=== PATIENT | female | born 1980 | race Hispanic/Latino ===

== ENCOUNTER 2018-01-25 14:33 | Emergency (ER) | payer BC ==
--- NOTE | 2018-01-25 16:26 | RAD REPORT ---
EXAM DESCRIPTION: CT - Head Brain Wo Cont - 01/25/2018 4:14 pm CLINICAL HISTORY: Headache, nausea, vomiting COMPARISON: None. TECHNIQUE: Axial 5 mm thick images of the head were obtained without IV contrast. All CT scans are performed using dose optimization technique as appropriate and may include automated exposure control or mA/KV adjustment according to patient size. FINDINGS: No intracranial hemorrhage, mass, edema or shift of mid-line structures. No acute infarcti on changes seen. No abnormal extra-axial fluid collections. Ventricles are normal. Mastoid air cells and visualized portions of the paranasal sinuses are clear. No acute bony findings. IMPRESSION: Negative non-contrast CT head examination.
[2018-01-25] MEDS ORDERED: MORPHINE 4 MG/ML SYR ONE (16:52)
[2018-01-25] MEDS ORDERED: METOCLOPRAMIDE 10 MG/2mL INJ ONE (16:52)
[2018-01-25] MEDS ORDERED: NA CHLORIDE 0.9% 1,000 ML ONE (16:52)
[2018-01-25 17:41] LABS: Urine Blood 2+ (NEG); Urine Glucose NEGATIVE (NEG); Urine Protein NEGATIVE (NEG); Urine Specific Gravity >1.030 (1.005-1.030); Urine pH 5.5 (5.0-7.0)
--- NOTE | 2018-01-25 18:02 | EDPHYS ---
Physician Documentation [facility] Name: Shirley Leija Age: 37 yrs Sex: Female : 1980 Arrival Date: 01/25/2018 Time: 14:36 Bed 14 Private MD: Akhil Noble H ED Physician Armani Mon HPI: 01/25 16:28 This 37 yrs old Female presents to ER via Ambulatory with complaints of rn Headache, Dizziness, Vomiting. 16:28 The patient complains of pain to the forehead. The patient describes the headache as rn aching. 16:29 Onset: The symptoms/episode began/occurred yesterday. Associated signs and symptoms: rn Pertinent positives: nausea, Photophobia vomiting, Pertinent negatives: fever, neck stiffness. Severity of symptoms: At its worst the pain was moderate, in the emergency department the pain is unchanged. Headache History: The patient has had previous headaches and this one is similar to previous episodes. The patient has experienced similar episodes in the past. The patient has not recently seen a physician. 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 - Social history:: Smoking status: Patient/guardian denies using tobacco. - Ebola Screening: : No symptoms or risks identified at this time. - Family history:: not pertinent. - Hospitalizations: : No recent hospitalization is reported. ROS: 16:29 Constitutional: Negative for fever, chills, and weight loss, Eyes: Negative for injury, rn pain, redness, and discharge, Neck: Negative for injury, pain, and swelling, Cardiovascular: Negative for chest pain, palpitations, and edema, Respiratory: Negative for shortness of breath, cough, wheezing, and pleuritic chest pain, Abdomen/GI: Negative for abdominal pain, diarrhea, and constipation, MS/Extremity: Negative for injury and deformity, Skin: Negative for injury, rash, and discoloration, Neuro: Negative for weakness, numbness, tingling, and seizure. Exam: 16:29 Constitutional: This is a well developed, well nourished patient who is awake, alert, rn and in no acute distress. Head/Face: Normocephalic, atraumatic. Eyes: Pupils equal round and reactive to light, extra-ocular motions intact. Lids and lashes normal. Conjunctiva and sclera are non-icteric and not injected. Cornea within normal limits. Periorbital areas with no swelling, redness, or edema. Neck: Trachea midline, no thyromegaly or masses palpated, and no cervical lymphadenopathy. Supple, full range of motion without nuchal rigidity, or vertebral point tenderness. No Meningismus. Cardiovascular: Regular rate and rhythm with a normal S1 and S2. No gallops, murmurs, or rubs. Normal PMI, no JVD. No pulse deficits. Respiratory: Lungs have equal breath sounds bilaterally, clear to auscultation and percussion. No rales, rhonchi or wheezes noted. No increased work of breathing, no retractions or nasal flaring. Abdomen/GI: Soft, non-tender, with normal bowel sounds. No distension or tympany. No guarding or rebound. No evidence of tenderness throughout. Skin: Warm, dry with normal turgor. Normal color with no rashes, no lesions, and no evidence of cellulitis. MS/ Extremity: Pulses equal, no cyanosis. Neurovascular intact. Full, normal range of motion. Equal circumference. Neuro: Awake and alert, GCS 15, oriented to person, place, time, and situation. Cranial nerves II-XII grossly intact. Motor strength 5/5 in all extremities. Sensory grossly intact. Cerebellar exam normal. Vital Signs: 14:40 BP 121 / 62 RA Sitting (auto/lg); Pulse 56; Resp 18; Temp 98.8(TE); Pulse Ox 99% ; sv Weight 72.57 kg; Height 5 ft. 0 in. (152.40 cm); Pain 10/10; 17:04 BP 112 / 66; Pulse 63; Resp 16; Pulse Ox 100% on R/A; aj1 18:11 BP 124 / 73; Pulse 53; Resp 18; Pulse Ox 100% on R/A; aj1 14:40 Body Mass Index 31.25 (72.57 kg, 152.40 cm) sv [place] Coma Score: 18:01 Eye Response: spontaneous(4). Verbal Response: oriented(5). Motor Response: obeys rn commands(6). Total: 15. MDM: 15:57 Patient medically screened. rn 18:01 Differential diagnosis: migraine, tension headache, vasomotor headache. Data reviewed: rn vital signs, nurses notes, lab test result(s), radiologic studies, CT scan, and as a result, I will discharge patient. Counseling: I had a detailed discussion with the patient and/or guardian regarding: the historical points, exam findings, and any diagnostic results supporting the discharge/admit diagnosis, radiology results, the need for further work-up and treatment in the hospital, to return to the emergency department if symptoms worsen or persist or if there are any questions or concerns that arise at home. Response to treatment: the patient's symptoms have markedly improved after treatment, and as a result, I will discharge patient. Special discussion: I discussed with the patient/guardian in detail that at this point there is no indication for admission to the hospital. It is understood, however, that if the symptoms persist or worsen the patient needs to return immediately for re-evaluation. 01/25 16:44 Order name: Urine Dipstick--Ancillary (enter results); Complete Time: 17:58 01/25 16:44 Order name: Urine --Ancillary (enter results); Complete Time: 17:58 01/25 16:02 Order name: CT Head Brain wo Cont; Complete Time: 16:28 rn 01/25 16:02 Order name: Urine Dipstick-Ancillary (obtain specimen); Complete Time: 16:44 rn 01/25 16:02 Order name: Urine Test (obtain specimen); Complete Time: 16:44 rn 01/25 16:02 Order name: IV Start; Complete Time: 16:45 rn Administered Medications: 16:55 Drug: NS 0.9% 1000 ml Route: IV; Rate: 1000 ml; Site: right antecubital; aj1 18:22 Follow up: IV Status: Completed infusion; IV Intake: 1000ml aj1 16:55 Drug: Reglan 10 mg Route: IVP; Site: right antecubital; aj1 18:22 Follow up: Response: No adverse reaction aj1 16:55 Drug: morphine 4 mg Route: IVP; Site: right antecubital; aj1 18:22 Follow up: Response: No adverse reaction aj1 Disposition: 01/25/18 18:01 Discharged to Home. Impression: Headache. - Condition is Stable. - Discharge Instructions: Migraine Headache. - Medication Reconciliation Form, Thank You Letter, Antibiotic Education, Prescription Opioid Use form. - Follow up: Private Physician; When: As needed; Reason: Recheck today's complaints, Re-evaluation by your physician. - Problem is new. - Symptoms have improved. Signatures: Dispatcher [employer] EDMirta Friedman RN RN aj1 Tori Waters RN RN sv Nieto, Roman, MD MD rn case manager hospice: (The following items were deleted from the chart) 18:23 18:01 01/25/2018 18:01 Discharged to Home. Impression: Headache. Condition is Stable. aj1 Forms are Medication Reconciliation Form, Thank You Letter, Antibiotic Education, Prescription Opioid Use. Follow up: Private Physician; When: As needed; Reason: Recheck today's complaints, Re-evaluation by your physician. Problem is new. Symptoms have improved. rn
--- NOTE | 2018-01-25 18:02 | ER ---
Nurse's Notes [facility] Name: Shirley Leija Age: 37 yrs Sex: Female : 1980 Arrival Date: 01/25/2018 Time: 14:36 Bed 14 Private MD: Akhil Noble H Diagnosis: Headache Presentation: 01/25 14:39 Presenting complaint: Patient states: headache x 1 day. c/o nausea, vomiting, sv dizziness. Transition of care: patient was not received from another setting of care. Onset of symptoms was January 24, 2017. Care prior to arrival: None. 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 - Social history:: Smoking status: Patient/guardian denies using tobacco. - Ebola Screening: : No symptoms or risks identified at this time. - Family history:: not pertinent. - Hospitalizations: : No recent hospitalization is reported. Screenin:23 Abuse screen: Denies threats or abuse. Denies injuries from another. Nutritional aj1 screening: No deficits noted. Tuberculosis screening: No symptoms or risk factors identified. Assessment: 16:23 General: Appears in no apparent distress. uncomfortable, Behavior is calm, cooperative, aj1 appropriate for age. Pain: Complains of pain in right temporal area and right occipital area Pain does not radiate. Pain currently is 10 out of 10 on a pain scale. Quality of pain is described as throbbing, Pain began 1 day ago. Alleviated by nothing. Aggravated by loud noises. Neuro: Level of Consciousness is awake, alert, obeys commands, Oriented to person, place, time, situation, Speech is normal, Facial symmetry appears normal, Reports dizziness, headache Denies weakness blurred vision photophobia. Cardiovascular: Patient's skin is warm and dry. Respiratory: Airway is patent Respiratory effort is even, unlabored, Respiratory pattern is regular, symmetrical. GI: No signs and/or symptoms were reported involving the gastrointestinal system. : No signs and/or symptoms were reported regarding the genitourinary system. EENT: No signs and/or symptoms were reported regarding the EENT system. Derm: No signs and/or symptoms reported regarding the dermatologic system. Skin is pink, warm \T\ dry. normal. Musculoskeletal: No signs and/or symptoms reported regarding the musculoskeletal system. Capillary refill. 17:01 Reassessment: Patient appears in no apparent distress at this time. No changes from aj1 previously documented assessment. Patient and/or family updated on plan of care and expected duration. Pain level reassessed. Patient is alert, oriented x 3, equal unlabored respirations, skin warm/dry/pink. 18:10 Reassessment: Patient appears in no apparent distress at this time. No changes from aj1 previously documented assessment. Patient and/or family updated on plan of care and expected duration. Pain level reassessed. Patient is alert, oriented x 3, equal unlabored respirations, skin warm/dry/pink. Vital Signs: 14:40 BP 121 / 62 RA Sitting (auto/lg); Pulse 56; Resp 18; Temp 98.8(TE); Pulse Ox 99% ; sv Weight 72.57 kg; Height 5 ft. 0 in. (152.40 cm); Pain 10/10; 17:04 BP 112 / 66; Pulse 63; Resp 16; Pulse Ox 100% on R/A; aj1 18:11 BP 124 / 73; Pulse 53; Resp 18; Pulse Ox 100% on R/A; aj1 14:40 Body Mass Index 31.25 (72.57 kg, 152.40 cm) sv [place] Coma Score: 18:01 Eye Response: spontaneous(4). Verbal Response: oriented(5). Motor Response: obeys rn commands(6). Total: 15. ED Course: 14:36 Patient arrived in ED. mr 14:36 Akhil Noble DO is Private Physician. mr 14:39 Triage completed. sv 14:40 Arm band placed on left wrist. sv 14:41 Patient placed in waiting room, on a stretcher, Patient notified of wait time. sv 15:50 Mirta Robb RN is Primary Nurse. aj1 15:57 Armani Mon MD is Attending Physician. rn 16:[address] sj 16:[address] via wheelchair. 16:13 CT completed. Patient tolerated procedure well. Patient moved back from CT. sw 16:14 CT Head Brain wo Cont In Process Unspecified. EDMS 16:23 Patient has correct armband on for positive identification. Bed in low position. Call aj1 light in reach. Side rails up X 1. 16:23 No provider procedures requiring assistance completed. aj1 18:21 IV discontinued, intact, bleeding controlled, No redness/swelling at site. Pressure aj1 dressing applied. Administered Medications: 16:55 Drug: NS 0.9% 1000 ml Route: IV; Rate: 1000 ml; Site: right antecubital; aj1 18:22 Follow up: IV Status: Completed infusion; IV Intake: 1000ml aj1 16:55 Drug: Reglan 10 mg Route: IVP; Site: right antecubital; aj1 18:22 Follow up: Response: No adverse reaction aj1 16:55 Drug: morphine 4 mg Route: IVP; Site: right antecubital; aj1 18:22 Follow up: Response: No adverse reaction aj Intake: 18:22 IV: 1000ml; Total: 1000ml. aj1 Outcome: 18:01 Discharge ordered by . rn 18:21 Discharged to home ambulatory. aj1 18:21 Condition: good 18:21 Discharge instructions given to patient, Instructed on discharge instructions, follow up and referral plans. Demonstrated understanding of instructions, follow-up care. 18:23 Patient left the ED. aj1 Signatures: Dispatcher [employer] EDMirta Friedman RN RN aj1 Verde, Stephanie, RN RN sv Rivera, Maria mr Jones, Armani Redman MD MD rn Warren, Shannon sw
[2018-01-25 18:32] VITALS: TEMP 98.8
[2018-01-25 18:35] VITALS: O2SAT 100
[2018-01-25 18:36] VITALS: BP 124/73
== END 2018-01-25 18:23 | disposition home or self-care (01) ==
LOC: ER 14:33
DX: R51 Headache (principal); R42 Dizziness and giddiness; R11.10 Vomiting, unspecified
CPT/HCPCS: 70450; 81003; 81025; 96361; 96374; 96375; 99284; J2765; J7030

== ENCOUNTER 2018-06-15 14:38 | Emergency (ER) | payer BC, SELFPAY ==
[2018-06-15] MEDS ORDERED: ONDANSETRON 4 MG/2 ML VIAL ONE (16:44)
[2018-06-15] MEDS ORDERED: KETOROLAC 30 MG/ML INJ ONE (16:44)
[2018-06-15] MEDS ORDERED: NA CHLORIDE 0.9% 1,000 ML ONE (16:44)
[2018-06-15 16:57] LABS: Absolute Lymphocytes (CBC) 2.4 K/uL (0.7-4.9); Absolute Monocytes 0.6 K/uL (0.1-1.3); Absolute Neutrophil 5.4 K/uL (1.8-8.0); Basophils % 0.6 % (0-1.3); Eosinophils % 2.2 % (0-4.4); Hematocrit 35.5 % (36.0-45.0); Lymphocytes % 27.4 % (15.3-44.8); MCH 30.3 pg (27.0-35.0); MCV 89.2 fL (80-100); MPV 8.9 fL (7.6-11.3); Monocytes % 7.1 % (3.3-12.3); RBC Red Blood Cell Count 3.99 M/uL (3.86-4.86)
[2018-06-15 17:19] LABS: ALT/SGPT 43 U/L (12-78); AST/SGOT 18 U/L (15-37); Albumin 3.6 g/dL (3.4-5.0); Alkaline Phosphatase 80 U/L (45-117); BUN Blood Urea Nitrogen 11 mg/dL (7-18); Bicarbonate 25 mmol/L (21-32); Bilirubin Direct < 0.1 mg/dL (0-0.2); Bilirubin Total 0.2 mg/dL (0.2-1.0); Glucose Level 103 mg/dL (74-106); Lipase 113 U/L (73-393); Potassium 3.9 mmol/L (3.5-5.1); Sodium Level 139 mmol/L (136-145)
--- NOTE | 2018-06-15 18:52 | RAD REPORT ---
EXAM DESCRIPTION: CT - Abdomen Pelvis W Contrast - 06/15/2018 6:36 pm CLINICAL HISTORY: Abdominal pain, left lower quadrant pain COMPARISON: CT study January 2014 TECHNIQUE: Biphasic, helical CT imaging of the abdomen and pelvis was performed following 100 ml non -ionic IV contrast. Oral contrast was given. All CT scans are performed using dose optimization technique as appropriate and may include automated exposure control or mA/KV adjustment according to patient size. FINDINGS: No suspicious findings in the lung bases. Liver shows a prominent fatty infiltration pattern with no focal liver lesions. Spleen and pancreas s how no suspicious findings. Cholecystectomy clips are present with no biliary tree dilatation. Symmetric renal function is seen with no hydronephrosis or suspicious renal mass. No pyelonephritis o r acute renal parenchymal process. No urinary bladder abnormality. Uterus and ovaries are within norm al limits. Small normal for age ovarian cysts are present. No cyst rupture or hemorrhage suspected. No dilated bowel loops or bowel wall thickening. Appendix is normal. No free air, free fluid or infla mmatory stranding. No mass or bulky lymphadenopathy. Patient has a 2.8 centimeter fat filled umbilic al hernia. No congestion or edema. The hernia has enlarged since 2013. No adrenal abnormality. No suspicious bony findings. IMPRESSION: No bowel obstruction, free air or other surgically emergent finding. Diffuse fatty infiltration of the liver. Gallbladder is absent. No acute , GI or FIELD EXAMINER process identifiable. A 2.8 centimeter fat filled umbilical hernia is present without acute component. This has enlarged si nce 2014.
[2018-06-15 19:03] LABS: Urine Blood TRACE (NEG); Urine Glucose NEGATIVE (NEG); Urine Protein NEGATIVE (NEG); Urine Specific Gravity 1.025 (1.005-1.030); Urine pH 6.5 (5.0-7.0)
--- NOTE | 2018-06-15 19:03 | EDPHYS ---
Physician Documentation [facility] Name: Shirley Leija Age: 37 yrs Sex: Female : 1980 Arrival Date: 06/15/2018 Time: 14:42 Bed 28 Private MD: Akhil Noble H ED Physician Iban La HPI: 06/15 15:15 This 37 yrs old Female presents to ER via Ambulatory with complaints of Flank cp Pain. 15:15 The patient complains of pain in the left lower abdomen. cp 15:15 The pain radiates to the left low back. Onset: The symptoms/episode began/occurred last cp night. Associated signs and symptoms: Pertinent negatives: diarrhea, dysuria, fever, hematuria, pain radiating to the lower extremities, vomiting. Severity of pain: in the emergency department the pain is unchanged despite home interventions. 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 - Social history:: Smoking status: Patient/guardian denies using tobacco, Patient/guardian denies using alcohol. - Ebola Screening: : Patient negative for fever greater than or equal to 101.5 degrees Fahrenheit, and additional compatible Ebola Virus Disease symptoms Patient denies exposure to infectious person Patient denies travel to an Ebola-affected area in the 21 days before illness onset. ROS: 15:20 Constitutional: Negative for body aches, chills, fever, poor PO intake. cp 15:20 Eyes: Negative for injury, pain, redness, and discharge. cp 15:20 Cardiovascular: Negative for chest pain, edema, palpitations. 15:20 Respiratory: Negative for cough, shortness of breath, wheezing. 15:20 Abdomen/GI: Positive for abdominal pain, Negative for vomiting, diarrhea, constipation, black/tarry stool, rectal bleeding. 15:20 Back: Positive for radiated pain, of the left low back. 15:20 : Negative for urinary symptoms, vaginal bleeding, vaginal discharge. 15:20 Skin: Negative for cellulitis, rash. 15:20 Neuro: Negative for altered mental status, headache, weakness. 15:20 All other systems are negative. Exam: 15:25 Constitutional: The patient appears in no acute distress, alert, awake, non-toxic, well cp developed, well nourished. 15:25 Head/Face: Normocephalic, atraumatic. cp 15:25 Eyes: Periorbital structures: appear normal, Conjunctiva: normal, no exudate, no injection, Sclera: no appreciated abnormality, Lids and lashes: appear normal, bilaterally. 15:25 ENT: External ear(s): are unremarkable, Nose: is normal, Mouth: Lips: moist, Oral mucosa: moist, Posterior pharynx: is normal, airway is patent, no erythema, no exudate. 15:25 Chest/axilla: Inspection: normal, Palpation: is normal, no crepitus, no tenderness. 15:25 Cardiovascular: Rate: normal, Rhythm: regular. 15:25 Respiratory: the patient does not display signs of respiratory distress, Respirations: normal, no use of accessory muscles, no retractions, no splinting, no tachypnea, Breath sounds: are clear throughout, no decreased breath sounds, no stridor, no wheezing. 15:25 Abdomen/GI: Inspection: abdomen appears normal, Bowel sounds: active, all quadrants, Palpation: soft, in all quadrants, moderate abdominal tenderness, in the posterior aspect of left lateral abdomen, anterior aspect of left lateral abdomen and left lower quadrant, rebound tenderness, is not appreciated, involuntary guarding, is not appreciated. 15:25 Back: pain, that is mild, of the left low back, ROM is normal, CVA tenderness, is absent. 15:25 Skin: cellulitis, is not appreciated, no rash present. Vital Signs: 14:59 BP 108 / 67; Pulse 78; Resp 18; Temp 98.3(O); Pulse Ox 99% on R/A; Weight 74.84 kg; hj Height 5 ft. 0 in. (152.40 cm); Pain 10/10; 16:47 BP 118 / 63; Pulse 60; Resp 18; Pulse Ox 100% on R/A; Pain 10/10; mg2 17:52 BP 110 / 75; Pulse 63; Resp 18; Pulse Ox 100% on R/A; mg2 18:54 BP 116 / 68; Pulse 76; Resp 18; Pulse Ox 100% ; Pain 0/10; mg2 14:59 Body Mass Index 32.22 (74.84 kg, 152.40 cm) MDM: 15:42 Patient medically screened. cp 16:00 Differential diagnosis: nephrolithiasis, pyelonephritis, diverticulitis, ovarian cyst, cp ovarian torsion. 19:00 Data reviewed: vital signs, nurses notes, lab test result(s), radiologic studies, CT cp scan. 19:00 Counseling: I had a detailed discussion with the patient and/or guardian regarding: the cp historical points, exam findings, and any diagnostic results supporting the discharge/admit diagnosis, lab results, radiology results, to return to the emergency department if symptoms worsen or persist or if there are any questions or concerns that arise at home. Response to treatment: the patient's symptoms have markedly improved after treatment, and as a result, I will discharge patient. Special discussion: Based on the patient's Hx, exam, and Dx evaluation, there is no indication for emergent surgery or inpatient Tx. It is understood by the patient/guardian that if the Sx's persist or worsen they need to return immediately for re-evaluation. 06/15 16:19 Order name: Urine Dipstick--Ancillary (enter results); Complete Time: 19:05 06/15 19:05 Interpretation: Normal except: UBLD TRACE. 06/15 16:19 Order name: Urine --Ancillary (enter results); Complete Time: 19:05 06/15 19:05 Interpretation: Reviewed. 06/15 16:23 Order name: Basic Metabolic Panel; Complete Time: 17:55 06/15 18:58 Interpretation: Normal except: GFR 81; CA 8.4. 06/15 16:23 Order name: CBC with Diff; Complete Time: 17:12 13 17:13 Interpretation: Normal except: HCT 35.5. 06/15 16:23 Order name: Creatinine for Radiology; Complete Time: 17:55 06/15 16:23 Order name: Hepatic Function; Complete Time: 17:55 06/15 17:56 Interpretation: Normal except: GLOB 4.4; A/G 0.8. 06/15 15:01 Order name: Urine Dipstick-Ancillary (obtain specimen); Complete Time: 15:52 06/15 15:02 Order name: Urine Test (obtain specimen); Complete Time: 15:52 06/15 16:23 Order name: Lipase; Complete Time: 17:55 06/15 16:23 Order name: IV Saline Lock; Complete Time: 16:47 06/15 16:23 Order name: CT Abd/Pelvis - W/Contrast; Complete Time: 18:57 06/15 16:23 Order name: Labs collected and sent; Complete Time: 16:47 cp Administered Medications: 16:46 Drug: NS 0.9% 1000 ml Route: IV; Rate: 1 bolus; Site: right antecubital; mg2 19:16 Follow up: Response: No adverse reaction; IV Status: Completed infusion mg2 16:46 Drug: TORadol 30 mg Route: IVP; Site: right antecubital; mg2 19:16 Follow up: Response: No adverse reaction; Marked relief of symptoms mg2 16:46 Drug: Zofran 4 mg Route: IVP; Site: right antecubital; mg2 19:15 Follow up: Response: No adverse reaction; Marked relief of symptoms mg2 Disposition: 06/15/18 19:02 Discharged to Home. Impression: Umbilical hernia without obstruction or gangrene, Lower abdominal pain, unspecified - Left. - Condition is Stable. - Discharge Instructions: Abdominal Pain, Adult, Hernia, Adult. - Prescriptions for Naprosyn 500 mg Oral Tablet - take 1 tablet by ORAL route 2 times per day take with food; 20 tablet. - Medication Reconciliation Form, Thank You Letter, Antibiotic Education, Prescription Opioid Use form. - Follow up: Néstor Belcher MD; When: 2 - 3 days; Reason: umbilical hernia. - Problem is new. - Symptoms have improved. - Notes: No heavy lifting or excessive bending/stooping until follow-up by surgeon Signatures: Dispatcher [employer] Néstor Dorantes RN RN hj Page, Corey, PA PA cp Gardose, Michele, RN RN mg2 Corrections: (The following items were deleted from the chart) 18:58 17:56 Normal except: GFR 81. cp cp 19:16 19:02 06/15/2018 19:02 Discharged to Home. Impression: Umbilical hernia without mg2 obstruction or gangrene; Lower abdominal pain, unspecified - Left. Condition is Stable. Forms are Medication Reconciliation Form, Thank You Letter, Antibiotic Education, Prescription Opioid Use. Follow up: Néstor Belcher; When: 2 - 3 days; Reason: umbilical hernia. Problem is new. Symptoms have improved. cp
--- NOTE | 2018-06-15 19:03 | ER ---
Nurse's Notes [facility] Name: Shirley Leija Age: 37 yrs Sex: Female : 1980 Arrival Date: 06/15/2018 Time: 14:42 Bed 28 Private MD: Akhil Noble H Diagnosis: Umbilical hernia without obstruction or gangrene;Lower abdominal pain, unspecified-Left Presentation: 06/15 14:57 Presenting complaint: Patient states: i ve been having this pain on my L lower abd hj since last night; denies N/V; denies fever and chills; denies constipation/ diarrhea;. Transition of care: patient was not received from another setting of care. Onset of symptoms was June 15, 2018. Risk Assessment: Do you want to hurt yourself or someone else? Patient reports no desire to harm self or others. Initial Sepsis Screen: Does the patient meet any 2 criteria? No. Patient's initial sepsis screen is negative. Does the patient have a suspected source of infection? No. Patient's initial sepsis screen is negative. Care prior to arrival: None. 14:57 Method Of Arrival: Ambulatory 14:57 Acuity: ABBY 3 Triage Assessment: 14:59 General: Appears in no apparent distress. uncomfortable, Behavior is calm, cooperative, hj appropriate for age. Pain: Complains of pain in left lower quadrant. 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 - Social history:: Smoking status: Patient/guardian denies using tobacco, Patient/guardian denies using alcohol. - Ebola Screening: : Patient negative for fever greater than or equal to 101.5 degrees Fahrenheit, and additional compatible Ebola Virus Disease symptoms Patient denies exposure to infectious person Patient denies travel to an Ebola-affected area in the 21 days before illness onset. Screenin:59 Abuse screen: Denies threats or abuse. Denies injuries from another. Nutritional hj screening: No deficits noted. Tuberculosis screening: No symptoms or risk factors identified. Fall Risk None identified. Assessment: 16:12 General: Appears in no apparent distress. comfortable, Behavior is calm, cooperative. mg2 Pain: Complains of pain in left lower quadrant Pain does not radiate. Pain currently is 10 out of 10 on a pain scale. Quality of pain is described as aching, Pain began gradually, Is intermittent. Neuro: Level of Consciousness is awake, alert, obeys commands, Oriented to person, place, time, situation. Cardiovascular: Capillary refill < 3 seconds Patient's skin is warm and dry. Respiratory: Airway is patent Respiratory effort is even, unlabored, Respiratory pattern is regular, symmetrical. GI: No signs and/or symptoms were reported involving the gastrointestinal system. : Urine is clear, Reports pain in left in suprapubic area lower quadrant(s). EENT: No signs and/or symptoms were reported regarding the EENT system. Derm: Skin is intact, is healthy with good turgor, Skin is pink, warm \T\ dry. normal. Musculoskeletal: No signs and/or symptoms reported regarding the musculoskeletal system. 17:53 Reassessment: Patient appears in no apparent distress at this time. Patient and/or mg2 family updated on plan of care and expected duration. Pain level reassessed. Patient is alert, oriented x 3, equal unlabored respirations, skin warm/dry/pink. Vital Signs: 14:59 BP 108 / 67; Pulse 78; Resp 18; Temp 98.3(O); Pulse Ox 99% on R/A; Weight 74.84 kg; hj Height 5 ft. 0 in. (152.40 cm); Pain 10/10; 16:47 BP 118 / 63; Pulse 60; Resp 18; Pulse Ox 100% on R/A; Pain 10/10; mg2 17:52 BP 110 / 75; Pulse 63; Resp 18; Pulse Ox 100% on R/A; mg2 18:54 BP 116 / 68; Pulse 76; Resp 18; Pulse Ox 100% ; Pain 0/10; mg2 14:59 Body Mass Index 32.22 (74.84 kg, 152.40 cm) ED Course: 14:42 Patient arrived in ED. rg4 14:42 Akhil Noble DO is Private Physician. rg4 14:58 Triage completed. hj 14:59 Arm band placed on right wrist. hj 15:01 Patient has correct armband on for positive identification. Placed in gown. Bed in low hj position. Call light in reach. Side rails up X 1. 15:41 Malvin Arrieta, RN is Primary Nurse. mg2 15:41 John Hernández PA is PHCP. cp 15:42 Iban La MD is Attending Physician. cp 16:47 No provider procedures requiring assistance completed. Inserted saline lock: 20 gauge mg2 in right antecubital area, using aseptic technique. Blood collected. 18:[address] via wheelchair. nj 18:36 CT Abd/Pelvis - W/Contrast In Process Unspecified. EDMS 19:01 Néstor Belcher MD is Referral Physician. cp 19:16 IV discontinued, intact, bleeding controlled, No redness/swelling at site. Pressure mg2 dressing applied. Administered Medications: 16:46 Drug: NS 0.9% 1000 ml Route: IV; Rate: 1 bolus; Site: right antecubital; mg2 19:16 Follow up: Response: No adverse reaction; IV Status: Completed infusion mg2 16:46 Drug: TORadol 30 mg Route: IVP; Site: right antecubital; mg2 19:16 Follow up: Response: No adverse reaction; Marked relief of symptoms mg2 16:46 Drug: Zofran 4 mg Route: IVP; Site: right antecubital; mg2 19:15 Follow up: Response: No adverse reaction; Marked relief of symptoms mg2 Outcome: 19:02 Discharge ordered by MD. cp 19:16 Discharged to home ambulatory. mg2 19:16 Condition: good 19:16 Discharge instructions given to patient, Instructed on discharge instructions, follow up and referral plans. medication usage, Demonstrated understanding of instructions, follow-up care, medications, Prescriptions given X 1. 19:16 Patient left the ED. mg2 Signatures: Dispatcher [employer] EDMS Néstor Rosenthal RN RN hj John Hernández PA PA cp Garcia, Rubi rg4 Behzad Concepcion Michele, RN RN mg2 Corrections: (The following items were deleted from the chart) 15:02 14:59 Pulse 78bpm; Resp 18bpm; Pulse Ox 99% RA; Temp 98.3F Oral; 74.84 kg; Height 5 ft. hj 0 in.; BMI: 32.2; Pain 10/10; hj
[2018-06-15 19:32] VITALS: O2SAT 100
[2018-06-15 19:34] VITALS: TEMP 98.3
[2018-06-15 19:37] VITALS: BP 116/68
== END 2018-06-15 19:16 | disposition home or self-care (01) ==
LOC: ER 14:38
DX: K42.9 Umbilical hernia without obstruction or gangrene (principal)
CPT/HCPCS: 36415; 74177; 80048; 80076; 81003; 81025; 83690; 85025; 96361; 96374; 96375; 99284; J2405; J7030; Q9967

== ENCOUNTER 2018-07-17 07:14 | Emergency (ER) | payer OTHER, SELFPAY ==
[2018-07-17] MEDS ORDERED: KETOROLAC 30 MG/ML INJ ONE (08:04)
[2018-07-17] MEDS ORDERED: NA CHLORIDE 0.9% 1,000 ML ONE (08:04)
[2018-07-17] MEDS ORDERED: ONDANSETRON 4 MG/2 ML VIAL ONE (08:04)
[2018-07-17 08:11] LABS: Absolute Lymphocytes (CBC) 1.7 K/uL (0.7-4.9); Absolute Monocytes 0.4 K/uL (0.1-1.3); Absolute Neutrophil 4.2 K/uL (1.8-8.0); Basophils % 0.5 % (0-1.3); Eosinophils % 2.1 % (0-4.4); Hematocrit 36.3 % (36.0-45.0); Lymphocytes % 26.3 % (15.3-44.8); Monocytes % 5.6 % (3.3-12.3); RBC Red Blood Cell Count 4.08 M/uL (3.86-4.86)
[2018-07-17 08:19] LABS: Potassium 3.9 mmol/L (3.5-5.1)
--- NOTE | 2018-07-17 08:52 | RAD REPORT ---
EXAM DESCRIPTION: CT - Stone Protocol - 07/17/2018 8:38 am CLINICAL HISTORY: Flank pain. Abd pain;Flank pain COMPARISON: Abdomen Pelvis W Contrast dated 06/15/2018 TECHNIQUE: Axial images were obtained without oral or IV contrast. Lack of contrast limits solid org an and vascular assessment. The [id number] spans the entirety of the system partially obscuring uppermost abdomen and lung bases. Coronal reformatted images were obtained and reviewed. All CT scans are performed using dose optimization technique as appropriate and may include automated exposure control or mA/KV adjustment according to patient size. FINDINGS: The lower lung collado are clear. Cholecystectomy clips. Imaged portions of the liver and spleen show no suspicious findings on non-contrast imaging. The panc reas and adrenal glands are normal.Small fat containing umbilical hernia. No pathologic lymphadenopat hy in the abdomen or pelvis. No urinary tract stones or obstructive uropathy. No bowel obstruction, free air, free fluid or abscess. Normal appendix noted. Moderate degenerative change is present at L4-5 and L5-S1. IMPRESSION: No urinary tract stones or obstructive uropathy. Moderate fat containing umbilical hernia.
--- NOTE | 2018-07-17 08:57 | EDPHYS ---
Physician Documentation [facility] Name: Shirley Leija Age: 38 yrs Sex: Female : 1980 Arrival Date: 07/17/2018 Time: 07:19 Bed 16 Private MD: Akhil Noble H ED Physician Troy Elizalde HPI: 07/17 08:29 This 38 yrs old Female presents to ER via Ambulatory with complaints of kb Abdominal Pain, Vomiting. 08:29 The patient presents with abdominal pain in the left lower quadrant. Onset: The kb symptoms/episode began/occurred 3 day(s) ago. The symptoms radiate to the left flank. Associated signs and symptoms: Pertinent positives: nausea, vomiting, Pertinent negatives: anorexia, blood in stools, chest pain, constipation, diarrhea, dysuria, fever, headache, hematuria, palpitations, shortness of breath, vaginal discharge, vomiting blood. The symptoms are described as constant. Modifying factors: The symptoms are alleviated by nothing, the symptoms are aggravated by nothing. Severity of pain: At its worst the pain was moderate in the emergency department the pain is unchanged. The patient has not experienced similar symptoms in the past. The patient has not recently seen a physician. 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 - Social history:: Smoking status: Patient/guardian denies using tobacco, Patient/guardian denies using alcohol. - Ebola Screening: : Patient negative for fever greater than or equal to 101.5 degrees Fahrenheit, and additional compatible Ebola Virus Disease symptoms Patient denies exposure to infectious person Patient denies travel to an Ebola-affected area in the 21 days before illness onset. ROS: 08:29 Constitutional: Negative for fever, chills, and weight loss, ENT: Negative for injury, kb pain, and discharge, Neck: Negative for injury, pain, and swelling, Cardiovascular: Negative for chest pain, palpitations, and edema, Respiratory: Negative for shortness of breath, cough, wheezing, and pleuritic chest pain, Back: Negative for injury and pain, : Negative for injury, bleeding, discharge, and swelling, MS/Extremity: Negative for injury and deformity, Skin: Negative for injury, rash, and discoloration, Neuro: Negative for headache, weakness, numbness, tingling, and seizure. 08:29 Abdomen/GI: Positive for abdominal pain, nausea and vomiting. Exam: 08:31 Constitutional: This is a well developed, well nourished patient who is awake, alert, kb and in no acute distress. Head/Face: Normocephalic, atraumatic. ENT: Nares patent. No nasal discharge, no septal abnormalities noted. Tympanic membranes are normal and external auditory canals are clear. Oropharynx with no redness, swelling, or masses, exudates, or evidence of obstruction, uvula midline. Mucous membranes moist. Neck: Trachea midline, no thyromegaly or masses palpated, and no cervical lymphadenopathy. Supple, full range of motion without nuchal rigidity, or vertebral point tenderness. No Meningismus. Chest/axilla: Normal chest wall appearance and motion. Nontender with no deformity. No lesions are appreciated. Cardiovascular: Regular rate and rhythm with a normal S1 and S2. No gallops, murmurs, or rubs. Normal PMI, no JVD. No pulse deficits. Respiratory: Lungs have equal breath sounds bilaterally, clear to auscultation and percussion. No rales, rhonchi or wheezes noted. No increased work of breathing, no retractions or nasal flaring. Skin: Warm, dry with normal turgor. Normal color with no rashes, no lesions, and no evidence of cellulitis. MS/ Extremity: Pulses equal, no cyanosis. Neurovascular intact. Full, normal range of motion. Neuro: Awake and alert, GCS 15, oriented to person, place, time, and situation. Cranial nerves II-XII grossly intact. Motor strength 5/5 in all extremities. Sensory grossly intact. Cerebellar exam normal. Normal gait. 08:31 Abdomen/GI: Inspection: abdomen appears normal, Bowel sounds: normal, in all quadrants, Palpation: soft, in all quadrants, mild abdominal tenderness, in the left upper quadrant and left lower quadrant. Vital Signs: 07:23 BP 118 / 68; Pulse 66; Resp 18; Temp 98.2(TE); Pulse Ox 100% on R/A; Weight 72.57 kg; hj Height 5 ft. 0 in. (152.40 cm); Pain 10/10; 09:05 BP 103 / 65; Pulse 57; Resp 18; Pulse Ox 100% on R/A; Pain 7/10; tw2 09:52 BP 109 / 90; Pulse 69; Resp 17; Pulse Ox 100% on R/A; tw2 07:23 Body Mass Index 31.25 (72.57 kg, 152.40 cm) hj MDM: 07:27 Patient medically screened. kb 08:31 Data reviewed: vital signs, nurses notes. Data interpreted: Pulse oximetry: on room air kb is 100 %. Interpretation: normal. 08:55 Counseling: I had a detailed discussion with the patient and/or guardian regarding: the kb historical points, exam findings, and any diagnostic results supporting the discharge/admit diagnosis, lab results, radiology results, the need for outpatient follow up, a family practitioner, to return to the emergency department if symptoms worsen or persist or if there are any questions or concerns that arise at home. 07/17 07:41 Order name: Basic Metabolic Panel; Complete Time: 08:20 kb 07/17 07:41 Order name: CBC with Diff; Complete Time: 08:20 kb 07/17 07:42 Order name: Urine Dipstick--Ancillary (enter results); Complete Time: 09:55 bd 07/17 07:42 Order name: Urine --Ancillary (enter results); Complete Time: 09:55 bd 07/17 08:21 Order name: CT Stone Protocol; Complete Time: 08:54 kb 07/17 07:38 Order name: Urine Dipstick-Ancillary (obtain specimen); Complete Time: 07:38 tw2 07/17 07:38 Order name: Urine Test (obtain specimen); Complete Time: 07:38 tw2 07/17 07:41 Order name: IV Saline Lock; Complete Time: 07:52 kb 07/17 07:41 Order name: Labs collected and sent; Complete Time: 07:52 kb Administered Medications: 07:56 Drug: Zofran 4 mg Route: IVP; Site: left antecubital; tw2 09:06 Follow up: Response: No adverse reaction; Nausea is decreased tw2 07:59 Drug: NS 0.9% 1000 ml Route: IV; Rate: 1000 ml; Site: left antecubital; tw2 09:59 Follow up: Response: No adverse reaction; IV Status: Completed infusion; IV Intake: tw2 1000ml 07:59 Drug: TORadol 30 mg Route: IVP; Site: left antecubital; tw2 09:06 Follow up: Response: No adverse reaction; Pain is decreased tw2 Disposition: 17:54 Co-signature as Attending Physician, Tryo Elizalde MD Available for consultation at ps1 all times. . Disposition: 07/17/18 08:56 Discharged to Home. Impression: Umbilical hernia without obstruction or gangrene. - Condition is Stable. - Discharge Instructions: Hernia, Adult, [id number]. - Prescriptions for Bentyl 20 mg Oral Tablet - take 1 tablet by ORAL route every 6 hours As needed; 20 tablet. Zofran 4 mg Oral Tablet - take 1 tablet by ORAL route every 6 hours As needed; 20 tablet. - Medication Reconciliation Form, Thank You Letter, Antibiotic Education, Prescription Opioid Use, Work release form form. - Follow up: Emergency Department; When: As needed; Reason: Worsening of condition. Follow up: Private Physician; When: 2 - 3 days; Reason: Recheck today's complaints, Continuance of care, Re-evaluation by your physician. Signatures: Dispatcher [employer] EDCheri Pride, VALENTINO-C CNC MILL OPERATOR-Néstor Helms, RN RN Alexandra Meyers RN RN tw2 Troy Elizalde MD MD ps1 Corrections: (The following items were deleted from the chart) 10:00 08:56 07/17/2018 08:56 Discharged to Home. Impression: Umbilical hernia without tw2 obstruction or gangrene. Condition is Stable. Forms are Medication Reconciliation Form, Thank You Letter, Antibiotic Education, Prescription Opioid Use. Follow up: Emergency Department; When: As needed; Reason: Worsening of condition. Follow up: Private Physician; When: 2 - 3 days; Reason: Recheck today's complaints, Continuance of care, Re-evaluation by your physician. kb
--- NOTE | 2018-07-17 08:57 | ER ---
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 Transition of care: patient was not received from another setting of care. Onset of symptoms was July 17, 2018. Risk Assessment: Do you want to hurt yourself or someone else? Patient reports no desire to harm self or others. Initial Sepsis Screen: Does the patient meet any 2 criteria? No. Patient's initial sepsis screen is negative. Does the patient have a suspected source of infection? No. Patient's initial sepsis screen is negative. Care prior to arrival: None. 07:20 Method Of Arrival: Ambulatory 07:20 Acuity: ABBY 3 hj Triage Assessment: 07:23 General: Appears in no apparent distress. uncomfortable, Behavior is calm, cooperative, hj appropriate for age. Pain: Complains of pain in abdomen Pain radiates to back. GI: Reports lower abdominal pain, upper abdominal pain, nausea, vomiting. 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 - Social history:: Smoking status: Patient/guardian denies using tobacco, Patient/guardian denies using alcohol. - Ebola Screening: : Patient negative for fever greater than or equal to 101.5 degrees Fahrenheit, and additional compatible Ebola Virus Disease symptoms Patient denies exposure to infectious person Patient denies travel to an Ebola-affected area in the 21 days before illness onset. Screenin:24 Abuse screen: Denies threats or abuse. Denies injuries from another. Nutritional hj screening: No deficits noted. Tuberculosis screening: No symptoms or risk factors identified. Fall Risk None identified. Assessment: 07:25 GI: Bowel sounds hj 07:36 General: Appears in no apparent distress. Behavior is calm, cooperative, appropriate tw2 for age. Pain: Complains of pain in abdomen Pain radiates to back. Neuro: Level of Consciousness is awake, alert, obeys commands, Oriented to person, place, time, situation. Cardiovascular: Heart tones S1 S2 Patient's skin is warm and dry. Respiratory: Airway is patent Respiratory effort is even, unlabored, Respiratory pattern is regular, symmetrical, Breath sounds are clear bilaterally. GI: Abdomen is flat, Bowel sounds present X 4 quads. Abd is soft X 4 quads Reports nausea, vomiting, since last night x6 vomiting. : No signs and/or symptoms were reported regarding the genitourinary system. EENT: No signs and/or symptoms were reported regarding the EENT system. Derm: No signs and/or symptoms reported regarding the dermatologic system. Musculoskeletal: Range of motion: intact in all extremities. 09:06 Reassessment: Patient appears in no apparent distress at this time. Patient and/or tw2 family updated on plan of care and expected duration. Pain level reassessed. Patient is alert, oriented x 3, equal unlabored respirations, skin warm/dry/pink. Patient states feeling better. 09:52 Reassessment: Patient appears in no apparent distress at this time. Patient and/or tw2 family updated on plan of care and expected duration. Pain level reassessed. Patient is alert, oriented x 3, equal unlabored respirations, skin warm/dry/pink. Patient states feeling better. 09:59 Reassessment: Patient appears in no apparent distress at this time. Patient and/or tw2 family updated on plan of care and expected duration. Pain level reassessed. Patient is alert, oriented x 3, equal unlabored respirations, skin warm/dry/pink. Patient states feeling better. Vital Signs: 07:23 BP 118 / 68; Pulse 66; Resp 18; Temp 98.2(TE); Pulse Ox 100% on R/A; Weight 72.57 kg; hj Height 5 ft. 0 in. (152.40 cm); Pain 10/10; 09:05 BP 103 / 65; Pulse 57; Resp 18; Pulse Ox 100% on R/A; Pain 7/10; tw2 09:52 BP 109 / 90; Pulse 69; Resp 17; Pulse Ox 100% on R/A; tw2 07:23 Body Mass Index 31.25 (72.57 kg, 152.40 cm) hj ED Course: 07:19 Patient arrived in ED. mr 07:19 Akhil Noble DO is Private Physician. mr 07:20 Cheri Araya FNP-C [facility]. kb 07:20 Troy Elizalde MD is Attending Physician. kb 07:22 Triage completed. hj 07:25 Arm band placed on right wrist. hj 07:25 Patient has correct armband on for positive identification. Placed in gown. Bed in low hj position. Call light in reach. Side rails up X 1. 07:36 Alexandra Meyers, RN is Primary Nurse. tw2 07:47 Inserted saline lock: 22 gauge in left antecubital area, using aseptic technique. Blood tw2 collected. 08:37 CT completed. Patient tolerated procedure well. Patient moved to CT via wheelchair. Patient moved back from CT. 08:39 CT Stone Protocol In Process Unspecified. EDMS 09:05 Awaiting: completion of IV fluids PRIOR to discharge. tw2 09:53 No provider procedures requiring assistance completed. tw2 09:59 IV discontinued, intact, bleeding controlled, No redness/swelling at site. Pressure tw2 dressing applied. Administered Medications: 07:56 Drug: Zofran 4 mg Route: IVP; Site: left antecubital; tw2 09:06 Follow up: Response: No adverse reaction; Nausea is decreased tw2 07:59 Drug: NS 0.9% 1000 ml Route: IV; Rate: 1000 ml; Site: left antecubital; tw2 09:59 Follow up: Response: No adverse reaction; IV Status: Completed infusion; IV Intake: tw2 1000ml 07:59 Drug: TORadol 30 mg Route: IVP; Site: left antecubital; tw2 09:06 Follow up: Response: No adverse reaction; Pain is decreased tw2 Intake: 09:59 IV: 1000ml; Total: 1000ml. tw2 Outcome: 08:56 Discharge ordered by . kb 09:59 Discharged to home ambulatory. tw2 09:59 Condition: stable 09:59 Discharge instructions given to patient, Instructed on discharge instructions, follow up and referral plans. no drinking with medication, no driving heavy equipment, medication usage, Demonstrated understanding of instructions, follow-up care, medications, Prescriptions given X 2. 10:00 Patient left the ED. tw2 Signatures: Dispatcher [employer] EDMS Cheri Araya, ADVERTISING ACCOUNT EXECUTIVE-C ADVERTISING ACCOUNT EXECUTIVE-Edwige Ilana Cardenas Susan Néstor Lunsford RN RN hj Wise, Tara, RN RN tw2 Corrections: (The following items were deleted from the chart) 07:25 07:23 Pulse 66bpm; Resp 18bpm; Pulse Ox 100% RA; Temp 98.2F Temporal; 72.57 kg; Height hj 5 ft. 0 in.; BMI: 31.2; Pain 04/12; hj
[2018-07-17 09:53] LABS: Urine Blood TRACE (NEG); Urine Glucose NEGATIVE (NEG); Urine Protein NEGATIVE (NEG); Urine Specific Gravity 1.025 (1.005-1.030)
[2018-07-17 10:24] VITALS: TEMP 98.2; O2SAT 100
[2018-07-17 10:28] VITALS: BP 109/90
== END 2018-07-17 10:00 | disposition home or self-care (01) ==
LOC: ER 07:14
DX: K42.9 Umbilical hernia without obstruction or gangrene (principal)
CPT/HCPCS: 36415; 74176; 76377; 80048; 81003; 81025; 85025; 96361; 96374; 96375; 99284; J2405; J7030

== ENCOUNTER 2018-09-15 16:56 | Emergency (ER) | payer OTHER ==
[2018-09-15] MEDS ORDERED: ALBUTEROL 2.5 MG/3 ML NEB SOL ONE (18:26)
[2018-09-15] MEDS ORDERED: IPRATROPIUM BROM 0.5MG/2.5ML ONE (18:27)
--- NOTE | 2018-09-15 19:06 | RAD REPORT ---
EXAM DESCRIPTION: Steven Gordon (2 Views)09/15/2018 6:44 pm CLINICAL HISTORY: Cough COMPARISON: 2017 FINDINGS: The lungs appear clear of acute infiltrate. The heart is normal size IMPRESSION: No acute abnormalities displayed
--- NOTE | 2018-09-15 19:30 | EDPHYS ---
Physician Documentation [facility] Name: Shirley Leija Age: 38 yrs Sex: Female : 1980 Arrival Date: 09/15/2018 Time: 16:59 Bed 24 Private MD: Akhil Noble H ED Physician John Shaw HPI: 09/15 19:28 This 38 yrs old Female presents to ER via Ambulatory with complaints of Flu kb Symptoms. 19:28 The patient or guardian reports cough, that is intermittent, described as mild, with no kb sputum, flu symptoms, arthralgias, low-grade fever, myalgias. Onset: The symptoms/episode began/occurred 2 day(s) ago. Severity of symptoms: At their worst the symptoms were moderate, in the emergency department the symptoms are unchanged. Modifying factors: The symptoms are alleviated by nothing, the symptoms are aggravated by nothing. Associated signs and symptoms: Pertinent positives: fever, rhinorrhea, Pertinent negatives: chest pain, diarrhea, ear ache, nausea, sore throat, vomiting. The patient has not experienced similar symptoms in the past. The patient has not recently seen a physician. 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 - Social history:: Smoking status: Patient/guardian denies using tobacco. - Ebola Screening: : No symptoms or risks identified at this time. ROS: 19:28 Neck: Negative for injury, pain, and swelling, Cardiovascular: Negative for chest pain, kb palpitations, and edema, Abdomen/GI: Negative for abdominal pain, nausea, vomiting, diarrhea, and constipation, Back: Negative for injury and pain, MS/Extremity: Negative for injury and deformity, Skin: Negative for injury, rash, and discoloration, Neuro: Negative for headache, weakness, numbness, tingling, and seizure. 19:28 Constitutional: Positive for body aches, chills, fatigue, fever, malaise, Negative for poor PO intake, weight loss. 19:28 ENT: Positive for rhinorrhea. 19:28 Respiratory: Positive for cough, Negative for dyspnea on exertion, hemoptysis, orthopnea, pleurisy, shortness of breath, sputum production, wheezing. Exam: 19:28 Constitutional: This is a well developed, well nourished patient who is awake, alert, kb and in no acute distress. Head/Face: Normocephalic, atraumatic. ENT: Nares patent. No nasal discharge, no septal abnormalities noted. Tympanic membranes are normal and external auditory canals are clear. Oropharynx with no redness, swelling, or masses, exudates, or evidence of obstruction, uvula midline. Mucous membranes moist. Neck: Trachea midline, no thyromegaly or masses palpated, and no cervical lymphadenopathy. Supple, full range of motion without nuchal rigidity, or vertebral point tenderness. No Meningismus. Chest/axilla: Normal chest wall appearance and motion. Nontender with no deformity. No lesions are appreciated. Cardiovascular: Regular rate and rhythm with a normal S1 and S2. No gallops, murmurs, or rubs. Normal PMI, no JVD. No pulse deficits. Respiratory: Lungs have equal breath sounds bilaterally, clear to auscultation and percussion. No rales, rhonchi or wheezes noted. No increased work of breathing, no retractions or nasal flaring. Abdomen/GI: Soft, non-tender, with normal bowel sounds. No distension or tympany. No guarding or rebound. No evidence of tenderness throughout. Skin: Warm, dry with normal turgor. Normal color with no rashes, no lesions, and no evidence of cellulitis. MS/ Extremity: Pulses equal, no cyanosis. Neurovascular intact. Full, normal range of motion. Neuro: Awake and alert, GCS 15, oriented to person, place, time, and situation. Cranial nerves II-XII grossly intact. Motor strength 5/5 in all extremities. Sensory grossly intact. Cerebellar exam normal. Normal gait. Vital Signs: 17:03 BP 129 / 83; Pulse 76; Resp 20; Temp 99.7; Pulse Ox 99% ; Weight 72.57 kg; Height 5 ft. sv 6 in. (167.64 cm); 17:40 BP 112 / 71; Pulse 76; Resp 19; Pulse Ox 100% on R/A; ca1 18:30 BP 125 / 91; Pulse 96; Resp 19; Pulse Ox 100% on R/A; ca1 19:16 BP 120 / 80; Pulse 110; Resp 19; Pulse Ox 100% on R/A; ca1 17:03 Body Mass Index 25.82 (72.57 kg, 167.64 cm) sv MDM: 17:34 Patient medically screened. kb 19:27 Data reviewed: vital signs, nurses notes. Data interpreted: Pulse oximetry: on room air kb is 100 %. Interpretation: normal. Counseling: I had a detailed discussion with the patient and/or guardian regarding: the historical points, exam findings, and any diagnostic results supporting the discharge/admit diagnosis, lab results, radiology results, the need for outpatient follow up, a family practitioner, to return to the emergency department if symptoms worsen or persist or if there are any questions or concerns that arise at home. 09/15 17:03 Order name: Strep; Complete Time: 17:34 sv 09/15 17:03 Order name: Flu; Complete Time: 17:45 sv 09/15 17:36 Order name: Throat Culture EDNV 09/15 18:03 Order name: Chest Pa And Lat (2 Views) XRAY; Complete Time: 19:10 kb Administered Medications: 18:15 Drug: DuoNeb (3:1) (2.5 mg - 0.5 mg) 3 ml Route: Nebulizer; ca1 23:24 Follow up: Response: No adverse reaction; Marked relief of symptoms ca1 Disposition: 09/15/18 19:29 Discharged to Home. Impression: Acute upper respiratory infection, unspecified. - Condition is Stable. - Discharge Instructions: Upper Respiratory Infection, Adult, [id number], Viral Respiratory Infection, [id number]. - Medication Reconciliation Form, Thank You Letter, Antibiotic Education, Prescription Opioid Use form. - Follow up: Emergency Department; When: As needed; Reason: Worsening of condition. Follow up: Private Physician; When: 2 - 3 days; Reason: Recheck today's complaints, Continuance of care, Re-evaluation by your physician. Addendum: 09/18/2018 07:15 Co-signature as Attending Physician, John Shaw MD I agree with the assessment and c bennett plan of care. Signatures: Dispatcher [employer] EDNV Cheri Araya, DEE AVELAR-Tori Degroot RN RN Colin, John, MD MD anup Acob, Caty, RN RN ca1 Corrections: (The following items were deleted from the chart) 09/15 19:45 19:29 09/15/2018 19:29 Discharged to Home. Impression: Acute upper respiratory ca1 infection, unspecified. Condition is Stable. Forms are Medication Reconciliation Form, Thank You Letter, Antibiotic Education, Prescription Opioid Use. Follow up: Emergency Department; When: As needed; Reason: Worsening of condition. Follow up: Private Physician; When: 2 - 3 days; Reason: Recheck today's complaints, Continuance of care, Re-evaluation by your physician. kb
--- NOTE | 2018-09-15 19:30 | ER ---
Nurse's Notes [facility] Name: Shirley Leija Age: 38 yrs Sex: Female : 1980 Arrival Date: 09/15/2018 Time: 16:59 Bed 24 Private MD: Akhil Noble H Diagnosis: Acute upper respiratory infection, unspecified Presentation: 09/15 17:02 Presenting complaint: Patient states: cough, runny nose with green mucous, headache sv chest pain with coughing, body aches, fever Tmax 102.5 x 2 days. Transition of care: patient was not received from another setting of care. Onset of symptoms was September 13, 2018. Care prior to arrival: None. 17:02 Method Of Arrival: Ambulatory sv 17:02 Acuity: ABBY 4 sv 17:02 Acuity: ABBY 3 sv 17:40 Risk Assessment: Do you want to hurt yourself or someone else? Patient reports no ca1 desire to harm self or others. 17:40 Initial Sepsis Screen: Does the patient meet any 2 criteria? No. Patient's initial ca1 sepsis screen is negative. Does the patient have a suspected source of infection? Yes: Productive cough/pneumonia. Triage Assessment: 17:02 General: Appears in no apparent distress. uncomfortable, Behavior is calm, cooperative, sv appropriate for age. EENT: Reports nasal discharge that is green. Neuro: Level of Consciousness is awake, alert, obeys commands, Oriented to person, place, time, situation, Gait is steady. Respiratory: Respiratory effort is even, unlabored, Respiratory pattern is regular, symmetrical. 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 - Social history:: Smoking status: Patient/guardian denies using tobacco. - Ebola Screening: : No symptoms or risks identified at this time. Screenin:40 Abuse screen: Denies threats or abuse. Denies injuries from another. Has been ca1 threatened or abused. Nutritional screening: No deficits noted. Tuberculosis screening: No symptoms or risk factors identified. 17:40 Fall Risk None identified. ca1 Assessment: 17:40 General: Appears in no apparent distress. comfortable, Behavior is calm, cooperative, ca1 appropriate for age. General: Pt reports of fever and body aches since Tuesday. . Pain: Complains of pain in back, throat headaches related to congestion Pain currently is 5 out of 10 on a pain scale. 17:40 Neuro: Level of Consciousness is awake, alert, obeys commands, Oriented to person, ca1 place, time, situation. 17:40 Cardiovascular: Heart tones S1 S2 present Capillary refill < 3 seconds Patient's skin ca1 is warm and dry. Respiratory: Airway is patent Respiratory effort is even, unlabored, Respiratory pattern is regular, symmetrical, Breath sounds are clear bilaterally. Respiratory: Reports cough that is productive. GI: Abdomen is flat, non-distended, Bowel sounds present X 4 quads. Abd is soft and non tender X 4 quads. : No deficits noted. No signs and/or symptoms were reported regarding the genitourinary system. EENT: Reports nasal congestion since Tuesday nasal discharge that is watery. Derm: Skin is intact, is healthy with good turgor, Skin is pink, warm \T\ dry. Musculoskeletal: Circulation, motion, and sensation intact. Capillary refill < 3 seconds. 18:30 Reassessment: Patient appears in no apparent distress at this time. Patient and/or ca1 family updated on plan of care and expected duration. Pain level reassessed. Patient is alert, oriented x 3, equal unlabored respirations, skin warm/dry/pink. 19:21 Reassessment: Patient appears in no apparent distress at this time. Patient and/or ca1 family updated on plan of care and expected duration. Pain level reassessed. Patient is alert, oriented x 3, equal unlabored respirations, skin warm/dry/pink. Vital Signs: 17:03 BP 129 / 83; Pulse 76; Resp 20; Temp 99.7; Pulse Ox 99% ; Weight 72.57 kg; Height 5 ft. sv 6 in. (167.64 cm); 17:40 BP 112 / 71; Pulse 76; Resp 19; Pulse Ox 100% on R/A; ca1 18:30 BP 125 / 91; Pulse 96; Resp 19; Pulse Ox 100% on R/A; ca1 19:16 BP 120 / 80; Pulse 110; Resp 19; Pulse Ox 100% on R/A; ca1 17:03 Body Mass Index 25.82 (72.57 kg, 167.64 cm) sv ED Course: 16:59 Patient arrived in ED. mr 16:59 Akhil Noble DO is Private Physician. mr 17:01 Cheri Araya FNP-C is [facility]. kb 17:01 John Shaw MD is Attending Physician. kb 17:03 Triage completed. sv 17:03 Arm band placed on. sv 17:40 Patient has correct armband on for positive identification. Bed in low position. Call ca1 light in reach. Side rails up X 1. Pulse ox on. NIBP on. Warm blanket given. 18:13 Caty Bernstein, RN is Primary Nurse. ca1 18:40 X-ray completed. Patient tolerated procedure well. Patient moved back from radiology. 18:42 Chest Pa And Lat (2 Views) XRAY In Process Unspecified. EDMS 19:42 No provider procedures requiring assistance completed. Patient did not have IV access ca1 during this emergency room visit. Administered Medications: 18:15 Drug: DuoNeb (3:1) (2.5 mg - 0.5 mg) 3 ml Route: Nebulizer; ca1 23:24 Follow up: Response: No adverse reaction; Marked relief of symptoms ca1 Outcome: 19:29 Discharge ordered by MD. kb 19:42 Discharged to home ambulatory. ca1 19:42 Condition: stable 19:42 Discharge instructions given to patient, Instructed on discharge instructions, follow up and referral plans. Demonstrated understanding of instructions, follow-up care. 19:45 Patient left the ED. ca1 Signatures: Dispatcher [employer] EDMS Cheri Araya FNP-C FNP-Ckb Verde, Stephanie, RN RN Ilana Cardenas Nilda Hill Caty Bernstein, RN RN ca1 Corrections: (The following items were deleted from the chart) 17:05 17:03 72.57 kg; Height 5 ft. 6 in.; BMI: 25.8; sv sv 17:07 17:03 Pulse 76bpm; Resp 20bpm; Pulse Ox 99%; 72.57 kg; Height 5 ft. 6 in.; BMI: 25.8; svsv 19:14 17:40 Pain: Complains of pain in back, throat headaches related to congestion Pain ca1 currently is 5 out of 10 on a pain scale. ca1
[2018-09-15 20:05] VITALS: TEMP 99.7
[2018-09-15 20:06] VITALS: O2SAT 100
[2018-09-15 20:08] VITALS: BP 120/80
== END 2018-09-15 19:45 | disposition home or self-care (01) ==
LOC: ER 16:56
DX: J06.9 Acute upper respiratory infection, unspecified (principal)
CPT/HCPCS: 71046; 87070; 87081; 87804; 94640; 99284

== ENCOUNTER 2018-11-20 22:36 | Emergency (ER) | payer OTHER ==
[2018-11-21 01:08] LABS: Urine Blood 1+ (NEG); Urine Glucose NEGATIVE (NEG); Urine Protein TRACE (NEG); Urine Specific Gravity >1.030 (1.005-1.030); Urine pH 5.5 (5.0-7.0)
[2018-11-21 01:38] LABS: Absolute Lymphocytes (CBC) 2.7 K/uL (0.7-4.9); Absolute Monocytes 0.6 K/uL (0.1-1.3); Absolute Neutrophil 5.5 K/uL (1.8-8.0); Basophils % 0.6 % (0-1.3); Eosinophils % 2.1 % (0-4.4); Hematocrit 34.5 % (36.0-45.0); Lymphocytes % 30.1 % (15.3-44.8); MPV 9.2 fL (7.6-11.3); Monocytes % 6.7 % (3.3-12.3); RBC Red Blood Cell Count 3.88 M/uL (3.86-4.86)
[2018-11-21 01:49] LABS: ALT/SGPT 40 U/L (12-78); AST/SGOT 17 U/L (15-37); Albumin 3.5 g/dL (3.4-5.0); Alkaline Phosphatase 77 U/L (45-117); BUN Blood Urea Nitrogen 12 mg/dL (7-18); Bicarbonate 23 mmol/L (21-32); Bilirubin Direct < 0.1 mg/dL (0-0.2); Bilirubin Total 0.3 mg/dL (0.2-1.0); Glucose Level 101 mg/dL (74-106); Lipase 92 U/L (73-393); Potassium 3.7 mmol/L (3.5-5.1); Protein, Total 7.7 g/dL (6.4-8.2); Sodium Level 140 mmol/L (136-145)
[2018-11-21] MEDS ORDERED: NA CHLORIDE 0.9% 1,000 ML ONE (01:51)
[2018-11-21] MEDS ORDERED: MORPHINE 4 MG/ML SYR ONE (01:51)
[2018-11-21] MEDS ORDERED: ONDANSETRON 4 MG/2 ML VIAL ONE (01:51)
[2018-11-21 03:56] LABS: Urine Amorphous Sediment 4+ /HPF (NONE SEEN); Urine Bacteria 20-50 /HPF (<20); Urine Culture Reflex Order REFLEXED; Urine RBC NONE SEEN /HPF (NONE SEEN)
--- NOTE | 2018-11-21 04:44 | ER ---
Nurse's Notes [facility] Name: Shirley Leija Age: 38 yrs Sex: Female : 1980 Arrival Date: 11/20/2018 Time: 22:39 Bed 16 Private MD: Akhil Noble H Diagnosis: Umbilical hernia-reducable;Abdominal tenderness Presentation: 11/20 22:41 Presenting complaint: Patient states: I have a hernia and it is hurting. I haven't ed1 followed up on it at all. Transition of care: patient was not received from another setting of care. Onset of symptoms was November 20, 2018. Risk Assessment: Do you want to hurt yourself or someone else? Patient reports no desire to harm self or others. Initial Sepsis Screen: Does the patient meet any 2 criteria? No. Patient's initial sepsis screen is negative. Does the patient have a suspected source of infection? No. Patient's initial sepsis screen is negative. Care prior to arrival: None. 22:41 Method Of Arrival: Ambulatory ed1 22:41 Acuity: ABBY 3 ed1 Triage Assessment: 22:43 General: Appears in no apparent distress. Behavior is calm, cooperative. Pain: ed1 Complains of pain in umbilical area Pain currently is 10 out of 10 on a pain scale. 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 - Social history:: Smoking status: Patient/guardian denies using tobacco. - Ebola Screening: : Patient negative for fever greater than or equal to 101.5 degrees Fahrenheit, and additional compatible Ebola Virus Disease symptoms Patient denies exposure to infectious person Patient denies travel to an Ebola-affected area in the 21 days before illness onset No symptoms or risks identified at this time. Screenin/21 00:20 Abuse screen: Denies threats or abuse. Nutritional screening: No deficits noted. jb4 Tuberculosis screening: No symptoms or risk factors identified. Fall Risk IV access (20 points). Total Wallace Fall Scale indicates No Risk (0-24 pts). Assessment: 00:20 General: Appears in no apparent distress. uncomfortable, Behavior is calm, cooperative, jb4 appropriate for age. Pain: Complains of pain in umbilical area Pain does not radiate. Pain currently is 10 out of 10 on a pain scale. Quality of pain is described as stabbing. Neuro: Level of Consciousness is awake, alert, obeys commands, Oriented to person, place, time, situation. Cardiovascular: Patient's skin is warm and dry. Respiratory: Airway is patent Respiratory effort is even, unlabored, Respiratory pattern is regular, symmetrical. GI: Abdomen is round non-distended, Bowel sounds present X 4 quads. Abd is soft and non tender X 4 quads. Abdomen is tender to palpation in umbilical area. : No signs and/or symptoms were reported regarding the genitourinary system. EENT: No signs and/or symptoms were reported regarding the EENT system. Derm: Skin is intact, Skin is pink, warm \T\ dry. Musculoskeletal: Circulation, motion, and sensation intact. 01:20 Reassessment: Patient appears in no apparent distress at this time. Patient and/or jb4 family updated on plan of care and expected duration. Pain level reassessed. Patient is alert, oriented x 3, equal unlabored respirations, skin warm/dry/pink. 02:00 Reassessment: Patient appears in no apparent distress at this time. Patient and/or jb4 family updated on plan of care and expected duration. Pain level reassessed. Patient is alert, oriented x 3, equal unlabored respirations, skin warm/dry/pink. Pt finished oral contrast, ct notified. 03:00 Reassessment: Patient appears in no apparent distress at this time. Patient and/or jb4 family updated on plan of care and expected duration. Pain level reassessed. Patient is alert, oriented x 3, equal unlabored respirations, skin warm/dry/pink. Patient states feeling better. 04:31 Reassessment: Patient appears in no apparent distress at this time. Patient and/or jb4 family updated on plan of care and expected duration. Pain level reassessed. Patient is alert, oriented x 3, equal unlabored respirations, skin warm/dry/pink. Patient states feeling better. 04:55 Reassessment: Patient appears in no apparent distress at this time. Patient and/or jb4 family updated on plan of care and expected duration. Pain level reassessed. Patient is alert, oriented x 3, equal unlabored respirations, skin warm/dry/pink. PT discharged to [facility], [place], waiting for her ride. Vital Signs: 11/20 22:43 BP 126 / 67; Pulse 56; Resp 16; Temp 97.7(TE); Pulse Ox 99% on R/A; Weight 74.84 kg; ed1 Height 5 ft. 0 in. (152.40 cm); Pain 04/12; 11/21 00:30 BP 128 / 74; Pulse 60; Resp 16; Pulse Ox 98% on R/A; jb4 01:30 BP 122 / 61; Pulse 61; Resp 16; Pulse Ox 99% on R/A; jb4 02:45 BP 113 / 65; Pulse 53; Resp 16; Pulse Ox 100% on R/A; jb4 03:15 BP 119 / 76; Pulse 72; Resp 16; Pulse Ox 98% on R/A; jb4 04:30 BP 102 / 66; Pulse 68; Resp 16; Pulse Ox 98% on R/A; jb4 04:45 BP 108 / 71; Pulse 58; Resp 16; Temp 98.2(O); Pulse Ox 100% on R/A; jb4 11/20 22:43 Body Mass Index 32.22 (74.84 kg, 152.40 cm) ed1 ED Course: 11/20 22:39 Patient arrived in ED. am2 22:39 Akhil Noble DO is Private Physician. am2 22:42 Triage completed. ed1 22:43 Arm band placed on right wrist. ed1 23:53 Wojciech Solis, HARRISON is Primary Nurse. jb4 23:56 John Hernández PA is PHCP. cp 23:57 John Shaw MD is Attending Physician. cp 11/21 00:20 Patient has correct armband on for positive identification. Placed in gown. Bed in low jb4 position. Call light in reach. Side rails up X 1. Pulse ox on. NIBP on. 00:55 Initial lab(s) drawn, by ED staff, sent to lab. Inserted saline lock: 20 gauge in left jb4 antecubital area, using aseptic technique. Blood collected. 03:51 CT completed. Patient tolerated procedure well. Patient moved to CT via wheelchair. Patient moved back from CT. 04:23 CT Abd/Pelvis - W/Contrast: give oral contrast In Process Unspecified. EDMD 04:43 Akhil Noble DO is Referral Physician. [facility] 04:43 Osman Swartz MD is Referral Physician. [facility] 04:45 No provider procedures requiring assistance completed. IV discontinued, intact, jb4 bleeding controlled. Administered Medications: 01:45 Drug: Zofran 4 mg Route: IVP; Site: left antecubital; jb4 02:25 Follow up: Response: No adverse reaction; Nausea is decreased jb4 01:46 Drug: morphine 4 mg Route: IVP; Site: left antecubital; jb4 02:45 Follow up: Response: No adverse reaction; Pain is decreased jb4 01:47 Drug: NS 0.9% 1000 ml Route: IV; Rate: 1 bolus; Site: left antecubital; jb4 02:40 Follow up: Response: No adverse reaction; IV Status: Completed infusion; IV Intake: jb4 1000ml Intake: 02:40 IV: 1000ml; Total: 1000ml. jb4 Outcome: 04:43 Discharge ordered by . [facility] 04:59 Discharged to home ambulatory. jb4 04:59 Condition: stable 04:59 Discharge instructions given to patient, Instructed on discharge instructions, follow up and referral plans. medication usage, Demonstrated understanding of instructions, follow-up care, medications, Prescriptions given X 2. 04:59 Patient left the ED. jb4 Signatures: Dispatcher [employer] EDMD John Shaw MD MD cha Hagler, Ervin Jaye Ospina, RN RN ed1 John Hernández PA PA cp Bryson, James, RN RN jb4 Dacia Geller
--- NOTE | 2018-11-21 04:44 | EDPHYS ---
Physician Documentation [facility] Name: Shirley Leija Age: 38 yrs Sex: Female : 1980 Arrival Date: 11/20/2018 Time: 22:39 Bed 16 Private MD: Akhil Noble H ED Physician John Shaw HPI: 11/21 00:45 This 38 yrs old Female presents to ER via Ambulatory with complaints of cp umbilical pain. 00:45 The patient presents with abdominal pain in the periumbilical area. Onset: The cp symptoms/episode began/occurred gradually, and became worse today. The symptoms do not radiate. Associated signs and symptoms: Pertinent negatives: blood in stools, constipation, diarrhea, dysuria, fever, vomiting. Severity of pain: in the emergency department the pain is a 10 / 10. Patient reports history of umbilical hernia but has not followed up with surgery. 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 - Social history:: Smoking status: Patient/guardian denies using tobacco. - Ebola Screening: : Patient negative for fever greater than or equal to 101.5 degrees Fahrenheit, and additional compatible Ebola Virus Disease symptoms Patient denies exposure to infectious person Patient denies travel to an Ebola-affected area in the 21 days before illness onset No symptoms or risks identified at this time. ROS: 11/21 00:50 Eyes: Negative for injury, pain, redness, and discharge. cp Constitutional: Negative for body aches, chills, fever, poor PO intake. ENT: Negative for sore throat, difficulty swallowing, difficulty handling secretions. Cardiovascular: Negative for chest pain. Respiratory: Negative for cough, shortness of breath, wheezing. Abdomen/GI: Positive for abdominal pain, Negative for vomiting, diarrhea, constipation, anorexia, black/tarry stool, rectal bleeding. Back: Negative for pain at rest, pain with movement. Skin: Negative for rash. Neuro: Negative for altered mental status, headache, weakness. 00:50 All other systems are negative. cp Exam: 01:00 Head/Face: Normocephalic, atraumatic. cp 01:00 Constitutional: The patient appears in no acute distress, alert, awake, non-diaphoretic, non-toxic, well developed, well nourished, uncomfortable. 01:00 Eyes: Periorbital structures: appear normal, Conjunctiva: normal, no exudate, no cp injection, Sclera: no appreciated abnormality, Lids and lashes: appear normal, bilaterally. 01:00 ENT: External ear(s): are unremarkable, Nose: is normal, Mouth: Lips: moist, Oral mucosa: pink and intact, moist, Posterior pharynx: is normal, airway is patent, no erythema, no exudate. 01:00 Chest/axilla: Inspection: normal, Palpation: is normal, no crepitus, no tenderness. 01:00 Cardiovascular: Rate: normal, Rhythm: regular. 01:00 Respiratory: the patient does not display signs of respiratory distress, Respirations: normal, no use of accessory muscles, no retractions, no splinting, no tachypnea, labored breathing, is not present, Breath sounds: are clear throughout, no decreased breath sounds, no stridor, no wheezing. 01:00 Abdomen/GI: Inspection: abdomen appears normal, Bowel sounds: active, all quadrants, Palpation: soft, in all quadrants, moderate abdominal tenderness, in the umbilical area, rebound tenderness, is not appreciated, involuntary guarding, is not appreciated, Hernia: noted in the umbilical area, tenderness, that is moderate. 01:00 Back: pain, is absent, ROM is normal. 01:00 Skin: no rash present. Vital Signs: 11/20 22:43 BP 126 / 67; Pulse 56; Resp 16; Temp 97.7(TE); Pulse Ox 99% on R/A; Weight 74.84 kg; ed1 Height 5 ft. 0 in. (152.40 cm); Pain 1010; 11/21 00:30 BP 128 / 74; Pulse 60; Resp 16; Pulse Ox 98% on R/A; jb4 01:30 BP 122 / 61; Pulse 61; Resp 16; Pulse Ox 99% on R/A; jb4 02:45 BP 113 / 65; Pulse 53; Resp 16; Pulse Ox 100% on R/A; jb4 03:15 BP 119 / 76; Pulse 72; Resp 16; Pulse Ox 98% on R/A; jb4 04:30 BP 102 / 66; Pulse 68; Resp 16; Pulse Ox 98% on R/A; jb4 04:45 BP 108 / 71; Pulse 58; Resp 16; Temp 98.2(O); Pulse Ox 100% on R/A; jb4 11/20 22:43 Body Mass Index 32.22 (74.84 kg, 152.40 cm) ed1 MDM: 11/20 23:57 Patient medically screened. cp 11/21 01:00 Differential diagnosis: appendicitis, bowel obstruction, pancreatitis, cp Ureterolithiasis, urinary tract infection, incarcerated hernia. 11/21 00:47 Order name: Basic Metabolic Panel; Complete Time: 02:46 cp 11/21 02:46 Interpretation: Normal except: CL 109. cp 11/21 00:47 Order name: CBC with Diff; Complete Time: 02:46 cp 11/21 02:46 Interpretation: Normal except: HGB 11.6; HCT 34.5. cp 11/21 00:47 Order name: Creatinine for Radiology; Complete Time: 02:46 cp 11/21 00:47 Order name: Hepatic Function; Complete Time: 02:46 cp 11/21 00:47 Order name: Lipase; Complete Time: 02:46 cp 11/21 00:50 Order name: Urine Dipstick--Ancillary (enter results); Complete Time: 02:46 mw2 11/20 23:57 Order name: Urine Dipstick-Ancillary (obtain specimen); Complete Time: 00:41 cp 11/21 00:47 Order name: CT Abd/Pelvis - W/Contrast: give oral contrast cp 11/21 00:50 Order name: Urine --Ancillary (enter results); Complete Time: 02:46 mw2 11/21 03:04 Order name: Urine Microscopic Only; Complete Time: 04:30 jb4 11/21 03:58 Order name: Urine Culture [facility] 11/20 23:57 Order name: Urine Test (obtain specimen); Complete Time: 00:41 cp 11/21 00:47 Order name: IV Saline Lock; Complete Time: 01:30 cp 11/21 00:47 Order name: Labs collected and sent; Complete Time: 01:30 cp Administered Medications: 01:45 Drug: Zofran 4 mg Route: IVP; Site: left antecubital; jb4 02:25 Follow up: Response: No adverse reaction; Nausea is decreased jb4 01:46 Drug: morphine 4 mg Route: IVP; Site: left antecubital; jb4 02:45 Follow up: Response: No adverse reaction; Pain is decreased jb4 01:47 Drug: NS 0.9% 1000 ml Route: IV; Rate: 1 bolus; Site: left antecubital; jb4 02:40 Follow up: Response: No adverse reaction; IV Status: Completed infusion; IV Intake: jb4 1000ml Disposition: 06:31 Co-signature as Attending Physician, John Shaw MD I agree with the assessment and anup plan of care. Disposition: 11/21/18 04:43 Discharged to Home. Impression: Umbilical hernia - reducable, Abdominal tenderness. - Condition is Stable. - Discharge Instructions: Abdominal Pain, Adult, Abdominal Pain, Adult, [id number], Ventral Hernia. - Prescriptions for Bentyl 20 mg Oral Tablet - take 1 tablet by ORAL route every 6 hours As needed; 20 tablet. Colace 100 mg Oral Tablet - take 1 tablet by ORAL route every 12 hours; 14 tablet. - Medication Reconciliation Form, Thank You Letter, Antibiotic Education, Prescription Opioid Use form. - Follow up: Akhil Noble; When: 2 - 3 days; Reason: Recheck today's complaints, Continuance of care, Re-evaluation by your physician. Follow up: Osman Swartz; When: 2 - 3 days; Reason: Recheck today's complaints, Re-evaluation by your physician. - Problem is new. - Symptoms have improved. Signatures: Dispatcher [employer] EDID John Shaw MD MD cha Riggs, Erika RN RN ed1 John Hernández PA PA cp Bryson, James, RN RN jb4 Corrections: (The following items were deleted from the chart) 04:59 04:43 11/21/2018 04:43 Discharged to Home. Impression: Umbilical hernia - reducable; jb4 Abdominal tenderness. Condition is Stable. Discharge Instructions: Abdominal Pain, Adult, Abdominal Pain, Adult, [id number], Ventral Hernia. Prescriptions for Bentyl 20 mg Oral Tablet - take 1 tablet by ORAL route every 6 hours As needed; 20 tablet, Colace 100 mg Oral Tablet - take 1 tablet by ORAL route every 12 hours; 14 tablet. and Forms are Medication Reconciliation Form, Thank You Letter, Antibiotic Education, Prescription Opioid Use. Follow up: Akhil Noble; When: 2 - 3 days; Reason: Recheck today's complaints, Continuance of care, Re-evaluation by your physician. Follow up: Osman Swartz; When: 2 - 3 days; Reason: Recheck today's complaints, Re-evaluation by your physician. Problem is new. Symptoms have improved. anup
[2018-11-21 05:35] VITALS: BP 108/71; TEMP 98.2; O2SAT 100
--- NOTE | 2018-11-21 10:36 | RAD REPORT ---
EXAM DESCRIPTION: Abdomen Pelvis W Contrast CLINICAL HISTORY: Umbilical pain COMPARISON: None. TECHNIQUE: CT ABDOMEN PELVIS WITH IV CONTRAST on 11/21/2018 12:47 AM CDT This exam was performed according to our departmental dose-optimization program, which includes autom ated exposure control, adjustment of the mA and/or kV according to patient size and/or use of iterati ve reconstruction technique. FINDINGS: Lower lungs are clear. Abdomen: Liver is fatty in attenuation. There is no biliary dilatation. Cholecystectomy was performed . The pancreas and spleen are normal in appearance. The adrenal glands and kidneys are unremarkable. Abdominal aorta is normal in course and caliber without aneurysm. There is no free air. There is no r etroperitoneal adenopathy.There is a small fat-containing umbilical hernia. Pelvis: There is no bowel obstruction. Urinary bladder is unremarkable. There is no free fluid. Appen jerod is normal. Uterus is normal in size. Skeleton: There are no acute osseous findings. No suspicious bony lesions. IMPRESSION: No acute inflammatory process. No renal or ureteral calculi. Electronically signed by: Gino Cooper MD 11/21/2018 4:28 AM CDT Due to temporary technical issues with the PACS/Fluency reporting system, reports are being signed by the in house radiologist as a courtesy to ensure prompt reporting. The interpreting radiologist is f ully responsible for the content of the report.
== END 2018-11-21 04:59 | disposition home or self-care (01) ==
LOC: ER 22:36
DX: K42.9 Umbilical hernia without obstruction or gangrene (principal)
CPT/HCPCS: 36415; 74177; 80048; 80076; 81003; 81015; 81025; 83690; 85025; 87086; 87088; 96361; 96374; 96375; 99284; J2405; J7030; Q9967

== ENCOUNTER 2020-12-30 07:07 | Emergency (ER) | payer OTHER ==
--- OUTSIDE RECORDS SUMMARY | 2020-12-30 07:09 | XMS REPORT | Continuity of Care Document ---
:1980 Author Organization [facility] t Address [address] [place] [address] Care Team Providers Name Role Phone Jaxon Alvarez MD Attending Clinician Problems This patient has no known problems. Allergies, Adverse Reactions, Alerts This patient has no known allergies or adverse reactions. Medications This patient has no known medications. Procedures This patient has no known procedures. Encounters Start End Encounter Admission Attending Care Care Encounter Source Date/Time Date/Time Type Type Clinicians Facility Department ID 2019-10-17 2019-10-17 Emergency SCOTT Alvarez [id number] 18:07:03 21:31:00 [place] [place] [id number] [place] [id number] [place] [id number] Results This patient has no known results.
--- NOTE | 2020-12-30 09:27 | RAD REPORT ---
EXAM DESCRIPTION: CT - Head Brain Wo Cont - 12/30/2020 9:11 am CLINICAL HISTORY: DIZZINESS, headache COMPARISON: Head Brain Wo Cont dated 01/25/2018 TECHNIQUE: Axial 5 mm thick images of the head were obtained without IV contrast. All CT scans are performed using dose optimization technique as appropriate and may include automated exposure control or mA/KV adjustment according to patient size. FINDINGS: No intracranial hemorrhage, mass, edema or shift of mid-line structures. No acute infarcti on changes seen. No abnormal extra-axial fluid collections. Ventricles are normal. Mastoid air cells and visualized portions of the paranasal sinuses are clear. No acute bony findings. IMPRESSION: Negative non-contrast CT head examination.
[2020-12-30 09:38] LABS: Urine Blood Negative (Negative); Urine Glucose 2+ (Negative); Urine Protein Negative (Negative); Urine Specific Gravity >=1.030 (1.005-1.030); Urine pH 5.5 (5.0-7.0)
[2020-12-30] MEDS ORDERED: MECLIZINE HCL 12.5 MG TAB ONE (09:42)
[2020-12-30] MEDS ORDERED: ONDANSETRON 4 MG/2 ML VIAL ONE (09:42)
[2020-12-30] MEDS ORDERED: NA CHLORIDE 0.9% 1,000 ML ONE (09:42)
[2020-12-30 09:46] LABS: Absolute Lymphocytes (CBC) 2.5 K/uL (0.7-4.9); Basophils % 0.9 % (0-1.3); Hematocrit 39.2 % (36.0-45.0); Lymphocytes % 32.3 % (15.3-44.8); MPV 8.9 fL (7.6-11.3); RBC Red Blood Cell Count 4.39 M/uL (3.86-4.86)
[2020-12-30 10:10] LABS: Potassium 3.9 mmol/L (3.5-5.1)
[2020-12-30] MEDS ORDERED: DIAZEPAM 2 MG TABLET ONE (11:05)
[2020-12-30 11:49] LABS: Urine RBC <5 /HPF (NONE SEEN)
[2020-12-30 11:50] LABS: Urine Bacteria <20 /HPF (<20)
--- NOTE | 2020-12-30 13:09 | ER ---
Nurse's Notes [facility] Name: Shirley Leija Age: 40 yrs Sex: Female : 1980 Arrival Date: 12/30/2020 Time: 07:11 Bed 14 Private MD: Diagnosis: Other peripheral vertigo;Hyperglycemia, unspecified Presentation: 12/30 07:29 Chief complaint: Patient states: Episodes of dizziness that causes nausea when turning ss head side to side. Began 2 days ago. Coronavirus screen: Client denies travel out of the [place] in the last 14 days. Ebola Screen: Patient denies exposure to infectious person. Patient denies travel to an Ebola-affected area in the 21 days before illness onset. Initial Sepsis Screen: Does the patient meet any 2 criteria? No. Patient's initial sepsis screen is negative. Does the patient have a suspected source of infection? No. Patient's initial sepsis screen is negative. Risk Assessment: Do you want to hurt yourself or someone else? Patient reports no desire to harm self or others. Onset of symptoms was December 28, 2020. 07:29 Method Of Arrival: Ambulatory ss 07:29 Acuity: ABBY 3 ss Triage Assessment: 07:30 General: Appears distressed, uncomfortable, Behavior is cooperative, appropriate for bp age, anxious. 07:30 Pain: Denies pain. EENT: No deficits noted. Neuro: Reports dizziness. Cardiovascular: bp No deficits noted. Respiratory: No deficits noted. GI: No signs and/or symptoms were reported involving the gastrointestinal system. : No signs and/or symptoms were reported regarding the genitourinary system. Derm: No deficits noted. Musculoskeletal: No deficits noted. Historical: - Allergies: 07:30 No Known Allergies; ss - Home Meds: 07:30 None [Active]; ss - PMHx: 07:30 None; ss - PSHx: 07:30 section; Cholecystectomy; ss - Immunization history:: Client reports having NOT received the Covid vaccine. - Social history:: Smoking status: Patient denies any tobacco usage or history of. - Family history:: not pertinent. - Hospitalizations: : No recent hospitalization is reported. Screenin:30 Abuse screen: Denies threats or abuse. Denies injuries from another. Nutritional bp screening: No deficits noted. Tuberculosis screening: No symptoms or risk factors identified. Fall Risk None identified. Assessment: 07:30 General: SEE TRIAGE NOTE. bp 09:00 Reassessment: No changes from previously documented assessment. Patient and/or family bp updated on plan of care and expected duration. Pain level reassessed. Patient is alert, oriented x 3, equal unlabored respirations, skin warm/dry/pink. 10:00 Reassessment: No changes from previously documented assessment. Patient and/or family bp updated on plan of care and expected duration. Pain level reassessed. Patient is alert, oriented x 3, equal unlabored respirations, skin warm/dry/pink. ALL CURRENT ORDERS COMPLETED. 12:00 Reassessment: Patient appears in no apparent distress at this time. No changes from bp previously documented assessment. Patient and/or family updated on plan of care and expected duration. Pain level reassessed. 13:00 Reassessment: MD AT B/S FOR DISPO. bp 13:31 Reassessment: PT D/C HOME VIA W/C WITH FAMILY, DX WITH BPH AND VERTIGO. bp Vital Signs: 07:29 BP 117 / 77; Pulse 64; Resp 14; Temp 97.4(TE); Pulse Ox 99% on R/A; Weight 76.2 kg; ss Height 5 ft. 0 in. (152.40 cm); Pain 0/10; 09:00 BP 112 / 76; Pulse 64; Resp 17; Pulse Ox 99% ; bp 10:00 BP 121 / 73; Pulse 51; Resp 17; Pulse Ox 100% ; bp 11:00 BP 134 / 87; Pulse 53; Resp 20; Pulse Ox 100% ; bp 12:00 BP 107 / 67; Pulse 57; Resp 14; Pulse Ox 100% ; bp 13:00 BP 130 / 84; Pulse 61; Resp 21; Pulse Ox 100% ; bp 07:29 Body Mass Index 32.81 (76.20 kg, 152.40 cm) ED Course: 07:11 Patient arrived in ED. mr 07:30 Triage completed. ss 07:30 Arm band placed on right wrist. ss 07:30 Patient has correct armband on for positive identification. Bed in low position. Call bp light in reach. Side rails up X2. 08:41 Armani Mon MD is Attending Physician. rn 08:51 Grary Ken RN is Primary Nurse. bp 09:11 CT Head Brain wo Cont In Process Unspecified. EDMS 09:30 Inserted saline lock: 20 gauge in right forearm, using aseptic technique. Blood bp collected. 10:44 EKG done, by ED staff, reviewed by Armani Mon MD. [facility] 13:08 Myles Case MD is Referral Physician. rn 13:31 No provider procedures requiring assistance completed. IV discontinued, intact, bp bleeding controlled, No redness/swelling at site. Pressure dressing applied. Administered Medications: 09:30 Drug: NS 0.9% 1000 ml Route: IV; Rate: 1000 ml; Site: right forearm; bp 13:33 Follow up: IV Status: Completed infusion; IV Intake: 1000ml bp 09:30 Drug: Meclizine 50 mg Route: PO; bp 10:37 Follow up: Response: No adverse reaction bp 09:30 Drug: Zofran (Ondansetron) 4 mg Route: IVP; Site: right forearm; bp 10:37 Follow up: Response: No adverse reaction bp 10:45 Drug: Valium (diazepam) 2 mg Route: PO; bp 13:33 Follow up: Response: Marked relief of symptoms bp Intake: 13:33 IV: 1000ml; Total: 1000ml. bp Outcome: 13:08 Discharge ordered by MD. rn 13:31 Discharged to home via wheelchair, with family. bp 13:31 Condition: stable 13:31 Discharge instructions given to patient, Instructed on discharge instructions, follow up and referral plans. medication usage, Demonstrated understanding of instructions, follow-up care, medications, Prescriptions given X 2. 13:33 Patient left the ED. bp Signatures: Dispatcher [employer] [facility] Ilana Cardenas Armani Cochran MD MD rn Smirch, Shelby, RN RN ss Herrera, Deanna [facility] Garry Ken, RN RN bp
--- NOTE | 2020-12-30 13:09 | EDPHYS ---
Physician Documentation [facility] Name: Shirley Leija Age: 40 yrs Sex: Female : 1980 Arrival Date: 12/30/2020 Time: 07:11 Bed 14 Private MD: ED Physician Armani Mon HPI: 12/30 09:04 This 40 yrs old Female presents to ER via Ambulatory with complaints of rn Dizziness. 09:04 The patient presents with dizziness, sense of spinning. Onset: The symptoms/episode rn began/occurred 2 day(s) ago. Context: occurred at home, occurred while the patient was at rest. Modifying factors: The symptoms are alleviated by nothing, the symptoms are aggravated by movement of head, changing position. Associated signs and symptoms: Pertinent negatives: abdominal pain, agitation, chest pain, confusion, diaphoresis, head injury, headache, seizure, shortness of breath, syncope. Severity of symptoms: At their worst the symptoms were moderate in the emergency department the symptoms have improved. 09:49 The patient has not experienced similar symptoms in the past. The patient has not rn recently seen a physician. No focal neuro complaints, + dizziness with movement of head and eyes, + nausea. No head injury or trauma. No known medical problems. Has not felt sick recently. . Historical: - Allergies: 07:30 No Known Allergies; ss - Home Meds: 07:30 None [Active]; ss - PMHx: 07:30 None; ss - PSHx: 07:30 section; Cholecystectomy; ss - Immunization history:: Client reports having NOT received the Covid vaccine. - Social history:: Smoking status: Patient denies any tobacco usage or history of. - Family history:: not pertinent. - Hospitalizations: : No recent hospitalization is reported. ROS: 09:49 Constitutional: Negative for fever, chills, and weight loss, Eyes: Negative for injury, rn pain, redness, and discharge, ENT: Negative for injury, pain, and discharge, Neck: Negative for injury, pain, and swelling, Cardiovascular: Negative for chest pain, palpitations, and edema, Respiratory: Negative for shortness of breath, cough, wheezing, and pleuritic chest pain, Abdomen/GI: Negative for abdominal pain, diarrhea, and constipation, Back: Negative for injury and pain, : Negative for injury, bleeding, discharge, and swelling, MS/Extremity: Negative for injury and deformity, Skin: Negative for injury, rash, and discoloration, Neuro: + dizziness, neg for headache or focal neurological complaint Exam: 09:49 Constitutional: This is a well developed, well nourished patient who is awake, alert, rn and in no acute distress. Head/Face: Normocephalic, atraumatic. Eyes: Pupils equal round and reactive to light, extra-ocular motions intact. Periorbital areas with no swelling, redness, or edema. ENT: dry MM Neck: Trachea midline, no masses palpated, and no cervical lymphadenopathy. Supple, full range of motion without nuchal rigidity, or vertebral point tenderness. No Meningismus. Cardiovascular: Regular rate and rhythm. No pulse deficits. Respiratory: No increased work of breathing, no retractions or nasal flaring. Abdomen/GI: soft, non-tender Skin: Warm, dry MS/ Extremity: Pulses equal, no cyanosis. Neuro: Awake and alert, GCS 15, oriented to person, place, time, and situation. Cranial nerves II-XII grossly intact. Motor strength 5/5 in all extremities. Sensory grossly intact. Vital Signs: 07:29 BP 117 / 77; Pulse 64; Resp 14; Temp 97.4(TE); Pulse Ox 99% on R/A; Weight 76.2 kg; ss Height 5 ft. 0 in. (152.40 cm); Pain 0/10; 09:00 BP 112 / 76; Pulse 64; Resp 17; Pulse Ox 99% ; bp 10:00 BP 121 / 73; Pulse 51; Resp 17; Pulse Ox 100% ; bp 11:00 BP 134 / 87; Pulse 53; Resp 20; Pulse Ox 100% ; bp 12:00 BP 107 / 67; Pulse 57; Resp 14; Pulse Ox 100% ; bp 13:00 BP 130 / 84; Pulse 61; Resp 21; Pulse Ox 100% ; bp 07:29 Body Mass Index 32.81 (76.20 kg, 152.40 cm) ss MDM: 08:41 Patient medically screened. rn 10:42 ED course: Glucose 235, patient not fasting, unclear if possible diabetes or not, will rn have to f/u with pcp for fasting levels and further testing, feeling better in terms of dizziness. . 11:24 ED course: HR briefly in high 40s, ECG obtained, was sinus bradycardia, now back to rn 50s-60s. . 13:06 Differential diagnosis: cardiac arrhythmia, generalized weakness, hyperventilation, rn hypovolemia, idiopathic dizziness, vertigo. Data reviewed: vital signs, nurses notes, lab test result(s), EKG, radiologic studies, CT scan, and as a result, I will discharge patient. Counseling: I had a detailed discussion with the patient and/or guardian regarding: the historical points, exam findings, and any diagnostic results supporting the discharge/admit diagnosis, lab results, radiology results, the need for outpatient follow up, to return to the emergency department if symptoms worsen or persist or if there are any questions or concerns that arise at home. Response to treatment: the patient's symptoms have markedly improved after treatment, and as a result, I will discharge patient. Special discussion: I discussed with the patient/guardian in detail that at this point there is no indication for admission to the hospital. It is understood, however, that if the symptoms persist or worsen the patient needs to return immediately for re-evaluation. Based on the history and exam findings, there is no indication for further emergent testing or inpatient evaluation. I discussed with the patient/guardian the need to see the neurologist for further evaluation of the symptoms. I discussed with the patient/guardian the need to see the primary care provider for further evaluation of the symptoms. ED course: Pt improved, w/u grossly neg, trop neg, brief sinus buddy but now resolved, + possible early or borderline diabetes, recommend pcp f/u for further eval and management, for now diet and exercise with weight loss. Return precautions given and understood. Told no driving or working until improves. . 12/30 08:54 Order name: CBC with Diff; Complete Time: 10:33 rn 12/30 08:54 Order name: Basic Metabolic Panel; Complete Time: 10:33 rn 12/30 08:54 Order name: Urine Microscopic Only; Complete Time: 12:57 rn 12/30 09:38 Order name: Urine Dipstick-Ancillary; Complete Time: 09:48 EDMS 12/30 10:11 Order name: Urine --Ancillary (enter results) bd 12/30 10:47 Order name: Troponin I; Complete Time: 12:57 bd 12/30 08:54 Order name: IV Start; Complete Time: 09:39 rn 12/30 08:54 Order name: CT Head Brain wo Cont; Complete Time: 09:35 rn 12/30 08:54 Order name: Urine Dipstick-Ancillary (obtain specimen); Complete Time: 09:39 rn 12/30 10:33 Order name: EKG; Complete Time: 10:34 rn 12/30 08:54 Order name: Urine Test (obtain specimen); Complete Time: 09:39 rn 12/30 10:33 Order name: EKG - Nurse/Tech; Complete Time: 10:44 rn Administered Medications: 09:30 Drug: NS 0.9% 1000 ml Route: IV; Rate: 1000 ml; Site: right forearm; bp 13:33 Follow up: IV Status: Completed infusion; IV Intake: 1000ml bp 09:30 Drug: Meclizine 50 mg Route: PO; bp 10:37 Follow up: Response: No adverse reaction bp 09:30 Drug: Zofran (Ondansetron) 4 mg Route: IVP; Site: right forearm; bp 10:37 Follow up: Response: No adverse reaction bp 10:45 Drug: Valium (diazepam) 2 mg Route: PO; bp 13:33 Follow up: Response: Marked relief of symptoms bp Disposition Summary: 12/30/20 13:08 Discharge Ordered Location: Home rn Problem: new rn Symptoms: have improved rn Condition: Stable rn Diagnosis - Other peripheral vertigo rn - Hyperglycemia, unspecified rn Followup: rn - With: Myles Case MD - When: As needed - Reason: Recheck today's complaints, Re-evaluation by your physician Discharge Instructions: - Discharge Summary Sheet rn - Benign Positional Vertigo rn - Hyperglycemia rn - Vertigo rn Forms: - Medication Reconciliation Form rn - Thank You Letter rn - Antibiotic video editing intern - Prescription Opioid Use rn - Work release form bp Prescriptions: - ondansetron 4 mg Oral tablet,disintegrating - take 1 tablet by ORAL route every 8 hours As needed; 20 tablet; Refills: 0, rn Product Selection Permitted - Meclizine 25 mg Oral Tablet - take 1 tablet by ORAL route every 8 hours As needed; 30 tablet; Refills: 0, rn Product Selection Permitted Signatures: Dispatcher [employer] Armani Earl MD MD rn Smirch, Shelby, RN RN Garry Velasco RN RN bp
[2020-12-30 13:41] VITALS: TEMP 97.4
[2020-12-30 13:44] VITALS: O2SAT 100
[2020-12-30 13:48] VITALS: BP 130/84
[2020-12-30 14:52] LABS: Urine Specific Gravity/Preg >1.030 (1.005-1.030)
--- NOTE | 2020-12-31 16:37 | EKG ---
Test Date: 2020-12-30 Test Time: 10:42:22 Intelligence Analyst: STARLA MEASUREMENT RESULTS: Intervals: Rate: 48 NC: 166 QRSD: 92 QT: 440 QTc: 393 [place]: P: 34 NC: 166 QRS: 51 T: 50 INTERPRETIVE STATEMENTS: Marked sinus bradycardia Early repolarization Abnormal ECG Compared to ECG 01/05/2012 23:10:58 Early repolarization now present Sinus rhythm no longer present Electronically Signed On 12-31-20 16:33:17 CDT by Neville Coreas
== END 2020-12-30 13:33 | disposition home or self-care (01) ==
LOC: ER 07:07
DX: H81.399 Other peripheral vertigo, unspecified ear (principal); E16.2 Hypoglycemia, unspecified
CPT/HCPCS: 93005; 85025; 80048; 36415; 81025; 84484; 70450; J7030; J2405; 81003; 81015; 96361; 96374; 99284

== ENCOUNTER 2021-02-19 10:06 | Emergency (ER) | payer OTHER ==
--- OUTSIDE RECORDS SUMMARY | 2021-02-19 10:09 | XMS REPORT | Continuity of Care Document ---
:1980 Author Organization [facility] t Address [address] [place] [address] Care Team Providers Name Role Phone Jaxon [...] Department ID 2019-10-17 2019-10-17 Emergency SCOTT Alvarez [id number] 18:07:03 21:31:00 Panfilo Dominguez [id number] [place] [id number] [place] [phone] [id number] Results This patient has no known results.
--- NOTE | 2021-02-19 13:58 | ER ---
Nurse's Notes [facility] Name: Shirley Leija Age: 40 yrs Sex: Female : 1980 Arrival Date: 02/19/2021 Time: 10:10 Bed DIS8 Private MD: Akhil Noble H Diagnosis: Coronavirus infection, unspecified Presentation: 02/19 10:59 Chief complaint: Patient states: fever, OSPINA runny nose x 2 days. Coronavirus screen: da3 Client denies travel out of the [place] in the last 14 days. Ebola Screen: No symptoms or risks identified at this time. Risk Assessment: Do you want to hurt yourself or someone else? Patient reports no desire to harm self or others. 10:59 Method Of Arrival: Ambulatory da3 10:59 Acuity: ABBY 4 da3 11:00 Chief complaint: Patient states: Fever. da3 Triage Assessment: 11:01 General: Appears in no apparent distress. comfortable. da3 Historical: - Allergies: 11:00 No Known Allergies; da3 - Immunization history:: Client reports having NOT received the Covid vaccine. Vital Signs: 11:01 BP 129 / 78; Pulse 80; Resp 20; Temp 99.4(O); Pulse Ox 98% on R/A; da3 ED Course: 10:10 Patient arrived in ED. mr 10:10 Akhil Noble DO is Private Physician. mr 11:00 Triage completed. da3 13:38 [facility] 13:38 Armani Mon MD is Attending Physician. [facility] 13:57 Akhil Noble DO is Referral Physician. [facility] 14:01 Patient did not have IV access during this emergency room visit. ld1 Administered Medications: No medications were administered Outcome: 13:57 Discharge ordered by . [facility] 14:01 Discharged to home ambulatory. ld1 14:01 Condition: stable 14:01 Discharge instructions given to patient, Instructed on discharge instructions, follow up and referral plans. Demonstrated understanding of instructions, follow-up care. 14:01 Patient left the ED. ld1 Signatures: Junior Harvey PA PA jmm Rivera, Mary mr Fatou Walls RN RN ld1 Roly Fernandes, RN RN da3
--- NOTE | 2021-02-19 13:58 | EDPHYS ---
Physician Documentation [facility] Name: Shirley Leija Age: 40 yrs Sex: Female : 1980 Arrival Date: 02/19/2021 Time: 10:10 Bed DIS8 Private MD: Akhil Noble H ED Physician Armani Mon HPI: 02/19 13:54 This 40 yrs old Female presents to ER via Ambulatory with complaints of Fever. jmm 13:54 Onset: The symptoms/episode began/occurred gradually, 3 day(s) ago. Modifying factors:. jmm Associated signs and symptoms: Pertinent positives: cough. The patient has not experienced similar symptoms in the past. Is a 40-year-old female that presents emerged part with complaints of cough, congestion, chest congestion, shortness of breath, fever beginning approximately 3 days ago. Patient denies vomiting or diarrhea.. Historical: - Allergies: 11:00 No Known Allergies; da3 - Immunization history:: Client reports having NOT received the Covid vaccine. ROS: 13:54 Constitutional: Positive for body aches, chills, fatigue, fever. jmm 13:54 Respiratory: Positive for cough, shortness of breath. 13:54 Respiratory: Negative for 13:54 Abdomen/GI: Negative for abdominal pain, nausea and vomiting, diarrhea. 13:54 All other systems are negative. Exam: 13:54 Constitutional: This is a well developed, well nourished patient who is awake, alert, jmm and in no acute distress. Head/Face: atraumatic. Eyes: EOMI, no conjunctival erythema appreciated ENT: Moist Mucus Membranes Neck: Trachea midline, Supple Chest/axilla: Normal chest wall appearance and motion. Cardiovascular: Regular rate and rhythm. No edema appreciated Respiratory: Normal respirations, no respiratory distress appreciated Abdomen/GI: Non distended, soft Back: Normal ROM Skin: General appearance color normal MS/ Extremity: Moves all extremities, no obvious deformities appreciated, no edema noted to the lower extremities Neuro: Awake and alert, normal gait Psych: Behavior is normal, Mood is normal, Patient is cooperative and pleasant Vital Signs: 11:01 BP 129 / 78; Pulse 80; Resp 20; Temp 99.4(O); Pulse Ox 98% on R/A; da3 MDM: 13:48 Patient medically screened. jmm 13:56 Data reviewed: vital signs, nurses notes. Counseling: I had a detailed discussion with [facility] the patient and/or guardian regarding: the historical points, exam findings, and any diagnostic results supporting the discharge/admit diagnosis, the need for outpatient follow up, to return to the emergency department if symptoms worsen or persist or if there are any questions or concerns that arise at home. ED course: Patient is alert nontoxic in appearance in the ED. No signs of respiratory distress. Patient advised to follow-up with PCP and otherwise given strict return precautions, patient understood and agrees to plan of care.. 02/19 12:24 Order name: SARS-COV-2 RT PCR; Complete Time: 13:38 EDMS Administered Medications: No medications were administered Disposition: 14:38 Co-signature as Attending Physician, Armani Mon MD I agree with the assessment and rn plan of care. Attestation: The patient's history, exam findings, diagnostics, and a summary of any interventions or procedures was reviewed in detail with Jnuior JOHNS. Disposition Summary: 02/19/21 13:57 Discharge Ordered Location: Home [facility] Condition: Stable [facility] Diagnosis - Coronavirus infection, unspecified [facility] Followup: [facility] - With: Akhil Noble DO - When: 2 - 3 days - Reason: Recheck today's complaints, Continuance of care, Re-evaluation by your physician Discharge Instructions: - Discharge Summary Sheet [facility] - COVID-19 [facility] Forms: - Medication Reconciliation Form [facility] - Thank You Letter [facility] - Antibiotic Education [facility] - Prescription Opioid Use [facility] Prescriptions: - ivermectin 3 mg Oral tablet - take 6 tablet by ORAL route as directed Please take 6 tablets now and another 6 jmm tablets on day 3; 12 tablet; Refills: 0, Product Selection Permitted - albuterol sulfate 90 mcg/actuation Inhalation HFA aerosol inhaler - inhale 2 puff by INHALATION route every 4-6 hours; 1 Pump; Refills: 0, Product jmm Selection Permitted Signatures: Dispatcher [employer] Junior Mason PA PA jmm Nieto, Roman, MD MD rn Allan, David, RN RN da3 Corrections: (The following items were deleted from the chart) 11:34 11:06 CORONAVIRUS+MR.LAB.BRZ ordered. EDMS EDMS
[2021-02-19 14:05] VITALS: BP 129/78; TEMP 99.4; O2SAT 98
== END 2021-02-19 14:01 | disposition home or self-care (01) ==
LOC: ER 10:06
DX: U07.1 COVID-19 (principal)
CPT/HCPCS: 99281; U0003

== ENCOUNTER 2022-07-15 18:12 | Emergency (ER) | payer OTHER ==
--- OUTSIDE RECORDS SUMMARY | 2022-07-15 18:18 | XMS REPORT | Continuity of Care Document ---
:1980 Author Organization [facility] t Address [address] [place] [address] Care Team Providers Name Role Phone Akhil Noble Primary Care Physician Doctor Unassigned, [place] Attending Clinician Unavailable Panfilo Alvarez MD Attending Clinician PANFILO ALVAREZ Attending Clinician Unavailable PANFILO ALVAREZ Admitting Clinician Unavailable Payers Payer Name Policy Type Policy Number Effective Date Expiration Date S ource Problems This patient has no known problems. Allergies, Adverse Reactions, Alerts Allergy Allergy Status Severity Reaction(s) Onset Inactive Treating Comm ents Source Name Type Date Date Clinician NO KNOWN Drug Active Univers ALLERGIE Class ity of [facility] [place] [facility] [place] Social History Social Habit Start Date Stop Date Quantity Comments Source Sex Assigned At [birth year] [facility] 00:00:00 00:00:00 Medical Branch Smoking Status Start Date Stop Date Source Tobacco smoking consumption General acute hospital Branch Medications Ordered Filled Start Stop Current Ordering Indication Dosage Frequency Signature Comments Components Source Medication Medication Date Date Medication? Clinician (SIG) Name Name ROSUVASTATI 2021-0 No 5 N CALCIUM 5 8-18 MG TABS 00:00: 00 metronidazo 2021-0 No 1mg le 500 mg 3-28 tablet 00:00: 00 rosuvastati 2021-0 No 1mg n 5 mg 3-22 tablet 00:00: 00 metformin 2021-0 No 1mg 1,000 mg 3-22 tablet 00:00: 00 metformin 2022-0 No 1mg 1,000 mg 3-22 tablet 00:00: 00 Dose 2022-0 No Unknown 3-22 00:00: 00 Dose 2022-0 No Unknown 3-22 00:00: 00 Dose 2022-0 No Unknown 3-22 00:00: 00 Dose 2022-0 No Unknown 3-22 00:00: 00 Dose 2022-0 No Unknown 3-22 00:00: 00 Dose 2022-0 No Unknown 3-22 00:00: 00 Dose 2-0 No Unknown 3-22 00:00: 00 Dose 2-0 No Unknown 3-22 00:00: 00 Dose 2-0 No Unknown 3-22 00:00: 00 Dose 2-0 No Unknown 3-22 00:00: 00 Dose 2-0 No Unknown 3-22 00:00: 00 Dose 2-0 No Unknown 3-22 00:00: 00 Dose 2022-0 No Unknown 3-22 00:00: 00 Dose 2-0 No Unknown 3-22 00:00: 00 Dose 2-0 No Unknown 3-22 00:00: 00 Dose 2-0 No Unknown 3-22 00:00: 00 Dose 2-0 No Unknown 3-22 00:00: 00 Dose 2-0 No Unknown 3-22 00:00: 00 Dose 2-0 No Unknown 3-22 00:00: 00 Dose 2-0 No Unknown 3-22 00:00: 00 Dose 2022-0 No Unknown 3-22 00:00: 00 Dose 2-0 No Unknown 3-22 00:00: 00 Dose 2-0 No Unknown 3-22 00:00: 00 Dose 2-0 No Unknown 3-22 00:00: 00 Dose 2-0 No Unknown 3-22 00:00: 00 Dose 2022-0 No Unknown 3-22 00:00: 00 Dose 2022-0 No Unknown 3-22 00:00: 00 rosuvastati 2-0 No 1mg n 5 mg 2-23 tablet 00:00: 00 metformin 2-0 No 1mg 1,000 mg 2-23 tablet 00:00: 00 Dose 2-0 No Unknown 2-21 00:00: 00 metformin 2-0 No 1mg 1,000 mg 2-21 tablet 00:00: 00 metformin 2020-1 No 1mg 500 mg 0-31 tablet 00:00: 00 metformin 2020-1 No 1mg 500 mg 0-27 tablet 00:00: 00 metformin 2020-0 No 1mg 500 mg 7-14 tablet 00:00: 00 ondansetron 2020-0 No 1mg HCl 4 mg 7-05 tablet 00:00: 00 meclizine 2020-0 No 1mg 25 mg 7-05 tablet 00:00: 00 cyclobenzap 2019-0 No 1mg rine 5 mg 4-30 tablet 00:00: 00 ibuprofen 2019-0 No 1mg 800 mg 4-30 tablet 00:00: 00 FENTanyl PF 2019-0 2020- No 50ug 50 mcg, Un [place]leym[place] (SUBLIMAZE 16 -16 Slow IV ity o f (PF)) 03:15: 02:24 Push, [place] injection 00 :00 ONCE, 1 Medical 50 mcg dose, Wed Branch 10/17/19 at 2215, Routine ondansetron 2019- No 4mg 4 mg, Slow Univers (ZOFRAN 4-16 04-15 IV Push, ity of (PF)) 00:45: 23:53 ONCE, 1 [place] injection 4 00 :00 dose, Wed Med ical mg 10/17/19 at [place] 194, GEOVANNI morpHINE 0 2020- No 4mg 4 mg, Slow Un souleymane injection 4 4-16 04-15 IV Push, ity of mg 00:45: 23:53 ONCE, 1 [place] 00 :00 dose, Wed Medical 10/17/19 at [place] 194, STAT acetaminoph 2020-0 Yes [id number] 1{tbl} Take 1 Univers en-codeine 4-15 tablet by ity of (TYLENOL-CO 00:00: mouth [place] DEINE #3) 00 every 4 Medical 300-30 mg (four) Branch tablet hours as needed for Pain (scale 1-3). acetaminoph 2020-0 Yes [id number] 1{tbl} Take 1 Univers en-codeine 4-15 tablet by ity of (TYLENOL-CO 00:00: mouth [place] DEINE #3) 00 every 4 Medical 300-30 mg (four) Branch tablet hours as needed for Pain (scale 1-3). acetaminoph 2020-0 Yes [id number] 1{tbl} Take 1 Univers en-codeine 4-15 tablet by ity of (TYLENOL-CO 00:00: mouth [place] DEINE #3) 00 every 4 Medical 300-30 mg (four) Branch tablet hours as needed for Pain (scale 1-3). Vital Signs Vital Name Observation Time Observation Value Comments Source Systolic blood 2019-10-18 02:00:00 134 mm[Hg] Univer sity of pressure [facility] Branch Diastolic blood 2019-10-18 02:00:00 68 mm[Hg] Unive rsity of pressure [facility] Branch Heart rate 2019-10-18 02:00:00 89 /min Universi ty of [facility] Branch Oxygen saturation in 2019-10-18 02:00:00 98 /min University of Arterial blood by [facility] Pulse oximetry Branch Body temperature 2019-10-17 23:08:00 37.72 Liseth Univ ersity of [facility] Branch Respiratory rate 2019-10-17 23:08:00 16 /min Univ ersity of [facility] Branch Body height 2019-10-17 23:08:00 152.4 cm [facility]i ty [facility] [place] [facility] Body weight 2019-10-17 23:08:00 72.576 kg [facility] [place] [facility] BMI 2019-10-17 23:08:00 31.25 kg/m2 Universi ty of [facility] Branch Systolic blood 2019-10-18 02:00:00 134 mm[Hg] Univer sity of [facility] Branch Diastolic blood 2019-10-18 02:00:00 68 mm[Hg] Unive rsity of [facility] Branch Heart rate 2019-10-18 02:00:00 89 /min Universi ty [facility] [place] [facility] Oxygen saturation in 2019-10-18 02:00:00 98 /min University of Arterial blood by [facility] Pulse oximetry Branch Body temperature 2019-10-17 23:08:00 37.72 Liseth Univ ersity of [facility] Branch Respiratory rate 2019-10-17 23:08:00 16 /min Univ ersity of [facility] Branch Body height 2019-10-17 23:08:00 152.4 cm Universi ty of [facility] Branch Body weight 2019-10-17 23:08:00 72.576 kg Universi ty of [facility] Branch BMI 2019-10-17 23:08:00 31.25 kg/m2 [facility] BP Systolic 2022-02-18 09:29:00 131 mm[Hg] BP Diastolic 2022-02-18 09:29:00 86 mm[Hg] Weight Measured 2022-02-18 09:29:00 173.80 pounds Height Measured 2022-02-18 09:29:00 60.00 inches Body Temperature 2022-02-18 09:29:00 98.20 degrees Heart Rate 2022-02-18 09:29:00 61.00 /min Respiratory Rate 2022-02-18 09:29:00 18.00 /min BP Diastolic 2021-09-22 15:35:00 78 mm[Hg] Weight Measured 2021-09-22 15:35:00 177.20 pounds Height Measured 2021-09-22 15:35:00 60.00 inches Body Temperature 2021-09-22 15:35:00 98.20 degrees Heart Rate 2021-09-22 15:35:00 76.00 /min Respiratory Rate 2021-09-22 15:35:00 16.00 /min BP Systolic 2021-09-22 15:35:00 119 mm[Hg] BP Systolic 2021-08-24 09:36:00 125 mm[Hg] BP Diastolic 2021-08-24 09:36:00 79 mm[Hg] Weight Measured 2021-08-24 09:36:00 177.00 pounds Height Measured 2021-08-24 09:36:00 60.00 inches Body Temperature 2021-08-24 09:36:00 99.00 degrees Heart Rate 2021-08-24 09:36:00 65.00 /min Respiratory Rate 2021-08-24 09:36:00 BP Systolic 2021-04-29 16:58:00 125 mm[Hg] BP Diastolic 2021-04-29 16:58:00 83 mm[Hg] Weight Measured 2021-04-29 16:58:00 176.60 pounds Height Measured 2021-04-29 16:58:00 60.00 inches Body Temperature 2021-04-29 16:58:00 98.00 degrees Heart Rate 2021-04-29 16:58:00 76.00 /min Respiratory Rate 2021-04-29 16:58:00 BP Systolic 2021-01-14 12:46:00 117 mm[Hg] BP Diastolic 2021-01-14 12:46:00 80 mm[Hg] Weight Measured 2021-01-14 12:46:00 177.80 pounds Height Measured 2021-01-14 12:46:00 60.00 inches Body Temperature 2021-01-14 12:46:00 99.10 degrees Heart Rate 2021-01-14 12:46:00 71.00 /min Respiratory Rate 2021-01-14 12:46:00 16.00 /min BP Systolic 2021-01-14 10:54:00 117 mm[Hg] BP Diastolic 2021-01-14 10:54:00 80 mm[Hg] Weight Measured 2021-01-14 10:54:00 Height Measured 2021-01-14 10:54:00 60.00 inches Body Temperature 2021-01-14 10:54:00 99.10 degrees Heart Rate 2021-01-14 10:54:00 71.00 /min Respiratory Rate 2021-01-14 10:54:00 16.00 /min BP Systolic 2021-01-05 09:05:00 134 mm[Hg] BP Diastolic 2021-01-05 09:05:00 79 mm[Hg] Weight Measured 2021-01-05 09:05:00 177.80 pounds Height Measured 2021-01-05 09:05:00 60.00 inches Body Temperature 2021-01-05 09:05:00 98.70 degrees Heart Rate 2021-01-05 09:05:00 84.00 /min Respiratory Rate 2021-01-05 09:05:00 BP Systolic 2019-11-01 14:25:00 131 mm[Hg] BP Diastolic 2019-11-01 14:25:00 74 mm[Hg] Weight Measured 2019-11-01 14:25:00 174.40 pounds Height Measured 2019-11-01 14:25:00 60.00 inches Body Temperature 2019-11-01 14:25:00 99.00 degrees Heart Rate 2019-11-01 14:25:00 71.00 /min Respiratory Rate 2019-11-01 14:25:00 16.00 /min Procedures Procedure Date / Time Performing Clinician Source Performed AUTHORIZATION FOR 2022-06-29 06:01:00 [facility]igned[facility] Branch AUTHORIZATION FOR 2021-09-21 05:01:00 Doctor Unassigned, No Univ [facility] RELEASE OF [facility] Name Medical Branch XR CERVICAL SPINE 3 VW 2019-10-18 00:46:19 [facility] LEFT 2019-10-18 00:28:52 Panfilo Alvarez [facility] XR PELVIS <3 VW 2019-10-18 00:28:52 Panfilo Alvarez [facility] XR SHOULDER <2 VW LEFT 2019-10-18 00:28:24 [facility] XR CHEST 1 VW 2019-10-18 00:28:02 Panfilo Alvarez [facility] TEST, SERUM 2019-10-17 23:47:[address] [facility] BASIC METABOLIC PANEL 2019-10-17 23:47:00 Panfilo Alvarez [facility] (NA, K, CL, CO2, Medical Branch GLUCOSE, BUN, CREATININE, CA) CBC WITH DIFFERENTIAL 2019-10-17 23:47:[address] [facility] Plan of Care Planned Activity Planned Date Details Comments Source Goal Plan of Care Note [code = 45232-0] Goal Plan of Care Note [code = 61427-5] Goal Plan of Care Note [code = 53161-2] Goal Plan of Care Note [code = 31384-2] Goal Plan of Care Note [code = 35284-7] Goal Plan of Care Note [code = 66107-2] Goal Plan of Care Note [code = 34659-2] Goal Plan of Care Note [code = 59263-1] Goal Plan of Care Note [code = 09439-5] Goal Plan of Care Note [code = 34992-2] Goal Plan of Care Note [code = 92918-0] Goal Plan of Care Note [code = 18970-6] Goal Plan of Care Note [code = 81902-3] Goal Plan of Care Note [code = 89789-2] Goal Plan of Care Note [code = 44524-6] Goal Plan of Care Note [code = 96085-3] Goal Plan of Care Note [code = 53353-4] Goal Plan of Care Note [code = 53493-8] Goal Plan of Care Note [code = 89786-1] Encounters Start End Encounter Admission Attending Care Care Encounter Source Date/Time Date/Time Type Type Clinicians Facility Department ID 2022-06-29 2022-06-29 Orders Doctor BREANA [id number] Univers 00:00:00 00:00:00 Only Unassigned, LIZA [id number] [facility]y of [place] [facility] 4.2.7.2.686 [place] [id number] [address] 2022-02-18 2022-02-18 Outpatient [id number] 00:00:00 00:00:00 Visit [id number] 2021-09-21 2021-09-21 Orders Doctor TOUSSAINT [id number] Univers 00:00:00 00:00:00 Only Unassigned, LIZA [id number] [facility] [place] [facility] 4.2.7.2.686 [place] [id number] [address] 2019-10-17 2019-10-[address] [facility] [id number] 18:07:03 21:31:00 Panfilo Dominguez [id number] [place] 4.2.7.2.686 [place] [id number] [employer] 2019-10-17 2019-10-17 [facility] [id number] Univers 18:07:03 21:31:00 Panfilo Dominguez 350.1.13.10 i ty of [place] [id number] [address] 2019-10-17 2019-10-17 Emergency [facility] [id number] Univers 18:07:03 21:31:00 PANFILO mendoza [facility] Results Test Description Test Time Test Comments Results Result Comments Source PAP TEST, THINPREP, IMAGED 2021-09-25 11:11:40 Test Item Value Reference Range Interpretation Comme nts SOURCE: (test code = Cervical/Endocervical 8001) SLIDES: (test code = 1 8011) LMP: (test code = 08/24/2021 8021) SPECIMEN ADEQUACY: (NOTE) Nigel rothman for (test code = 45541) evaluati on. Endocervical cells/transform ation zone component prese nt. INTERPRETATION: NILM/NO EPITH. ABNORMALITY;SEE (test code = 64694) BELOW -------- NEGATIVE FOR INTRAEPITHE LIAL LESION OR MALIGNANCY ( NILM) -- OTHER COMMENTS: (NOTE) Shift in jeri ra suggestive of (test code = 8081) bacterial vaginosis. STAFF DEVELOPMENT EDUCATOR: DANIAL Lewis(ASCP)IAC (test code = 8101) QC TECHNOLOGIST: DANIAL Bo(ASCP)IAC (test code = 8111) LOCATION: (test code (NOTE) Specime ns processed and = 42255) interpreted at [facility], [address] [place] [address], Phone: ( [phone], CLIA: [id number] CPT: (test code = (NOTE) 70093 UNLE SS OTHERWISE 8140) INDICATED, COMP UTER AIDED AND CYTOTECHNOL OGIST SCREENING PERFO RMED. The Pap test is a scree tonia test with an inheren t, but low probability of error. Your patient should be reminded to consult you immediately if she experien obed any suspicious sign s or symptoms, regar dless of her Pap test result . An alternate repor t format containing imag es or consolidated pr ior Pap history is carol brady as applicable. PAP TEST, THINPREP, [id number] 00:00:00 Test Item Value Reference Range Interpretation Comments SOURCE: (test code = Cervical/Endocervical 8001) SLIDES: (test code = 1 8011) LMP: (test code = 8021) 08/24/2021 SPECIMEN ADEQUACY: (NOTE) (test code = 80950) INTERPRETATION: (test NILM/NO EPITH. code = 07884) ABNORMALITY;SEE BELOW OTHER COMMENTS: (test (NOTE) code = 8081) STAFF DEVELOPMENT EDUCATOR: (test Majo code = 8101) DANIAL Maddox(ASCP)IAC QC TECHNOLOGIST: (test Miguel Toure, code = 8111) DANIAL(ASCP)IAC LOCATION: (test code = (NOTE) 74492) CPT: (test code = 8140) (NOTE) PAP TEST, THINPREP, [id number] 00:00:00 Test Item Value Reference Range Interpretation Comments SOURCE: (test code = Cervical/Endocervical 8001) SLIDES: (test code = 1 8011) LMP: (test code = 8021) 08/24/2021 SPECIMEN ADEQUACY: (NOTE) (test code = 53556) INTERPRETATION: (test NILM/NO EPITH. code = 63331) ABNORMALITY;SEE BELOW OTHER COMMENTS: (test (NOTE) code = 8081) STAFF DEVELOPMENT EDUCATOR: (test Majo code = 8101) DANIAL Maddox(ASCP)IAC QC TECHNOLOGIST: (test Miguel Toure, code = 8111) CT(ASCP)IAC LOCATION: (test code = (NOTE) 26901) CPT: (test code = 8140) (NOTE) CT/NG, NAAT, [id number] 18:28:09 Test Item Value Reference Range Interpretation Comments GONORRHEA, NAAT NEGATIVE NEGATIVE IMPORTA NT NOTICE: SEE (test code = [place] [address]) [email or web address] Note: Assay methodology is nucleic acid amplification b y railway traction line worker m ediated amplification ( TMA) utilizing the A ptima Combo 2 Assay. CHLAMYDIA, NAAT NEGATIVE NEGATIVE IMPORTA NT NOTICE: SEE (test code = [place] [address]) [email or web address] Note: Assay methodology is nucleic acid amplification b y railway traction line worker m ediated amplification ( TMA) utilizing the A ptima Combo 2 Assay. HPV HIGH RISK WITH GENOTYPE, [id number] 15:44:51 Test Item Value Reference Range Interpretation Comments HPV HIGH RISK INTERP POSITIVE NEGATIVE A (test code = 44065) HPV 16 (test code = NEGATIVE 46927) HPV 18 (test code = NEGATIVE 32660) HPV, HR, OTHER POSITIVE A Testing met hodology is GENOTYPES (test code real-ti me PCR utilizing = 30224) hydrolysis prob es with the [employer] Roma 4800 system. The cora t individually de tects genotypes 16 an d 18, as well as the oth er 12 high risk types (31,33,35,39,45 ,51,52,56 ,58,59,66,68). The expected result is negative. A neg ative result does not rule out the presence of HPV not included in the genotype set, a low leve l of infection or sp ecimen sampling error. UNLESS OTHERWISE INDIC ATED, ALL TESTING PERFORM ED ATCLINICAL PATH [facility], [place] [address] LABORATORY DIRE CTOR: TYRONE RAMSAY M.D. CLIA NUMBER [id number] [facility] [id number] VAGINAL PATHOGENS DNA [id number] 14:08:27 Test Item Value Reference Range Interpretation Comments PATRICIA SPECIES (test code = 79411) NEGATIVE NEGATIVE G. VAGINALIS (test code = 00904) POSITIVE NEGATIVE A T. VAGINALIS (test code = 63824) NEGATIVE NEGATIVE HIV 1/2 4TH GEN, RFLX [id number] 03:52:59 Test Item Value Reference Range Interpretation Comments HIV 1/2 4TH GEN, RFLX CONF (test NON-REACTIVE NON-REACTIVE code = 3514) HEPATITIS PANEL, [id number] 03:52:59 Test Item Value Reference Range Interpretation Comments HEPATITIS A IgM (test NON-REACTIVE NON-REACTIVE code = 82443) HEPATITIS B CORE IgM NON-REACTIVE NON-REACTIVE (test code = 4644) HEPATITIS B SURF AG NON-REACTIVE NON-REACTIVE (test code = 2739) HEPATITIS C ANTIBODY NON-REACTIVE NON-REACTIVE (test code = 4675) INTERPRETATION (NOTE) Hepatitis A HEPATITIS A: (test code sero logy shows no = 2552) evidence of acu te hepatitis A. INTERPRETATION (NOTE) Hepatitis B HEPATITIS B: (test code sero logy shows no = 80605) evidence of acu te hepatitis B and no indication of exposure to hepatitis B vir us in the previous maddy eight months. INTERPRETATION (NOTE) Hepatitis C HEPATITIS C: (test code sero logy shows no = 65061) evidence of exposure to hepatitisC viru s at this time. I t can take up to 12 months after exposure tothe hepatitis C vir us for antibodies to become detectab le in the blood in certain patient s. [id number] 03:17:46 Test Item Value Reference Range Interpretation Comments RPR RESULT (test NON-REACTIVE NON-REACTIVE code = 3501) RPR TITER (test NOT INDIC. NOT INDIC. UNLESS OTHE RWISE code = 3500) TITER INDICATED, ALL TESTING PERFORMED [facility] PATH[facility]Y [facility] [address] [place] [address] 4 LABORATORY DIRE CTOR: TYRONE RAMSAY M.D. CLIA NUMBER [id number] [place] [id number] VAGINAL PATHOGENS DNA [id number] 00:00:00 Test Item Value Reference Range Interpretation Comments PATRICIA SPECIES (test code = ) NEGATIVE G. VAGINALIS (test code = ) POSITIVE T. VAGINALIS (test code = ) NEGATIVE HPV HIGH RISK WITH GENOTYPE, [id number] 00:00:00 Test Item Value Reference Range Interpretation Comments HPV HIGH RISK INTERP (test code = POSITIVE 42588) HPV 16 (test code = 80917) NEGATIVE HPV 18 (test code = 36572) NEGATIVE HPV, HR, OTHER GENOTYPES (test code POSITIVE = 19633) HPV HIGH RISK WITH GENOTYPE, [id number] 00:00:00 Test Item Value Reference Range Interpretation Comments HPV HIGH RISK INTERP (test code = POSITIVE 30694) HPV 16 (test code = 83461) NEGATIVE HPV 18 (test code = 62827) NEGATIVE HPV, HR, OTHER GENOTYPES (test code POSITIVE = 69028) HIV AB/AG COMBO RFLX [id number] 00:00:00 Test Item Value Reference Range Interpretation Comments HIV 1/2 4TH GEN, RFLX CONF (test NON-REACTIVE code = 3514) HIV AB/AG COMBO RFLX [id number] 00:00:00 Test Item Value Reference Range Interpretation Comments HIV 1/2 4TH GEN, RFLX CONF (test NON-REACTIVE code = 3514) ACUTE HEPATITIS [id number] 00:00:00 Test Item Value Reference Range Interpretation Comments HEPATITIS A IgM (test code = NON-REACTIVE 84401) HEPATITIS B CORE IgM (test code NON-REACTIVE = 4644) HEPATITIS B SURF AG (test code = NON-REACTIVE 2739) HEPATITIS C ANTIBODY (test code NON-REACTIVE = 4675) INTERPRETATION HEPATITIS A: (NOTE) (test code = 2552) INTERPRETATION HEPATITIS B: (NOTE) (test code = 92703) INTERPRETATION HEPATITIS C: (NOTE) (test code = 10371) ACUTE HEPATITIS [id number] 00:00:00 Test Item Value Reference Range Interpretation Comments HEPATITIS A IgM (test code = NON-REACTIVE 93183) HEPATITIS B CORE IgM (test code NON-REACTIVE = 4644) HEPATITIS B SURF AG (test code = NON-REACTIVE 2739) HEPATITIS C ANTIBODY (test code NON-REACTIVE = 4675) INTERPRETATION HEPATITIS A: (NOTE) (test code = 2552) INTERPRETATION HEPATITIS B: (NOTE) (test code = 49135) INTERPRETATION HEPATITIS C: (NOTE) (test code = 13435) GC AND CHLAMYDIA, AMPLIFIED, [id number] 00:00:00 Test Item Value Reference Range Interpretation Comments GONORRHEA, NAAT (test code = 67407) NEGATIVE CHLAMYDIA, NAAT (test code = 48786) NEGATIVE GC AND CHLAMYDIA, AMPLIFIED, [id number] 00:00:00 Test Item Value Reference Range Interpretation Comments GONORRHEA, NAAT (test code = 10561) NEGATIVE CHLAMYDIA, NAAT (test code = 83731) NEGATIVE [id number] 00:00:00 Test Item Value Reference Range Interpretation Comments RPR RESULT (test code = NON-REACTIVE 3501) RPR TITER (test code = 3500) NOT INDIC. TITER [id number] 00:00:00 Test Item Value Reference Range Interpretation Comments RPR RESULT (test code = NON-REACTIVE 3501) RPR TITER (test code = 3500) NOT INDIC. TITER [id number] 00:00:00 Test Item Value Reference Range Interpretation Comments RPR RESULT (test code = NON-REACTIVE 3501) RPR TITER (test code = 3500) NOT INDIC. TITER VAGINAL PATHOGENS DNA [id number] 00:00:00 Test Item Value Reference Range Interpretation Comments PATRICIA SPECIES (test code = ) NEGATIVE G. VAGINALIS (test code = ) POSITIVE T. VAGINALIS (test code = ) NEGATIVE ALBUMIN/CREATININE RATIO, URINE, [id number] 06:32:12 Test Item Value Reference Range Interpretation Comments CREATININE, URINE, 160.8 MG/DL NOT ESTAB RANDOM (test code = 2072) ALBUMIN, URINE, 0.6 MG/DL NOT ESTAB RANDOM (test code = 05593) CALC 4 MG/G <30 Note: ALBUMIN/CREAT, RND Albumin/C reatinine ratio (test code = reference inter yoni 15301) reflects ADA a nd NKF guidelines. UNL ESS OTHERWISE INDIC ATED, ALL TESTING PERFORM ED ATCLINICAL PATH [facility] [place] [address] LABORATORY DIRE CTOR: TYRONE RAMSAY M.D. CLIA NUMBER [id number] [place] [id number] HEMOGLOBIN [id number] 05:07:14 Test Item Value Reference Range Interpretation Comments HEMOGLOBIN A1c (test 8.4 % 4.2-5.6 H AMERIC AN DIABETES code = 13817) ASSOCIATION [employer] FOR HGB A1C: PREDIABETES/INC REASED RISK . . . . . . . 5.7 -6.4% DIAGNOSIS OF DI ABETES . . . . . . . . . >=6 .5% WITH CONFIRMATION OR APPROPRIATE SYMPTOMS NOTE: ASSAY MAY BE AFFECTED BY HEMOGLOBINOPATH IES (SICKLE CELL ANEMIA, S- C DISEASE, OTHERS) OR LORENZO FICIALLY LOWERED BY DECR EASED RED CELL SURVIVAL ( HEMOLYTIC ANEMIAS, BLOOD LOSS, ETC.). CONSIDER ALTERN ATE TESTING OR LABORATORY C ONSULTATION. LIPID [id number] 04:20:14 Test Item Value Reference Range Interpretation Comments CHOLESTEROL (test 192 MG/DL <200 code = 2210) TRIGLYCERIDES (test 105 MG/DL <150 code = 2232) HDL CHOLESTEROL (test 47 MG/DL >39 code = 2220) CALC LDL CHOL (test 124 MG/DL <100 H NOTE: C ALCULATED LDL code = 2237) IS BASED ON CONSTANCE-CID METHOD WHICHINCLUDES ADJUSTABLE TRIGLYCERIDE:VL DL CHOLESTEROL RAT IO.THIS FACTOR VARIES B Y MEASURED TRIGLY CERIDE AND NON-HDLCHOL ESTEROL CONCENTRATIONS WITH INCREASED CALCU LATED LDL SEENIN HIGH ER TRIGLYCERIDE OR LOWER NON-HDL SPECIME NS. FOR MOREINFORMATION , SEE CLIENT ANNOUNCE MENT AT [email or web address] RISK RATIO LDL/HDL 2.64 RATIO <3.22 (test code = 2238) COMPREHENSIVE METABOLIC [id number] 04:20:14 Test Item Value Reference Range Interpretation Comments GLUCOSE (test code = 138 MG/DL 70-99 H 2216) BUN (test code = 8 MG/DL -20 2207) CREATININE (test 0.69 MG/DL 0.60-1.30 code = 2214) eGFR (2020 CKD-EPI) 112 >60 (test code = 46908) ML/MIN/1.73 CALC BUN/CREAT (test 12 RATIO 6-28 code = 2235) SODIUM (test code = 140 MEQ/L 210-609 5110) POTASSIUM (test code 4.4 MEQ/L 3.5-5.4 = 222) CHLORIDE (test code 105 MEQ/L 95-107 = 2215) CARBON DIOXIDE (test 20 MEQ/L 19-31 code = 2206) CALCIUM (test code = 8.6 MG/DL 8.5-10.5 2208) PROTEIN, TOTAL (test 7.9 G/DL 6.1-8.3 code = 2229) ALBUMIN (test code = 4.6 G/DL 3.5-5.2 2200) CALC GLOBULIN (test 3.3 G/DL 1.9-3.7 code = 2240) CALC A/G RATIO (test 1.4 RATIO 1.0-2.6 code = 2234) BILIRUBIN, TOTAL 0.3 MG/DL See_Comment [Automated message] (test code = 2207) The syste m which generated this result transmit dalila reference range : <=1.2. The refe rence range was not u sed to interpret th is result as normal/abnormal . ALKALINE PHOSPHATASE 115 U/L 40-113 H (test code = 4) AST (test code = 43 U/L 9-40 H 2217) ALT (test code = 80 U/L 5-40 H 2218) HEMOGLOBIN [id number] 00:00:00 Test Item Value Reference Range Interpretation Comments HEMOGLOBIN A1c (test code = 99688) 8.4 % HEMOGLOBIN [id number] 00:00:00 Test Item Value Reference Range Interpretation Comments HEMOGLOBIN A1c (test code = 66752) 8.4 % LIPID [id number] 00:00:00 Test Item Value Reference Range Interpretation Comments CHOLESTEROL (test code = 2210) 192 MG/DL TRIGLYCERIDES (test code = 2232) 105 MG/DL HDL CHOLESTEROL (test code = 2220) 47 MG/DL CALC LDL CHOL (test code = 2237) 124 MG/DL RISK RATIO LDL/HDL (test code = 2.64 RATIO 2238) LIPID [id number] 00:00:00 Test Item Value Reference Range Interpretation Comments CHOLESTEROL (test code = 2210) 192 MG/DL TRIGLYCERIDES (test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
--- NOTE | 2022-07-15 18:30 | ER ---
Nurse's Notes [facility] Name: Shirley Leija Age: 42 yrs Sex: Female : 1980 Arrival Date: 07/15/2022 Time: 18:15 Bed IW1 Private MD: Diagnosis: Acute suppurative otitis media Presentation: 07/15 18:28 Chief complaint: Patient states: Left ear pain, denies cough/congestion. Coronavirus aa5 screen: At this time, the client does not indicate any symptoms associated with coronavirus-19. Ebola Screen: Patient denies travel to an Ebola-affected area in the 21 days before illness onset. Initial Sepsis Screen: Does the patient meet any 2 criteria? No. Patient's initial sepsis screen is negative. Does the patient have a suspected source of infection? No. Patient's initial sepsis screen is negative. Risk Assessment: Do you want to hurt yourself or someone else? Patient reports no desire to harm self or others. Onset of symptoms was July 2022. 18:28 Method Of Arrival: Ambulatory [facility] 18:28 Acuity: ABBY 5 aa5 Historical: - Allergies: 18:30 No Known Allergies; aa5 - PMHx: 18:30 Diabetes mellitus; aa5 - PSHx: 18:29 section; Cholecystectomy; aa5 - Immunization history:: Adult Immunizations unknown. - Social history:: Smoking status: Patient denies any tobacco usage or history of. Assessment: 18:41 Reassessment: Patient is alert, oriented x 3, equal unlabored respirations, skin aa5 warm/dry/pink. Vital Signs: 18:28 BP 150 / 84; Pulse 69; Resp 16 S; Temp 98.2(TE); Pulse Ox 99% on R/A; Weight 78.47 kg aa5 (R); Height 5 ft. 0 in. (152.40 cm) (R); 18:28 Body Mass Index 33.79 (78.47 kg, 152.40 cm) aa5 ED Course: 18:15 Patient arrived in ED. as 18:16 [facility] Vel[facility] 18:16 John Shaw MD is Attending Physician. [facility] 18:28 Arm band placed on. aa5 18:29 Triage completed. aa5 18:41 No provider procedures requiring assistance completed. Patient did not have IV access aaSierra during this emergency room visit. Administered Medications: No medications were administered Outcome: 18:30 Discharge ordered by . pattie 18:40 Discharged to home ambulatory. aa5 18:40 Condition: stable aa5 18:40 Discharge instructions given to patient, Instructed on discharge instructions, follow up and referral plans. medication usage, Demonstrated understanding of instructions, follow-up care, medications, Prescriptions given X 1. 18:41 Patient left the ED. aa5 Signatures: Vidya Belcher Audri, RN RN aa5 Oliva Velasquez, INSPECTOR SUBASSEMBLIES INSPECTOR SUBASSEMBLIES 7
--- NOTE | 2022-07-15 18:30 | EDPHYS ---
Physician Documentation [facility] Name: Shirley Leija Age: 42 yrs Sex: Female : 1980 Arrival Date: 07/15/2022 Time: 18:15 Bed IW1 Private MD: ED Physician John Shaw HPI: 07/15 18:30 This 42 yrs old Female presents to ER via Ambulatory with complaints of Ear jh7 Pain. 18:30 The patient presents with pain, moderate. The complaints affect the left ear. Onset: jh7 The symptoms/episode began/occurred acutely, 1 day(s) ago. Associated signs and symptoms: Pertinent negatives: cough, fever, sinus trouble, shortness of breath, sore throat. Historical: - Allergies: 18:30 No Known Allergies; aa5 - PMHx: 18:30 Diabetes mellitus; aa5 - PSHx: 18:29 section; Cholecystectomy; aa5 - Immunization history:: Adult Immunizations unknown. - Social history:: Smoking status: Patient denies any tobacco usage or history of. ROS: 18:30 Constitutional: Negative for fever, chills, and weight loss, Eyes: Negative for injury, jh7 pain, redness, and discharge, Neck: Negative for injury, pain, and swelling, Cardiovascular: Negative for chest pain, palpitations, and edema, Respiratory: Negative for shortness of breath, cough, wheezing, and pleuritic chest pain, Abdomen/GI: Negative for abdominal pain, nausea, vomiting, diarrhea, and constipation, Back: Negative for injury and pain, Skin: Negative for injury, rash, and discoloration, Neuro: Negative for headache, weakness, numbness, tingling, and seizure. 18:30 ENT: Positive for ear pain, Negative for nasal discharge, rhinorrhea, sinus pain, sore throat. 18:30 All other systems are negative. Exam: 18:30 Constitutional: This is a well developed, well nourished patient who is awake, alert, jh7 and in no acute distress. Head/Face: Normocephalic, atraumatic. Neck: Trachea midline, no thyromegaly or masses palpated, and no cervical lymphadenopathy. Supple, full range of motion without nuchal rigidity, or vertebral point tenderness. No Meningismus. Cardiovascular: Regular rate and rhythm with a normal S1 and S2. No gallops, murmurs, or rubs. Normal PMI, no JVD. No pulse deficits. Respiratory: Lungs have equal breath sounds bilaterally, clear to auscultation and percussion. No rales, rhonchi or wheezes noted. No increased work of breathing, no retractions or nasal flaring. Skin: Warm, dry with normal turgor. Normal color with no rashes, no lesions, and no evidence of cellulitis. Neuro: Awake and alert, GCS 15, oriented to person, place, time, and situation. Motor strength 5/5 in all extremities. Sensory grossly intact. Normal gait. 18:30 ENT: External ear(s): are unremarkable, Ear canal(s): are normal, TM's: erythema, that is moderate, on the left. Vital Signs: 18:28 BP 150 / 84; Pulse 69; Resp 16 S; Temp 98.2(TE); Pulse Ox 99% on R/A; Weight 78.47 kg aa5 (R); Height 5 ft. 0 in. (152.40 cm) (R); 18:28 Body Mass Index 33.79 (78.47 kg, 152.40 cm) aa5 MDM: 18:16 Patient medically screened. [facility] 18:30 Differential diagnosis: otitis media, otitis externa, ruptured TM, acute otalgia, jh7 cerumen impaction. Data reviewed: vital signs, nurses notes. I considered the following discharge prescriptions or medication management in the emergency department I discussed and recommended Over The Counter medications, ABX prescribed. Counseling: I had a detailed discussion with the patient and/or guardian regarding: the historical points, exam findings, and any diagnostic results supporting the discharge/admit diagnosis, to return to the emergency department if symptoms worsen or persist or if there are any questions or concerns that arise at home. Administered Medications: No medications were administered Disposition Summary: 07/15/22 18:30 Discharge Ordered Location: Home [facility] Problem: new [facility] Symptoms: are unchanged [facility] Condition: Stable [facility] Diagnosis - Acute suppurative otitis media [facility] Followup: [facility] - With: Private Physician - When: 2 - 3 days - Reason: Recheck today's complaints Discharge Instructions: - Discharge Summary Sheet [facility] - Otitis Media, Adult [facility] Forms: - Medication Reconciliation Form [facility] - Thank You Letter jh7 - Antibiotic Education [facility] Prescriptions: - Amoxicillin 875 mg Oral Tablet - take 1 tablet by ORAL route every 12 hours for 10 days; 20 tablet; Refills: 0, jh7 Product Selection Permitted Signatures: Keshia Barton, RN RN aa5 Oliva Velasquez, ACCOUNTS COLLECTOR ACCOUNTS COLLECTOR [facility]
[2022-07-15 19:17] VITALS: BP 150/84; TEMP 98.2; O2SAT 99
== END 2022-07-15 18:41 | disposition home or self-care (01) ==
LOC: ER 18:12
DX: H66.002 Acute suppurative otitis media without spontaneous rupture of ear drum, left ear (principal); E11.9 Type 2 diabetes mellitus without complications
CPT/HCPCS: 99282

== ENCOUNTER 2022-07-16 00:59 | Emergency (ER) | payer OTHER ==
--- OUTSIDE RECORDS SUMMARY | 2022-07-16 01:04 | XMS REPORT | Continuity of Care Document ---
:[address] [facility] t Address [address] [place] [address] Care Team Providers Name Role Phone Cb Rojas Primary Care Physician [phone] Doctor Unassigned, [place] Attending Clinician Unavailable Panfilo Alvarez MD Attending [...] KNOWN Drug Active Univers ALLERGIE Class ity [facility] [place] [facility] Social History Social Habit Start Date Stop Date Quantity Comments Source Sex Assigned At 1980 1980 [facility] 00:00:00 00:00:00 Medical Branch Smoking Status Start Date Stop Date Source Tobacco smoking consumption [facility] Branch Medications Ordered Filled Start Stop Current Ordering Indication Dosage Frequency Signature Comments Components Source Medication Medication Date Date Medication? Clinician (SIG) Name Name ROSUVASTATI No 5 N CALCIUM 5 8-18 MG TABS 00:00: 00 metronidazo No 1mg le 500 mg 3-28 tablet 00:00: 00 Dose 2021-0 No Unknown 3- 00:00: 00 Dose 2021-0 No Unknown 3-22 00:00: 00 Dose 0 No Unknown 3- 00:00: 00 Dose 2022-0 No Unknown 3-22 [...] 2022-0 No Unknown 3-22 00:00: 00 rosuvastati 2022-0 No 1mg n 5 mg 3-22 tablet 00:00: 00 metformin 2-0 No 1mg 1,000 mg 3-22 tablet 00:00: [...] 2022-0 No Unknown 3-22 00:00: 00 rosuvastati 2022-0 No 1mg n 5 mg 2-23 tablet 00:00: 00 metformin 2022-0 No 1mg 1,000 mg 2-23 tablet 00:00: 00 Dose 2022-0 No Unknown 2-21 00:00: 00 metformin 2022-0 No 1mg 1,000 mg 2-21 tablet 00:00: 00 metformin 2021-1 No 1mg 500 mg 0-31 tablet 00:00: [...] ity o f (PF)) 03:15: 02:24 Push, [place] injection 00 :00 ONCE, 1 Medical 50 mcg dose, Wed Branch 10/17/19 at 2215, Routine ondansetron 2019- No 4mg 4 mg, Slow Univers (ZOFRAN 16 -15 IV Push, ity of (PF)) 00:45: 23:53 ONCE, 1 [place] injection 4 00 :00 dose, Wed Med ical mg 10/17/19 at Branch 194, GEOVANNI morpHINE 2019-0 2020- No 4mg 4 mg, Slow Un souleymane injection 4 -16 -15 IV Push, ity of mg 00:45: 23:53 ONCE, 1 [place] 00 :00 dose, Wed Medical 10/17/19 at Branch 194, STAT acetaminoph 2019-0 Yes [id number] 1{tbl} Take 1 Univers en-codeine 4-15 tablet by ity of (TYLENOL-CO 00:00: mouth [place] DEINE #3) 00 every 4 Medical 300-30 mg (four) Branch tablet hours as needed for Pain (scale 1-3). acetaminoph 2020-0 Yes [id number] 1{tbl} Take 1 Univers en-codeine 4-15 tablet by ity of (TYLENOL-CO 00:00: mouth [place] DEINE #3) 00 every 4 Medical 300-30 mg (four) Branch tablet hours as needed for Pain (scale 1-3). acetaminoph 2019-0 Yes [id number] 1{tbl} Take 1 Univers en-codeine 4-15 tablet by ity of (TYLENOL-CO 00:00: mouth [place] DEINE #3) 00 every 4 Medical 300-30 mg (four) Branch tablet hours as needed for Pain (scale 1-3). Vital Signs Vital Name Observation Time Observation Value Comments Source Systolic blood 2019-10-18 02:00:00 134 mm[Hg] Univer sity of pressure [facility] Branch Diastolic blood 2019-10-18 02:00:00 68 mm[Hg] Unive rsity of pressure [facility] Branch Heart rate 2019-10-18 02:00:00 89 /min Universi ty of [facility] Branch Oxygen saturation in 2019-10-18 02:00:00 98 /min University of Arterial blood by [facility] Pulse oximetry Branch Body temperature 2019-10-17 23:08:00 37.72 Liseth Univ ersity of [facility] Branch Respiratory rate 2019-10-17 23:08:00 16 /min Univ ersity of [facility] Branch Body height 2019-10-17 23:08:00 152.4 cm [facility]i ty [facility] [place] [facility] Body weight 2019-10-17 23:08:00 72.576 kg [facility] [place] [facility] BMI 2019-10-17 23:08:00 31.25 kg/m2 Universi ty of [facility] Branch Systolic blood 2019-10-18 02:00:00 134 mm[Hg] Univer sity of pressure [facility] Branch Diastolic blood 2019-10-18 02:00:00 68 mm[Hg] Unive rsity of pressure [facility] Branch Heart rate 2019-10-18 02:00:00 89 /min [facility] ty [facility] [place] [facility] Oxygen saturation in 2019-10-18 02:00:00 98 /min University of Arterial blood by [facility] Pulse oximetry Branch Body temperature 2019-10-17 23:08:00 37.72 Liseth Univ ersity of [facility] Branch Respiratory rate 2019-10-17 23:08:00 16 /min Univ ersity of [facility] Branch Body height 2019-10-17 23:08:00 152.4 cm [facility] [place] [facility] Body weight 2019-10-17 23:08:00 72.576 kg [facility] [place] [facility] BMI 2019-10-17 23:08:00 31.25 kg/m2 [facility] ty [facility] [place] [facility] BP Systolic 2022-02-18 09:29:00 131 mm[Hg] BP [...] FOR 2022-06-29 06:01:00 Doctor Unassigned, No [facility] Name Medical Branch AUTHORIZATION FOR 2021-09-21 05:01:00 Doctor Unassigned, No Univ [facility] RELEASE OF [facility] Name Medical Branch XR CERVICAL SPINE 3 VW 2019-10-18 00:46:19 [facility] HIPS 2 VW LEFT 2019-10-18 00:28:52 Panfilo Alvarez [facility] XR PELVIS <3 VW 2019-10-18 00:28:52 Panfilo Alvarez [facility] XR SHOULDER <2 VW LEFT 2019-10-18 00:28:24 [facility] XR CHEST 1 VW 2019-10-18 00:28:02 Panfilo Alvarez [facility] TEST, SERUM 2019-10-17 23:47:00 Panfilo Alvarez [facility] BASIC METABOLIC PANEL 2019-10-17 23:47:00 Panfilo lAvarez [facility] (NA, K, CL, CO2, Medical Branch GLUCOSE, BUN, CREATININE, CA) CBC WITH DIFFERENTIAL 2019-10-17 23:47:00 Panfilo Alvarez [facility] Plan of Care Planned Activity Planned Date Details Comments Source Goal Plan of Care Note [code = 16017-7] Goal Plan of Care Note [code = 29644-8] Goal Plan of Care Note [code = 28615-4] Goal Plan of Care Note [code = 77428-5] Goal Plan of Care Note [code = 46427-0] Goal Plan of Care Note [code = 38140-5] Goal Plan of Care Note [code = 71698-4] Goal Plan of Care Note [code = 61872-3] Goal Plan of Care Note [code = 19084-4] Goal Plan of Care Note [code = 99551-3] Goal Plan of Care Note [code = 62295-6] Goal Plan of Care Note [code = 66577-1] Goal Plan of Care Note [code = 71875-8] Goal Plan of Care Note [code = 51605-2] Goal Plan of Care Note [code = 94361-4] Goal Plan of Care Note [code = 38051-2] Goal Plan of Care Note [code = 01872-3] Goal Plan of Care Note [code = 82879-2] Goal Plan of Care Note [code = 46678-3] Encounters Start End Encounter Admission Attending Care Care Encounter Source Date/Time Date/Time Type Type Clinicians Facility Department ID 2022-06-29 2022-06-29 Orders Doctor BREANA [id number] Univers 00:00:00 00:00:00 Only Unassigned, LIZA [id number] ity of [facility] [id number] Dax as [phone] [address] 2022-02-18 2022-02-18 Outpatient [id number] 00:00:00 00:00:00 Visit [id number] 2021-09-21 2021-09-21 Orders Doctor BREANA [id number] Univers 00:00:00 00:00:00 Only Unassigned, LIZA [id number] ity of [place] [facility] 4.2.7.2.686 Dax as [id number] [address] 2019-10-17 2019-10-[address] [facility] [id number] Univers 18:07:03 21:31:00 Panfilo Dominguez [id number] i ty of [place] 4.2.7.2.686 [facility] [phone] [place] [address] Branch 2019-10-17 2019-10-17 Emergency X [facility] ERT [id number] Univers 18:07:03 21:31:00 PANFILO mendoza [facility] 2019-10-17 2019-10-17 [facility] [id number] 18:07:03 21:31:00 Panfilo Dominguez [id number] [place] 4.2.7.2.686 [place] [id number] 084 Results Test Description Test Time Test Comments Results Result Comments Source PAP TEST, THINPREP, IMAGED 2021-09-25 11:11:40 Test Item Value Reference Range Interpretation Comme nts SOURCE: (test code = Cervical/Endocervical 8001) SLIDES: (test code = 1 8011) LMP: (test code = 08/24/2021 8021) SPECIMEN ADEQUACY: (NOTE) Nigel rothman for (test code = 47836) evaluati on. Endocervical cells/transform ation zone component prese nt. INTERPRETATION: NILM/NO EPITH. ABNORMALITY;SEE (test code = 37209) BELOW -------- NEGATIVE FOR INTRAEPITHE LIAL LESION OR MALIGNANCY ( NILM) -- OTHER COMMENTS: (NOTE) Shift in jeri ra suggestive of (test code = 8081) bacterial vaginosis. SWAGE TENDER: DANIAL Lewis(ASCP)IAC (test code = 8101) QC TECHNOLOGIST: DANIAL Bo(ASCP)IAC (test code = 8111) LOCATION: (test code (NOTE) Specime ns processed and = 53542) [facility] [address] [place] [address], Phone: , CLIA: [id number] CPT: (test code = (NOTE) 72618 UNLE SS OTHERWISE 8140) INDICATED, COMP UTER [...] carol brady as applicable. PAP TEST, THINPREP, [id number] 00:00:00 Test Item Value Reference Range Interpretation Comments SOURCE: (test code = Cervical/Endocervical 8001) SLIDES: (test code = 1 8011) LMP: (test code = 8021) 08/24/2021 SPECIMEN ADEQUACY: (NOTE) (test code = 55317) INTERPRETATION: (test NILM/NO EPITH. code = 79769) ABNORMALITY;SEE BELOW OTHER COMMENTS: (test (NOTE) code = 8081) SWAGE TENDER: (test Majo code = 8101) DANIAL Maddox(ASCP)IAC QC TECHNOLOGIST: (test Miguel Toure, code = 8111) CT(ASCP)IAC LOCATION: (test code = (NOTE) 71134) CPT: (test code = 8140) (NOTE) PAP TEST, THINPREP, [id number] 00:00:00 Test Item Value Reference Range Interpretation Comments SOURCE: (test code = Cervical/Endocervical 8001) SLIDES: (test code = 1 8011) LMP: (test code = 8021) 08/24/2021 SPECIMEN ADEQUACY: (NOTE) (test code = 64793) INTERPRETATION: (test NILM/NO EPITH. code = 28812) ABNORMALITY;SEE BELOW OTHER COMMENTS: (test (NOTE) code = 8081) SWAGE TENDER: (test Majo code = 8101) DANIAL Maddox(ASCP)IAC QC TECHNOLOGIST: (test Miguel Toure, code = 8111) CT(ASCP)IAC LOCATION: (test code = (NOTE) 00619) CPT: (test code = 8140) (NOTE) CT/NG, NAAT, [id number] 18:28:09 Test Item Value Reference Range Interpretation Comments GONORRHEA, NAAT NEGATIVE NEGATIVE IMPORTA NT NOTICE: SEE (test code = [place] [address]) [email or web address] Note: Assay methodology is nucleic acid amplification b y mold bunch trimmer m ediated amplification ( TMA) utilizing the A ptima Combo 2 Assay. CHLAMYDIA, NAAT NEGATIVE NEGATIVE IMPORTA NT NOTICE: SEE (test code = [place] [address]) [email or web address] Note: Assay methodology is nucleic acid amplification b y mold bunch trimmer m ediated amplification ( TMA) utilizing the A ptima Combo 2 Assay. HPV HIGH RISK WITH GENOTYPE, [id number] 15:44:51 Test Item Value Reference Range Interpretation Comments HPV HIGH RISK INTERP POSITIVE NEGATIVE A (test code = 48912) HPV 16 (test code = NEGATIVE 53774) HPV 18 (test code = NEGATIVE 08993) HPV, HR, OTHER POSITIVE A Testing meth odology is GENOTYPES (test code real-ti me PCR utilizing = 98117) hydrolysis prob es with the [employer] 4800 system. The cora t individually de [...] ALL TESTING PERFORM ED ATCLINICAL PATH OLOGY [facility], [place] [address] LABORATORY DIRE CTOR: TYRONE RAMSAY M.D. CLIA NUMBER [id number] [facility] [id number] VAGINAL PATHOGENS DNA [id number] 14:08:27 Test Item Value Reference Range Interpretation Comments PATRICIA SPECIES (test code = 83373) NEGATIVE NEGATIVE G. VAGINALIS (test code = 94027) POSITIVE NEGATIVE A T. VAGINALIS (test code = 22460) NEGATIVE NEGATIVE HIV 1/2 4TH GEN, RFLX [id number] 03:52:59 Test Item Value Reference Range Interpretation Comments HIV 1/2 4TH GEN, RFLX CONF (test NON-REACTIVE NON-REACTIVE code = 3514) HEPATITIS PANEL, [id number] 03:52:59 Test Item Value Reference Range Interpretation Comments HEPATITIS A IgM (test NON-REACTIVE NON-REACTIVE code = 90191) HEPATITIS B CORE IgM NON-REACTIVE NON-REACTIVE (test code = 4644) HEPATITIS B SURF AG NON-REACTIVE NON-REACTIVE (test code = 2739) HEPATITIS C ANTIBODY NON-REACTIVE NON-REACTIVE (test code = 4675) INTERPRETATION (NOTE) Hepatitis A HEPATITIS A: (test code sero logy shows no = 2552) evidence of acu te hepatitis A. INTERPRETATION (NOTE) Hepatitis B HEPATITIS B: (test code sero logy shows no = 30263) evidence of acu te hepatitis B and no indication of exposure to hepatitis B vir us in the previous maddy eight months. INTERPRETATION (NOTE) Hepatitis C HEPATITIS C: (test code sero logy shows no = 35954) evidence of exposure to hepatitisC viru s at this time. I t can take up to 12 months after exposure tothe hepatitis C vir us for antibodies to become detectab le in the blood in certain patient s. [id number] 03:17:46 Test Item Value Reference Range Interpretation Comments RPR RESULT (test NON-REACTIVE NON-REACTIVE code = 3501) RPR TITER (test NOT INDIC. NOT INDIC. UNLESS OTHE RWISE code = 3500) TITER INDICATED, ALL TESTING PERFORMED [facility] PATHOLOGY LABOR [facility] [address] [place] [address] 4 LABORATORY DIRE CTOR: TYRONE RAMSAY M.D. CLIA NUMBER [id number] [facility] [place]. [id number] VAGINAL PATHOGENS DNA [id number] 00:00:00 Test Item Value Reference Range Interpretation Comments PATRICIA SPECIES (test code = ) NEGATIVE G. VAGINALIS (test code = ) POSITIVE T. VAGINALIS (test code = ) NEGATIVE VAGINAL PATHOGENS DNA [id number] 00:00:00 Test Item Value Reference Range Interpretation Comments PATRICIA SPECIES (test code = ) NEGATIVE G. VAGINALIS (test code = 38412) POSITIVE T. VAGINALIS (test code = ) NEGATIVE HPV HIGH RISK WITH GENOTYPE, [id number] 00:00:00 Test Item Value Reference Range Interpretation Comments HPV HIGH RISK INTERP (test code = POSITIVE 15725) HPV 16 (test code = 17008) NEGATIVE HPV 18 (test code = 83967) NEGATIVE HPV, HR, OTHER GENOTYPES (test code POSITIVE = 20537) HPV HIGH RISK WITH GENOTYPE, [id number] 00:00:00 Test Item Value Reference Range Interpretation Comments HPV HIGH RISK INTERP (test code = POSITIVE 64073) HPV 16 (test code = 61883) NEGATIVE HPV 18 (test code = 53175) NEGATIVE HPV, HR, OTHER GENOTYPES (test code POSITIVE = 78673) HIV AB/AG COMBO RFLX [id number] 00:00:00 Test Item Value Reference Range Interpretation Comments HIV 1/2 4TH GEN, RFLX CONF (test NON-REACTIVE code = 3514) HIV AB/AG COMBO RFLX [id number] 00:00:00 Test Item Value Reference Range Interpretation Comments HIV 1/2 4TH GEN, RFLX CONF (test NON-REACTIVE code = 3514) ACUTE HEPATITIS [id number] 00:00:00 Test Item Value Reference Range Interpretation Comments HEPATITIS A IgM (test code = NON-REACTIVE 24719) HEPATITIS B CORE IgM (test code NON-REACTIVE = 4644) HEPATITIS B SURF AG (test code = NON-REACTIVE 2739) HEPATITIS C ANTIBODY (test code NON-REACTIVE = 4675) INTERPRETATION HEPATITIS A: (NOTE) (test code = 2552) INTERPRETATION HEPATITIS B: (NOTE) (test code = 05623) INTERPRETATION HEPATITIS C: (NOTE) (test code = 57025) ACUTE HEPATITIS [id number] 00:00:00 Test Item Value Reference Range Interpretation Comments HEPATITIS A IgM (test code = NON-REACTIVE 01983) HEPATITIS B CORE IgM (test code NON-REACTIVE = 4644) HEPATITIS B SURF AG (test code = NON-REACTIVE 2739) HEPATITIS C ANTIBODY (test code NON-REACTIVE = 4675) INTERPRETATION HEPATITIS A: (NOTE) (test code = 2552) INTERPRETATION HEPATITIS B: (NOTE) (test code = 53906) INTERPRETATION HEPATITIS C: (NOTE) (test code = 38424) GC AND CHLAMYDIA, AMPLIFIED, [id number] 00:00:00 Test Item Value Reference Range Interpretation Comments GONORRHEA, NAAT (test code = 93436) NEGATIVE CHLAMYDIA, NAAT (test code = 65123) NEGATIVE GC AND CHLAMYDIA, AMPLIFIED, [id number] 00:00:00 Test Item Value Reference Range Interpretation Comments GONORRHEA, NAAT (test code = 55355) NEGATIVE CHLAMYDIA, NAAT (test code = 85137) NEGATIVE [id number] 00:00:00 Test Item Value Reference Range Interpretation Comments RPR RESULT (test code = NON-REACTIVE 3501) RPR TITER (test code = 3500) NOT INDIC. TITER [id number] 00:00:00 Test Item Value Reference Range Interpretation Comments RPR RESULT (test code = NON-REACTIVE 3501) RPR TITER (test code = 3500) NOT INDIC. TITER [id number] 00:00:00 Test Item Value Reference Range Interpretation Comments RPR RESULT (test code = NON-REACTIVE 3501) RPR TITER (test code = 3500) NOT INDIC. TITER ALBUMIN/CREATININE RATIO, URINE, [id number] 06:32:12 Test Item Value Reference Range Interpretation Comments CREATININE, URINE, 160.8 MG/DL NOT ESTAB RANDOM (test code = 2072) ALBUMIN, URINE, 0.6 MG/DL NOT ESTAB RANDOM (test code = 80959) CALC 4 MG/G <30 Note: ALBUMIN/CREAT, RND Albumin/C reatinine ratio (test code = reference inter yoni 41768) reflects ADA an d NKF guidelines. UNL ESS OTHERWISE INDIC ATED, ALL TESTING PERFORM ED ATCLINICAL PATH [facility], [address] [address] LABORATORY DIRE CTOR: TYRONE RAMSAY M.D. CLIA NUMBER [id number] [place] [id number] HEMOGLOBIN [id number] 05:07:14 Test Item Value Reference Range Interpretation Comments HEMOGLOBIN A1c (test 8.4 % 4.2-5.6 H AMERIC AN DIABETES code = 88683) ASSOCIATION IDELINES FOR HGB A1C: PREDIABETES/INC REASED [...] ATE TESTING OR LABORATORY C ONSULTATION. LIPID [id number] 04:20:14 Test Item Value Reference Range Interpretation [...] MOREINFORMATION , SEE CLIENT ANNOUNCE MENT AT [email or web address] RISK RATIO LDL/HDL 2.64 RATIO <3.22 (test code = 2238) COMPREHENSIVE METABOLIC [id number] 04:20:14 Test Item Value Reference Range Interpretation Comments GLUCOSE (test code = 138 MG/DL 70-99 H 2216) BUN (test code = 8 MG/DL -20 2207) CREATININE (test 0.69 MG/DL 0.60-1.30 code = 2214) eGFR (2020 CKD-EPI) 112 >60 (test code = 16415) ML/MIN/1.73 CALC BUN/CREAT (test 12 RATIO 6-28 code = 2235) SODIUM (test code = 140 MEQ/L 286-987 9440) POTASSIUM (test code 4.4 MEQ/L 3.5-5.4 = 2227) CHLORIDE (test code 105 MEQ/L 95-107 = 2214) CARBON DIOXIDE (test 20 MEQ/L 19-31 code [...] [Automated message] (test code = 2207) The [employer] m which generated this result transmit dalila reference range : <=1.2. The refe rence range was not u sed to interpret th is result as normal/abnormal . ALKALINE PHOSPHATASE 115 U/L 40-113 H (test code = 2203) AST (test code = 43 U/L 9-40 H 2217) ALT (test code = 80 U/L 5-40 H 2218) HEMOGLOBIN [id number] 00:00:00 Test Item Value Reference Range Interpretation Comments HEMOGLOBIN A1c (test code = 21978) 8.4 % HEMOGLOBIN [id number] 00:00:00 Test Item Value Reference Range Interpretation Comments HEMOGLOBIN A1c (test code = 49183) 8.4 % HEMOGLOBIN [id number] 00:00:00 Test Item Value Reference Range Interpretation Comments HEMOGLOBIN A1c (test code = 70882) 8.4 % LIPID [id number] 00:00:00 Test Item Value Reference Range Interpretation Comments CHOLESTEROL (test code = 2210) 192 MG/DL TRIGLYCERIDES (test code = 2232) 105 MG/DL HDL CHOLESTEROL (test code = 2220) 47 MG/DL CALC LDL CHOL (test code = 2237) 124 MG/DL RISK RATIO LDL/HDL (test code = 2.64 RATIO 2238) LIPID [id number] 00:00:00 Test Item Value Reference Range Interpretation Comments CHOLESTEROL (test code = 2210) 192 MG/DL TRIGLYCERIDES (test code = 2232) 105 MG/DL HDL CHOLESTEROL (test code = 2220) 47 MG/DL CALC LDL CHOL (test code = 2237) 124 MG/DL RISK RATIO LDL/HDL (test code = 2.64 RATIO 2238) COMPREHENSIVE METABOLIC [id number] 00:00:00 Test Item Value Reference Range Interpretation Comments GLUCOSE (test code = 2217) 138 MG/DL BUN (test code = 2208) 8 MG/DL CREATININE (test code = 2214) 0.69 MG/DL eGFR (2020 CKD-EPI) (test 112 ML/MIN/1.73 code = 34925) CALC BUN/CREAT (test code = 12 RATIO 2235) SODIUM (test code = 2231) 140 MEQ/L POTASSIUM (test code = 2228) 4.4 MEQ/L CHLORIDE (test code = 2215) 105 MEQ/L CARBON DIOXIDE (test code = 20 MEQ/L 2205) CALCIUM (test code = 2209) 8.6 MG/DL PROTEIN, TOTAL (test code = 7.9 G/DL 222) ALBUMIN (test code = 2201) 4.6 G/DL CALC GLOBULIN (test code = 3.3 G/DL 2240) CALC A/G RATIO (test code = 1.4 RATIO 2234) BILIRUBIN, TOTAL (test code = 0.3 MG/DL 2206) ALKALINE PHOSPHATASE (test 115 U/L code = 2204) AST (test code = 2218) 43 U/L ALT (test code = 2219) 80 U/L COMPREHENSIVE METABOLIC [id number] 00:00:00 Test Item Value Reference Range Interpretation Comments GLUCOSE (test code = 2217) 138 MG/DL BUN (test code = 2208) 8 MG/DL CREATININE (test code = 2214) 0.69 MG/DL eGFR (2020 CKD-EPI) (test 112 ML/MIN/1.73 code = 25949) CALC BUN/CREAT (test code = 12 RATIO [...] = 2219) 80 U/L MICROALBUMIN/CREATININE, RANDOM AND [id number] 00:00:00 Test Item Value Reference Range Interpretation Comments CREATININE, URINE, RANDOM (test 160.8 MG/DL code = 2072) ALBUMIN, URINE, RANDOM (test code 0.6 MG/DL = 10326) CALC ALBUMIN/CREAT, RND (test 4 MG/G code = 82851) MICROALBUMIN/CREATININE, RANDOM AND [id number] 00:00:00 Test Item Value Reference Range Interpretation Comments CREATININE, URINE, RANDOM (test 160.8 MG/DL code = 2072) ALBUMIN, URINE, RANDOM (test code 0.6 MG/DL = 57684) CALC ALBUMIN/CREAT, RND (test 4 MG/G code = 86228) COMPREHENSIVE METABOLIC [id number] 00:00:00 Test Item Value Reference Range Interpretation Comments GLUCOSE (test code = 2217) 210 MG/DL BUN (test code = 2208) 9 MG/DL CREATININE (test code = 2214) 0.61 MG/DL eGFR AMER. (test code 131 ML/MIN/1.73 = 13602) eGFR NON- AMER. (test 113 ML/MIN/1.73 code = 59542) CALC BUN/CREAT (test code = 15 RATIO [...] CALC GLOBULIN (test code = 3.4 G/DL 2240) CALC A/G RATIO (test code = 1.2 RATIO 2234) BILIRUBIN, TOTAL (test code = <0.2 MG/DL 2206) ALKALINE PHOSPHATASE (test 111 U/L code = 2204) AST (test code = 2218) 35 U/L ALT (test code = 2219) 69 U/L COMPREHENSIVE METABOLIC [id number] 00:00:00 Test Item Value Reference Range Interpretation Comments GLUCOSE (test code = 2217) 210 MG/DL BUN (test code = 2208) 9 MG/DL CREATININE (test code = 2214) 0.61 MG/DL eGFR AMER. (test code 131 ML/MIN/1.73 = 02178) eGFR NON- AMER. (test 113 ML/MIN/1.73 code = 28702) CALC BUN/CREAT (test code = 15 RATIO [...] ALKALINE PHOSPHATASE (test 111 U/L code = 220) AST (test code = 2218) 35 U/L ALT (test code = 2219) 69 U/L HEMOGLOBIN [id number] 00:00:00 Test Item Value Reference Range Interpretation Comments HEMOGLOBIN A1c (test code = 75465) 7.6 % HEMOGLOBIN [id number] 00:00:00 Test Item Value Reference Range Interpretation Comments HEMOGLOBIN A1c (test code = 37662) 7.6 % HEMOGLOBIN [id number] 00:00:00 Test Item Value Reference Range Interpretation Comments HEMOGLOBIN A1c (test code = 60479) 7.6 % CBC W/AUTO [id number] 00:00:00 Test Item Value Reference Range Interpretation [...] NUCLEATED RBCS (test code = 0.00 K/UL 32612) CBC W/AUTO [id number] 00:00:00 Test Item Value Reference Range Interpretation [...] NUCLEATED RBCS (test code = 0.00 K/UL 77451) CBC W/AUTO [id number] 00:00:00 Test Item Value Reference Range Interpretation [...] NUCLEATED RBCS (test code = 0.00 K/UL 26683) HEMOGLOBIN [id number] 00:00:00 Test Item Value Reference Range Interpretation Comments HEMOGLOBIN A1c (test code = 10517) 8.3 % HEMOGLOBIN [id number] 00:00:00 Test Item Value Reference Range Interpretation Comments HEMOGLOBIN A1c (test code = 61347) 8.3 % HEMOGLOBIN [id number] 00:00:00 Test Item Value Reference Range Interpretation Comments HEMOGLOBIN A1c (test code = 94518) 8.3 % LIPID [id number] 00:00:00 Test Item Value Reference Range Interpretation Comments CHOLESTEROL (test code = 2210) 195 MG/DL TRIGLYCERIDES (test code = 2232) 109 MG/DL HDL CHOLESTEROL (test code = 2220) 46 MG/DL CALC LDL CHOL (test code = 2237) 127 MG/DL RISK RATIO LDL/HDL (test code = 2.76 RATIO 2238) LIPID [id number] 00:00:00 Test Item Value Reference Range Interpretation Comments CHOLESTEROL (test code = 2210) 195 MG/DL TRIGLYCERIDES (test code = 2232) 109 MG/DL HDL CHOLESTEROL (test code = 2220) 46 MG/DL CALC LDL CHOL (test code = 2237) 127 MG/DL RISK RATIO LDL/HDL (test code = 2.76 RATIO 2238) COMPREHENSIVE METABOLIC [id number] 00:00:00 Test Item Value Reference Range Interpretation Comments GLUCOSE (test code = 2217) 192 MG/DL BUN (test code = 2208) 10 MG/DL CREATININE (test code = 2214) 0.71 MG/DL eGFR AMER. (test code 123 ML/MIN/1.73 = 65176) eGFR NON- AMER. (test 107 ML/MIN/1.73 code = 36781) CALC BUN/CREAT (test code = 14 RATIO 2235) SODIUM (test code = 2231) 137 MEQ/L POTASSIUM (test code = 2228) 4.7 MEQ/L CHLORIDE (test code = 2215) 104 MEQ/L CARBON DIOXIDE (test code = 20 MEQ/L 220) CALCIUM (test code = 2209) 8.7 MG/DL PROTEIN, TOTAL (test code = 7.5 G/DL 2228) ALBUMIN (test code = 2201) 4.4 G/DL CALC GLOBULIN (test code = 3.1 G/DL 0) CALC A/G RATIO (test code = 1.4 RATIO 2233) BILIRUBIN, TOTAL (test code = 0.3 MG/DL 2206) ALKALINE PHOSPHATASE (test 103 U/L code = 2204) AST (test code = 2218) 43 U/L ALT (test code = 2219) 101 U/L COMPREHENSIVE METABOLIC [id number] 00:00:00 Test Item Value Reference Range Interpretation Comments GLUCOSE (test code = 2217) 192 MG/DL BUN (test code = 2208) 10 MG/DL CREATININE (test code = 2214) 0.71 MG/DL eGFR AMER. (test code 123 ML/MIN/1.73 = 14233) eGFR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
--- NOTE | 2022-07-16 01:22 | EDPHYS ---
Physician Documentation [facility] Name: Shirley Leija Age: 42 yrs Sex: Female : 1980 Arrival Date: 07/16/2022 Time: 01:06 Bed Waiting Private MD: Akhil Noble H ED Physician Tori James HPI: 07/16 01:14 This 42 yrs old Female presents to ER via Ambulatory with complaints of Ear cp Pain. 01:14 The patient presents with pain, that is acute. The complaints affect the left ear. cp Onset: The symptoms/episode began/occurred 2 day(s) ago. Associated signs and symptoms: The patient has no apparent associated signs or symptoms. Severity of symptoms: in the emergency department the symptoms are unchanged despite home interventions. 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 - Social history:: Smoking status: Patient denies any tobacco usage or history of. ROS: 01:16 Eyes: Negative for injury, pain, redness, and discharge. cp 01:16 Constitutional: Negative for body aches, chills, fever, poor PO intake. 01:16 ENT: Positive for ear pain, Negative for drainage from ear(s), sore throat, difficulty swallowing, difficulty handling secretions. 01:16 Respiratory: Negative for cough, shortness of breath, wheezing. 01:16 Abdomen/GI: Negative for abdominal pain, nausea, vomiting, and diarrhea. 01:16 Skin: Negative for rash. 01:16 Neuro: Negative for altered mental status, headache, weakness. 01:16 All other systems are negative. Exam: 01:17 Head/Face: Normocephalic, atraumatic. cp 01:17 Constitutional: The patient appears in no acute distress, alert, awake, non-toxic, well developed, well nourished, uncomfortable. 01:17 Eyes: Periorbital structures: appear normal, Conjunctiva: normal, no exudate, no injection, Sclera: no appreciated abnormality, Lids and lashes: appear normal, bilaterally. 01:17 ENT: External ear(s): pain with movement, that is moderate, of the left ear canal, Ear canal(s): swelling, that is moderate, of the left canal, TM's: erythema, that is mild, on the left, Examination of the other ear shows no obvious abnormality, Nose: is normal, Mouth: Lips: moist, Oral mucosa: moist, Posterior pharynx: Airway: no evidence of obstruction, patent. 01:17 Neck: ROM/movement: is normal, is supple, without pain, no range of motions limitations, no meningismus, Lymph nodes: no appreciated lymphadenopathy. 01:17 Chest/axilla: Inspection: normal. 01:17 Cardiovascular: Rate: bradycardic. 01:17 Respiratory: the patient does not display signs of respiratory distress, Respirations: normal. 01:17 Skin: no rash present. Vital Signs: 01:11 BP 149 / 76; Pulse 59; Resp 16 S; Temp 98(O); Pulse Ox 99% on R/A; Weight 78.47 kg (R); bb Height 5 ft. 0 in. (152.40 cm) (R); Pain 10/10; 01:11 Body Mass Index 33.79 (78.47 kg, 152.40 cm) bb MDM: 01:19 Differential diagnosis: otitis media, otitis externa, ruptured TM, acute otalgia, cp cerumen impaction, barotrauma . Data reviewed: vital signs, nurses notes, and as a result, I will discharge patient. I considered the following discharge prescriptions or medication management in the emergency department Medications were administered in the Emergency Department. See MAR. Test considered but Not performed: Other Details head CT. 01:21 Patient medically screened. cp Administered Medications: 01:26 CANCELLED (Physician Discretion): Tylenol-Codeine #3 (300 mg - 30 mg) 2 tabs PO once; bb RASS on ADMIN: Combtv4, Very Agttd3, Agttd2, Rstlss1, AlertClm0, Drwsy-1, Lt Sdtn-2, Mod Sdtn-3, Dp Sdtn-4, UnArsble-5 01:27 Drug: Augmentin (Amoxicillin-Clavulanate) 875 mg Route: PO; bb 01:27 Follow up: Response: Medication administered at discharge. maria c Disposition: 05:19 STAFF ATTESTATION STATEMENT: I was immediately available onsite in the emergency sd2 department for consultation in the care of this patient. I did not see or examine this patient. Tori James MD. Disposition Summary: 07/16/22 01:21 Discharge Ordered Location: Home cp Problem: new cp Symptoms: are unchanged cp Condition: Stable cp Diagnosis - Otitis media in diseases classified elsewhere, left ear cp - Otitis externa in other diseases classified elsewhere, left ear cp Followup: cp - With: Yesi Mario MD - When: 2 - 3 days - Reason: Worsening of condition Discharge Instructions: - Discharge Summary Sheet cp - Otitis Media, Adult cp - Otitis Externa cp Forms: - Medication Reconciliation Form cp - Thank You Letter cp - Antibiotic Education cp - Prescription Opioid Use cp - Work release form eb Prescriptions: - Augmentin 875-125 mg Oral Tablet - take 1 tablet by ORAL route every 12 hours for 10 days; 20 tablet; Refills: 0, cp Product Selection Permitted - Medrol (Hardy) 4 mg Oral Tablets, Dose Pack - take 1 tablet by ORAL route as directed - follow package instructions; 1 cp packet; Refills: 0, Product Selection Permitted - Ciprodex 0.3-0.1 % Otic Drops, Suspension - instill 4 drops by OTIC route every 12 hours for 7 days , for ears ONLY; 1 cp Container; Refills: 0, Product Selection Permitted Signatures: Racheal Ray RN RN bb John Hernández PA PA Tori Arshad MD MD sd2 Corrections: (The following items were deleted from the chart) 01:26 01:16 Tylenol-Codeine #3 (300 mg - 30 mg) 2 tabs PO once; RASS on ADMIN: Combtv4, Very bb Agttd3, Agttd2, Rstlss1, AlertClm0, Drwsy-1, Lt Sdtn-2, Mod Sdtn-3, Dp Sdtn-4, UnArsble-5 ordered. cp
--- NOTE | 2022-07-16 01:22 | ER ---
Nurse's Notes [facility] Name: Shirley Leija Age: 42 yrs Sex: Female : 1980 Arrival Date: 07/16/2022 Time: 01:06 Bed Waiting Private MD: Akhil Noble H Diagnosis: Otitis media in diseases classified elsewhere, left ear;Otitis externa in other diseases classified elsewhere, left ear Presentation: 07/16 01:11 Chief complaint: Patient states: she has been having left ear pain since Tuesday the bb pain is 10/10. Coronavirus screen: At this time, the client does not indicate any symptoms associated with coronavirus-19. Ebola Screen: No symptoms or risks identified at this time. Initial Sepsis Screen: Does the patient meet any 2 criteria? No. Patient's initial sepsis screen is negative. Does the patient have a suspected source of infection? No. Patient's initial sepsis screen is negative. Risk Assessment: Do you want to hurt yourself or someone else? Patient reports no desire to harm self or others. Onset of symptoms was July 14, 2022. 01:11 Method Of Arrival: Ambulatory bb 01:11 Acuity: ABBY 5 bb Triage Assessment: :13 General: Appears in no apparent distress. uncomfortable, Behavior is calm, cooperative. bb Pain: Complains of pain in left ear Pain currently is 10 out of 10 on a pain scale. EENT: Reports pain in left ear. Neuro: Level of Consciousness is awake, alert, obeys commands, Oriented to person, place, time, situation. Cardiovascular: No deficits noted. Respiratory: Respiratory effort is even, unlabored. GI: No signs and/or symptoms were reported involving the gastrointestinal system. Derm: Skin is pink, warm \T\ dry. Musculoskeletal: Circulation, motion, and sensation intact. 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 - Social history:: Smoking status: Patient denies any tobacco usage or history of. Screenin:15 [facility] ED Fall Risk Assessment (Adult) History of falling in the last 3 months, bb including since admission No falls in past 3 months (0 pts) Score/Fall Risk Level 0 - 2 = Low Risk Maintained a safe environment. Abuse screen: Denies threats or abuse. Nutritional screening: No deficits noted. Tuberculosis screening: No symptoms or risk factors identified. Assessment: 01:15 Reassessment: No changes from previously documented assessment. see triage assessment. bb Vital Signs: 01:11 BP 149 / 76; Pulse 59; Resp 16 S; Temp 98(O); Pulse Ox 99% on R/A; Weight 78.47 kg (R); bb Height 5 ft. 0 in. (152.40 cm) (R); Pain 10/10; 01:11 Body Mass Index 33.79 (78.47 kg, 152.40 cm) bb ED Course: 01:06 Patient arrived in ED. es 01:06 Akhil Noble DO is Private Physician. es 01:08 Jonh Hernández PA is PHCP. cp 01:08 Tori James MD is Attending Physician. cp 01:13 Triage completed. bb 01:13 Arm band placed on Patient pt seen by John JOHNS and discharged. bb 01:15 Patient has correct armband on for positive identification. bb 01:15 No provider procedures requiring assistance completed. Patient did not have IV access bb during this emergency room visit. 01:20 Yesi Mario MD is Referral Physician. cp Administered Medications: :26 CANCELLED (Physician Discretion): Tylenol-Codeine #3 (300 mg - 30 mg) 2 tabs PO once; bb RASS on ADMIN: Combtv4, Very Agttd3, Agttd2, Rstlss1, AlertClm0, Drwsy-1, Lt Sdtn-2, Mod Sdtn-3, Dp Sdtn-4, UnArsble-5 01:27 Drug: Augmentin (Amoxicillin-Clavulanate) 875 mg Route: PO; bb 01:27 Follow up: Response: Medication administered at discharge. bb Medication: 01:15 VIS not applicable for this client. bb Outcome: :21 Discharge ordered by . cp 01:27 Discharged to home ambulatory. bb : Condition: stable 01:27 Discharge instructions given to patient, Instructed on discharge instructions, follow up and referral plans. medication usage, Demonstrated understanding of instructions, follow-up care, medications, Prescriptions given X 3. 01:27 Patient left the ED. bb Signatures: Ramona Atwood Brenda, RN RN bb John Hernández PA PA cp
[2022-07-16] MEDS ORDERED: AMOX/K CLAV 875 MG TAB ONE (01:23)
[2022-07-16 01:44] VITALS: BP 149/76; TEMP 98; O2SAT 99
== END 2022-07-16 01:27 | disposition home or self-care (01) ==
LOC: ER 00:59
DX: H66.92 Otitis media, unspecified, left ear (principal); H60.92 Unspecified otitis externa, left ear; E11.9 Type 2 diabetes mellitus without complications
CPT/HCPCS: 99283

== ENCOUNTER 2022-09-09 15:24 | Emergency (ER) | payer OTHER ==
--- OUTSIDE RECORDS SUMMARY | 2022-09-09 15:28 | XMS REPORT | Continuity of Care Document ---
:1980 Author Organization [facility] t Address [address] [facility] [address] [place] [address] Care Team Providers Name Role Phone Cb Rojas Primary Care Physician [phone] Doctor Unassigned, [place] Attending Clinician Unavailable Panfilo Alvarez MD Attending [...] KNOWN Drug Active Univers ALLERGIE Class ity [facility] Social History Social Habit Start Date Stop Date Quantity Comments Source Sex Assigned At [birth year] [facility] 00:00:00 00:00:00 Medical Branch Smoking Status Start Date Stop Date Source Tobacco smoking consumption [facility] Branch Medications Ordered Filled Start Stop Current Ordering Indication Dosage Frequency Signature Comments Components Source Medication Medication Date Date Medication? Clinician (SIG) Name Name ROSUVASTATI 2021-0 No 5 N CALCIUM 5 8-18 MG TABS 00:00: 00 metronidazo 2-0 No 1mg le 500 mg 3-28 tablet [...] Dose 2-0 No Unknown 3-22 00:00: 00 rosuvastati 2-0 [...] Wed Branch 10/17/19 at 2215, Routine ondansetron 0 2020- No 4mg 4 mg, Slow Univers (ZOFRAN -16 -15 IV Push, ity of (PF)) 00:45: 23:53 ONCE, 1 [place] injection 4 00 :00 dose, Wed Med ical mg 10/17/19 at Branch 194, GEOVANNI morpHINE 2019-0 2020- No 4mg 4 mg, Slow Un souleymane injection 4 -16 04-15 IV Push, ity of mg 00:45: 23:53 ONCE, 1 [place] 00 :00 dose, Wed Medical 10/17/19 at Branch 194, STAT acetaminoph 2019-0 Yes [id number] 1{tbl} Take 1 Univers en-codeine 4-15 tablet by ity of (TYLENOL-CO 00:00: mouth [place] DEINE #3) 00 every 4 Medical 300-30 mg (four) Branch tablet hours as needed for Pain (scale 1-3). acetaminoph 2020-0 Yes [id number] 1{tbl} Take 1 Univers en-codeine 4-15 tablet by ity of (TYLENOL-CO 00:00: mouth [place] DEINE #3) 00 every 4 Medical 300-30 mg (four) Branch tablet hours as needed for Pain (scale 1-3). acetaminoph 2020-0 Yes [id number] 1{tbl} Take 1 Univers en-codeine 4-15 tablet by ity of (TYLENOL-CO 00:00: mouth [place] DEINE #3) 00 every 4 Medical 300-30 mg (four) Branch tablet hours as needed for Pain (scale 1-3). Vital Signs Vital Name Observation Time Observation Value Comments Source Heart rate 2019-10-18 02:00:00 89 /min Universi ty of [facility] Oxygen saturation in 2019-10-18 02:00:00 98 /min University of Arterial blood by [facility] Pulse oximetry Branch Systolic blood 2019-10-18 02:00:00 134 mm[Hg] Univer sity of pressure [facility] Diastolic blood 2019-10-18 02:00:00 68 mm[Hg] Unive rsity of [facility] Body temperature 2019-10-17 23:08:00 37.72 Liseth Univ ersity of [facility] Respiratory rate 2019-10-17 23:08:00 16 /min Univ ersity of [facility] Body height 2019-10-17 23:08:00 152.4 cm Universi ty of [facility] Body weight 2019-10-17 23:08:00 72.576 kg Universi ty of [facility] Branch BMI 2019-10-17 23:08:00 31.25 kg/m2 Universi ty of [facility] Heart rate 2019-10-18 02:00:00 89 /min Universi ty of [facility] Oxygen saturation in 2019-10-18 02:00:00 98 /min University of Arterial blood by [facility] Pulse oximetry Branch Systolic blood 2019-10-18 02:00:00 134 mm[Hg] Univer sity of [facility] Diastolic blood 2019-10-18 02:00:00 68 mm[Hg] Unive rsity of [facility] Body temperature 2019-10-17 23:08:00 37.72 Liseth Univ ersity of [facility] Respiratory rate 2019-10-17 23:08:00 16 /min Univ ersity of [facility] Body height 2019-10-17 23:08:00 152.4 cm Universi ty of [facility] Body weight 2019-10-17 23:08:00 72.576 kg Universi ty of [facility] Branch BMI 2019-10-17 23:08:00 31.25 kg/m2 [facility] BP Systolic 2022-02-18 09:29:00 131 mm[Hg] BP [...] FOR 2022-06-29 06:01:00 [facility], [facility] Name Medical Branch AUTHORIZATION FOR 2021-09-21 05:01:00 Doctor [facility]assigned, [facility] OF [facility] Name Medical Branch XR CERVICAL SPINE 3 VW 2019-10-18 00:46:19 [facility] H[facility] 2 VW LEFT 2019-10-18 00:28:52 Panfilo Alvarez [facility] XR PELVIS <3 VW 2019-10-18 00:28:52 Panfilo Alvarez [place] [facility] XR SHOULDER <2 VW LEFT 2019-10-18 00:28:24 Panfilo Alvarez [facility] XR CHEST 1 VW 2019-10-18 00:28:02 Panfilo Alvarez [place] [facility] TEST, SERUM 2019-10-17 23:47:00 Panfilo Alvarez [facility] BASIC METABOLIC PANEL 2019-10-17 23:47:00 Panfilo Alvarez [facility] (NA, K, CL, CO2, Medical Branch GLUCOSE, BUN, CREATININE, CA) CBC WITH DIFFERENTIAL 2019-10-17 23:47:00 Panfilo Alvarez [facility] Plan of Care Planned Activity Planned Date Details Comments Source Goal Plan of Care Note [code = 96122-9] Goal Plan of Care Note [code = 22046-8] Goal Plan of Care Note [code = 16997-0] Goal Plan of Care Note [code = 01659-4] Goal Plan of Care Note [code = 15029-1] Goal Plan of Care Note [code = 88159-7] Goal Plan of Care Note [code = 15688-0] Goal Plan of Care Note [code = 03500-6] Goal Plan of Care Note [code = 39864-5] Goal Plan of Care Note [code = 80688-2] Goal Plan of Care Note [code = 26624-7] Goal Plan of Care Note [code = 75918-1] Goal Plan of Care Note [code = 44144-2] Goal Plan of Care Note [code = 75898-7] Goal Plan of Care Note [code = 54349-8] Goal Plan of Care Note [code = 23841-0] Goal Plan of Care Note [code = 32750-9] Goal Plan of Care Note [code = 63526-2] Goal Plan of Care Note [code = 88003-9] Encounters Start End Encounter Admission Attending Care Care Encounter Source Date/Time Date/Time Type Type Clinicians Facility Department ID 2022-06-29 2022-06-29 Orders Doctor BREANA [id number] Univers 00:00:00 00:00:00 Only Unassigned, LIZA [id number] ity of [place] [facility] [id number] Dax as [phone] [address] 2022-02-18 2022-02-18 Outpatient [id number] 00:00:00 00:00:00 Visit [id number] 2021-09-21 2021-09-21 Orders Doctor BREANA [id number] Univers 00:00:00 00:00:00 Only Unassigned, LIZA [id number] ity of [place] [facility] 4.2.7.2.686 Dax as [phone] [address] 2019-10-17 2019-10-17 Emergency [facility] [id number] 18:07:03 21:31:00 Panfilo Dominguez [id number] [place] 4.2.7.2.686 [place] [id number] [facility] 2019-10-17 2019-10-17 [facility] [id number] Univers 18:07:03 21:31:00 Panfilo Dominguez 350.1.13.10 i ty of [place] 4.2.[address] [facility] [id number] [address] 2019-10-17 2019-10-17 Emergency [facility] [id number] Univers 18:07:03 21:31:00 PANFILO mendoza [facility] Results Test Description Test Time Test Comments Results Result Comments Source PAP TEST, THINPREP, IMAGED 2021-09-25 11:11:40 Test Item Value Reference Range Interpretation Comme nts SOURCE: (test code = Cervical/Endocervical 8001) SLIDES: (test code = 1 8011) LMP: (test code = 08/24/2021 8021) SPECIMEN ADEQUACY: (NOTE) Nigel rothman for (test code = 54245) evaluati on. Endocervical cells/transform ation zone component prese nt. INTERPRETATION: NILM/NO EPITH. ABNORMALITY;SEE (test code = 60804) BELOW -------- NEGATIVE FOR INTRAEPITHE LIAL LESION OR MALIGNANCY ( NILM) -- OTHER COMMENTS: (NOTE) Shift in jeri ra suggestive of (test code = 8081) bacterial vaginosis. AUTO BATTERY BUILDER: DANIAL Lewis(ASCP)IAC (test code = 8101) QC TECHNOLOGIST: DANIAL Bo(ASCP)IAC (test code = 8111) LOCATION: (test code (NOTE) Specime ns processed and = 57081) interpreted at [facility] [address] [facility], [place] [address], Phone: , CLIA: [id number] CPT: (test code = (NOTE) 39649 UNLE SS OTHERWISE 8140) INDICATED, COMP UTER [...] carol brady as applicable. PAP TEST, THINPREP, [id number] 00:00:00 Test Item Value Reference Range Interpretation Comments SOURCE: (test code = Cervical/Endocervical 8001) SLIDES: (test code = 1 8011) LMP: (test code = 8021) 08/24/2021 SPECIMEN ADEQUACY: (NOTE) (test code = 30637) INTERPRETATION: (test NILM/NO EPITH. code = 37655) ABNORMALITY;SEE BELOW OTHER COMMENTS: (test (NOTE) code = 8081) AUTO BATTERY BUILDER: (test Majo code = 8101) DANIAL Maddox(ASCP)IAC QC TECHNOLOGIST: (test Miguel Toure, code = 8111) CT(ASCP)IAC LOCATION: (test code = (NOTE) 53404) CPT: (test code = 8140) (NOTE) PAP TEST, THINPREP, [id number] 00:00:00 Test Item Value Reference Range Interpretation Comments SOURCE: (test code = Cervical/Endocervical 8001) SLIDES: (test code = 1 8011) LMP: (test code = 8021) 08/24/2021 SPECIMEN ADEQUACY: (NOTE) (test code = 11504) INTERPRETATION: (test NILM/NO EPITH. code = 16140) ABNORMALITY;SEE BELOW OTHER COMMENTS: (test (NOTE) code = 8081) AUTO BATTERY BUILDER: (test Majo code = 8101) DANIAL Maddox(ASCP)IAC QC TECHNOLOGIST: (test Miguel Toure, code = 8111) CT(ASCP)IAC LOCATION: (test code = (NOTE) 50479) CPT: (test code = 8140) (NOTE) CT/NG, NAAT, [id number] 18:28:09 Test Item Value Reference Range Interpretation Comments GONORRHEA, NAAT NEGATIVE NEGATIVE IMPORT ANT NOTICE: SEE (test code = [place] [address]) [email or web address] Note: Assay methodology is nucleic acid amplification b y unloading checker m ediated amplification ( TMA) utilizing the A ptima Combo 2 Assay. CHLAMYDIA, NAAT NEGATIVE NEGATIVE IMPORT ANT NOTICE: SEE (test code = [place] [address]) [email or web address] Note: Assay methodology is nucleic acid amplification b y unloading checker m ediated amplification ( TMA) utilizing the A ptima Combo 2 Assay. HPV HIGH RISK WITH GENOTYPE, [id number] 15:44:51 Test Item Value Reference Range Interpretation Comments HPV HIGH RISK INTERP POSITIVE NEGATIVE A (test code = 36328) HPV 16 (test code = NEGATIVE 64755) HPV 18 (test code = NEGATIVE 12545) HPV, HR, OTHER POSITIVE A Testing meth odology is GENOTYPES (test code real-ti me PCR utilizing = 62598) hydrolysis prob es with the Reactfulas 4800 system. The cora t individually de [...] TESTING PERFORM ED ATCLINICAL PATH OLOGY LABORATORIES, [address] [address] LABORATORY DIRE CTOR: TYRONE RAMSAY M.D. CLIA NUMBER [id number] [place] [id number] VAGINAL PATHOGENS DNA [id number] 14:08:27 Test Item Value Reference Range Interpretation Comments PATRICIA SPECIES (test code = 12744) NEGATIVE NEGATIVE G. VAGINALIS (test code = 69922) POSITIVE NEGATIVE A T. VAGINALIS (test code = 74072) NEGATIVE NEGATIVE HIV 1/2 4TH GEN, RFLX [id number] 03:52:59 Test Item Value Reference Range Interpretation Comments HIV 1/2 4TH GEN, RFLX CONF (test NON-REACTIVE NON-REACTIVE code = 3514) HEPATITIS PANEL, [id number] 03:52:59 Test Item Value Reference Range Interpretation Comments HEPATITIS A IgM (test NON-REACTIVE NON-REACTIVE code = 52928) HEPATITIS B CORE IgM NON-REACTIVE NON-REACTIVE (test code = 4644) HEPATITIS B SURF AG NON-REACTIVE NON-REACTIVE (test code = 2739) HEPATITIS C ANTIBODY NON-REACTIVE NON-REACTIVE (test code = 4675) INTERPRETATION (NOTE) Hepatitis A HEPATITIS A: (test code sero logy shows no = 2552) evidence of acu te hepatitis A. INTERPRETATION (NOTE) Hepatitis B HEPATITIS B: (test code sero logy shows no = 73698) evidence of acu te hepatitis B and no indication of exposure to hepatitis B vir us in the previous maddy eight months. INTERPRETATION (NOTE) Hepatitis C HEPATITIS C: (test code sero logy shows no = 61671) evidence of exposure to hepatitisC viru s at this time. I t can take up to 12 months after exposure tothe hepatitis C vir us for antibodies to become detectab le in the blood in certain patient s. [id number] 03:17:46 Test Item Value Reference Range Interpretation Comments RPR RESULT (test NON-REACTIVE NON-REACTIVE code = 3501) RPR TITER (test NOT INDIC. NOT INDIC. UNLESS OTHE RWISE code = 3500) TITER INDICATED, ALL TESTING PERFORMED [facility] PATH[facility] [address] [place] [address] 4 LABORATORY DIRE CTOR: TYRONE RAMSAY M.D. CLIA NUMBER [id number] [place] [id number] GC AND CHLAMYDIA, AMPLIFIED, [id number] 00:00:00 Test Item Value Reference Range Interpretation Comments GONORRHEA, NAAT (test code = 68573) NEGATIVE CHLAMYDIA, NAAT (test code = 98413) NEGATIVE GC AND CHLAMYDIA, AMPLIFIED, [id number] 00:00:00 Test Item Value Reference Range Interpretation Comments GONORRHEA, NAAT (test code = 01854) NEGATIVE CHLAMYDIA, NAAT (test code = 39551) NEGATIVE [id number] 00:00:00 Test Item Value Reference Range Interpretation Comments RPR RESULT (test code = NON-REACTIVE 3501) RPR TITER (test code = 3500) NOT INDIC. TITER [id number] 00:00:00 Test Item Value Reference Range Interpretation Comments RPR RESULT (test code = NON-REACTIVE 3501) RPR TITER (test code = 3500) NOT INDIC. TITER [id number] 00:00:00 Test Item Value Reference Range Interpretation Comments RPR RESULT (test code = NON-REACTIVE 3501) RPR TITER (test code = 3500) NOT INDIC. TITER VAGINAL PATHOGENS DNA [id number] 00:00:00 Test Item Value Reference Range Interpretation Comments PATRICIA SPECIES (test code = ) NEGATIVE G. VAGINALIS (test code = ) POSITIVE T. VAGINALIS (test code = ) NEGATIVE VAGINAL PATHOGENS DNA [id number] 00:00:00 Test Item Value Reference Range Interpretation Comments PATRICIA SPECIES (test code = ) NEGATIVE G. VAGINALIS (test code = ) POSITIVE T. VAGINALIS (test code = ) NEGATIVE HPV HIGH RISK WITH GENOTYPE, [id number] 00:00:00 Test Item Value Reference Range Interpretation Comments HPV HIGH RISK INTERP (test code = POSITIVE 42428) HPV 16 (test code = 12208) NEGATIVE HPV 18 (test code = 18965) NEGATIVE HPV, HR, OTHER GENOTYPES (test code POSITIVE = 74348) HPV HIGH RISK WITH GENOTYPE, [id number] 00:00:00 Test Item Value Reference Range Interpretation Comments HPV HIGH RISK INTERP (test code = POSITIVE 32669) HPV 16 (test code = 14549) NEGATIVE HPV 18 (test code = 68704) NEGATIVE HPV, HR, OTHER GENOTYPES (test code POSITIVE = 76023) HIV AB/AG COMBO RFLX [id number] 00:00:00 Test Item Value Reference Range Interpretation Comments HIV 1/2 4TH GEN, RFLX CONF (test NON-REACTIVE code = 3514) HIV AB/AG COMBO RFLX [id number] 00:00:00 Test Item Value Reference Range Interpretation Comments HIV 1/2 4TH GEN, RFLX CONF (test NON-REACTIVE code = 3514) ACUTE HEPATITIS [id number] 00:00:00 Test Item Value Reference Range Interpretation Comments HEPATITIS A IgM (test code = NON-REACTIVE 59936) HEPATITIS B CORE IgM (test code NON-REACTIVE = 8644) HEPATITIS B SURF AG (test code = NON-REACTIVE 6759) HEPATITIS C ANTIBODY (test code NON-REACTIVE = 4432) INTERPRETATION HEPATITIS A: (NOTE) (test code = 2552) INTERPRETATION HEPATITIS B: (NOTE) (test code = 98721) INTERPRETATION HEPATITIS C: (NOTE) (test code = 00080) ACUTE HEPATITIS [id number] 00:00:00 Test Item Value Reference Range Interpretation Comments HEPATITIS A IgM (test code = NON-REACTIVE 60431) HEPATITIS B CORE IgM (test code NON-REACTIVE = 4644) HEPATITIS B SURF AG (test code = NON-REACTIVE 9269) HEPATITIS C ANTIBODY (test code NON-REACTIVE = 4659) INTERPRETATION HEPATITIS A: (NOTE) (test code = 2552) INTERPRETATION HEPATITIS B: (NOTE) (test code = 51842) INTERPRETATION HEPATITIS C: (NOTE) (test code = 63488) ALBUMIN/CREATININE RATIO, URINE, [id number] 06:32:12 Test Item Value Reference Range Interpretation Comments CREATININE, URINE, 160.8 MG/DL NOT ESTAB RANDOM (test code = 2072) ALBUMIN, URINE, 0.6 MG/DL NOT ESTAB RANDOM (test code = 12056) CALC 4 MG/G <30 Note: ALBUMIN/CREAT, RND Albumin/C reatinine ratio (test code = reference inter yoni 20126) reflects ADA an d NKF guidelines. UNL ESS OTHERWISE INDIC ATED, ALL TESTING PERFORM ED ATCLINICAL PATH OLOGY LABORATORIES, [address] [address] LABORATORY DIRE CTOR: TYRONE RAMSAY M.D. CLIA NUMBER [id number] [place] [id number] HEMOGLOBIN [id number] 05:07:14 Test Item Value Reference Range Interpretation Comments HEMOGLOBIN A1c (test 8.4 % 4.2-5.6 H AMERI CAN DIABETES code = 45122) ASSOCIATION IDELINES FOR HGB A1C: PREDIABETES/INC REASED [...] ATE TESTING OR LABORATORY C ONSULTATION. LIPID [id number] 04:20:14 Test Item Value Reference Range Interpretation [...] MOREINFORMATION , SEE CLIENT ANNOUNCE MENT AT [email or web address] RISK RATIO LDL/HDL 2.64 RATIO <3.22 (test code = 2238) COMPREHENSIVE METABOLIC [id number] 04:20:14 Test Item Value Reference Range Interpretation Comments GLUCOSE (test code = 138 MG/DL 70-99 H 2216) BUN (test code = 8 MG/DL -20 2207) CREATININE (test 0.69 MG/DL 0.60-1.30 code = 2214) eGFR (2020 CKD-EPI) 112 >60 (test code = 70381) ML/MIN/1.73 CALC BUN/CREAT (test 12 RATIO 6-28 code = 2235) SODIUM (test code = 140 MEQ/L 394-931 9206) POTASSIUM (test code 4.4 MEQ/L 3.5-5.4 = [...] [Automated message] (test code = 2207) The [employer] m which generated this result transmit dalila reference range : <=1.2. The refe rence range was not u sed to interpret th is result as normal/abnormal . ALKALINE PHOSPHATASE 115 U/L 40-113 H (test code = 2204) AST (test code = 43 U/L 9-40 H 2217) ALT (test code = 80 U/L 5-40 H 2218) COMPREHENSIVE METABOLIC [id number] 00:00:00 Test Item Value Reference Range Interpretation Comments GLUCOSE (test code = 2217) 138 MG/DL BUN (test code = 2208) 8 MG/DL CREATININE (test code = 2214) 0.69 MG/DL eGFR (2020 CKD-EPI) (test 112 ML/MIN/1.73 code = 14097) CALC BUN/CREAT (test code = 12 RATIO 223) SODIUM (test code = 2231) 140 MEQ/L POTASSIUM (test code = 2228) 4.4 MEQ/L CHLORIDE (test code = 2215) 105 MEQ/L CARBON DIOXIDE (test code = 20 MEQ/L 2205) CALCIUM (test code = 2209) 8.6 MG/DL PROTEIN, TOTAL (test code = 7.9 G/DL 2228) ALBUMIN (test code = 2201) 4.6 G/DL CALC GLOBULIN (test code = 3.3 G/DL 2239) CALC A/G RATIO (test code = 1.4 RATIO 2233) BILIRUBIN, TOTAL (test code = 0.3 MG/DL 2206) ALKALINE PHOSPHATASE (test 115 U/L code = 2204) AST (test code = 2218) 43 U/L ALT (test code = 2219) 80 U/L COMPREHENSIVE METABOLIC [id number] 00:00:00 Test Item Value Reference Range Interpretation Comments GLUCOSE (test code = 2217) 138 MG/DL BUN (test code = 2208) 8 MG/DL CREATININE (test code = 2214) 0.69 MG/DL eGFR (2020 CKD-EPI) (test 112 ML/MIN/1.73 code = 06704) CALC BUN/CREAT (test code = 12 RATIO [...] CALC GLOBULIN (test code = 3.3 G/DL 2239) CALC A/G RATIO (test code = 1.4 RATIO 2234) BILIRUBIN, TOTAL (test code = 0.3 MG/DL 2206) ALKALINE PHOSPHATASE (test 115 U/L code = 2204) AST (test code = 2218) 43 U/L ALT (test code = 2219) 80 U/L MICROALBUMIN/CREATININE, RANDOM AND [id number] 00:00:00 Test Item Value Reference Range Interpretation Comments CREATININE, URINE, RANDOM (test 160.8 MG/DL code = 2072) ALBUMIN, URINE, RANDOM (test code 0.6 MG/DL = 36131) CALC ALBUMIN/CREAT, RND (test 4 MG/G code = 44600) MICROALBUMIN/CREATININE, RANDOM AND [id number] 00:00:00 Test Item Value Reference Range Interpretation Comments CREATININE, URINE, RANDOM (test 160.8 MG/DL code = 2072) ALBUMIN, URINE, RANDOM (test code 0.6 MG/DL = 68312) CALC ALBUMIN/CREAT, RND (test 4 MG/G code = 01539) HEMOGLOBIN [id number] 00:00:00 Test Item Value Reference Range Interpretation Comments HEMOGLOBIN A1c (test code = 08539) 8.4 % HEMOGLOBIN [id number] 00:00:00 Test Item Value Reference Range Interpretation Comments HEMOGLOBIN A1c (test code = 31471) 8.4 % HEMOGLOBIN [id number] 00:00:00 Test Item Value Reference Range Interpretation Comments HEMOGLOBIN A1c (test code = 43761) 8.4 % LIPID [id number] 00:00:00 Test Item Value Reference Range Interpretation Comments CHOLESTEROL (test code = 2210) 192 MG/DL TRIGLYCERIDES (test code = 2232) 105 MG/DL HDL CHOLESTEROL (test code = 2220) 47 MG/DL CALC LDL CHOL (test code = 2237) 124 MG/DL RISK RATIO LDL/HDL (test code = 2.64 RATIO 2238) LIPID [id number] 00:00:00 Test Item Value Reference Range Interpretation Comments CHOLESTEROL (test code = 2210) 192 MG/DL TRIGLYCERIDES (test code = 2232) 105 MG/DL HDL CHOLESTEROL (test code = 2220) 47 MG/DL CALC LDL CHOL (test code = 2237) 124 MG/DL RISK RATIO LDL/HDL (test code = 2.64 RATIO 2238) COMPREHENSIVE METABOLIC [id number] 00:00:00 Test Item Value Reference Range Interpretation Comments GLUCOSE (test code = 2217) 210 MG/DL BUN (test code = 2208) 9 MG/DL CREATININE (test code = 2214) 0.61 MG/DL eGFR AMER. (test code 131 ML/MIN/1.73 = 03060) eGFR NON- AMER. (test 113 ML/MIN/1.73 code = 88469) CALC BUN/CREAT (test code = 15 RATIO [...] code = 2219) 69 U/L COMPREHENSIVE METABOLIC [id number] 00:00:00 Test Item Value Reference Range Interpretation Comments GLUCOSE (test code = 2217) 210 MG/DL BUN (test code = 2208) 9 MG/DL CREATININE (test code = 2214) 0.61 MG/DL eGFR AMER. (test code 131 ML/MIN/1.73 = 31630) eGFR NON- AMER. (test 113 ML/MIN/1.73 code = 65476) CALC BUN/CREAT (test code = 15 RATIO [...] (test code = 2219) 69 U/L HEMOGLOBIN [id number] 00:00:00 Test Item Value Reference Range Interpretation Comments HEMOGLOBIN A1c (test code = 37790) 7.6 % HEMOGLOBIN [id number] 00:00:00 Test Item Value Reference Range Interpretation Comments HEMOGLOBIN A1c (test code = 17803) 7.6 % HEMOGLOBIN [id number] 00:00:00 Test Item Value Reference Range Interpretation Comments HEMOGLOBIN A1c (test code = 20312) 7.6 % COMPREHENSIVE METABOLIC [id number] 00:00:00 Test Item Value Reference Range Interpretation Comments GLUCOSE (test code = 7) 192 MG/DL BUN (test code = 8) 10 MG/DL CREATININE (test code = 2214) 0.71 MG/DL eGFR AMER. (test code 123 ML/MIN/1.73 = 07886) eGFR NON- AMER. (test 107 ML/MIN/1.73 code = 54702) CALC BUN/CREAT (test code = 14 RATIO 2234) SODIUM (test code = 2231) 137 MEQ/L [...] code = 2219) 101 U/L COMPREHENSIVE METABOLIC [id number] 00:00:00 Test Item Value Reference Range Interpretation Comments GLUCOSE (test code = 2217) 192 MG/DL BUN (test code = 2208) 10 MG/DL CREATININE (test code = 2214) 0.71 MG/DL eGFR AMER. (test code 123 ML/MIN/1.73 = 68847) eGFR NON- AMER. (test 107 ML/MIN/1.73 code = 31772) CALC BUN/CREAT (test code = 14 RATIO [...] ALT (test code = 2219) 101 U/L [id number] 00:00:00 Test Item Value Reference Range Interpretation Comments TSH, THIRD GENERATION (test code 1.650 UIU/ML = 2821) [id number] 00:00:00 Test Item Value Reference Range Interpretation Comments TSH, THIRD GENERATION (test code 1.650 UIU/ML = 2821) [id number] 00:00:00 Test Item Value Reference Range Interpretation Comments TSH, THIRD GENERATION (test code 1.650 UIU/ML = 2821) CBC W/AUTO [id number] 00:00:00 Test Item Value Reference Range Interpretation [...] NUCLEATED RBCS (test code = 0.00 K/UL 29229) CBC W/AUTO [id number] 00:00:00 Test Item Value Reference Range Interpretation [...] NUCLEATED RBCS (test code = 0.00 K/UL 90081) CBC W/AUTO [id number] 00:00:00 Test Item Value Reference Range Interpretation [...] NUCLEATED RBCS (test code = 0.00 K/UL 43951) HEMOGLOBIN [id number] 00:00:00 Test Item Value Reference Range Interpretation Comments HEMOGLOBIN A1c (test code = 73848) 8.3 % HEMOGLOBIN [id number] 00:00:00 Test Item Value Reference Range Interpretation Comments HEMOGLOBIN A1c (test code = 29310) 8.3 % HEMOGLOBIN [id number] 00:00:00 Test Item Value Reference Range Interpretation Comments HEMOGLOBIN A1c (test code = 00922) 8.3 % LIPID [id number] 00:00:00 Test Item Value Reference Range Interpretation Comments CHOLESTEROL (test code = 2210) 195 MG/DL TRIGLYCERIDES (test code = 2232) 109 MG/DL HDL CHOLESTEROL (test code = 2220) 46 MG/DL CALC LDL CHOL (test code = 2237) 127 MG/DL RISK RATIO LDL/HDL (test code = 2.76 RATIO 2238) LIPID [id number] 00:00:00 Test Item Value Reference Range Interpretation Comments CHOLESTEROL (test code = 2210) 195 MG/DL TRIGLYCERIDES (test code = 2232) 109 MG/DL HDL CHOLESTEROL (test code = 2220) 46 MG/DL CALC LDL CHOL (test code = 2237) 127 MG/DL RISK RATIO LDL/HDL (test code = 2.76 RATIO 2238) SARS-CoV-2 (COVID-19) by RT-PCR (HIGH RISK)2020-08-06 00:00:00 Test Item Value Reference Range Interpretation Comments SARS-CoV-2 INTERPRETATION NEGATIVE (test code = 49871) SOURCE (test code = 04569) NASOPHARYNGEAL SARS-CoV-2 (COVID-19) by RT-PCR (HIGH RISK)2020-08-06 00:00:00 Test Item Value Reference Range Interpretation Comments SARS-CoV-2 INTERPRETATION NEGATIVE (test code = 22375) SOURCE (test code = 90997) NASOPHARYNGEAL SARS-CoV-2 (COVID-19) by RT-PCR (HIGH RISK)2020-07-31 00:00:00 Test Item Value Reference Range Interpretation Comments SARS-CoV-2 INTERPRETATION (test NEGATIVE code = 47424) SOURCE (test code = 15312) NOT SPECIFIED SARS-CoV-2 (COVID-19) by RT-PCR (HIGH RISK)2020-07-31 00:00:00 Test Item Value Reference Range Interpretation Comments SARS-CoV-2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
[2022-09-09 16:28] LABS: SARS-COV-2 RT PCR POSITIVE (NEGATIVE)
[2022-09-09 17:07] VITALS: O2SAT 100
[2022-09-09 17:09] VITALS: BP 111/72; TEMP 98.8
--- NOTE | 2022-09-24 15:09 | EDPHYS ---
Physician Documentation [facility] Name: Shirley Leija Age: 42 yrs Sex: Female : 1980 Arrival Date: 09/09/2022 Time: 15:26 Bed 9 Private MD: Akhil Noble H ED Physician Armani Mon HPI: 09/09 15:30 This 42 yrs old Female presents to ER via Ambulatory with complaints of Flu jh7 Symptoms. 15:30 Onset: The symptoms/episode began/occurred 6 day(s) ago. Associated signs and symptoms: jh7 Pertinent positives: congestion, cough, nasal discharge, shortness of breath, sore throat, Pertinent negatives: fever. Historical: - Allergies: 15:30 No Known Allergies; hb - Home Meds: 15:30 Metformin Oral [Active]; hb - PMHx: 15:30 diabetes mellitus; hb - PSHx: 15:30 section; Cholecystectomy; hb - Immunization history:: Adult Immunizations up to date. - Social history:: Smoking status: Patient denies any tobacco usage or history of. ROS: 15:30 Constitutional: Negative for fever, chills, and weight loss, Eyes: Negative for injury, jh7 pain, redness, and discharge, Neck: Negative for injury, pain, and swelling, Cardiovascular: Negative for chest pain, palpitations, and edema, Abdomen/GI: Negative for abdominal pain, nausea, vomiting, diarrhea, and constipation, Back: Negative for injury and pain, MS/Extremity: Negative for injury and deformity, Skin: Negative for injury, rash, and discoloration, Neuro: Negative for headache, weakness, numbness, tingling, and seizure. 15:30 ENT: Positive for nasal discharge, sinus congestion, sinus pain, sore throat. 15:30 Respiratory: Positive for cough, Negative for wheezing. 15:30 All other systems are negative. Exam: 15:30 Constitutional: This is a well developed, well nourished patient who is awake, alert, jh7 and in no acute distress. Head/Face: Normocephalic, atraumatic. Eyes: Pupils equal round and reactive to light, extra-ocular motions intact. Lids and lashes normal. Conjunctiva and sclera are non-icteric and not injected. Cornea within normal limits. Periorbital areas with no swelling, redness, or edema. Cardiovascular: Regular rate and rhythm with a normal S1 and S2. No gallops, murmurs, or rubs. Normal PMI, no JVD. No pulse deficits. Respiratory: Lungs have equal breath sounds bilaterally, clear to auscultation and percussion. No rales, rhonchi or wheezes noted. No increased work of breathing, no retractions or nasal flaring. Abdomen/GI: Soft, non-tender, with normal bowel sounds. No distension or tympany. No guarding or rebound. No evidence of tenderness throughout. Skin: Warm, dry with normal turgor. Normal color with no rashes, no lesions, and no evidence of cellulitis. MS/ Extremity: Pulses equal, no cyanosis. Neurovascular intact. Full, normal range of motion. Neuro: Awake and alert, GCS 15, oriented to person, place, time, and situation. Motor strength 5/5 in all extremities. Sensory grossly intact. Normal gait. 15:30 ENT: Nose: nasal drainage, and is seen coming from both nares, that is clear, Posterior pharynx: post nasal drainage. Vital Signs: 15:29 BP 146 / 67; Pulse 89; Resp 20; Temp 98.4(O); Pulse Ox 100% on R/A; Weight 78.47 kg; hb Height 5 ft. 0 in. ; Pain 10/10; 16:16 BP 111 / 72; Pulse 86; Resp 16; Temp 98.8(O); Pulse Ox 100% ; eh3 15:29 Body Mass Index 33.79 (78.47 kg, 152.4 cm) hb 15:29 Pain Scale: Adult hb MDM: 15:27 Patient medically screened. [facility] 16:35 Differential diagnosis: viral Infection, URI, covid, flu. Data reviewed: vital signs, [facility] nurses notes. I considered the following discharge prescriptions or medication management in the emergency department Antibiotics: At this time antibiotics are not recommended. Care significantly affected by the following chronic conditions: Diabetes. Counseling: I had a detailed discussion with the patient and/or guardian regarding: the historical points, exam findings, and any diagnostic results supporting the discharge/admit diagnosis, to return to the emergency department if symptoms worsen or persist or if there are any questions or concerns that arise at home. 09/09 15:33 Order name: COVID-19/FLU A+B; Complete Time: 16:32 jh7 Administered Medications: No medications were administered Disposition: 19:01 Co-signature as Attending Physician, Armani Mon MD I reviewed the patient's care rn provided by the Advanced Practice Provider and agree with the diagnosis and treatment plan. Disposition Summary: 09/09/22 16:33 Discharge Ordered Location: Home [facility] Problem: new [facility] Symptoms: are unchanged [facility] Condition: Stable [facility] Diagnosis - Coronavirus infection, unspecified [facility] Followup: [facility] - With: Akhil Noble, DO - When: 2 - 3 days - Reason: Recheck today's complaints Discharge Instructions: - Discharge Summary Sheet [facility] - COVID-19 7 - 10 Things You Can Do to Manage Your COVID-19 Symptoms at Home - [facility] (01/16/2021) [facility] Forms: - Medication Reconciliation Form [facility] - Thank You Letter [facility] Prescriptions: - ProAir RespiClick 90 mcg/actuation Inhalation Aerosol Powder, Breath Activated - administer 1 inhalation by INHALATION route every 6 hours As needed as needed [facility] for shortness of breath or wheezing; 1 Each; Refills: 0, Product Selection Permitted - Tessalon Perles 100 mg Oral Capsule - take 1 capsule by ORAL route every 8 hours As needed; 15 capsule; Refills: 0, jh7 Product Selection Permitted Signatures: Dispatcher [employer] Armani Earl MD MD rn Baxter, Heather, RN RN hb Hadash, Jennifer, PROCEDURE ANALYST [place] [address]
--- NOTE | 2022-09-24 15:09 | ER ---
Nurse's Notes [facility] Name: Shirley Leija Age: 42 yrs Sex: Female : 1980 Arrival Date: 09/09/2022 Time: 15:26 Bed 9 Private MD: Akhil Noble H Diagnosis: Coronavirus infection, unspecified Presentation: 09/09 15:29 Chief complaint: Cough, congestion, sore throat, runny nose, body aches, chills, hb malaise, and headache x 6 days. Coronavirus screen: Client presents with at least one sign or symptom that may indicate coronavirus-19. Standard/surgical mask placed on the client. Provider contacted for isolation considerations. Ebola Screen: No symptoms or risks identified at this time. Initial Sepsis Screen: Does the patient meet any 2 criteria? No. Patient's initial sepsis screen is negative. Does the patient have a suspected source of infection? No. Patient's initial sepsis screen is negative. Risk Assessment: Do you want to hurt yourself or someone else? Patient reports no desire to harm self or others. Onset of symptoms was September 04, 2022. 15:29 Method Of Arrival: Ambulatory hb 15:29 Acuity: ABBY 4 hb Historical: - Allergies: 15:30 No Known Allergies; hb - Home Meds: 15:30 Metformin Oral [Active]; hb - PMHx: 15:30 diabetes mellitus; hb - PSHx: 15:30 section; Cholecystectomy; hb - Immunization history:: Adult Immunizations up to date. - Social history:: Smoking status: Patient denies any tobacco usage or history of. Screenin:32 [facility] ED Fall Risk Assessment (Adult) Score/Fall Risk Level 0 - 2 = Low Risk. Abuse eh3 screen: Denies threats or abuse. Denies injuries from another. Nutritional screening: No deficits noted. Tuberculosis screening: No symptoms or risk factors identified. Assessment: 15:32 General: Appears in no apparent distress. uncomfortable, Behavior is calm, cooperative, eh3 appropriate for age. Pain: Denies pain. Neuro: Level of Consciousness is awake, alert, obeys commands, Oriented to person, place, time, situation. Cardiovascular: Capillary refill < 3 seconds Patient's skin is warm and dry. Respiratory: Airway is patent Respiratory effort is even, unlabored, Respiratory pattern is regular, symmetrical. GI: No signs and/or symptoms were reported involving the gastrointestinal system. Abdomen is round non-distended. : No signs and/or symptoms were reported regarding the genitourinary system. EENT: No signs and/or symptoms were reported regarding the EENT system. Derm: No signs and/or symptoms reported regarding the dermatologic system. Skin is pink, warm \T\ dry. Musculoskeletal: No signs and/or symptoms reported regarding the musculoskeletal system. Circulation, motion, and sensation intact. Range of motion: intact in all extremities. Vital Signs: 15:29 BP 146 / 67; Pulse 89; Resp 20; Temp 98.4(O); Pulse Ox 100% on R/A; Weight 78.47 kg; hb Height 5 ft. 0 in. ; Pain 10/10; 16:16 BP 111 / 72; Pulse 86; Resp 16; Temp 98.8(O); Pulse Ox 100% ; eh3 15:29 Body Mass Index 33.79 (78.47 kg, 152.4 cm) hb 15:29 Pain Scale: Adult hb ED Course: 15:26 Patient arrived in ED. mr 15:26 Akhil Noble DO is Private Physician. mr 15:27 Oliva Velasquez FNP is [facility] 15:27 Armani Mon MD is Attending Physician. [facility] 15:30 Triage completed. hb 15:30 Arm band placed on. hb 15:32 Patient has correct armband on for positive identification. Bed in low position. Call eh3 light in reach. Side rails up X2. Pulse ox on. NIBP on. Door closed. Noise minimized. 16:05 Alyse Harden, HARRISON is Primary Nurse. eh3 16:32 Akhil Noble DO is Referral Physician. [facility] 16:42 No provider procedures requiring assistance completed. Patient did not have IV access ss during this emergency room visit. Administered Medications: No medications were administered Outcome: 16:33 Discharge ordered by . [facility] 16:42 Discharged to home ambulatory. ss 16:42 Condition: good 16:42 Discharge instructions given to patient, Instructed on discharge instructions, follow up and referral plans. medication usage, Demonstrated understanding of instructions, follow-up care, medications, Prescriptions given X 2. 16:42 Patient left the ED. ss Signatures: CardenasIlana mr Sue Kuhn, RN RN ss Anais Mcdowell, RN RN Alyse Flores RN RN 3 Oliva Velasquez, VALENTINO HASKINSP jh7
== END 2022-09-09 16:42 | disposition home or self-care (01) ==
LOC: ER 15:24
DX: U07.1 COVID-19 (principal)
CPT/HCPCS: 0240U; 99283

== ENCOUNTER 2024-08-27 13:59 | Emergency (ER) | payer OTHER ==
--- OUTSIDE RECORDS SUMMARY | 2024-08-27 14:09 | XMS REPORT | Continuity of Care Document ---
Author Name Unknown Address [address] [place] [address] [facility] thconnect Address [address] [facility] [address] [place] [address] Care Team Providers Care Coke Worker Name Role Phone Akhil Noble Primary Care Physician [phone] Doctor Unassigned, [place] Attending Clinician U Panfilo Gilbert MD Attending Clinician [phone] PANFILO ALVAREZ Attending Clinician Unavailable PANFILO ALVAREZ Admitting Clinician Unavailable Payers Payer Name Policy Type Policy Number Effective Date Expirati on Date Source Allergies, Adverse Reactions, Alerts Allergy Name Allergy Type Status Severity Reaction(s) Onset Date Inactive Date Treating Clinician Comments Source NO KNOWN ALLERGIE S Drug Class Active [facility] Social History Social Habit Start Date Stop Date Quantity Comments Source Sex Assigned At 1980 00:00:00 1980 00:00:00 [facility] Smoking Status Start Date Stop Date Source Tobacco smoking consumption unknown [facility] Medications Ordered Medication Name Filled Medication Name Start Date Stop Date Current Medication? Ordering Clinician Indication Dosage Frequency Signature (SIG) Comments Components Source lisinopril 5 mg tablet 2-06 00:00: 00 Yes 1mg Eusebio Juan metformin 1,000 mg tablet 1-07 00:00: 00 Yes 1mg Eusebio Janis Drake glimepiride 4 mg tablet 2023-07 1-11 00:00: 00 Yes 1mg Eusebioharrison Juan atorvastati n 20 mg tablet 2023-07- 00:00: 00 Yes 2mg Eusebio Juan metformin 1,000 mg tablet 2023-07- 00:00: 00 Yes 1mg Eusebio Juan meclizine 25 mg tablet 2023-07 00:00: 00 Yes 1mg Eusebio Juan ondansetron 4 mg disintegrat ing tablet 2023-07 00:00: 00 Yes 1mg Eusebio Juan glimepiride 4 mg tablet 02-08 00:00: 00 Yes 1mg Eusebio Juan atorvastati n 20 mg tablet 02-07 00:00: 00 Yes 1mg Eusebio Juan metronidazo le 500 mg tablet 12-28 00:00: 00 Yes 1mg Eusebio Juan glimepiride 2 mg tablet 12-26 00:00: 00 Yes 1mg Eusebio Juan metformin 1,000 mg tablet 12-26 00:00: 00 Yes 1mg Eusebio Juan fluconazole 150 mg tablet 12-26 00:00: 00 Yes mg Eusebio Juan albuterol sulfate HFA 90 mcg/actuati on aerosol inhaler 12-06 00:00: 00 Yes 1mcg/ac tuation Eusebio Juan Bromfed DM 2 mg-30 mg-10 mg/5 mL oral syrup 12-06 00:00: 00 Yes 5mg/5 mL Eusebio Juan TAKE 1 TABLET DAILY. - 00:00: 00 Yes 5 Eusebio Juan 1-2 SPRAYS EVERY 2 HOURS NEEDED FOR SORE THROAT -10 00:00: 00 Yes 1533 Eusebio Juan TAKE 1 TABLET BY MOUTH DAILY DIRECTED -12 00:00: 00 Yes 1000 Eusebio Juan TAKE 2 TABLETS ON DAY 1 THEN TAKE 1 TABLET A DAY FOR 4 DAYS. - 00:00: 00 08-24 00:00 :00 No 250 Eusebio Juan NITROFURANT OIN MONOHYDRATE /MACROCRY STALS 100 MG 2022-07- 00:00: 00 Yes Eusebio Juan TAKE 1 CAPSULE TWICE DAILY. 2022-07 2-06 00:00: 00 08-24 00:00 :00 No 100 Eusebioharrison Juan TAKE 1 TABLET TWICE DAILY. 2022-07 0-03 00:00: 00 08-24 00:00 :00 No 875 Eusebio Juan TAKE 1-2 TABS EVERY 8 HOURS NEEDED 2022-07 0-03 00:00: 00 08-24 00:00 :00 No 125 Eusebioharrison Juan TAKE 1 TABLET BY MOUTH EVERY DAY 2022-07 0-03 00:00: 00 08-24 00:00 :00 No 10 Eusebioharrison Juan USE 1 SPRAY IN EACH NOSTRIL TWICE DAILY. 2022-07 0-03 00:00: 00 08-24 00:00 :00 No 50 Eusebioharrison Juan TAKE 1 TABLET BY MOUTH DAILY DIRECTED 03-25 00:00: 00 08-24 00:00 :00 No 1000 Eusebio Juan TAKE 1 TABLET DAILY. 9- 00:00: 00 08-24 00:00 :00 No 5 Eusebioharrison Juan TAKE 1 TABLET BID NEEDED 8-30 00:00: 00 08-24 00:00 :00 No 600 Eusebioharrison Juan TAKE 1 TABLET TWICE A DAY NEEDED 8-30 00:00: 00 08-24 00:00 :00 No 500 Eusebioharrison Juan GLIMEPIRIDE 2 MG TABS 12-23 00:00: 00 Yes Eusebio Janis Juan TAKE 2 TABLETS ON DAY 1 THEN TAKE 1 TABLET A DAY FOR 4 DAYS. 6- 00:00: 00 08-24 00:00 :00 No 250 Eusebioharrison Juan TAKE 10 ML EVERY 6 TO 8 HOURS NEEDED FOR COUGH 6- 00:00: 00 08-24 00:00 :00 No [id number] Eusebio Juan TAKE ONE TABLET TWICE A DAY WITH FOOD - 00:00: 00 08-24 00:00 :00 No 2 Eusebioharrison Juan TAKE 1 TABLET BY MOUTH DAILY DIRECTED - 00:00: 08-24 00:00 :00 No 1000 Eusebio Juan TAKE 1 TABLET DAILY. 0 5-25 00:00: 00 08-24 00:00 :00 No 5 Eusebio Juan TAKE 1 CAPSULE BY MOUTH EVERY 8 HOURS NEEDED FOR COUGH 0 3-09 00:00: 00 Yes Eusebio Juan AMOXICILLIN /CLAVULANAT E POTASSIUM 875-125 MG TABS 0 -13 00:00: 00 Yes Eusebio Juan TAKE BY MOUTH DIRECTED ON INSIDE OF PACKAGE 0 07-16 00:00: 00 Yes Eusebio Juan INSTILL 4 DROPS INTO AFFECTED EARS EVERY 12 HOURS FOR 7 DAYS 0 - 00:00: 00 Yes Eusebio Juan Dose Unknown 1-05 00:00: 00 Yes Eusebio Juan Dose Unknown 1-05 00:00: 00 Yes Eusebio Juan ROSUVASTATI N CALCIUM 5 MG TABS 0 9-19 00:00: 00 Yes 5 Eusebio Juan ROSUVASTATI N CALCIUM 5 MG TABS 0 8-18 00:00: 00 No 5 ROSUVASTATI N CALCIUM 5 MG TABS 0 8-18 00:00: 00 Yes 5 Eusebio Juan METFORMIN HYDROCHLORI DE 1000 MG TABS 0 8-18 00:00: 00 Yes Eusebio Juan metronidazo le 500 mg tablet 0 3-28 00:00: 00 No 1mg metronidazo le 500 mg tablet 0 3-28 00:00: 00 Yes 1mg Eusebio Juan rosuvastati n 5 mg tablet 0 3-22 00:00: 00 No 1mg metformin 1,000 mg tablet 0 3-22 00:00: 00 No 1mg Dose Unknown 0 3-22 00:00: 00 No Dose Unknown 0 3-22 00:00: 00 No rosuvastati n 5 mg tablet 0 3-22 00:00: 00 Yes 1mg Eusebio Juan metformin 1,000 mg tablet 0 3-22 00:00: 00 Yes 1mg Eusebio Juan Dose Unknown 3-22 00:00: 00 Yes Eusebio Juan Dose Unknown 3- 00:00: 00 Yes Eusebio Juan Dose Unknown 3 00:00: 00 Yes 1000 Eusebio Juan rosuvastati n 5 mg tablet 2- 00:00: 00 No 1mg metformin 1,000 mg tablet 2 00:00: 00 No 1mg rosuvastati n 5 mg tablet 2 00:00: 00 Yes 1mg Eusebio Juan metformin 1,000 mg tablet 08-26 00:00: 00 Yes 1mg Eusebio Juan Dose Unknown 2 00:00: 00 Yes 1000 Eusebio Juan Dose Unknown 08-24 00:00: 00 No metformin 1,000 mg tablet 08-24 00:00: 00 No 1mg Dose Unknown 08-24 00:00: 00 Yes Eusebio Juan metformin 1,000 mg tablet 08-24 00:00: 00 Yes 1mg Eusebio Juan metformin 500 mg tablet 2020-07 0- 00:00: 00 No 1mg metformin 500 mg tablet 2020-07 0 00:00: 00 Yes 1mg Eusebio Juan metformin 500 mg tablet 2020-07 0- 00:00: 00 No 1mg metformin 500 mg tablet 2020-07 0 00:00: 00 Yes 1mg Eusebio Juan metformin 500 mg tablet 01-14 00:00: 00 No 1mg metformin 500 mg tablet 01-14 00:00: 00 Yes 1mg Eusebio Juan ondansetron HCl 4 mg tablet 7- 00:00: 00 No 1mg meclizine 25 mg tablet 01-05 00:00: 00 No 1mg ondansetron HCl 4 mg tablet 01-05 00:00: 00 Yes 1mg Eusebio Juan meclizine 25 mg tablet 01-05 00:00: 00 Yes 1mg Eusebio Juan cyclobenzap rine 5 mg tablet 4 00:00: 00 No 1mg ibuprofen 800 mg tablet 10-31 00:00: 00 No 1mg cyclobenzap rine 5 mg tablet 10-31 00:00: 00 Yes 1mg Eusebio Juan ibuprofen 800 mg tablet 10-31 00:00: 00 Yes 1mg Eusebio Juan FENTanyl PF (SUBLIMAZE (PF)) injection 50 mcg 10-17 03:15: 00 10-17 02:24 :00 No 50ug 50 mcg, Slow IV Push, ONCE, 1 dose, 10/17/19 at 2215, Routine [facility] ondansetron (ZOFRAN (PF)) injection 4 mg 10-17 00:45: 00 10-16 23:53 :00 No 4mg 4 mg, Slow IV Push, ONCE, 1 dose, Tue10/17/19 at 1945, GEOVANNI [facility] morpHINE injection 4 mg 10-17 00:45: 00 10-16 23:53 :00 No 4mg 4 mg, Slow IV Push, ONCE, 1 dose, Tue10/17/19 at 1945, STAT [facility] acetaminoph en-codeine (TYLENOL-CO DEINE #3) 300-30 mg tablet 10-16 00:00: 00 Yes [id number] 1{tbl} Take 1 tablet by mouth every 4 (four) hours as needed for Pain (scale 1-3). [facility] Vital Signs Vital Name Observation Time Observation Value Comments S ource Systolic blood pressure 2019-10-18 02:00:00 134 mm[Hg] [facility] Diastolic blood pressure 2019-10-18 02:00:00 68 mm[Hg] [facility] Heart rate 2019-10-18 02:00:00 89 /min [facility] Oxygen saturation in Arterial blood by Pulse oximetry 2019-10-18 02:00:00 98 /min [facility] Body temperature 2019-10-17 23:08:00 37.72 Liseth [facility] Respiratory rate 2019-10-17 23:08:00 16 /min [facility] Body height 2019-10-17 23:08:00 152.4 cm [facility] Body weight 2019-10-17 23:08:00 72.576 kg [facility] BMI 2019-10-17 23:08:00 31.25 kg/m2 [facility] Systolic blood pressure 2019-10-18 02:00:00 134 mm[Hg] [place] [facility] Diastolic blood pressure 2019-10-18 02:00:00 68 mm[Hg] [facility] Heart rate 2019-10-18 02:00:00 89 /min [facility] Oxygen saturation in Arterial blood by Pulse oximetry 2019-10-18 02:00:00 98 /min [facility] Body temperature 2019-10-17 23:08:00 37.72 Liseth [facility] Respiratory rate 2019-10-17 23:08:00 16 /min [facility] Body height 2019-10-17 23:08:00 152.4 cm [facility] Body weight 2019-10-17 23:08:00 72.576 kg [facility] BMI 2019-10-17 23:08:00 31.25 kg/m2 [facility] BP Systolic 2024-08-09 10:04:00 133 mm[Hg] Step hen F Drake BP Diastolic 2024-08-09 10:04:00 73 mm[Hg] Ramesh phen F Drake Weight Measured 2024-08-09 10:04:00 178.60 pounds Euseibo F Drake Height Measured 2024-08-09 10:04:00 60.00 inches Eusebio F Drake Body Temperature 2024-08-09 10:04:00 98.10 degrees Eusebio F Drake Heart Rate 2024-08-09 10:04:00 89.00 /min Shelby en F Drake Respiratory Rate 2024-08-09 10:04:00 17.00 /min Eusebio F Drake BP Systolic 2024-05-10 08:50:00 118 mm[Hg] Step hen F Drake BP Diastolic 2024-05-10 08:50:00 80 mm[Hg] Ramesh phen F Drake Weight Measured 2024-05-10 08:50:00 176.00 pounds Eusebio F Drake Height Measured 2024-05-10 08:50:00 60.00 inches Eusebio F Drake Body Temperature 2024-05-10 08:50:00 98.70 degrees Eusebio F Drake Heart Rate 2024-05-10 08:50:00 62.00 /min Shelby en F Drake Respiratory Rate 2024-05-10 08:50:00 19.00 /min Eusebio F Drake BP Systolic 2024-04-30 09:10:00 123 mm[Hg] Step hen F Drake BP Diastolic 2024-04-30 09:10:00 83 mm[Hg] Ramesh phen F Drake Weight Measured 2024-04-30 09:10:00 173.60 pounds Eusebio F Drake Height Measured 2024-04-30 09:10:00 60.00 inches Eusebio F Drake Body Temperature 2024-04-30 09:10:00 98.60 degrees Eusebio F Drake Heart Rate 2024-04-30 09:10:00 64.00 /min Shelby en F Drake Respiratory Rate 2024-04-30 09:10:00 18.00 /min Eusebio F Drake BP Systolic 2024-02-08 11:38:00 119 mm[Hg] Step hen F Drake BP Diastolic 2024-02-08 11:38:00 65 mm[Hg] Ramesh phen F Drake Weight Measured 2024-02-08 11:38:00 169.60 pounds Eusebio F Drake Height Measured 2024-02-08 11:38:00 60.00 inches Eusebio F Drake Body Temperature 2024-02-08 11:38:00 98.00 degrees Eusebio F Drake Heart Rate 2024-02-08 11:38:00 53.00 /min Shelby en F Drake Respiratory Rate 2024-02-08 11:38:00 18.00 /min Eusebio F Drake BP Systolic 2024-01-27 17:11:00 124 mm[Hg] Step hen F Drake BP Diastolic 2024-01-27 17:11:00 83 mm[Hg] Ramesh phen F Drake Weight Measured 2024-01-27 17:11:00 171.40 pounds Eusebio F Drake Height Measured 2024-01-27 17:11:00 60.00 inches Eusebio F Drake Body Temperature 2024-01-27 17:11:00 97.80 degrees Eusebio F Drake Heart Rate 2024-01-27 17:11:00 77.00 /min Shelby en F Drake Respiratory Rate 2024-01-27 17:11:00 17.00 /min Eusebio F Drake BP Systolic 2023-12-27 13:59:00 156 mm[Hg] Step hen F Drake BP Diastolic 2023-12-27 13:59:00 83 mm[Hg] Ramesh phen F Drake Weight Measured 2023-12-27 13:59:00 173.80 pounds Eusebio F Drake Height Measured 2023-12-27 13:59:00 60.00 inches Eusebio F Drake Body Temperature 2023-12-27 13:59:00 97.90 degrees Eusebio F Drake Heart Rate 2023-12-27 13:59:00 66.00 /min Shelby en F Drake Respiratory Rate 2023-12-27 13:59:00 Eusebio F Drake BP Systolic 2023-12-07 10:23:00 125 mm[Hg] Step hen F Drake BP Diastolic 2023-12-07 10:23:00 85 mm[Hg] Ramesh phen F Drake Weight Measured 2023-12-07 10:23:00 172.60 pounds Eusebio F Drake Height Measured 2023-12-07 10:23:00 60.00 inches Eusebio F Drake Body Temperature 2023-12-07 10:23:00 98.40 degrees Eusebio F Drake Heart Rate 2023-12-07 10:23:00 70.00 /min Shelby en F Drake Respiratory Rate 2023-12-07 10:23:00 17.00 /min Eusebio F Drake BP Systolic 2023-08-16 14:25:00 127 mm[Hg] Step hen F Drake BP Diastolic 2023-08-16 14:25:00 85 mm[Hg] Ramesh phen F Drake Weight Measured 2023-08-16 14:25:00 176.40 pounds Eusebio F Drake Height Measured 2023-08-16 14:25:00 60.00 inches Eusebio F Drake Body Temperature 2023-08-16 14:25:00 98.40 degrees Eusebio F Drake Heart Rate 2023-08-16 14:25:00 78.00 /min Shelby en F Drake Respiratory Rate 2023-08-16 14:25:00 17.00 /min Eusebio F Drake BP Systolic 2023-08-08 09:25:00 120 mm[Hg] Step hen F Drake BP Diastolic 2023-08-08 09:25:00 79 mm[Hg] Ramesh phen F Drake Weight Measured 2023-08-08 09:25:00 180.00 pounds Eusebio F Drake Height Measured 2023-08-08 09:25:00 60.00 inches Eusebio F Drake Body Temperature 2023-08-08 09:25:00 98.20 degrees Eusebio F Drake Heart Rate 2023-08-08 09:25:00 59.00 /min Shelby en F Drake Respiratory Rate 2023-08-08 09:25:00 19.00 /min Eusebio F Draek BP Systolic 2023 08:38:00 126 mm[Hg] Step hen F Drake BP Diastolic 2023 08:38:00 80 mm[Hg] Ramesh phen F Drake Weight Measured 2023 08:38:00 176.40 pounds Eusebio F Drake Height Measured 2023 08:38:00 60.00 inches Eusebio F Drake Body Temperature 2023 08:38:00 99.10 degrees Eusebio F Drake Heart Rate 2023 08:38:00 57.00 /min Shelby en F Drake Respiratory Rate 2023 08:38:00 18.00 /min Eusebio F Drake BP Systolic 2023-07-06 16:08:00 120 mm[Hg] Step hen F Drake BP Diastolic 2023-07-06 16:08:00 80 mm[Hg] Ramesh phen F Drake Weight Measured 2023-07-06 16:08:00 177.20 pounds Eusebio F Drake Height Measured 2023-07-06 16:08:00 60.00 inches Eusebio F Drake Body Temperature 2023-07-06 16:08:00 98.20 degrees Eusebio F Drake Heart Rate 2023-07-06 16:08:00 90.00 /min Shelby en F Drake Respiratory Rate 2023-07-06 16:08:00 19.00 /min Eusebio F Drake BP Systolic 2023-06-08 10:14:00 119 mm[Hg] Step hen F Drake BP Diastolic 2023-06-08 10:14:00 81 mm[Hg] Ramesh phen F Drake Weight Measured 2023-06-08 10:14:00 175.80 pounds Eusebio F Drake Height Measured 2023-06-08 10:14:00 60.00 inches Eusebio F Drake Body Temperature 2023-06-08 10:14:00 98.40 degrees Eusebio F Drake Heart Rate 2023-06-08 10:14:00 60.00 /min Shelby en F Drake Respiratory Rate 2023-06-08 10:14:00 16.00 /min Eusebio F Drake BP Systolic 2023-04-05 10:55:00 115 mm[Hg] Step hen F Drake BP Diastolic 2023-04-05 10:55:00 79 mm[Hg] Ramesh phen F Drake Weight Measured 2023-04-05 10:55:00 171.20 pounds Eusebio F Drake Height Measured 2023-04-05 10:55:00 60.00 inches Eusebio F Drake Body Temperature 2023-04-05 10:55:00 98.40 degrees Eusebio F Drake Heart Rate 2023-04-05 10:55:00 56.00 /min Shelby en F Drake Respiratory Rate 2023-04-05 10:55:00 18.00 /min Eusebio F Drake BP Systolic 2023-03-25 08:35:00 117 mm[Hg] Step hen F Drake BP Diastolic 2023-03-25 08:35:00 79 mm[Hg] Ramesh phen F Drake Weight Measured 2023-03-25 08:35:00 172.40 pounds Eusebio F Drake Height Measured 2023-03-25 08:35:00 60.00 inches Eusebio F Drake Body Temperature 2023-03-25 08:35:00 98.40 degrees Eusebio F Drake Heart Rate 2023-03-25 08:35:00 63.00 /min Shelby en F Drake Respiratory Rate 2023-03-25 08:35:00 Eusebio F Drake BP Systolic 2023-03-02 16:16:00 132 mm[Hg] Step hen F Drake BP Diastolic 2023-03-02 16:16:00 83 mm[Hg] Ramesh phen F Drake Weight Measured 2023-03-02 16:16:00 174.00 pounds Eusebio F Drake Height Measured 2023-03-02 16:16:00 60.00 inches Eusebio F Drake Body Temperature 2023-03-02 16:16:00 98.20 degrees Eusebio F Drake Heart Rate 2023-03-02 16:16:00 71.00 /min Shelby en F Drake Respiratory Rate 2023-03-02 16:16:00 19.00 /min Eusebio F Drake BP Systolic 2022-12-23 09:48:00 128 mm[Hg] Step hen F Drake BP Diastolic 2022-12-23 09:48:00 80 mm[Hg] Ramesh phen F Drake Weight Measured 2022-12-23 09:48:00 173.40 pounds Eusebio Juan Height Measured 2022-12-23 09:48:00 60.00 inches Eusebio Juan Body Temperature 2022-12-23 09:48:00 98.30 degrees Eusebio F Drake Heart Rate 2022-12-23 09:48:00 85.00 /min Shelby en F Drake Respiratory Rate 2022-12-23 09:48:00 18.00 /min Eusebio Juan BP Systolic 2022-02-18 09:29:00 131 mm[Hg] BP [...] 16.00 /min Procedures Procedure Date / Time Performed Performing Clinician Source AUTHORIZATION FOR RELEASE OF PHI 2022-06-29 06:01:00 Doctor Unassigned, [place] [facility] AUTHORIZATION FOR RELEASE OF PHI 2021-09-21 05:01:00 Doctor Unassigned, [place] [facility] XR CERVICAL SPINE 3 VW 2019-10-18 00:46:19 Angeles Alvarez [facility] XR HIPS 2 VW LEFT 2019-10-18 00:28:52 [facility] P[facility] <3 VW 2019-10-18 00:28:52 [facility] SH[facility] <2 VW LEFT 2019-10-18 00:28:24 Angeles Alvarez [facility] XR CHEST 1 VW 2019-10-18 00:28:02 Panfilo Alvarez [facility] TEST, SERUM 2019-10-17 23:47:00 Panfilo Alvarez [facility] BASIC METABOLIC PANEL (NA, K, CL, CO2, GLUCOSE, BUN, CREATININE, CA) 2019-10-17 23:47:00 Panfilo Alvarez [facility] CBC WITH DIFFERENTIAL 2019-10-17 23:47:00 Panfilo Alvarez [facility] Plan of Care Planned Activity Planned Date Details Comments Source Goal Plan of Care Note [code = 73264-3] Goal Plan of Care Note [code = 50328-6] Goal Plan of Care Note [code = 83385-3] Goal Plan of Care Note [code = 60272-1] Goal Plan of Care Note [code = 75972-8] Goal Plan of Care Note [code = 89692-3] Goal Plan of Care Note [code = 66181-2] Goal Plan of Care Note [code = 81967-3] Goal Plan of Care Note [code = 17589-9] Goal Plan of Care Note [code = 68709-7] Goal Plan of Care Note [code = 47388-8] Goal Plan of Care Note [code = 10912-8] Goal Plan of Care Note [code = 93217-8] Goal Plan of Care Note [code = 27179-4] Goal Plan of Care Note [code = 28446-4] Goal Plan of Care Note [code = 73746-2] Goal Plan of Care Note [code = 14027-0] Goal Plan of Care Note [code = 92306-3] Goal Plan of Care Note [code = 09114-7] Encounters Start Date/Time End Date/Time Encounter Type Admission Type Attending [facility] Facility Care Department Encounter ID Source 2024-08-09 10:04:05 2024-08-09 10:04:05 Outpatient [facility] [id number] Eusebio Juan 2024-08-09 00:00:00 2024-08-09 00:00:[address] [facility] [id number] Eusebio Juan 2024-05-10 08:45:39 2024-05-10 08:45:39 Outpatient [facility] [id number] Eusebio Juan 2024-05-10 00:00:00 2024-05-10 00:00:[address] [facility] [id number] Eusebio Juan 2024-04-30 09:14:53 2024-04-30 09:14:53 Outpatient [facility] [id number] Eusebio Juan 2024-04-30 00:00:00 2024-04-30 00:00:00 Outpatient Visit [facility] [id number] Eusebio Juan 2024-02-08 11:37:00 2024-02-08 11:37:00 Outpatient [facility] [id number] Eusebio Juan 2024-02-08 00:00:00 2024-02-08 00:00:00 Outpatient Visit [facility] [id number] Eusebio Juan 2024-01-27 17:18:53 2024-01-27 17:18:53 Outpatient [facility] [id number] Eusebio Juan 2024-01-27 00:00:00 2024-01-27 00:00:00 Outpatient Visit [facility] [id number] Eusebio Juan 2023-12-27 13:59:31 2023-12-27 13:59:31 Outpatient [facility] [id number] Eusebio Juan 2023-12-27 00:00:00 2023-12-27 00:00:00 Outpatient Visit [facility] [id number] Eusebio Juan 2023-12-08 11:11:34 2023-12-08 11:11:34 Outpatient [facility] [id number] Eusebio Juan 2023-12-07 10:01:55 2023-12-07 10:01:55 Outpatient [facility] [id number] Eusebio Juan 2023-12-07 00:00:00 2023-12-07 00:00:00 Outpatient Visit [facility] [id number] Eusebio Juan 2023-08-16 14:04:16 2023-08-16 14:04:16 Outpatient [facility] [id number] Eusebio Juan 2023-08-13 14:39:50 2023-08-13 14:39:50 Outpatient [facility] [id number] Eusebio Juan 2023-08-08 09:14:31 2023-08-08 09:14:31 Outpatient [facility] [id number] Eusebio Juan 2023 08:20:28 2023 08:20:28 Outpatient [facility] [id number] Eusebio Juan 2023-07-06 15:58:58 2023-07-06 15:58:58 Outpatient [facility] [id number] Eusebio Juan 2023-06-08 10:01:07 2023-06-08 10:01:07 Outpatient [facility] [id number] Eusebio Juan 2023-04-05 10:49:04 2023-04-05 10:49:04 Outpatient [facility] [id number] Eusebio Juan 2023-03-25 08:29:48 2023-03-25 08:29:48 Outpatient [facility] [id number] Eusebio Bruec Drake 2023-03-02 16:06:05 2023-03-02 16:06:05 Outpatient [facility] SFA [id number] Eusebio Juan 2022-12-23 10:13:20 2022-12-23 10:13:20 Outpatient [facility] [id number] Eusebio Bruce Drake 2022-12-14 14:50:42 2022-12-14 14:50:42 Outpatient [facility] [id number] Eusebio Bruce Drake 2022-11-25 08:43:49 2022-11-25 08:43:49 Outpatient [facility] [id number] Eusebio Juan 2022-06-29 00:00:00 2022-06-29 00:00:00 Orders Only Doctor Unassigned, [place] [facility] [id number] [facility] 2022-02-18 00:00:00 2022-02-18 00:00:00 Outpatient Visit [id number] 2021-09-21 00:00:00 2021-09-21 00:00:00 Orders Only Doctor Unassigned, [place] [facility] [id number] [facility] 2019-10-17 18:07:03 2019-10-17 21:31:00 Emergency Panfilo Alvarez [facility] [id number] [facility] 2019-10-17 18:07:03 2019-10-17 21:31:00 Emergency X PANFILO ALVAREZ [facility] [[email or web address] ERT [id number] [facility] 2019-10-17 18:07:03 2019-10-17 21:31:00 Emergency Panfilo Alvarez [facility] [id number] Results Test Description Test Time Test Comments Results Result Co mments Source COMPREHENSIVE METABOLIC [id number] 06:52:05* Test Item Value Reference Range Interpretation Comme nts GLUCOSE (test code = 2217) 163 MG/DL 70-99 H BUN (test code = 2208) 10 MG/DL 6-20 CREATININE (test code = 2214) 0.70 MG/DL 0.60-1.30 eGFR (2020 CKD-EPI) (test code = 07190) 110 ML/MIN/1.73 >60 CALC BUN/CREAT (test code = 2235) 14 RATIO 6-28 SODIUM (test code = 2231) 139 MEQ/L 133-146 POTASSIUM (test code = 2228) 4.4 MEQ/L 3.5-5.4 CHLORIDE (test code = 2215) 103 MEQ/L 95-107 CARBON DIOXIDE (test code = 2205) 20 MEQ/L 19-31 CALCIUM (test code = 2208) 8.7 MG/DL 8.5-10.5 PROTEIN, TOTAL (test code = 2228) 7.5 G/DL 6.1-8.3 ALBUMIN (test code = 2200) 4.3 G/DL 3.5-5.2 CALC GLOBULIN (test code = 2239) 3.2 G/DL 1.9-3.7 CALC A/G RATIO (test code = 223) 1.3 RATIO 1.0-2.6 BILIRUBIN, TOTAL (test code = 2206) 0.3 MG/DL <=1.2 ALKALINE PHOSPHATASE (test code = 2203) 111 U/L 40-113 AST (test code = 221) 47 U/L 9-40 H ALT (test code = 221) 72 U/L 5-40 H ALBUMIN/CREATININE RATIO, URINE, [id number] 06:12:44* Test Item Value Reference Range Interpretation Comme nts CREATININE, URINE, CONC. (test code = 2072) 156.7 MG/DL NOT ESTAB ALBUMIN, URINE, RANDOM (test code = 68786) 0.7 MG/DL NOT ESTAB CALC ALBUMIN/CREAT, RND (test code = 27660) 4 MG/G <30 Note: Albumin/Cr eatinine ratio reference interval reflects ADA and NKF guidelines. UNLESS OTHERWISE INDICATED, ALL TESTING PERFORMED AT [facility] [address] [place] [address] [employer] ATTENDANT: JOSE MESA M.D. CLIA NUMBER [id number] [facility] [place]. [id number] HEMOGLOBIN [id number] 04:36:04* Test Item Value Reference Range Interpretation Comme nts HEMOGLOBIN A1c (test code = 49770) 9.4 % 4.2-5.6 H [employer] GUIDELINES FOR HGB A1C: PREDIABETES/INCREASED RISK . . . . . . . 5.7-6.4% DIAGNOSIS OF DIABETES . . . . . . . . . >=6.5% WITH CONFIRMATION OR APPROPRIATE SYMPTOMS NOTE: ASSAY MAY BE AFFECTED BY HEMOGLOBINOPATHIES (SICKLE CELL ANEMIA, S-C DISEASE, OTHERS) OR ARTIFICIALLY LOWERED BY DECREASED RED CELL SURVIVAL (HEMOLYTIC ANEMIAS, BLOOD LOSS, ETC.). CONSIDER ALTERNATE TESTING OR LABORATORY CONSULTATION. HEMOGLOBIN [id number] 00:00:00* Test Item Value Reference Range Interpretation Comme [facility] HEMOGLOBIN A1c (test code = 72859) 9.4 % Eusebio JuanLIPID [id number] 00:00:00* Test Item Value Reference Range Interpretation Comme nts CHOLESTEROL (test code = 2210) 199 MG/DL TRIGLYCERIDES (test code = 2232) 119 MG/DL HDL CHOLESTEROL (test code = 2220) 49 MG/DL CALC LDL CHOL (test code = 2237) 127 MG/DL RISK RATIO LDL/HDL (test cod e = 2238) 2.59 RATIO Eusebio JuanCOMPREHENSIVE METABOLIC [id number] 00:00:00* Test Item Value Reference Range Interpretation Comme nts GLUCOSE (test code = 2217) 163 MG/DL BUN (test code = 2208) 10 MG/DL CREATININE (test code = 2214) 0.70 MG/DL eGFR (2020 CKD-EPI) (test code = 07718) 110 ML/MIN/1.73 CALC BUN/CREAT (test code = 2235) 14 RATIO SODIUM (test code = 2231) 139 MEQ/L POTASSIUM (test code = 2228) 4.4 MEQ/L CHLORIDE (test code = 2215) 103 MEQ/L CARBON DIOXIDE (test code = 2206) 20 MEQ/L CALCIUM (test code = 2209) 8.7 MG/DL PROTEIN, TOTAL (test code = 2229) 7.5 G/DL ALBUMIN (test code = 2201) 4.3 G/DL CALC GLOBULIN (test code = 2240) 3.2 G/DL CALC A/G RATIO (test code = 2234) 1.3 RATIO BILIRUBIN, TOTAL (test code = 2207) 0.3 MG/DL ALKALINE PHOSPHATASE (test code = 2204) 111 U/L AST (test code = 2218) 47 U/L ALT (test code = 2219) 72 U/L Eusebio Bruce AustinALBUMIN/CREATININE RATIO, RANDOM [id number] 00:00:00* Test Item Value Reference Range Interpretation Comme nts CREATININE, URINE, CONC. (te st code = 2071) 156.7 MG/DL ALBUMIN, URINE, RANDOM (test code = 55849) 0.7 MG/DL CALC ALBUMIN/CREAT, RND (cora t code = 15920) 4 MG/G Eusebio Bruce AustinHEMOGLOBIN [id number] 04:45:40* Test Item Value Reference Range Interpretation Comme nts HEMOGLOBIN A1c (test code = 52276) 9.1 % 4.2-5.6 H [employer] GUIDELINES FOR HGB A1C: PREDIABETES/INCREASED RISK . . . . . . . 5.7-6.4% DIAGNOSIS OF DIABETES . . . . . . . . . >=6.5% WITH CONFIRMATION OR APPROPRIATE SYMPTOMS NOTE: ASSAY MAY BE AFFECTED BY HEMOGLOBINOPATHIES (SICKLE CELL ANEMIA, S-C DISEASE, OTHERS) OR ARTIFICIALLY LOWERED BY DECREASED RED CELL SURVIVAL (HEMOLYTIC ANEMIAS, BLOOD LOSS, ETC.). CONSIDER ALTERNATE TESTING OR LABORATORY CONSULTATION. COMPREHENSIVE METABOLIC [id number] 04:26:06* Test Item Value Reference Range Interpretation Comme nts GLUCOSE (test code = 221) 143 MG/DL 70-99 H BUN (test code = 2207) 8 MG/DL 6-20 CREATININE (test code = 2214) 0.70 MG/DL 0.60-1.30 eGFR (2020 CKD-EPI) (test code = 68748) 110 ML/MIN/1.73 >60 CALC BUN/CREAT (test code = 223) 11 RATIO 6-28 SODIUM (test code = 223) 137 MEQ/L 133-146 POTASSIUM (test code = 2228) 4.0 MEQ/L 3.5-5.4 CHLORIDE (test code = 2215) 104 MEQ/L 95-107 CARBON DIOXIDE (test code = 2206) 23 MEQ/L 19-31 CALCIUM (test code = 2209) 9.1 MG/DL 8.5-10.5 PROTEIN, TOTAL (test code = 2228) 7.8 G/DL 6.1-8.3 ALBUMIN (test code = 2200) 4.4 G/DL 3.5-5.2 CALC GLOBULIN (test code = 2240) 3.4 G/DL 1.9-3.7 CALC A/G RATIO (test code = 2234) 1.3 RATIO 1.0-2.6 BILIRUBIN, TOTAL (test code = 2206) 0.4 MG/DL <=1.2 ALKALINE PHOSPHATASE (test code = 2204) 98 U/L 40-113 AST (test code = 8) 46 U/L 9-40 H ALT (test code = 9) 62 U/L 5-40 H LIPID [id number] 04:26:06* Test Item Value Reference Range Interpretation Comme nts CHOLESTEROL (test code = 2210) 211 MG/DL <200 H TRIGLYCERIDES (test code = 2232) 158 MG/DL <150 H HDL CHOLESTEROL (test code = 0) 47 MG/DL >39 CALC LDL CHOL (test code = 2237) 135 MG/DL <100 H NOTE: CALCULATED LDL IS BASED ON CONSTANCE-CID METHOD WHICHINCLUDES ADJUSTABLE TRIGLYCERIDE:VLDL CHOLESTEROL RATIO.THIS FACTOR VARIES BY MEASURED TRIGLYCERIDE AND NON-HDLCHOLESTEROL CONCENTRATIONS WITH INCREASED CALCULATED LDL SEENIN HIGHER TRIGLYCERIDE OR LOWER NON-HDL SPECIMENS. FOR MOREINFORMATION, SEE CLIENT ANNOUNCEMENT AT [email or web address] RISK RATIO LDL/HDL (test code = 2237) 2.87 RATIO <3.22 ALBUMIN/CREATININE RATIO, URINE, [id number] 03:45:27* Test Item Value Reference Range Interpretation Comme nts CREATININE, URINE, CONC. (test code = 207) 255.2 MG/DL NOT ESTAB ALBUMIN, URINE, RANDOM (test code = 81614) 1.2 MG/DL NOT ESTAB CALC ALBUMIN/CREAT, RND (test code = 13809) 5 MG/G <30 Note: Albumin/Cr eatinine ratio reference interval reflects ADA and NKF guidelines. UNLESS OTHERWISE INDICATED, ALL TESTING PERFORMED AT [facility] [address] [place] [address] [employer] ATTENDANT: JOSE MESA M.D. CLIA NUMBER [id number] [facility] [place]. [id number] COMPREHENSIVE METABOLIC [id number] 00:00:00* Test Item Value Reference Range Interpretation Comme nts GLUCOSE (test code = 7) 143 MG/DL BUN (test code = 2207) 8 MG/DL CREATININE (test code = 4) 0.70 MG/DL eGFR (2020 CKD-EPI) (test code = 58480) 110 ML/MIN/1.73 CALC BUN/CREAT (test code = 223) 11 RATIO SODIUM (test code = 223) 137 MEQ/L POTASSIUM (test code = 2228) 4.0 MEQ/L CHLORIDE (test code = 2215) 104 MEQ/L CARBON DIOXIDE (test code = 2206) 23 MEQ/L CALCIUM (test code = 2209) 9.1 MG/DL PROTEIN, TOTAL (test code = 2229) 7.8 G/DL ALBUMIN (test code = 220) 4.4 G/DL CALC GLOBULIN (test code = 2240) 3.4 G/DL CALC A/G RATIO (test code = 2234) 1.3 RATIO BILIRUBIN, TOTAL (test code = 2207) 0.4 MG/DL ALKALINE PHOSPHATASE (test code = 220) 98 U/L AST (test code = 221) 46 U/L ALT (test code = 221) 62 U/L Eusebio JuanHEMOGLOBIN [id number] 00:00:00* Test Item Value Reference Range Interpretation Comme nts HEMOGLOBIN A1c (test code = 47579) 9.1 % Eusebio JuanLIPID [id number] 00:00:00* Test Item Value Reference Range Interpretation Comme nts CHOLESTEROL (test code = 2210) 211 MG/DL TRIGLYCERIDES (test code = 2232) 158 MG/DL HDL CHOLESTEROL (test code = 2220) 47 MG/DL CALC LDL CHOL (test code = 2237) 135 MG/DL RISK RATIO LDL/HDL (test cod e = 2238) 2.87 RATIO Eusebio JuanALBUMIN/CREATININE RATIO, RANDOM [id number] 00:00:00* Test Item Value Reference Range Interpretation Comme nts CREATININE, URINE, CONC. (te st code = 207) 255.2 MG/DL ALBUMIN, URINE, RANDOM (test code = 02564) 1.2 MG/DL CALC ALBUMIN/CREAT, RND (cora t code = 95161) 5 MG/G Eusebio JuanCOMPREHENSIVE METABOLIC [id number] 00:00:00* Test Item Value Reference Range Interpretation Comme nts GLUCOSE (test code = 7) 143 MG/DL BUN (test code = 8) 8 MG/DL CREATININE (test code = 2214) 0.70 MG/DL eGFR (2020 CKD-EPI) (test code = 52333) 110 ML/MIN/1.73 CALC BUN/CREAT (test code = 2235) 11 RATIO SODIUM (test code = 2231) 137 MEQ/L POTASSIUM (test code = 2228) 4.0 MEQ/L CHLORIDE (test code = 2215) 104 MEQ/L CARBON DIOXIDE (test code = 2206) 23 MEQ/L CALCIUM (test code = 2209) 9.1 MG/DL PROTEIN, TOTAL (test code = 2229) 7.8 G/DL ALBUMIN (test code = 220) 4.4 G/DL CALC GLOBULIN (test code = 2240) 3.4 G/DL CALC A/G RATIO (test code = 2234) 1.3 RATIO BILIRUBIN, TOTAL (test code = 2207) 0.4 MG/DL ALKALINE PHOSPHATASE (test code = 220) 98 U/L AST (test code = 221) 46 U/L ALT (test code = 2219) 62 U/L Eusebio JuanHEMOGLOBIN [id number] 00:00:00* Test Item Value Reference Range Interpretation Comme nts HEMOGLOBIN A1c (test code = 68759) 9.1 % Eusebio JuanLIPID [id number] 00:00:00* Test Item Value Reference Range Interpretation Comme nts CHOLESTEROL (test code = 2210) 211 MG/DL TRIGLYCERIDES (test code = 2232) 158 MG/DL HDL CHOLESTEROL (test code = 2220) 47 MG/DL CALC LDL CHOL (test code = 2237) 135 MG/DL RISK RATIO LDL/HDL (test cod e = 2238) 2.87 RATIO Eusebio JuanALBUMIN/CREATININE RATIO, RANDOM [id number] 00:00:00* Test Item Value Reference Range Interpretation Comme nts CREATININE, URINE, CONC. (te st code = 207) 255.2 MG/DL ALBUMIN, URINE, RANDOM (test code = 84199) 1.2 MG/DL CALC ALBUMIN/CREAT, RND (cora t code = 60608) 5 MG/G Eusebio JuanCOMPREHENSIVE METABOLIC [id number] 00:00:00* Test Item Value Reference Range Interpretation Comme nts GLUCOSE (test code = 7) 143 MG/DL BUN (test code = 8) 8 MG/DL CREATININE (test code = 2214) 0.70 MG/DL eGFR (2020 CKD-EPI) (test code = 21288) 110 ML/MIN/1.73 CALC BUN/CREAT (test code = 2235) 11 RATIO SODIUM (test code = 2231) 137 MEQ/L POTASSIUM (test code = 2228) 4.0 MEQ/L CHLORIDE (test code = 2215) 104 MEQ/L CARBON DIOXIDE (test code = 2206) 23 MEQ/L CALCIUM (test code = 2209) 9.1 MG/DL PROTEIN, TOTAL (test code = 2229) 7.8 G/DL ALBUMIN (test code = 2201) 4.4 G/DL CALC GLOBULIN (test code = 2240) 3.4 G/DL CALC A/G RATIO (test code = 2234) 1.3 RATIO BILIRUBIN, TOTAL (test code = 2207) 0.4 MG/DL ALKALINE PHOSPHATASE (test code = 220) 98 U/L AST (test code = 2218) 46 U/L ALT (test code = 2219) 62 U/L Eusebio JuanHEMOGLOBIN [id number] 00:00:00* Test Item Value Reference Range Interpretation Comme nts HEMOGLOBIN A1c (test code = 12254) 9.1 % Eusebio JuanLIPID [id number] 00:00:00* Test Item Value Reference Range Interpretation Comme nts CHOLESTEROL (test code = 2210) 211 MG/DL TRIGLYCERIDES (test code = 2232) 158 MG/DL HDL CHOLESTEROL (test code = 2220) 47 MG/DL CALC LDL CHOL (test code = 2237) 135 MG/DL RISK RATIO LDL/HDL (test cod e = 2238) 2.87 RATIO Eusebio JuanALBUMIN/CREATININE RATIO, RANDOM [id number] 00:00:00* Test Item Value Reference Range Interpretation Comme nts CREATININE, URINE, CONC. (te st code = 2072) 255.2 MG/DL ALBUMIN, URINE, RANDOM (test code = 32000) 1.2 MG/DL CALC ALBUMIN/CREAT, RND (cora t code = 69057) 5 MG/G Eusebio JuanPAP TEST, THINPREP, [id number] 16:02:01* Test Item Value Reference Range Interpretation Comme nts SOURCE: (test code = 8001) Cervical/Endoce rvical SLIDES: (test code = 8011) 1 LMP: (test code = 8021) 12/19/2023 SPECIMEN ADEQUACY: (test code = 80952) (NOTE) Satisfactory for evaluation. Endocervical cells/transformation zone component not identified. INTERPRETATION: (test code = 09145) NILM/NO EPITH. ABNORMALITY;SEE BELOW --- - NEGATIVE FOR INTRAEPITHELIAL LESION OR MALIGNANCY (NILM) ---- OTHER COMMENTS: (test code = 8081) (NOTE) Due to technical or specimen issues, imaging could not beperformed. A medical assistant float has manually screened this slide. BIODIESEL ENGINEERING MANAGER : (test code = 8101) Tahmina Muse LOCATION: (test code = 17023) (NOTE) Specimens proces sed and interpreted at [facility], [address] [place] [address], , CLIA: [id number] CPT: (test code = 8140) (NOTE) [address]80[address] UNLESS OTH ERWISE INDICATED, COMPUTER AIDED AND BIODIESEL ENGINEERING MANAGER SCREENING PERFORMED. The Pap test is a screening test with an inherent, but low probability of error. Your patient should be reminded to consult you immediately if she experiences any suspicious signs or symptoms, regardless of her Pap test result. An alternate report format containing images or consolidated prior Pap history is available as applicable. HPV HIGH RISK WITH GENOTYPE, [id number] 14:46:12* Test Item Value Reference Range Interpretation Comme nts HPV HIGH RISK INTERP (test code = 85533) NEGATIVE NEGATIVE HPV 16 (test code = 44885) NEGATIVE HPV 18 (test code = 78290) NEGATIVE HPV, HR, OTHER GENOTYPES (test code = 15245) NEGATIVE Testing methodol ogy is real-time PCR utilizing hydrolysis probes with the [employer] system. The test individually detects genotypes 16 and 18, as well as the other 12 high risk types (31,33,35,39,45,51,52,56 ,58,59,66,68). The expected result is negative. A negative result does not rule out the presence of HPV not included in the genotype set, a low level of infection or specimen sampling error. UNLESS OTHERWISE INDICATED, ALL TESTING PERFORMED AT [facility] [address] [place] [address] [employer] WASH ATTENDANT: JOSE MESA M.D. CLIA NUMBER [id number] [facility] [place]. [id number] VAGINAL PATHOGENS DNA [id number] 13:37:56* Test Item Value Reference Range Interpretation Comme nts LEISA SPECIES (test code = 45266) NEGATIVE NEGATIVE G. VAGINALIS (test code = 32012) POSITIVE NEGATIVE A T. VAGINALIS (test code = 45549) NEGATIVE NEGATIVE Note: The [employer] [facility] VPIII Microbial Identification Testis a DNA probe test intended for use in the detectionand identification of Leisa species, Gardnerellavaginalis and Trichomonas vaginalis nucleic acid. CT/NG, NAAT, [id number] 13:01:31* Test Item Value Reference Range Interpretation Comme nts CHLAMYDIA, NAAT, THINPREP (test code = 44794) NEGATIVE NEGATIVE A negative resul t does not exclude low level infection, specimensampling error, or collection error. Testing is performed with the [employer] 6800/8800 systems usingreal-time Polymerase Chain Reaction (PCR) method. GONORRHEA, NAAT, THINPREP (test code = 82883) NEGATIVE NEGATIVE A negative resul t does not exclude low level infection, specimensampling error, or collection error. Testing is performed with the [employer] 6800/8800 systems usingreal-time Polymerase Chain Reaction (PCR) method. HIV 1/2 4TH GEN, RFLX [id number] 04:32:14* Test Item Value Reference Range Interpretation Comme nts HIV 1/2 4TH GEN, RFLX CONF ( test code = 3514) NON-REACTIVE NON-REACTIVE HEPATITIS PANEL, [id number] 04:32:14* Test Item Value Reference Range Interpretation Comments HEPATITIS A TOTAL AB (test code = 2725) REACTIVE NON-REACTIVE A HEPATITIS B SURF AG (test code = 2739) NON-REACTIVE NON-REACTIVE HEP B CORE TOTAL AB (test code = 2729) NON-REACTIVE NON-REACTIVE HEPATITIS B SURFACE AB (test code = 2737) NON-REACTIVE NON-REACTIVE HEPATITIS C ANTIBODY (test code = 4675) NON-REACTIVE NON-REACTIVE INTERPRETATION HEPATITIS A: (test code = 2552) (NOTE) Hepatitis A sero logy consistent with past exposure or previousvaccination to hepatitis A virus. No evidence of current acutehepatitis A infection. INTERPRETATION HEPATITIS B: (test code = 92625) (NOTE) Hepatitis B sero logy shows no evidence of past exposure to orcurrent infection with hepatitis B virus. No evidence of hepatitis Bimmunization is identified. INTERPRETATION HEPATITIS C: (test code = 82191) (NOTE) Hepatitis C sero logy shows no evidence of exposure to hepatitisC virus at this time. It can take up to 12 months after exposure tothe hepatitis C virus for antibodies to become detectable in the blood in certain patients. HEPATITIS A [id number] 04:32:14* Test Item Value Reference Range Interpretation Comme nts HEPATITIS A IgM (test code = 2728) NON-REACTIVE NON-REACTIVE UNLESS OTHERW ISE INDICATED, ALL TESTING PERFORMED AT [facility] [address] [place] [address] CAR WASH ATTENDANT: JOSE MESA M.D. IA NUMBER [id number] [facility] [place]. [id number] RPR REFLEX TO T. PALLIDUM - [id number] 03:13:59* Test Item Value Reference Range Interpretation Comme nts RPR (test code = 97895) NON-REACTIVE NON-REACTIVE RPR TITER (test code = 3500) NOT INDIC. TITER NOT INDIC. VAGINAL PATHOGENS DNA [id number] 00:00:00* Test Item Value Reference Range Interpretation Comme nts LEISA SPECIES (test code = 17144) NEGATIVE G. VAGINALIS (test code = ) POSITIVE T. VAGINALIS (test code = ) NEGATIVE Eusebio JuanGC AND CHLAMYDIA AMPLIFIED, [id number] 00:00:00* Test Item Value Reference Range Interpretation Comme nts CHLAMYDIA, NAAT, THINPREP (t est code = 99996) NEGATIVE GONORRHEA, NAAT, THINPREP (t est code = 38570) NEGATIVE Eusebio F AustinPAP TEST, THINPREP, [id number] 00:00:00* Test Item Value Reference Range Interpretation Comme nts SOURCE: (test code = 8001) Cervical/Endocervical SLIDES: (test code = 8011) 1 LMP: (test code = 8021) 12/19/2023 SPECIMEN ADEQUACY: (test code = 72370) (NOTE) INTERPRETATION: (test code = 04089) NILM/NO EPITH. ABNORMALITY;SEE BELOW OTHER COMMENTS: (test code = 8081) (NOTE) BIODIESEL ENGINEERING MANAGER: (test code = 8101) Tahmina Muse LOCATION: (test code = 27482) (NOTE) CPT: (test code = 8140) (NOTE) Eusebio JuanHIV 1/2 4TH GEN, RFLX [id number] 00:00:00* Test Item Value Reference Range Interpretation Comme nts HIV 1/2 4TH GEN, RFLX CONF ( test code = 3514) NON-REACTIVE Eusebio JuanHPV HIGH RISK WITH GENOTYPE, [id number] 00:00:00* Test Item Value Reference Range Interpretation Comme nts HPV HIGH RISK INTERP (test c ode = 72949) NEGATIVE HPV 16 (test code = 07465) NEGATIVE HPV 18 (test code = 20064) NEGATIVE HPV, HR, OTHER GENOTYPES (te st code = 34442) NEGATIVE Eusebio Bruce AustinRPR REFLEX TO T. PALLIDUM - [id number] 00:00:00* Test Item Value Reference Range Interpretation Comme nts RPR (test code = 19629) NON-REACTIVE RPR TITER (test code = 3500) NOT INDIC. TITER Eusebio Bruce AustinHEPATITIS PROFILE (A,B,C)2023-12-28 00:00:00* Test Item Value Reference Range Interpretation Comme nts HEPATITIS A TOTAL AB (test c ode = 2725) REACTIVE HEPATITIS B SURF AG (test co de = 2739) NON-REACTIVE HEP B CORE TOTAL AB (test co de = 2729) NON-REACTIVE HEPATITIS B SURFACE AB (test code = 2737) NON-REACTIVE HEPATITIS C ANTIBODY (test c ode = 6675) NON-REACTIVE INTERPRETATION HEPATITIS A: (test code = 2552) (NOTE) INTERPRETATION HEPATITIS B: (test code = 92016) (NOTE) INTERPRETATION HEPATITIS C: (test code = 13739) (NOTE) Eusebio JuanHEPATITIS A IgM [REFLEX]2023-12-28 00:00:00* Test Item Value Reference Range Interpretation Comme nts HEPATITIS A IgM (test code = 2728) NON-REACTIVE Eusebio JuanVAGINAL PATHOGENS DNA [id number] 00:00:00* Test Item Value Reference Range Interpretation Comme nts LEISA SPECIES (test code = 49786) NEGATIVE G. VAGINALIS (test code = 73281) POSITIVE T. VAGINALIS (test code = 13297) NEGATIVE Eusebio JuanGC AND CHLAMYDIA AMPLIFIED, [id number] 00:00:00* Test Item Value Reference Range Interpretation Comme nts CHLAMYDIA, NAAT, THINPREP (t est code = 37309) NEGATIVE GONORRHEA, NAAT, THINPREP (t est code = 10517) NEGATIVE Eusebio JuanHIV 1/2 4TH GEN, RFLX [id number] 00:00:00* Test Item Value Reference Range Interpretation Comme nts HIV 1/2 4TH GEN, RFLX CONF ( test code = 3514) NON-REACTIVE Eusebio JuanPAP TEST, THINPREP, [id number] 00:00:00* Test Item Value Reference Range Interpretation Comme nts SOURCE: (test code = 8001) Cervical/Endocervical SLIDES: (test code = 8011) 1 LMP: (test code = 8021) 12/19/2023 SPECIMEN ADEQUACY: (test code = 71558) (NOTE) INTERPRETATION: (test code = 83771) NILM/NO EPITH. ABNORMALITY;SEE BELOW OTHER COMMENTS: (test code = 8081) (NOTE) BIODIESEL ENGINEERING MANAGER: (test code = 8101) Tahmina Muse LOCATION: (test code = 99403) (NOTE) CPT: (test code = 8140) (NOTE) Eusebio JuanRPR REFLEX TO T. PALLIDUM - [id number] 00:00:00* Test Item Value Reference Range Interpretation Comme nts RPR (test code = 57900) NON-REACTIVE RPR TITER (test code = 3500) NOT INDIC. TITER Eusebio Bruce AustinHPV HIGH RISK WITH GENOTYPE, [id number] 00:00:00* Test Item Value Reference Range Interpretation Comme nts HPV HIGH RISK INTERP (test c ode = 34541) NEGATIVE HPV 16 (test code = 00792) NEGATIVE HPV 18 (test code = 44597) NEGATIVE HPV, HR, OTHER GENOTYPES (te st code = 09738) NEGATIVE Eusebio Bruce AustinHEPATITIS PROFILE (A,B,C)2023-12-28 00:00:00* Test Item Value Reference Range Interpretation Comme nts HEPATITIS A TOTAL AB (test c ode = 2725) REACTIVE HEPATITIS B SURF AG (test co de = 2739) NON-REACTIVE HEP B CORE TOTAL AB (test co de = 2729) NON-REACTIVE HEPATITIS B SURFACE AB (test code = 2737) NON-REACTIVE HEPATITIS C ANTIBODY (test c ode = 4632) NON-REACTIVE INTERPRETATION HEPATITIS A: (test code = 2552) (NOTE) INTERPRETATION HEPATITIS B: (test code = 38220) (NOTE) INTERPRETATION HEPATITIS C: (test code = 46927) (NOTE) Eusebio Bruce AustinHEPATITIS A IgM [REFLEX]2023-12-28 00:00:00* Test Item Value Reference Range Interpretation Comme [facility] HEPATITIS A IgM (test code = 2728) NON-REACTIVE Eusebio Bruce AustinVAGINAL PATHOGENS DNA [id number] 00:00:00* Test Item Value Reference Range Interpretation Comme [facility] LEISA SPECIES (test code = 62748) NEGATIVE G. VAGINALIS (test code = 58342) POSITIVE T. VAGINALIS (test code = 00670) NEGATIVE Eusebio Bruce AustinGC AND CHLAMYDIA AMPLIFIED, [id number] 00:00:00* Test Item Value Reference Range Interpretation Comme [facility] CHLAMYDIA, NAAT, THINPREP (t est code = 39492) NEGATIVE GONORRHEA, NAAT, THINPREP (t est code = 15435) NEGATIVE Eusebio Bruce AustinHIV 1/2 4TH GEN, RFLX [id number] 00:00:00* Test Item Value Reference Range Interpretation Comme nts HIV 1/2 4TH GEN, RFLX CONF ( test code = 3514) NON-REACTIVE Eusebio Bruce AustinPAP TEST, THINPREP, [id number] 00:00:00* Test Item Value Reference Range Interpretation Comme nts SOURCE: (test code = 8001) Cervical/Endocervical SLIDES: (test code = 8011) 1 LMP: (test code = 8021) 12/19/2023 SPECIMEN ADEQUACY: (test code = 88936) (NOTE) INTERPRETATION: (test code = 25669) NILM/NO EPITH. ABNORMALITY;SEE BELOW OTHER COMMENTS: (test code = 8081) (NOTE) BIODIESEL ENGINEERING MANAGER: (test code = 8101) Tahmina Muse LOCATION: (test code = 40878) (NOTE) CPT: (test code = 8140) (NOTE) Eusebio Bruce AustinRPR REFLEX TO T. PALLIDUM - [id number] 00:00:00* Test Item Value Reference Range Interpretation Comme nts RPR (test code = 04684) NON-REACTIVE RPR TITER (test code = 3500) NOT INDIC. TITER Eusebio Bruce AustinHPV HIGH RISK WITH GENOTYPE, [id number] 00:00:00* Test Item Value Reference Range Interpretation Comme nts HPV HIGH RISK INTERP (test c ode = 16930) NEGATIVE HPV 16 (test code = 25697) NEGATIVE HPV 18 (test code = 12999) NEGATIVE HPV, HR, OTHER GENOTYPES (te st code = 22438) NEGATIVE Eusebio Bruce AustinHEPATITIS PROFILE (A,B,C)2023-12-28 00:00:00* Test Item Value Reference Range Interpretation Comme nts HEPATITIS A TOTAL AB (test c ode = 2725) REACTIVE HEPATITIS B SURF AG (test co de = 2739) NON-REACTIVE HEP B CORE TOTAL AB (test co de = 2729) NON-REACTIVE HEPATITIS B SURFACE AB (test code = 2737) NON-REACTIVE HEPATITIS C ANTIBODY (test c ode = 4675) NON-REACTIVE INTERPRETATION HEPATITIS A: (test code = 2552) (NOTE) INTERPRETATION HEPATITIS B: (test code = 46400) (NOTE) INTERPRETATION HEPATITIS C: (test code = 67669) (NOTE) Eusebio Bruce DrakeHEPATITIS A IgM [REFLEX]2023-12-28 00:00:00* Test Item Value Reference Range Interpretation Comme nts HEPATITIS A IgM (test code = 2728) NON-REACTIVE Eusebio Bruce AustinVAGINAL PATHOGENS DNA [id number] 00:00:00* Test Item Value Reference Range Interpretation Comme nts LEISA SPECIES (test code = 82919) NEGATIVE G. VAGINALIS (test code = 63371) POSITIVE T. VAGINALIS (test code = 88400) NEGATIVE Eusebio JuanGC AND CHLAMYDIA AMPLIFIED, [id number] 00:00:00* Test Item Value Reference Range Interpretation Comme nts CHLAMYDIA, NAAT, THINPREP (t est code = 21293) NEGATIVE GONORRHEA, NAAT, THINPREP (t est code = 47542) NEGATIVE Eusebio JuanHIV 1/2 4TH GEN, RFLX [id number] 00:00:00* Test Item Value Reference Range Interpretation Comme nts HIV 1/2 4TH GEN, RFLX CONF ( test code = 3514) NON-REACTIVE Eusebio JuanPAP TEST, THINPREP, [id number] 00:00:00* Test Item Value Reference Range Interpretation Comme nts SOURCE: (test code = 8001) Cervical/Endocervical SLIDES: (test code = 8011) 1 LMP: (test code = 8021) 12/19/2023 SPECIMEN ADEQUACY: (test code = 19443) (NOTE) INTERPRETATION: (test code = 50593) NILM/NO EPITH. ABNORMALITY;SEE BELOW OTHER COMMENTS: (test code = 8081) (NOTE) BIODIESEL ENGINEERING MANAGER: (test code = 8101) Tahmina Muse LOCATION: (test code = 53778) (NOTE) CPT: (test code = 8140) (NOTE) Eusebio JuanRPR REFLEX TO T. PALLIDUM - [id number] 00:00:00* Test Item Value Reference Range Interpretation Comme nts RPR (test code = 83203) NON-REACTIVE RPR TITER (test code = 3500) NOT INDIC. TITER Eusebio Bruce AustinHPV HIGH RISK WITH GENOTYPE, [id number] 00:00:00* Test Item Value Reference Range Interpretation Comme nts HPV HIGH RISK INTERP (test c ode = 05990) NEGATIVE HPV 16 (test code = 09255) NEGATIVE HPV 18 (test code = 51782) NEGATIVE HPV, HR, OTHER GENOTYPES (te st code = 62870) NEGATIVE Eusebio Bruce AustinHEPATITIS PROFILE (A,B,C)2023-12-28 00:00:00* Test Item Value Reference Range Interpretation Comme nts HEPATITIS A TOTAL AB (test c ode = 2725) REACTIVE HEPATITIS B SURF AG (test co de = 2739) NON-REACTIVE HEP B CORE TOTAL AB (test co de = 2729) NON-REACTIVE HEPATITIS B SURFACE AB (test code = 2737) NON-REACTIVE HEPATITIS C ANTIBODY (test c ode = 4606) NON-REACTIVE INTERPRETATION HEPATITIS A: (test code = 2552) (NOTE) INTERPRETATION HEPATITIS B: (test code = 16203) (NOTE) INTERPRETATION HEPATITIS C: (test code = 76664) (NOTE) Eusebio JuanHEPATITIS A IgM [REFLEX]2023-12-28 00:00:00* Test Item Value Reference Range Interpretation Comme nts HEPATITIS A IgM (test code = 2728) NON-REACTIVE Eusebio Bruce AustinVAGINAL PATHOGENS DNA [id number] 00:00:00* Test Item Value Reference Range Interpretation Comme nts LEISA SPECIES (test code = 74752) NEGATIVE G. VAGINALIS (test code = 64205) POSITIVE T. VAGINALIS (test code = 13863) NEGATIVE Eusebio Bruce AustinGC AND CHLAMYDIA AMPLIFIED, [id number] 00:00:00* Test Item Value Reference Range Interpretation Comme nts CHLAMYDIA, NAAT, THINPREP (t est code = 76262) NEGATIVE GONORRHEA, NAAT, THINPREP (t est code = 46468) NEGATIVE Eusebio JuanPAP TEST, THINPREP, [id number] 00:00:00* Test Item Value Reference Range Interpretation Comme nts SOURCE: (test code = 8001) Cervical/Endocervical SLIDES: (test code = 8011) 1 LMP: (test code = 8021) 12/19/2023 SPECIMEN ADEQUACY: (test code = 87790) (NOTE) INTERPRETATION: (test code = 91224) NILM/NO EPITH. ABNORMALITY;SEE BELOW OTHER COMMENTS: (test code = 8081) (NOTE) BIODIESEL ENGINEERING MANAGER: (test code = 8101) Tahmina Muse LOCATION: (test code = 09969) (NOTE) CPT: (test code = 8140) (NOTE) Eusebio Bruce AustinHIV 1/2 4TH GEN, RFLX [id number] 00:00:00* Test Item Value Reference Range Interpretation Comme nts HIV 1/2 4TH GEN, RFLX CONF ( test code = 3514) NON-REACTIVE Eusebio Bruce AustinRPR REFLEX TO T. PALLIDUM - [id number] 00:00:00* Test Item Value Reference Range Interpretation Comme nts RPR (test code = 49591) NON-REACTIVE RPR TITER (test code = 3500) NOT INDIC. TITER Eusebio JuanHPV HIGH RISK WITH GENOTYPE, [id number] 00:00:00* Test Item Value Reference Range Interpretation Comme nts HPV HIGH RISK INTERP (test c ode = 93193) NEGATIVE HPV 16 (test code = 64943) NEGATIVE HPV 18 (test code = 68555) NEGATIVE HPV, HR, OTHER GENOTYPES (te st code = 88039) NEGATIVE Eusebio Bruce AustinHEPATITIS PROFILE (A,B,C)2023-12-28 00:00:00* Test Item Value Reference Range Interpretation Comme nts HEPATITIS A TOTAL AB (test c ode = 2725) REACTIVE HEPATITIS B SURF AG (test co de = 2739) NON-REACTIVE HEP B CORE TOTAL AB (test co de = 2729) NON-REACTIVE HEPATITIS B SURFACE AB (test code = 2737) NON-REACTIVE HEPATITIS C ANTIBODY (test c ode = 4675) NON-REACTIVE INTERPRETATION HEPATITIS A: (test code = 2552) (NOTE) INTERPRETATION HEPATITIS B: (test code = 21699) (NOTE) INTERPRETATION HEPATITIS C: (test code = 24377) (NOTE) Eusebio ReddyPATITIS A IgM [REFLEX]2023-12-28 00:00:00* Test Item Value Reference Range Interpretation Comme [facility] HEPATITIS A IgM (test code = 2728) NON-REACTIVE Eusebio JuanVITAMIN [id number] 04:33:32* Test Item Value Reference Range Interpretation Comme [facility] VITAMIN B-12 (test code = 2840) 521 PG/ML 200-950 VITAMIN D, 25 [id number] 04:33:24* Test Item Value Reference Range Interpretation Comme [facility] VITAMIN D, 25 OH (test code = 4958) 17 NG/ML SEE BELOW L EFFECTIVE 03/2023, PLEASE NOTE NEW METHODOLOGY IS ELECTROCHEMILUMINESCENCE BINDING ASSAY. NOTE: 25-HYDROXYVITAMIN D ASSAY INCLUDES 25-HYDROXYVITAMIN D2 AND D3. INTERPRETIVE RANGES PEDIATRIC (<17 YEARS) . . . . . . . . . . . NG/ML 20-100ADULT: INSUFFICIENT . . . . . . . . . . . . . . NG/ML <20 SUBOPTIMAL . . . . . . . . . . . . . . . NG/ML 20-29 OPTIMAL . . . . . . . . . . . . . . . . . NG/ML 30-100 UNLESS OTHERWISE INDICATED, ALL TESTING PERFORMED AT [facility] [address] [place] [id number] [employer] ATTENDANT: JOSE MESA M.D. CLIA NUMBER [id number] [facility] [place]. [id number] TSH, THIRD [id number] 04:32:58* Test Item Value Reference Range Interpretation Comme nts TSH, THIRD GENERATION (test code = 2821) 2.350 UIU/ML 0.400-4.100 COMPREHENSIVE METABOLIC [id number] 04:14:52* Test Item Value Reference Range Interpretation Comme nts GLUCOSE (test code = 2216) 103 MG/DL 70-99 H BUN (test code = 2207) 10 MG/DL 6-20 CREATININE (test code = 2214) 0.71 MG/DL 0.60-1.30 eGFR (2020 CKD-EPI) (test code = 62481) 109 ML/MIN/1.73 >60 CALC BUN/CREAT (test code = 2235) 14 RATIO 6-28 SODIUM (test code = 223) 138 MEQ/L 133-146 POTASSIUM (test code = 2228) 3.9 MEQ/L 3.5-5.4 CHLORIDE (test code = 2215) 104 MEQ/L 95-107 CARBON DIOXIDE (test code = 2206) 22 MEQ/L 19-31 CALCIUM (test code = 2209) 8.8 MG/DL 8.5-10.5 PROTEIN, TOTAL (test code = 2228) 7.8 G/DL 6.1-8.3 ALBUMIN (test code = 1) 4.3 G/DL 3.5-5.2 CALC GLOBULIN (test code = 2240) 3.5 G/DL 1.9-3.7 CALC A/G RATIO (test code = 2233) 1.2 RATIO 1.0-2.6 BILIRUBIN, TOTAL (test code = 2206) 0.3 MG/DL <=1.2 ALKALINE PHOSPHATASE (test code = 2204) 87 U/L 40-113 AST (test code = 2218) 24 U/L 9-40 ALT (test code = 2219) 38 U/L 5-40 CBC W/AUTO DIFF WITH [id number] 02:59:00* Test Item Value Reference Range Interpretation Comme nts WBC (test code = 1001) 8.4 K/UL 3.5-11.0 RBC (test code = 1002) 4.30 M/UL 3.80-5.40 HEMOGLOBIN (test code = 1003) 13.0 G/DL 11.5-15.5 HEMATOCRIT (test code = 1004) 38.7 % 34.0-45.0 MCV (test code = 1005) 90.0 fL 80.0-99.0 MCH (test code = 1006) 30.2 PG 25.0-33.0 MCHC (test code = 1007) 33.6 G/DL 31.0-36.0 RDW (test code = 1038) 12.7 % 11.5-15.0 NEUTROPHILS (test code = 1008) 59.7 % LYMPHOCYTES (test code = 1010) 30.1 % MONOCYTES (test code = 1011) 6.8 % EOSINOPHILS (test code = 1012) 2.5 % BASOPHILS (test code = 1013) 0.7 % IMMATURE GRANULOCYTES (test code = 1036) 0.2 % NUCLEATED RBCS (test code = 1065) 0.0 /100 WBC'S See_Comment [Automated messa ge] The system which generated this result transmitted reference range: 0.0. The reference range was not used to interpret this result as normal/abnormal. PLATELET COUNT (test code = 1015) 143 K/UL 130-400 ABSOLUTE NEUTROPHILS (test code = 1066) 5.02 K/UL 1.50-7.50 ABSOLUTE LYMPHOCYTES (test code = 1067) 2.53 K/UL 1.00-4.00 ABSOLUTE MONOCYTES (test code = 1068) 0.57 K/UL 0.20-1.00 ABSOLUTE EOSINOPHILS (test code = 1040) 0.21 K/UL 0.00-0.50 ABSOLUTE BASOPHILS (test code = 1069) 0.06 K/UL 0.00-0.20 ABS IMMATURE GRANULOCYTES (test code = 1020) 0.02 K/UL 0.00-0.10 ABS NUCLEATED RBCS (test code = 10777) 0.00 K/UL 0.00-0.11 COMPREHENSIVE METABOLIC [id number] 00:00:00* Test Item Value Reference Range Interpretation Comme nts GLUCOSE (test code = 2217) 103 MG/DL BUN (test code = 2208) 10 MG/DL CREATININE (test code = 2214) 0.71 MG/DL eGFR (2020 CKD-EPI) (test code = ) 109 ML/MIN/1.73 CALC BUN/CREAT (test code = 2235) 14 RATIO SODIUM (test code = 2231) 138 MEQ/L POTASSIUM (test code = 2228) 3.9 MEQ/L CHLORIDE (test code = 2215) 104 MEQ/L CARBON DIOXIDE (test code = 2206) 22 MEQ/L CALCIUM (test code = 2209) 8.8 MG/DL PROTEIN, TOTAL (test code = 2229) 7.8 G/DL ALBUMIN (test code = 2201) 4.3 G/DL CALC GLOBULIN (test code = 2240) 3.5 G/DL CALC A/G RATIO (test code = 2234) 1.2 RATIO BILIRUBIN, TOTAL (test code = 2207) 0.3 MG/DL ALKALINE PHOSPHATASE (test code = 2204) 87 U/L AST (test code = 2218) 24 U/L ALT (test code = 2219) 38 U/L Eusebio JuanH, THIRD [id number] 00:00:00* Test Item Value Reference Range Interpretation Comme [facility] TSH, THIRD GENERATION (test code = 2821) 2.350 UIU/ML Eusebio Bruce DrakeVITAMIN [id number] 00:00:00* Test Item Value Reference Range Interpretation Comme [facility] VITAMIN B-12 (test code = 2840) 521 PG/ML Eusebio JuanVITAMIN D, 25 [id number] 00:00:00* Test Item Value Reference Range Interpretation Comme [facility] VITAMIN D, 25 OH (test code = 4958) 17 NG/ML Eusebio Bruce DrakeCBC W/AUTO [id number] 00:00:00* Test Item Value Reference Range Interpretation Comme [facility] WBC (test code = 1001) 8.4 K/UL RBC (test code = 1002) 4.30 M/UL HEMOGLOBIN (test code = 1003) 13.0 G/DL HEMATOCRIT (test code = 1004) 38.7 % MCV (test code = 1005) 90.0 fL MCH (test code = 1006) 30.2 PG MCHC (test code = 1007) 33.6 G/DL RDW (test code = 1038) 12.7 % NEUTROPHILS (test code = 1008) 59.7 % LYMPHOCYTES (test code = 1010) 30.1 % MONOCYTES (test code = 1011) 6.8 % EOSINOPHILS (test code = 1012) 2.5 % BASOPHILS (test code = 1013) 0.7 % IMMATURE GRANULOCYTES (test code = 1036) 0.2 % NUCLEATED RBCS (test code = 1065) 0.0 /100WBC'S PLATELET COUNT (test code = 1015) 143 K/UL ABSOLUTE NEUTROPHILS (test c ode = 1066) 5.02 K/UL ABSOLUTE LYMPHOCYTES (test c ode = 1067) 2.53 K/UL ABSOLUTE MONOCYTES (test cod e = 1068) 0.57 K/UL ABSOLUTE EOSINOPHILS (test c ode = 1040) 0.21 K/UL ABSOLUTE BASOPHILS (test cod e = 1069) 0.06 K/UL ABS IMMATURE GRANULOCYTES (t est code = 1020) 0.02 K/UL ABS NUCLEATED RBCS (test cod e = 26120) 0.00 K/UL Eusebio JuanCOMPREHENSIVE METABOLIC [id number] 00:00:00* Test Item Value Reference Range Interpretation Comme nts GLUCOSE (test code = 2217) 103 MG/DL BUN (test code = 2208) 10 MG/DL CREATININE (test code = 2214) 0.71 MG/DL eGFR (2020 CKD-EPI) (test code = 04760) 109 ML/MIN/1.73 CALC BUN/CREAT (test code = 2235) 14 RATIO SODIUM (test code = 2231) 138 MEQ/L POTASSIUM (test code = 2228) 3.9 MEQ/L CHLORIDE (test code = 2215) 104 MEQ/L CARBON DIOXIDE (test code = 2206) 22 MEQ/L CALCIUM (test code = 2209) 8.8 MG/DL PROTEIN, TOTAL (test code = 2229) 7.8 G/DL ALBUMIN (test code = 2201) 4.3 G/DL CALC GLOBULIN (test code = 2240) 3.5 G/DL CALC A/G RATIO (test code = 2234) 1.2 RATIO BILIRUBIN, TOTAL (test code = 2207) 0.3 MG/DL ALKALINE PHOSPHATASE (test code = 2204) 87 U/L AST (test code = 2218) 24 U/L ALT (test code = 2219) 38 U/L Eusebio JuanTSH, THIRD [id number] 00:00:00* Test Item Value Reference Range Interpretation Comme [facility] TSH, THIRD GENERATION (test code = 2821) 2.350 UIU/ML Eusebio JuanVITAMIN [id number] 00:00:00* Test Item Value Reference Range Interpretation Comme [facility] VITAMIN B-12 (test code = 2840) 521 PG/ML Eusebio JuanVITAMIN D, 25 [id number] 00:00:00* Test Item Value Reference Range Interpretation Comme [facility] VITAMIN D, 25 OH (test code = 4958) 17 NG/ML Eusebio JuanCBC W/AUTO [id number] 00:00:00* Test Item Value Reference Range Interpretation Comme [facility] WBC (test code = 1001) 8.4 K/UL RBC (test code = 1002) 4.30 M/UL HEMOGLOBIN (test code = 1003) 13.0 G/DL HEMATOCRIT (test code = 1004) 38.7 % MCV (test code = 1005) 90.0 fL MCH (test code = 1006) 30.2 PG MCHC (test code = 1007) 33.6 G/DL RDW (test code = 1038) 12.7 % NEUTROPHILS (test code = 1008) 59.7 % LYMPHOCYTES (test code = 1010) 30.1 % MONOCYTES (test code = 1011) 6.8 % EOSINOPHILS (test code = 1012) 2.5 % BASOPHILS (test code = 1013) 0.7 % IMMATURE GRANULOCYTES (test code = 1036) 0.2 % NUCLEATED RBCS (test code = 1065) 0.0 /100WBC'S PLATELET COUNT (test code = 1015) 143 K/UL ABSOLUTE NEUTROPHILS (test c ode = 1066) 5.02 K/UL ABSOLUTE LYMPHOCYTES (test c ode = 1067) 2.53 K/UL ABSOLUTE MONOCYTES (test cod e = 1068) 0.57 K/UL ABSOLUTE EOSINOPHILS (test c ode = 1040) 0.21 K/UL ABSOLUTE BASOPHILS (test cod e = 1069) 0.06 K/UL ABS IMMATURE GRANULOCYTES (t est code = 1020) 0.02 K/UL ABS NUCLEATED RBCS (test cod e = 21251) 0.00 K/UL Eusebio JuanCOMPREHENSIVE METABOLIC [id number] 00:00:00* Test Item Value Reference Range Interpretation Comme nts GLUCOSE (test code = 2217) 103 MG/DL BUN (test code = 2208) 10 MG/DL CREATININE (test code = 2214) 0.71 MG/DL eGFR (2020 CKD-EPI) (test code = 45629) 109 ML/MIN/1.73 CALC BUN/CREAT (test code = 2235) 14 RATIO SODIUM (test code = 2231) 138 MEQ/L POTASSIUM (test code = 2228) 3.9 MEQ/L CHLORIDE (test code = 2215) 104 MEQ/L CARBON DIOXIDE (test code = 2206) 22 MEQ/L CALCIUM (test code = 2209) 8.8 MG/DL PROTEIN, TOTAL (test code = 2229) 7.8 G/DL ALBUMIN (test code = 2201) 4.3 G/DL CALC GLOBULIN (test code = 2240) 3.5 G/DL CALC A/G RATIO (test code = 2234) 1.2 RATIO BILIRUBIN, TOTAL (test code = 2207) 0.3 MG/DL ALKALINE PHOSPHATASE (test code = 2204) 87 U/L AST (test code = 2218) 24 U/L ALT (test code = 2219) 38 U/L Eusebio JuanTSH, THIRD [id number] 00:00:00* Test Item Value Reference Range Interpretation Comme [facility] TSH, THIRD GENERATION (test code = 2821) 2.350 UIU/ML Eusebio JuanVITAMIN [id number] 00:00:00* Test Item Value Reference Range Interpretation Comme [facility] VITAMIN B-12 (test code = 2840) 521 PG/ML Eusebio JuanVITAMIN D, 25 [id number] 00:00:00* Test Item Value Reference Range Interpretation Comme [facility] VITAMIN D, 25 OH (test code = 4958) 17 NG/ML Eusebio JuanCBC W/AUTO [id number] 00:00:00* Test Item Value Reference Range Interpretation Comme nts WBC (test code = 1001) 8.4 K/UL RBC (test code = 1002) 4.30 M/UL HEMOGLOBIN (test code = 1003) 13.0 G/DL HEMATOCRIT (test code = 1004) 38.7 % MCV (test code = 1005) 90.0 fL MCH (test code = 1006) 30.2 PG MCHC (test code = 1007) 33.6 G/DL RDW (test code = 1038) 12.7 % NEUTROPHILS (test code = 1008) 59.7 % LYMPHOCYTES (test code = 1010) 30.1 % MONOCYTES (test code = 1011) 6.8 % EOSINOPHILS (test code = 1012) 2.5 % BASOPHILS (test code = 1013) 0.7 % IMMATURE GRANULOCYTES (test code = 1036) 0.2 % NUCLEATED RBCS (test code = 1065) 0.0 /100WBC'S PLATELET COUNT (test code = 1015) 143 K/UL ABSOLUTE NEUTROPHILS (test c ode = 1066) 5.02 K/UL ABSOLUTE LYMPHOCYTES (test c ode = 1067) 2.53 K/UL ABSOLUTE MONOCYTES (test cod e = 1068) 0.57 K/UL ABSOLUTE EOSINOPHILS (test c ode = 1040) 0.21 K/UL ABSOLUTE BASOPHILS (test cod e = 1069) 0.06 K/UL ABS IMMATURE GRANULOCYTES (t est code = 1020) 0.02 K/UL ABS NUCLEATED RBCS (test cod e = 18205) 0.00 K/UL Eusebio JuanCOMPREHENSIVE METABOLIC [id number] 00:00:00* Test Item Value Reference Range Interpretation Comme nts GLUCOSE (test code = 2217) 103 MG/DL BUN (test code = 2208) 10 MG/DL CREATININE (test code = 2214) 0.71 MG/DL eGFR (2020 CKD-EPI) (test code = 21919) 109 ML/MIN/1.73 CALC BUN/CREAT (test code = 2235) 14 RATIO SODIUM (test code = 2231) 138 MEQ/L POTASSIUM (test code = 2228) 3.9 MEQ/L CHLORIDE (test code = 2215) 104 MEQ/L CARBON DIOXIDE (test code = 6) 22 MEQ/L CALCIUM (test code = 2209) 8.8 MG/DL PROTEIN, TOTAL (test code = 2229) 7.8 G/DL ALBUMIN (test code = 2201) 4.3 G/DL CALC GLOBULIN (test code = 2240) 3.5 G/DL CALC A/G RATIO (test code = 2234) 1.2 RATIO BILIRUBIN, TOTAL (test code = 7) 0.3 MG/DL ALKALINE PHOSPHATASE (test code = 2203) 87 U/L AST (test code = 8) 24 U/L ALT (test code = 2218) 38 U/L Eusebio JuanTSH, THIRD [id number] 00:00:00* Test Item Value Reference Range Interpretation Comme [facility] TSH, THIRD GENERATION (test code = 2821) 2.350 UIU/ML Eusebio JuanVITAMIN [id number] 00:00:00* Test Item Value Reference Range Interpretation Comme [facility] VITAMIN B-12 (test code = 2840) 521 PG/ML Eusebio JuanVITAMIN D, 25 [id number] 00:00:00* Test Item Value Reference Range Interpretation Comme [facility] VITAMIN D, 25 OH (test code = 4958) 17 NG/ML Eusebio JuanCBC W/AUTO [id number] 00:00:00* Test Item Value Reference Range Interpretation Comme [facility] WBC (test code = 1001) 8.4 K/UL RBC (test code = 1002) 4.30 M/UL HEMOGLOBIN (test code = 1003) 13.0 G/DL HEMATOCRIT (test code = 1004) 38.7 % MCV (test code = 1005) 90.0 fL MCH (test code = 1006) 30.2 PG MCHC (test code = 1007) 33.6 G/DL RDW (test code = 1038) 12.7 % NEUTROPHILS (test code = 1008) 59.7 % LYMPHOCYTES (test code = 1010) 30.1 % MONOCYTES (test code = 1011) 6.8 % EOSINOPHILS (test code = 1012) 2.5 % BASOPHILS (test code = 1013) 0.7 % IMMATURE GRANULOCYTES (test code = 1036) 0.2 % NUCLEATED RBCS (test code = 1065) 0.0 /100WBC'S PLATELET COUNT (test code = 1015) 143 K/UL ABSOLUTE NEUTROPHILS (test c ode = 1066) 5.02 K/UL ABSOLUTE LYMPHOCYTES (test c ode = 1067) 2.53 K/UL ABSOLUTE MONOCYTES (test cod e = 1068) 0.57 K/UL ABSOLUTE EOSINOPHILS (test c ode = 1040) 0.21 K/UL ABSOLUTE BASOPHILS (test cod e = 1069) 0.06 K/UL ABS IMMATURE GRANULOCYTES (t est code = 1020) 0.02 K/UL ABS NUCLEATED RBCS (test cod e = 13932) 0.00 K/UL Eusebio Bruce DrakeCOMPREHENSIVE METABOLIC [id number] 00:00:00* Test Item Value Reference Range Interpretation Comme nts GLUCOSE (test code = 2217) 103 MG/DL BUN (test code = 2208) 10 MG/DL CREATININE (test code = 2214) 0.71 MG/DL eGFR (2020 CKD-EPI) (test code = 36464) 109 ML/MIN/1.73 CALC BUN/CREAT (test code = 2235) 14 RATIO SODIUM (test code = 2231) 138 MEQ/L POTASSIUM (test code = 2228) 3.9 MEQ/L CHLORIDE (test code = 2215) 104 MEQ/L CARBON DIOXIDE (test code = 2206) 22 MEQ/L CALCIUM (test code = 2209) 8.8 MG/DL PROTEIN, TOTAL (test code = 2229) 7.8 G/DL ALBUMIN (test code = 2201) 4.3 G/DL CALC GLOBULIN (test code = 2240) 3.5 G/DL CALC A/G RATIO (test code = 2234) 1.2 RATIO BILIRUBIN, TOTAL (test code = 2207) 0.3 MG/DL ALKALINE PHOSPHATASE (test code = 2204) 87 U/L AST (test code = 2218) 24 U/L ALT (test code = 2219) 38 U/L Eusebio Janis DrakeTSH, THIRD [id number] 00:00:00* Test Item Value Reference Range Interpretation Comme nts TSH, THIRD GENERATION (test code = 2821) 2.350 UIU/ML Eusebio Janis DrakeVITAMIN [id number] 00:00:00* Test Item Value Reference Range Interpretation Comme nts VITAMIN B-12 (test code = 2840) 521 PG/ML Eusebio JuanVITAMIN D, 25 [id number] 00:00:00* Test Item Value Reference Range Interpretation Comme [facility] VITAMIN D, 25 OH (test code = 4958) 17 NG/ML Eusebio JuanCBC W/AUTO [id number] 00:00:00* Test Item Value Reference Range Interpretation Comme nts WBC (test code = 1001) 8.4 K/UL RBC (test code = 1002) 4.30 M/UL HEMOGLOBIN (test code = 1003) 13.0 G/DL HEMATOCRIT (test code = 1004) 38.7 % MCV (test code = 1005) 90.0 fL MCH (test code = 1006) 30.2 PG MCHC (test code = 1007) 33.6 G/DL RDW (test code = 1038) 12.7 % NEUTROPHILS (test code = 1008) 59.7 % LYMPHOCYTES (test code = 1010) 30.1 % MONOCYTES (test code = 1011) 6.8 % EOSINOPHILS (test code = 1012) 2.5 % BASOPHILS (test code = 1013) 0.7 % IMMATURE GRANULOCYTES (test code = 1036) 0.2 % NUCLEATED RBCS (test code = 1065) 0.0 /100WBC'S PLATELET COUNT (test code = 1015) 143 K/UL ABSOLUTE NEUTROPHILS (test c ode = 1066) 5.02 K/UL ABSOLUTE LYMPHOCYTES (test c ode = 1067) 2.53 K/UL ABSOLUTE MONOCYTES (test cod e = 1068) 0.57 K/UL ABSOLUTE EOSINOPHILS (test c ode = 1040) 0.21 K/UL ABSOLUTE BASOPHILS (test cod e = 1069) 0.06 K/UL ABS IMMATURE GRANULOCYTES (t est code = 1020) 0.02 K/UL ABS NUCLEATED RBCS (test cod e = 72633) 0.00 K/UL Eusebio JuanCOMPREHENSIVE METABOLIC [id number] 00:00:00* Test Item Value Reference Range Interpretation Comme nts GLUCOSE (test code = 2217) 103 MG/DL BUN (test code = 2208) 10 MG/DL CREATININE (test code = 2214) 0.71 MG/DL eGFR (2020 CKD-EPI) (test code = 63844) 109 ML/MIN/1.73 CALC BUN/CREAT (test code = 223) 14 RATIO SODIUM (test code = 223) 138 MEQ/L POTASSIUM (test code = 2228) 3.9 MEQ/L CHLORIDE (test code = 2215) 104 MEQ/L CARBON DIOXIDE (test code = 2206) 22 MEQ/L CALCIUM (test code = 2209) 8.8 MG/DL PROTEIN, TOTAL (test code = 222) 7.8 G/DL ALBUMIN (test code = 2201) 4.3 G/DL CALC GLOBULIN (test code = 2240) 3.5 G/DL CALC A/G RATIO (test code = 2234) 1.2 RATIO BILIRUBIN, TOTAL (test code = 2206) 0.3 MG/DL ALKALINE PHOSPHATASE (test code = 2203) 87 U/L AST (test code = 2217) 24 U/L ALT (test code = 2218) 38 U/L Eusebio JuanTSH, THIRD [id number] 00:00:00* Test Item Value Reference Range Interpretation Comme [facility] TSH, THIRD GENERATION (test code = 2821) 2.350 UIU/ML Eusebio JuanVITAMIN [id number] 00:00:00* Test Item Value Reference Range Interpretation Comme [facility] VITAMIN B-12 (test code = 2840) 521 PG/ML Eusebio JuanVITAMIN D, 25 [id number] 00:00:00* Test Item Value Reference Range Interpretation Comme [facility] VITAMIN D, 25 OH (test code = 4958) 17 NG/ML Eusebio JuanCBC W/AUTO [id number] 00:00:00* Test Item Value Reference Range Interpretation Comme [facility] WBC (test code = 1001) 8.4 K/UL RBC (test code = 1002) 4.30 M/UL HEMOGLOBIN (test code = 1003) 13.0 G/DL HEMATOCRIT (test code = 1004) 38.7 % MCV (test code = 1005) 90.0 fL MCH (test code = 1006) 30.2 PG MCHC (test code = 1007) 33.6 G/DL RDW (test code = 1038) 12.7 % NEUTROPHILS (test code = 1008) 59.7 % LYMPHOCYTES (test code = 1010) 30.1 % MONOCYTES (test code = 1011) 6.8 % EOSINOPHILS (test code = 1012) 2.5 % BASOPHILS (test code = 1013) 0.7 % IMMATURE GRANULOCYTES (test code = 1036) 0.2 % NUCLEATED RBCS (test code = 1065) 0.0 /100WBC'S PLATELET COUNT (test code = 1015) 143 K/UL ABSOLUTE NEUTROPHILS (test c ode = 1066) 5.02 K/UL ABSOLUTE LYMPHOCYTES (test c ode = 1067) 2.53 K/UL ABSOLUTE MONOCYTES (test cod e = 1068) 0.57 K/UL ABSOLUTE EOSINOPHILS (test c ode = 1040) 0.21 K/UL ABSOLUTE BASOPHILS (test cod e = 1069) 0.06 K/UL ABS IMMATURE GRANULOCYTES (t est code = 1020) 0.02 K/UL ABS NUCLEATED RBCS (test cod e = 65629) 0.00 K/UL Eusebio JuanCOMPREHENSIVE METABOLIC [id number] 00:00:00* Test Item Value Reference Range Interpretation Comme nts GLUCOSE (test code = 2217) 103 MG/DL BUN (test code = 2208) 10 MG/DL CREATININE (test code = 2214) 0.71 MG/DL eGFR (2020 CKD-EPI) (test code = 24936) 109 ML/MIN/1.73 CALC BUN/CREAT (test code = 2235) 14 RATIO SODIUM (test code = 2231) 138 MEQ/L POTASSIUM (test code = 2228) 3.9 MEQ/L CHLORIDE (test code = 2215) 104 MEQ/L CARBON DIOXIDE (test code = 2206) 22 MEQ/L CALCIUM (test code = 2209) 8.8 MG/DL PROTEIN, TOTAL (test code = 2229) 7.8 G/DL ALBUMIN (test code = 2201) 4.3 G/DL CALC GLOBULIN (test code = 2240) 3.5 G/DL CALC A/G RATIO (test code = 2234) 1.2 RATIO BILIRUBIN, TOTAL (test code = 2207) 0.3 MG/DL ALKALINE PHOSPHATASE (test code = 2204) 87 U/L AST (test code = 2218) 24 U/L ALT (test code = 2219) 38 U/L [facility]usebio Kim [id number] 00:00:00* Test Item Value Reference Range Interpretation Comme nts TSH, THIRD GENERATION (test code = 2821) 2.350 UIU/ML Eusebio JuanVITAMIN [id number] 00:00:00* Test Item Value Reference Range Interpretation Comme [facility] VITAMIN B-12 (test code = 2840) 521 PG/ML Eusebio JuanVITAMIN D, 25 [id number] 00:00:00* Test Item Value Reference Range Interpretation Comme [facility] VITAMIN D, 25 OH (test code = 4958) 17 NG/ML Eusebio JuanCBC W/AUTO [id number] 00:00:00* Test Item Value Reference Range Interpretation Comme nts WBC (test code = 1001) 8.4 K/UL RBC (test code = 1002) 4.30 M/UL HEMOGLOBIN (test code = 1003) 13.0 G/DL HEMATOCRIT (test code = 1004) 38.7 % MCV (test code = 1005) 90.0 fL MCH (test code = 1006) 30.2 PG MCHC (test code = 1007) 33.6 G/DL RDW (test code = 1038) 12.7 % NEUTROPHILS (test code = 1008) 59.7 % LYMPHOCYTES (test code = 1010) 30.1 % MONOCYTES (test code = 1011) 6.8 % EOSINOPHILS (test code = 1012) 2.5 % BASOPHILS (test code = 1013) 0.7 % IMMATURE GRANULOCYTES (test code = 1036) 0.2 % NUCLEATED RBCS (test code = 1065) 0.0 /100WBC'S PLATELET COUNT (test code = 1015) 143 K/UL ABSOLUTE NEUTROPHILS (test c ode = 1066) 5.02 K/UL ABSOLUTE LYMPHOCYTES (test c ode = 1067) 2.53 K/UL ABSOLUTE MONOCYTES (test cod e = 1068) 0.57 K/UL ABSOLUTE EOSINOPHILS (test c ode = 1040) 0.21 K/UL ABSOLUTE BASOPHILS (test cod e = 1069) 0.06 K/UL ABS IMMATURE GRANULOCYTES (t est code = 1020) 0.02 K/UL ABS NUCLEATED RBCS (test cod e = 17442) 0.00 K/UL Eusebio JuanHEMOGLOBIN [id number] 02:55:34* Test Item Value Reference Range Interpretation Comme [facility] HEMOGLOBIN A1c (test code = 28363) 6.7 % 4.2-5.6 H [employer] GUIDELINES FOR HGB A1C: PREDIABETES/INCREASED RISK . . . . . . . 5.7-6.4% DIAGNOSIS OF DIABETES . . . . . . . . . >=6.5% WITH CONFIRMATION OR APPROPRIATE SYMPTOMS NOTE: ASSAY MAY BE AFFECTED BY HEMOGLOBINOPATHIES (SICKLE CELL ANEMIA, S-C DISEASE, OTHERS) OR ARTIFICIALLY LOWERED BY DECREASED RED CELL SURVIVAL (HEMOLYTIC ANEMIAS, BLOOD LOSS, ETC.). CONSIDER ALTERNATE TESTING OR LABORATORY CONSULTATION. UNLESS OTHERWISE INDICATED, ALL TESTING PERFORMED AT [facility] [address] [place] [address] CAR WASH ATTENDANT: JOSE MESA M.D. [place] NUMBER [id number] [facility] [place]. [id number] HEMOGLOBIN [id number] 00:00:00* Test Item Value Reference Range Interpretation Comme [facility] HEMOGLOBIN A1c (test code = 39407) 6.7 % Eusebio Bruce AustinHEMOGLOBIN [id number] 00:00:00* Test Item Value Reference Range Interpretation Comme [facility] HEMOGLOBIN A1c (test code = 44675) 6.7 % Eusebio Bruce AustinHEMOGLOBIN [id number] 00:00:00* Test Item Value Reference Range Interpretation Comme [facility] HEMOGLOBIN A1c (test code = 05858) 6.7 % Eusebio F AustinHEMOGLOBIN [id number] 00:00:00* Test Item Value Reference Range Interpretation Comme [facility] HEMOGLOBIN A1c (test code = 11942) 6.7 % Eusebio Janis AustinHEMOGLOBIN [id number] 00:00:00* Test Item Value Reference Range Interpretation Comme nts HEMOGLOBIN A1c (test code = 19808) 6.7 % Eusebio F AustinHEMOGLOBIN [id number] 00:00:00* Test Item Value Reference Range Interpretation Comme nts HEMOGLOBIN A1c (test code = 32127) 6.7 % Eusebio F AustinHEMOGLOBIN [id number] 00:00:00* Test Item Value Reference Range Interpretation Comme [facility] HEMOGLOBIN A1c (test code = 43327) 6.7 % Eusebio Bruce AustinALBUMIN/CREATININE RATIO, URINE, [id number] 05:47:23* Test Item Value Reference Range Interpretation Comme nts CREATININE, URINE, CONC. (test code = 2072) 165.9 MG/DL NOT ESTAB ALBUMIN, URINE, RANDOM (test code = 84365) 0.9 MG/DL NOT ESTAB CALC ALBUMIN/CREAT, RND (test code = 07436) 5 MG/G <30 Note: Albumin/Cr eatinine ratio reference interval reflects ADA and NKF guidelines. UNLESS OTHERWISE INDICATED, ALL TESTING PERFORMED AT [facility] [address] [place] [address] CAR WASH ATTENDANT: JOSE MESA M.D. [facility] NUMBER [id number] [facility] [place]. [id number] HEMOGLOBIN [id number] 04:30:07* Test Item Value Reference Range Interpretation Comme nts HEMOGLOBIN A1c (test code = 74171) 9.3 % 4.2-5.6 H [employer] GUIDELINES FOR HGB A1C: PREDIABETES/INCREASED RISK . . . . . . . 5.7-6.4% DIAGNOSIS OF DIABETES . . . . . . . . . >=6.5% WITH CONFIRMATION OR APPROPRIATE SYMPTOMS NOTE: ASSAY MAY BE AFFECTED BY HEMOGLOBINOPATHIES (SICKLE CELL ANEMIA, S-C DISEASE, OTHERS) OR ARTIFICIALLY LOWERED BY DECREASED RED CELL SURVIVAL (HEMOLYTIC ANEMIAS, BLOOD LOSS, ETC.). CONSIDER ALTERNATE TESTING OR LABORATORY CONSULTATION. LIPID [id number] 04:24:35* Test Item Value Reference Range Interpretation Comme nts CHOLESTEROL (test code = 2210) 214 MG/DL <200 H TRIGLYCERIDES (test code = 2232) 148 MG/DL <150 HDL CHOLESTEROL (test code = 2220) 49 MG/DL >39 CALC LDL CHOL (test code = 2237) 138 MG/DL <100 H NOTE: CALCULATED LDL IS BASED ON CONSTANCE-CID METHOD WHICHINCLUDES ADJUSTABLE TRIGLYCERIDE:VLDL CHOLESTEROL RATIO.THIS FACTOR VARIES BY MEASURED TRIGLYCERIDE AND NON-HDLCHOLESTEROL CONCENTRATIONS WITH INCREASED CALCULATED LDL SEENIN HIGHER TRIGLYCERIDE OR LOWER NON-HDL SPECIMENS. FOR MOREINFORMATION, SEE CLIENT ANNOUNCEMENT AT [email or web address] RISK RATIO LDL/HDL (test code = 2238) 2.82 RATIO <3.22 COMPREHENSIVE METABOLIC [id number] 04:24:35* Test Item Value Reference Range Interpretation Comme nts GLUCOSE (test code = 2217) 145 MG/DL 70-99 H BUN (test code = 8) 7 MG/DL 6-20 CREATININE (test code = 2214) 0.67 MG/DL 0.60-1.30 eGFR (2020 CKD-EPI) (test code = 44378) 112 ML/MIN/1.73 >60 CALC BUN/CREAT (test code = 2235) 10 RATIO 6-28 SODIUM (test code = 223) 140 MEQ/L 133-146 POTASSIUM (test code = 2228) 4.2 MEQ/L 3.5-5.4 CHLORIDE (test code = 2215) 105 MEQ/L 95-107 CARBON DIOXIDE (test code = 220) 25 MEQ/L 19-31 CALCIUM (test code = 2208) 8.9 MG/DL 8.5-10.5 PROTEIN, TOTAL (test code = 2228) 7.3 G/DL 6.1-8.3 ALBUMIN (test code = 2200) 4.2 G/DL 3.5-5.2 CALC GLOBULIN (test code = 2240) 3.1 G/DL 1.9-3.7 CALC A/G RATIO (test code = 223) 1.4 RATIO 1.0-2.6 BILIRUBIN, TOTAL (test code = 2206) 0.4 MG/DL See_Comment [Automated me ssage] The system which generated this result transmitted reference range: <=1.2. The reference range was not used to interpret this result as normal/abnormal. ALKALINE PHOSPHATASE (test code = 2203) 99 U/L 40-113 AST (test code = 2218) 45 U/L 9-40 H ALT (test code = 2219) 70 U/L 5-40 H COMPREHENSIVE METABOLIC [id number] 00:00:00* Test Item Value Reference Range Interpretation Comme nts GLUCOSE (test code = 2217) 145 MG/DL BUN (test code = 8) 7 MG/DL CREATININE (test code = 2214) 0.67 MG/DL eGFR (2020 CKD-EPI) (test code = 61181) 112 ML/MIN/1.73 CALC BUN/CREAT (test code = 2235) 10 RATIO SODIUM (test code = 223) 140 MEQ/L POTASSIUM (test code = 2228) 4.2 MEQ/L CHLORIDE (test code = 2215) 105 MEQ/L CARBON DIOXIDE (test code = 2206) 25 MEQ/L CALCIUM (test code = 2209) 8.9 MG/DL PROTEIN, TOTAL (test code = 2229) 7.3 G/DL ALBUMIN (test code = 220) 4.2 G/DL CALC GLOBULIN (test code = 2240) 3.1 G/DL CALC A/G RATIO (test code = 2234) 1.4 RATIO BILIRUBIN, TOTAL (test code = 2207) 0.4 MG/DL ALKALINE PHOSPHATASE (test code = 2204) 99 U/L AST (test code = 2218) 45 U/L ALT (test code = 2219) 70 U/L Eusebio Bruce AustinALBUMIN/CREATININE RATIO, RANDOM [id number] 00:00:00* Test Item Value Reference Range Interpretation Comme nts CREATININE, URINE, CONC. (te st code = 2072) 165.9 MG/DL ALBUMIN, URINE, RANDOM (test code = 66843) 0.9 MG/DL CALC ALBUMIN/CREAT, RND (cora t code = 77118) 5 MG/G Eusebio JuanLIPID [id number] 00:00:00* Test Item Value Reference Range Interpretation Comme nts CHOLESTEROL (test code = 2210) 214 MG/DL TRIGLYCERIDES (test code = 2232) 148 MG/DL HDL CHOLESTEROL (test code = 2220) 49 MG/DL CALC LDL CHOL (test code = 2237) 138 MG/DL RISK RATIO LDL/HDL (test cod e = 2238) 2.82 RATIO Eusebio JuanHEMOGLOBIN [id number] 00:00:00* Test Item Value Reference Range Interpretation Comme nts HEMOGLOBIN A1c (test code = 83370) 9.3 % Eusebio JuanCOMPREHENSIVE METABOLIC [id number] 00:00:00* Test Item Value Reference Range Interpretation Comme nts GLUCOSE (test code = 2217) 145 MG/DL BUN (test code = 8) 7 MG/DL CREATININE (test code = 2214) 0.67 MG/DL eGFR (2020 CKD-EPI) (test code = 38599) 112 ML/MIN/1.73 CALC BUN/CREAT (test code = 2235) 10 RATIO SODIUM (test code = 2231) 140 MEQ/L POTASSIUM (test code = 2228) 4.2 MEQ/L CHLORIDE (test code = 2215) 105 MEQ/L CARBON DIOXIDE (test code = 2206) 25 MEQ/L CALCIUM (test code = 2209) 8.9 MG/DL PROTEIN, TOTAL (test code = 2229) 7.3 G/DL ALBUMIN (test code = 220) 4.2 G/DL CALC GLOBULIN (test code = 2240) 3.1 G/DL CALC A/G RATIO (test code = 2234) 1.4 RATIO BILIRUBIN, TOTAL (test code = 2207) 0.4 MG/DL ALKALINE PHOSPHATASE (test code = 220) 99 U/L AST (test code = 221) 45 U/L ALT (test code = 221) 70 U/L Eusebio Bruce AustinALBUMIN/CREATININE RATIO, RANDOM [id number] 00:00:00* Test Item Value Reference Range Interpretation Comme nts CREATININE, URINE, CONC. (te st code = 2072) 165.9 MG/DL ALBUMIN, URINE, RANDOM (test code = 02698) 0.9 MG/DL CALC ALBUMIN/CREAT, RND (cora t code = 78267) 5 MG/G Eusebio JuanLIPID [id number] 00:00:00* Test Item Value Reference Range Interpretation Comme nts CHOLESTEROL (test code = 2210) 214 MG/DL TRIGLYCERIDES (test code = 2232) 148 MG/DL HDL CHOLESTEROL (test code = 2220) 49 MG/DL CALC LDL CHOL (test code = 2237) 138 MG/DL RISK RATIO LDL/HDL (test cod e = 2238) 2.82 RATIO Eusebio JuanHEMOGLOBIN [id number] 00:00:00* Test Item Value Reference Range Interpretation Comme nts HEMOGLOBIN A1c (test code = 00027) 9.3 % Eusebio JuanCOMPREHENSIVE METABOLIC [id number] 00:00:00* Test Item Value Reference Range Interpretation Comme nts GLUCOSE (test code = 2217) 145 MG/DL BUN (test code = 2207) 7 MG/DL CREATININE (test code = 2214) 0.67 MG/DL eGFR (2020 CKD-EPI) (test code = 58374) 112 ML/MIN/1.73 CALC BUN/CREAT (test code = 2235) 10 RATIO SODIUM (test code = 2231) 140 MEQ/L POTASSIUM (test code = 2228) 4.2 MEQ/L CHLORIDE (test code = 2215) 105 MEQ/L CARBON DIOXIDE (test code = 2206) 25 MEQ/L CALCIUM (test code = 2209) 8.9 MG/DL PROTEIN, TOTAL (test code = 2229) 7.3 G/DL ALBUMIN (test code = 220) 4.2 G/DL CALC GLOBULIN (test code = 2240) 3.1 G/DL CALC A/G RATIO (test code = 223) 1.4 RATIO BILIRUBIN, TOTAL (test code = 2207) 0.4 MG/DL ALKALINE PHOSPHATASE (test code = 2203) 99 U/L AST (test code = 221) 45 U/L ALT (test code = 221) 70 U/L Eusebio JuanALBUMIN/CREATININE RATIO, RANDOM [id number] 00:00:00* Test Item Value Reference Range Interpretation Comme nts CREATININE, URINE, CONC. (te st code = 2072) 165.9 MG/DL ALBUMIN, URINE, RANDOM (test code = 88967) 0.9 MG/DL CALC ALBUMIN/CREAT, RND (cora t code = 84411) 5 MG/G Eusebio JuanLIPID [id number] 00:00:00* Test Item Value Reference Range Interpretation Comme nts CHOLESTEROL (test code = 2210) 214 MG/DL TRIGLYCERIDES (test code = 2232) 148 MG/DL HDL CHOLESTEROL (test code = 2220) 49 MG/DL CALC LDL CHOL (test code = 2237) 138 MG/DL RISK RATIO LDL/HDL (test cod e = 2238) 2.82 RATIO Eusebio JuanHEMOGLOBIN [id number] 00:00:00* Test Item Value Reference Range Interpretation Comme nts HEMOGLOBIN A1c (test code = 82410) 9.3 % Eusebio JuanCOMPREHENSIVE METABOLIC [id number] 00:00:00* Test Item Value Reference Range Interpretation Comme nts GLUCOSE (test code = 2217) 145 MG/DL BUN (test code = 2208) 7 MG/DL CREATININE (test code = 2214) 0.67 MG/DL eGFR (2020 CKD-EPI) (test code = 63777) 112 ML/MIN/1.73 CALC BUN/CREAT (test code = 2235) 10 RATIO SODIUM (test code = 2231) 140 MEQ/L POTASSIUM (test code = 2228) 4.2 MEQ/L CHLORIDE (test code = 2215) 105 MEQ/L CARBON DIOXIDE (test code = 2206) 25 MEQ/L CALCIUM (test code = 2209) 8.9 MG/DL PROTEIN, TOTAL (test code = 2229) 7.3 G/DL ALBUMIN (test code = 220) 4.2 G/DL CALC GLOBULIN (test code = 2240) 3.1 G/DL CALC A/G RATIO (test code = 2234) 1.4 RATIO BILIRUBIN, TOTAL (test code = 2207) 0.4 MG/DL ALKALINE PHOSPHATASE (test code = 2203) 99 U/L AST (test code = 2217) 45 U/L ALT (test code = 221) 70 U/L Eusebio JuanALBUMIN/CREATININE RATIO, RANDOM [id number] 00:00:00* Test Item Value Reference Range Interpretation Comme nts CREATININE, URINE, CONC. (te st code = 2072) 165.9 MG/DL ALBUMIN, URINE, RANDOM (test code = 42262) 0.9 MG/DL CALC ALBUMIN/CREAT, RND (cora t code = 42684) 5 MG/G Eusebio JuanLIPID [id number] 00:00:00* Test Item Value Reference Range Interpretation Comme nts CHOLESTEROL (test code = 2210) 214 MG/DL TRIGLYCERIDES (test code = 2232) 148 MG/DL HDL CHOLESTEROL (test code = 2220) 49 MG/DL CALC LDL CHOL (test code = 2237) 138 MG/DL RISK RATIO LDL/HDL (test cod e = 2238) 2.82 RATIO Eusebio JuanHEMOGLOBIN [id number] 00:00:00* Test Item Value Reference Range Interpretation Comme nts HEMOGLOBIN A1c (test code = 76001) 9.3 % Eusebio JuanCOMPREHENSIVE METABOLIC [id number] 00:00:00* Test Item Value Reference Range Interpretation Comme nts GLUCOSE (test code = 2216) 145 MG/DL BUN (test code = 8) 7 MG/DL CREATININE (test code = 2214) 0.67 MG/DL eGFR (2020 CKD-EPI) (test code = 97938) 112 ML/MIN/1.73 CALC BUN/CREAT (test code = 2235) 10 RATIO SODIUM (test code = 223) 140 MEQ/L POTASSIUM (test code = 2228) 4.2 MEQ/L CHLORIDE (test code = 2215) 105 MEQ/L CARBON DIOXIDE (test code = 2206) 25 MEQ/L CALCIUM (test code = 2209) 8.9 MG/DL PROTEIN, TOTAL (test code = 222) 7.3 G/DL ALBUMIN (test code = 2200) 4.2 G/DL CALC GLOBULIN (test code = 224) 3.1 G/DL CALC A/G RATIO (test code = 223) 1.4 RATIO BILIRUBIN, TOTAL (test code = 2206) 0.4 MG/DL ALKALINE PHOSPHATASE (test code = 2203) 99 U/L AST (test code = 2217) 45 U/L ALT (test code = 2218) 70 U/L Eusebio Bruce AustinALBUMIN/CREATININE RATIO, RANDOM [id number] 00:00:00* Test Item Value Reference Range Interpretation Comme nts CREATININE, URINE, CONC. (te st code = 2072) 165.9 MG/DL ALBUMIN, URINE, RANDOM (test code = 79075) 0.9 MG/DL CALC ALBUMIN/CREAT, RND (cora t code = 18840) 5 MG/G Eusebio JuanLIPID [id number] 00:00:00* Test Item Value Reference Range Interpretation Comme nts CHOLESTEROL (test code = 2210) 214 MG/DL TRIGLYCERIDES (test code = 2232) 148 MG/DL HDL CHOLESTEROL (test code = 2220) 49 MG/DL CALC LDL CHOL (test code = 2237) 138 MG/DL RISK RATIO LDL/HDL (test cod e = 2238) 2.82 RATIO Eusebio JuanHEMOGLOBIN [id number] 00:00:00* Test Item Value Reference Range Interpretation Comme nts HEMOGLOBIN A1c (test code = 82922) 9.3 % Eusebio Bruce DrakeCOMPREHENSIVE METABOLIC [id number] 00:00:00* Test Item Value Reference Range Interpretation Comme nts GLUCOSE (test code = 2216) 145 MG/DL BUN (test code = 2207) 7 MG/DL CREATININE (test code = 4) 0.67 MG/DL eGFR (2020 CKD-EPI) (test code = 56061) 112 ML/MIN/1.73 CALC BUN/CREAT (test code = 2235) 10 RATIO SODIUM (test code = 223) 140 MEQ/L POTASSIUM (test code = 2228) 4.2 MEQ/L CHLORIDE (test code = 2215) 105 MEQ/L CARBON DIOXIDE (test code = 2206) 25 MEQ/L CALCIUM (test code = 2209) 8.9 MG/DL PROTEIN, TOTAL (test code = 222) 7.3 G/DL ALBUMIN (test code = 220) 4.2 G/DL CALC GLOBULIN (test code = 2240) 3.1 G/DL CALC A/G RATIO (test code = 223) 1.4 RATIO BILIRUBIN, TOTAL (test code = 2206) 0.4 MG/DL ALKALINE PHOSPHATASE (test code = 2203) 99 U/L AST (test code = 221) 45 U/L ALT (test code = 221) 70 U/L Eusebio JuanALBUMIN/CREATININE RATIO, RANDOM [id number] 00:00:00* Test Item Value Reference Range Interpretation Comme nts CREATININE, URINE, CONC. (te st code = 2072) 165.9 MG/DL ALBUMIN, URINE, RANDOM (test code = 61131) 0.9 MG/DL CALC ALBUMIN/CREAT, RND (cora t code = 87266) 5 MG/G Eusebio JuanLIPID [id number] 00:00:00* Test Item Value Reference Range Interpretation Comme nts CHOLESTEROL (test code = 2210) 214 MG/DL TRIGLYCERIDES (test code = 2232) 148 MG/DL HDL CHOLESTEROL (test code = 2220) 49 MG/DL CALC LDL CHOL (test code = 2237) 138 MG/DL RISK RATIO LDL/HDL (test cod e = 2238) 2.82 RATIO Eusebio JuanHEMOGLOBIN [id number] 00:00:00* Test Item Value Reference Range Interpretation Comme nts HEMOGLOBIN A1c (test code = 43915) 9.3 % Eusebio Bruce DrakeCOMPREHENSIVE METABOLIC [id number] 00:00:00* Test Item Value Reference Range Interpretation Comme nts GLUCOSE (test code = 2217) 145 MG/DL BUN (test code = 2208) 7 MG/DL CREATININE (test code = 2214) 0.67 MG/DL eGFR (2020 CKD-EPI) (test code = 89081) 112 ML/MIN/1.73 CALC BUN/CREAT (test code = 2235) 10 RATIO SODIUM (test code = 2231) 140 MEQ/L POTASSIUM (test code = 2228) 4.2 MEQ/L CHLORIDE (test code = 2215) 105 MEQ/L CARBON DIOXIDE (test code = 2206) 25 MEQ/L CALCIUM (test code = 2209) 8.9 MG/DL PROTEIN, TOTAL (test code = 2229) 7.3 G/DL ALBUMIN (test code = 220) 4.2 G/DL CALC GLOBULIN (test code = 2240) 3.1 G/DL CALC A/G RATIO (test code = 2234) 1.4 RATIO BILIRUBIN, TOTAL (test code = 2207) 0.4 MG/DL ALKALINE PHOSPHATASE (test code = 2203) 99 U/L AST (test code = 221) 45 U/L ALT (test code = 221) 70 U/L Eusebio JuanALBUMIN/CREATININE RATIO, RANDOM [id number] 00:00:00* Test Item Value Reference Range Interpretation Comme [facility] CREATININE, URINE, CONC. (te st code = 207) 165.9 MG/DL ALBUMIN, URINE, RANDOM (test code = 96154) 0.9 MG/DL CALC ALBUMIN/CREAT, RND (cora t code = 59408) 5 MG/G Eusebio JuanLIPID [id number] 00:00:00* Test Item Value Reference Range Interpretation Comme nts CHOLESTEROL (test code = 2210) 214 MG/DL TRIGLYCERIDES (test code = 2232) 148 MG/DL HDL CHOLESTEROL (test code = 2220) 49 MG/DL CALC LDL CHOL (test code = 2237) 138 MG/DL RISK RATIO LDL/HDL (test cod e = 2238) 2.82 RATIO Eusebio JuanHEMOGLOBIN [id number] 00:00:00* Test Item Value Reference Range Interpretation Comme nts HEMOGLOBIN A1c (test code = 63300) 9.3 % Eusebio Bruce DrakePAP TEST, THINPREP, [id number] 11:11:40* Test Item Value Reference Range Interpretation Comme nts SOURCE: (test code = 8001) Cervical/Endoce rvical SLIDES: (test code = 8011) 1 LMP: (test code = 8021) 08/24/2021 SPECIMEN ADEQUACY: (test code = 25810) (NOTE) Satisfactory for evaluation. Endocervical cells/transformation zone component present. INTERPRETATION: (test code = 44446) NILM/NO EPITH. ABNORMALITY;SEE BELOW --- - NEGATIVE FOR INTRAEPITHELIAL LESION OR MALIGNANCY (NILM) ---- OTHER COMMENTS: (test code = 8081) (NOTE) Shift in vladislav suggestive of bacterial vaginosis. BIODIESEL ENGINEERING MANAGER : (test code = 8101) DANIAL Lewis(ASC) [facility] QC TECHNOLOGIST: (test code = 8111) DANIAL Bo(ASC)[facility] LOCATION: (test code = 77215) (NOTE) Specimens proces sed and interpreted at [facility], [address] [place] [address], , CLIA: [id number] CPT: (test code = 8140) (NOTE) [address] UNLESS OTH ERWISE INDICATED, COMPUTER AIDED AND BIODIESEL ENGINEERING MANAGER SCREENING PERFORMED. The Pap test is a screening test with an inherent, but low probability of error. Your patient should be reminded to consult you immediately if she experiences any suspicious signs or symptoms, regardless of her Pap test result. An alternate report format containing images or consolidated prior Pap history is available as applicable. PAP TEST, THINPREP, [id number] 00:00:00* Test Item Value Reference Range Interpretation Comme nts SOURCE: (test code = 8001) Cervical/Endocervical SLIDES: (test code = 8011) 1 LMP: (test code = 8021) 08/24/2021 SPECIMEN ADEQUACY: (test code = 10631) (NOTE) INTERPRETATION: (test code = 90679) NILM/NO EPITH. ABNORMALITY;SEE BELOW OTHER COMMENTS: (test code = 8081) (NOTE) BIODIESEL ENGINEERING MANAGER: (test code = 8101) DANIAL Lewis(ASCP)[facility] QC TECHNOLOGIST: (test code = 8111) DANIAL Bo(ASCP)[facility] LOCATION: (test code = 52243) (NOTE) CPT: (test code = 8140) (NOTE) PAP TEST, THINPREP, [id number] 00:00:00* Test Item Value Reference Range Interpretation Comme nts SOURCE: (test code = 8001) Cervical/Endocervical SLIDES: (test code = 8011) 1 LMP: (test code = 8021) 08/24/2021 SPECIMEN ADEQUACY: (test code = 43267) (NOTE) INTERPRETATION: (test code = 43618) NILM/NO EPITH. ABNORMALITY;SEE BELOW OTHER COMMENTS: (test code = 8081) (NOTE) BIODIESEL ENGINEERING MANAGER: (test code = 8101) DANIAL Lewis(ASCP)[facility] QC TECHNOLOGIST: (test code = 8111) DANIAL Bo(ASCP)[facility] LOCATION: (test code = 21988) (NOTE) CPT: (test code = 8140) (NOTE) Eusebio JuanPAP TEST, THINPREP, [id number] 00:00:00* Test Item Value Reference Range Interpretation Comme nts SOURCE: (test code = 8001) Cervical/Endocervical SLIDES: (test code = 8011) 1 LMP: (test code = 8021) 08/24/2021 SPECIMEN ADEQUACY: (test code = 65313) (NOTE) INTERPRETATION: (test code = 23089) NILM/NO EPITH. ABNORMALITY;SEE BELOW OTHER COMMENTS: (test code = 8081) (NOTE) BIODIESEL ENGINEERING MANAGER: (test code = 8101) DANIAL Lewis(ASCP)[facility] QC TECHNOLOGIST: (test code = 8111) DANIAL Bo(ASCP)[facility] LOCATION: (test code = 92334) (NOTE) CPT: (test code = 8140) (NOTE) Eusebio DuncanP TEST, THINPREP, [id number] 00:00:00* Test Item Value Reference Range Interpretation Comme nts SOURCE: (test code = 8001) Cervical/Endocervical SLIDES: (test code = 8011) 1 LMP: (test code = 8021) 08/24/2021 SPECIMEN ADEQUACY: (test code = 40041) (NOTE) INTERPRETATION: (test code = 08610) NILM/NO EPITH. ABNORMALITY;SEE BELOW OTHER COMMENTS: (test code = 8081) (NOTE) BIODIESEL ENGINEERING MANAGER: (test code = 8101) DANIAL Lewis(ASCP)[facility] QC TECHNOLOGIST: (test code = 8111) DANIAL Bo(ASCP)[facility] LOCATION: (test code = 56507) (NOTE) CPT: (test code = 8140) (NOTE) Eusebio Janis PerlaP TEST, THINPREP, [id number] 00:00:00* Test Item Value Reference Range Interpretation Comme nts SOURCE: (test code = 8001) Cervical/Endocervical SLIDES: (test code = 8011) 1 LMP: (test code = 8021) 08/24/2021 SPECIMEN ADEQUACY: (test code = 49420) (NOTE) INTERPRETATION: (test code = 74199) NILM/NO EPITH. ABNORMALITY;SEE BELOW OTHER COMMENTS: (test code = 8081) (NOTE) BIODIESEL ENGINEERING MANAGER: (test code = 8101) DANIAL Lewis(ASCP)[facility] QC TECHNOLOGIST: (test code = 8111) DANIAL Bo(ASCP)[facility] LOCATION: (test code = 19895) (NOTE) CPT: (test code = 8140) (NOTE) Eusebio DuncanP TEST, THINPREP, [id number] 00:00:00* Test Item Value Reference Range Interpretation Comme nts SOURCE: (test code = 8001) Cervical/Endocervical SLIDES: (test code = 8011) 1 LMP: (test code = 8021) 08/24/2021 SPECIMEN ADEQUACY: (test code = 06780) (NOTE) INTERPRETATION: (test code = 21712) NILM/NO EPITH. ABNORMALITY;SEE BELOW OTHER COMMENTS: (test code = 8081) (NOTE) BIODIESEL ENGINEERING MANAGER: (test code = 8101) DANIAL Lewis(ASCP)[facility] QC TECHNOLOGIST: (test code = 8111) DANIAL Bo(ASCP)[facility] LOCATION: (test code = 20552) (NOTE) CPT: (test code = 8140) (NOTE) Eusebio Janis JuanANDREASP TEST, THINPREP, [id number] 00:00:00* Test Item Value Reference Range Interpretation Comme nts SOURCE: (test code = 8001) Cervical/Endocervical SLIDES: (test code = 8011) 1 LMP: (test code = 8021) 08/24/2021 SPECIMEN ADEQUACY: (test code = 03986) (NOTE) INTERPRETATION: (test code = 57048) NILM/NO EPITH. ABNORMALITY;SEE BELOW OTHER COMMENTS: (test code = 8081) (NOTE) BIODIESEL ENGINEERING MANAGER: (test code = 8101) DANIAL Lewis(ASCP)IAC QC TECHNOLOGIST: (test code = 8111) DANIAL Bo(ASCP)IAC LOCATION: (test code = 47817) (NOTE) CPT: (test code = 8140) (NOTE) Eusebio Yang TEST, THINPREP, [id number] 00:00:00* Test Item Value Reference Range Interpretation Comme nts SOURCE: (test code = 8001) Cervical/Endocervical SLIDES: (test code = 8011) 1 LMP: (test code = 8021) 08/24/2021 SPECIMEN ADEQUACY: (test code = 62473) (NOTE) INTERPRETATION: (test code = 56174) NILM/NO EPITH. ABNORMALITY;SEE BELOW OTHER COMMENTS: (test code = 8081) (NOTE) BIODIESEL ENGINEERING MANAGER: (test code = 8101) DANIAL Lewis(ASCP)IAC QC TECHNOLOGIST: (test code = 8111) DANIAL Bo(ASCP)IAC LOCATION: (test code = 29920) (NOTE) CPT: (test code = 8140) (NOTE) Eusebio F AustinCT/NG, NAAT, [id number] 18:28:09* Test Item Value Reference Range Interpretation Comme nts GONORRHEA, NAAT (test code = 56861) NEGATIVE NEGATIVE IMPORTANT NO ARIE: SEE ANNOUNCEMENT AT [email or web address] Note: Assay methodology is nucleic acid amplification by ip counsel mediated amplification (TMA) utilizing the Aptima Combo 2 Assay. CHLAMYDIA, NAAT (test code = 78792) NEGATIVE NEGATIVE IMPORTANT NO ARIE: SEE ANNOUNCEMENT AT [email or web address] Note: Assay methodology is nucleic acid amplification by ip counsel mediated amplification (TMA) utilizing the Aptima Combo 2 Assay. HPV HIGH RISK WITH GENOTYPE, [id number] 15:44:51* Test Item Value Reference Range Interpretation Comme nts HPV HIGH RISK INTERP (test code = 74708) POSITIVE NEGATIVE A HPV 16 (test code = 15125) NEGATIVE HPV 18 (test code = 42286) NEGATIVE HPV, HR, OTHER GENOTYPES (test code = 78416) POSITIVE A Testing methodol ogy is real-time PCR utilizing hydrolysis probes with the [employer] Roma 4800 system. The test individually detects genotypes 16 and 18, as well as the other 12 high risk types (31,33,35,39,45,51,52,56 ,58,59,66,68). The expected result is negative. A negative result does not rule out the presence of HPV not included in the genotype set, a low level of infection or specimen sampling error. UNLESS OTHERWISE INDICATED, ALL TESTING PERFORMED [facility] [address] [place] [address] [employer] WASH ATTENDANT: TYRONE BARBOZA M.D. CLIA NUMBER [id number] [place]. [id number] VAGINAL PATHOGENS DNA [id number] 14:08:27* Test Item Value Reference Range Interpretation Comme nts LEISA SPECIES (test code = 43929) NEGATIVE NEGATIVE G. VAGINALIS (test code = 02844) POSITIVE NEGATIVE A T. VAGINALIS (test code = 29346) NEGATIVE NEGATIVE HIV 1/2 4TH GEN, RFLX [id number] 03:52:59* Test Item Value Reference Range Interpretation Comme nts HIV 1/2 4TH GEN, RFLX CONF ( test code = 3514) NON-REACTIVE NON-REACTIVE HEPATITIS PANEL, [id number] 03:52:59* Test Item Value Reference Range Interpretation Comme nts HEPATITIS A IgM (test code = 44211) NON-REACTIVE NON-REACTIVE HEPATITIS B CORE IgM (test code = 4644) NON-REACTIVE NON-REACTIVE HEPATITIS B SURF AG (test code = 2739) NON-REACTIVE NON-REACTIVE HEPATITIS C ANTIBODY (test code = 4675) NON-REACTIVE NON-REACTIVE INTERPRETATION HEPATITIS A: (test code = 2552) (NOTE) Hepatitis A serology shows no evidence of acute hepatitis A. INTERPRETATION HEPATITIS B: (test code = 29454) (NOTE) Hepatitis B serology shows no evidence of acute hepatitis B andno indication of exposure to hepatitis B virus in the previous maddy eight months. INTERPRETATION HEPATITIS C: (test code = 44287) (NOTE) Hepatitis C serology shows no evidence of exposure to hepatitisC virus at this time. It can take up to 12 months after exposure tothe hepatitis C virus for antibodies to become detectable in the blood in certain patients. [id number] 03:17:46* Test Item Value Reference Range Interpretation Comme nts RPR RESULT (test code = 3501) NON-REACTIVE NON-REACTIVE RPR TITER (test code = 3500) NOT INDIC. TITER NOT INDIC. UNLESS OTHERWISE INDICATED, ALL TESTING PERFORMED [facility] [address] [place] [address] [employer] ATTENDANT: TYRONE BARBOZA M.D. [place] NUMBER [id number] [facility] [place]. [id number] VAGINAL PATHOGENS DNA [id number] 00:00:00* Test Item Value Reference Range Interpretation Comme nts LEISA SPECIES (test code = 31449) NEGATIVE G. VAGINALIS (test code = 98948) POSITIVE T. VAGINALIS (test code = 47688) NEGATIVE HPV HIGH RISK WITH GENOTYPE, [id number] 00:00:00* Test Item Value Reference Range Interpretation Comme [facility] HPV HIGH RISK INTERP (test c ode = 72806) POSITIVE HPV 16 (test code = 86079) NEGATIVE HPV 18 (test code = 33629) NEGATIVE HPV, HR, OTHER GENOTYPES (te st code = 54269) POSITIVE HIV AB/AG COMBO RFLX [id number] 00:00:00* Test Item Value Reference Range Interpretation Comme nts HIV 1/2 4TH GEN, RFLX CONF ( test code = 3514) NON-REACTIVE ACUTE HEPATITIS [id number] 00:00:00* Test Item Value Reference Range Interpretation Comme nts HEPATITIS A IgM (test code = 44599) NON-REACTIVE HEPATITIS B CORE IgM (test c ode = 4644) NON-REACTIVE HEPATITIS B SURF AG (test co de = 2739) NON-REACTIVE HEPATITIS C ANTIBODY (test c ode = 4675) NON-REACTIVE INTERPRETATION HEPATITIS A: (test code = 2552) (NOTE) INTERPRETATION HEPATITIS B: (test code = 84542) (NOTE) INTERPRETATION HEPATITIS C: (test code = 07368) (NOTE) GC AND CHLAMYDIA, AMPLIFIED, [id number] 00:00:00* Test Item Value Reference Range Interpretation Comme nts GONORRHEA, NAAT (test code = 08340) NEGATIVE CHLAMYDIA, NAAT (test code = 48830) NEGATIVE [id number] 00:00:00* Test Item Value Reference Range Interpretation Comme nts RPR RESULT (test code = 3501) NON-REACTIVE RPR TITER (test code = 3500) NOT INDIC. TITER ACUTE HEPATITIS [id number] 00:00:00* Test Item Value Reference Range Interpretation Comme nts HEPATITIS A IgM (test code = 35660) NON-REACTIVE HEPATITIS B CORE IgM (test c ode = 4644) NON-REACTIVE HEPATITIS B SURF AG (test co de = 2739) NON-REACTIVE HEPATITIS C ANTIBODY (test c ode = 4675) NON-REACTIVE INTERPRETATION HEPATITIS A: (test code = 2552) (NOTE) INTERPRETATION HEPATITIS B: (test code = 40774) (NOTE) INTERPRETATION HEPATITIS C: (test code = 64541) (NOTE) Eusebio JuanGC AND CHLAMYDIA, AMPLIFIED, [id number] 00:00:00* Test Item Value Reference Range Interpretation Comme nts GONORRHEA, NAAT (test code = 52253) NEGATIVE CHLAMYDIA, NAAT (test code = 05297) NEGATIVE Eusebio [id number] 00:00:00* Test Item Value Reference Range Interpretation Comme nts RPR RESULT (test code = 3501) NON-REACTIVE RPR TITER (test code = 3500) NOT INDIC. TITER Eusebio JuanVAGINAL PATHOGENS DNA [id number] 00:00:00* Test Item Value Reference Range Interpretation Comme nts LEISA SPECIES (test code = ) NEGATIVE G. VAGINALIS (test code = ) POSITIVE T. VAGINALIS (test code = ) NEGATIVE Eusebio JuanHIV AB/AG COMBO RFLX [id number] 00:00:00* Test Item Value Reference Range Interpretation Comme nts HIV 1/2 4TH GEN, RFLX CONF ( test code = 3514) NON-REACTIVE Eusebio JuanHPV HIGH RISK WITH GENOTYPE, [id number] 00:00:00* Test Item Value Reference Range Interpretation Comme samantha HPV HIGH RISK INTERP (test c ode = 57384) POSITIVE HPV 16 (test code = 15626) NEGATIVE HPV 18 (test code = 41799) NEGATIVE HPV, HR, OTHER GENOTYPES (te st code = 16600) POSITIVE Eusebio JuanACUTE HEPATITIS [id number] 00:00:00* Test Item Value Reference Range Interpretation Comme nts HEPATITIS A IgM (test code = 13050) NON-REACTIVE HEPATITIS B CORE IgM (test c ode = 4644) NON-REACTIVE HEPATITIS B SURF AG (test co de = 1199) NON-REACTIVE HEPATITIS C ANTIBODY (test c ode = 4675) NON-REACTIVE INTERPRETATION HEPATITIS A: (test code = 2552) (NOTE) INTERPRETATION HEPATITIS B: (test code = 18645) (NOTE) INTERPRETATION HEPATITIS C: (test code = 43169) (NOTE) Eusebio JuanGC AND CHLAMYDIA, AMPLIFIED, [id number] 00:00:00* Test Item Value Reference Range Interpretation Comme nts GONORRHEA, NAAT (test code = 87960) NEGATIVE CHLAMYDIA, NAAT (test code = 27860) NEGATIVE Eusebio [id number] 00:00:00* Test Item Value Reference Range Interpretation Comme nts RPR RESULT (test code = 3501) NON-REACTIVE RPR TITER (test code = 3500) NOT INDIC. TITER Eusebio JuanVAGINAL PATHOGENS DNA [id number] 00:00:00* Test Item Value Reference Range Interpretation Comme nts LEISA SPECIES (test code = ) NEGATIVE G. VAGINALIS (test code = 72632) POSITIVE T. VAGINALIS (test code = 91877) NEGATIVE Eusebio JuanHIV AB/AG COMBO RFLX [id number] 00:00:00* Test Item Value Reference Range Interpretation Comme nts HIV 1/2 4TH GEN, RFLX CONF ( test code = 3514) NON-REACTIVE Eusebio JuanHPV HIGH RISK WITH GENOTYPE, [id number] 00:00:00* Test Item Value Reference Range Interpretation Comme nts HPV HIGH RISK INTERP (test c ode = 30557) POSITIVE HPV 16 (test code = 59472) NEGATIVE HPV 18 (test code = 12859) NEGATIVE HPV, HR, OTHER GENOTYPES (te st code = 53783) POSITIVE Eusebio JuanACUTE HEPATITIS [id number] 00:00:00* Test Item Value Reference Range Interpretation Comme nts HEPATITIS A IgM (test code = 28398) NON-REACTIVE HEPATITIS B CORE IgM (test c ode = 4644) NON-REACTIVE HEPATITIS B SURF AG (test co de = 2739) NON-REACTIVE HEPATITIS C ANTIBODY (test c ode = 4675) NON-REACTIVE INTERPRETATION HEPATITIS A: (test code = 2552) (NOTE) INTERPRETATION HEPATITIS B: (test code = 08712) (NOTE) INTERPRETATION HEPATITIS C: (test code = 83210) (NOTE) Eusebio JuanGC AND CHLAMYDIA, AMPLIFIED, [id number] 00:00:00* Test Item Value Reference Range Interpretation Comme nts GONORRHEA, NAAT (test code = 73796) NEGATIVE CHLAMYDIA, NAAT (test code = 19395) NEGATIVE Eusebio [id number] 00:00:00* Test Item Value Reference Range Interpretation Comme nts RPR RESULT (test code = 3501) NON-REACTIVE RPR TITER (test code = 3500) NOT INDIC. TITER Eusebio JuanVAGINAL PATHOGENS DNA [id number] 00:00:00* Test Item Value Reference Range Interpretation Comme nts LEISA SPECIES (test code = 50835) NEGATIVE G. VAGINALIS (test code = 63077) POSITIVE T. VAGINALIS (test code = 22787) NEGATIVE Eusebio JuanHPV HIGH RISK WITH GENOTYPE, [id number] 00:00:00* Test Item Value Reference Range Interpretation Comme nts HPV HIGH RISK INTERP (test c ode = 78528) POSITIVE HPV 16 (test code = 37784) NEGATIVE HPV 18 (test code = 30389) NEGATIVE HPV, HR, OTHER GENOTYPES (te st code = 25374) POSITIVE Eusebio JuanHIV AB/AG COMBO RFLX [id number] 00:00:00* Test Item Value Reference Range Interpretation Comme nts HIV 1/2 4TH GEN, RFLX CONF ( test code = 3514) NON-REACTIVE Eusebio JuanACUTE HEPATITIS [id number] 00:00:00* Test Item Value Reference Range Interpretation Comme nts HEPATITIS A IgM (test code = 53359) NON-REACTIVE HEPATITIS B CORE IgM (test c ode = 4644) NON-REACTIVE HEPATITIS B SURF AG (test co de = 2739) NON-REACTIVE HEPATITIS C ANTIBODY (test c ode = 4634) NON-REACTIVE INTERPRETATION HEPATITIS A: (test code = 2552) (NOTE) INTERPRETATION HEPATITIS B: (test code = 24243) (NOTE) INTERPRETATION HEPATITIS C: (test code = 19549) (NOTE) Eusebio JuanGC AND CHLAMYDIA, AMPLIFIED, [id number] 00:00:00* Test Item Value Reference Range Interpretation Comme nts GONORRHEA, NAAT (test code = 73977) NEGATIVE CHLAMYDIA, NAAT (test code = 39523) NEGATIVE Eusebio [id number] 00:00:00* Test Item Value Reference Range Interpretation Comme nts RPR RESULT (test code = 3501) NON-REACTIVE RPR TITER (test code = 3500) NOT INDIC. TITER Eusebio JuanVAGINAL PATHOGENS DNA [id number] 00:00:00* Test Item Value Reference Range Interpretation Comme nts LEISA SPECIES (test code = 23856) NEGATIVE G. VAGINALIS (test code = 44199) POSITIVE T. VAGINALIS (test code = 63679) NEGATIVE Eusebio JuanHPV HIGH RISK WITH GENOTYPE, [id number] 00:00:00* Test Item Value Reference Range Interpretation Comme samantha HPV HIGH RISK INTERP (test c ode = 08315) POSITIVE HPV 16 (test code = 64440) NEGATIVE HPV 18 (test code = 52299) NEGATIVE HPV, HR, OTHER GENOTYPES (te st code = 83955) POSITIVE Eusebio JuanHIV AB/AG COMBO RFLX [id number] 00:00:00* Test Item Value Reference Range Interpretation Comme nts HIV 1/2 4TH GEN, RFLX CONF ( test code = 3514) NON-REACTIVE Eusebio JuanACUTE HEPATITIS [id number] 00:00:00* Test Item Value Reference Range Interpretation Comme nts HEPATITIS A IgM (test code = 10696) NON-REACTIVE HEPATITIS B CORE IgM (test c ode = 4644) NON-REACTIVE HEPATITIS B SURF AG (test co de = 2739) NON-REACTIVE HEPATITIS C ANTIBODY (test c ode = 4675) NON-REACTIVE INTERPRETATION HEPATITIS A: (test code = 2552) (NOTE) INTERPRETATION HEPATITIS B: (test code = 78094) (NOTE) INTERPRETATION HEPATITIS C: (test code = 45623) (NOTE) Eusebio JuanGC AND CHLAMYDIA, AMPLIFIED, [id number] 00:00:00* Test Item Value Reference Range Interpretation Comme nts GONORRHEA, NAAT (test code = 27307) NEGATIVE CHLAMYDIA, NAAT (test code = 47734) NEGATIVE Eusebio [id number] 00:00:00* Test Item Value Reference Range Interpretation Comme nts RPR RESULT (test code = 3501) NON-REACTIVE RPR TITER (test code = 3500) NOT INDIC. TITER Eusebio JuanVAGINAL PATHOGENS DNA [id number] 00:00:00* Test Item Value Reference Range Interpretation Comme nts LEISA SPECIES (test code = 97098) NEGATIVE G. VAGINALIS (test code = 23310) POSITIVE T. VAGINALIS (test code = 89030) NEGATIVE Eusebio JuanHPV HIGH RISK WITH GENOTYPE, [id number] 00:00:00* Test Item Value Reference Range Interpretation Comme nts HPV HIGH RISK INTERP (test c ode = 17397) POSITIVE HPV 16 (test code = 56496) NEGATIVE HPV 18 (test code = 26031) NEGATIVE HPV, HR, OTHER GENOTYPES (te st code = 21780) POSITIVE Eusebio JuanHIV AB/AG COMBO RFLX [id number] 00:00:00* Test Item Value Reference Range Interpretation Comme nts HIV 1/2 4TH GEN, RFLX CONF ( test code = 3514) NON-REACTIVE Eusebio JuanACUTE HEPATITIS [id number] 00:00:00* Test Item Value Reference Range Interpretation Comme nts HEPATITIS A IgM (test code = 49612) NON-REACTIVE HEPATITIS B CORE IgM (test c ode = 4644) NON-REACTIVE HEPATITIS B SURF AG (test co de = 2739) NON-REACTIVE HEPATITIS C ANTIBODY (test c ode = 4675) NON-REACTIVE INTERPRETATION HEPATITIS A: (test code = 2552) (NOTE) INTERPRETATION HEPATITIS B: (test code = 64888) (NOTE) INTERPRETATION HEPATITIS C: (test code = 67676) (NOTE) Eusebio JuanGC AND CHLAMYDIA, AMPLIFIED, [id number] 00:00:00* Test Item Value Reference Range Interpretation Comme nts GONORRHEA, NAAT (test code = 39841) NEGATIVE CHLAMYDIA, NAAT (test code = 31092) NEGATIVE Eusebio [id number] 00:00:00* Test Item Value Reference Range Interpretation Comme nts RPR RESULT (test code = 3501) NON-REACTIVE RPR TITER (test code = 3500) NOT INDIC. TITER Eusebio JuanVAGINAL PATHOGENS DNA [id number] 00:00:00* Test Item Value Reference Range Interpretation Comme saamntha LEISA SPECIES (test code = 00224) NEGATIVE G. VAGINALIS (test code = 33636) POSITIVE T. VAGINALIS (test code = 03396) NEGATIVE Eusebio JuanHPV HIGH RISK WITH GENOTYPE, [id number] 00:00:00* Test Item Value Reference Range Interpretation Comme samantha HPV HIGH RISK INTERP (test c ode = 65126) POSITIVE HPV 16 (test code = 98622) NEGATIVE HPV 18 (test code = 58682) NEGATIVE HPV, HR, OTHER GENOTYPES (te st code = 50202) POSITIVE Eusebio JuanHIV AB/AG COMBO RFLX [id number] 00:00:00* Test Item Value Reference Range Interpretation Comme nts HIV 1/2 4TH GEN, RFLX CONF ( test code = 3514) NON-REACTIVE Eusebio JuanACUTE HEPATITIS [id number] 00:00:00* Test Item Value Reference Range Interpretation Comme nts HEPATITIS A IgM (test code = 78485) NON-REACTIVE HEPATITIS B CORE IgM (test c ode = 4644) NON-REACTIVE HEPATITIS B SURF AG (test co de = 2739) NON-REACTIVE HEPATITIS C ANTIBODY (test c ode = 4674) NON-REACTIVE INTERPRETATION HEPATITIS A: (test code = 2552) (NOTE) INTERPRETATION HEPATITIS B: (test code = 23688) (NOTE) INTERPRETATION HEPATITIS C: (test code = 08525) (NOTE) Eusebio JuanGC AND CHLAMYDIA, AMPLIFIED, [id number] 00:00:00* Test Item Value Reference Range Interpretation Comme nts GONORRHEA, NAAT (test code = 10533) NEGATIVE CHLAMYDIA, NAAT (test code = 43918) NEGATIVE Eusebio [id number] 00:00:00* Test Item Value Reference Range Interpretation Comme nts RPR RESULT (test code = 3501) NON-REACTIVE RPR TITER (test code = 3500) NOT INDIC. TITER Eusebio JuanVAGINAL PATHOGENS DNA [id number] 00:00:00* Test Item Value Reference Range Interpretation Comme nts LEISA SPECIES (test code = 91549) NEGATIVE G. VAGINALIS (test code = 39462) POSITIVE T. VAGINALIS (test code = 88684) NEGATIVE Eusebio JuanHIV AB/AG COMBO RFLX [id number] 00:00:00* Test Item Value Reference Range Interpretation Comme nts HIV 1/2 4TH GEN, RFLX CONF ( test code = 3514) NON-REACTIVE Eusebio JuanHPV HIGH RISK WITH GENOTYPE, [id number] 00:00:00* Test Item Value Reference Range Interpretation Comme nts HPV HIGH RISK INTERP (test c ode = 43609) POSITIVE HPV 16 (test code = 07591) NEGATIVE HPV 18 (test code = 27024) NEGATIVE HPV, HR, OTHER GENOTYPES (te st code = 60271) POSITIVE Eusebio JuanALBUMIN/CREATININE RATIO, URINE, [id number] 06:32:12* Test Item Value Reference Range Interpretation Comme nts CREATININE, URINE, RANDOM (test code = 2072) 160.8 MG/DL NOT ESTAB ALBUMIN, URINE, RANDOM (test code = 23576) 0.6 MG/DL NOT ESTAB CALC ALBUMIN/CREAT, RND (test code = 69007) 4 MG/G <30 Note: Albumin/Cr eatinine ratio reference interval reflects ADA and NKF guidelines. UNLESS OTHERWISE INDICATED, ALL TESTING PERFORMED [facility] [employer] [address] [facility] [place] [address] [employer] W[employer] ATTENDANT: TYRONE BARBOZA M.D. IA NUMBER [id number] [facility] [place]. [id number] HEMOGLOBIN [id number] 05:07:14* Test Item Value Reference Range Interpretation Comme nts HEMOGLOBIN A1c (test code = 07824) 8.4 % 4.2-5.6 H [employer] GUIDELINES FOR HGB A1C: PREDIABETES/INCREASED RISK . . . . . . . 5.7-6.4% DIAGNOSIS OF DIABETES . . . . . . . . . >=6.5% WITH CONFIRMATION OR APPROPRIATE SYMPTOMS NOTE: ASSAY MAY BE AFFECTED BY HEMOGLOBINOPATHIES (SICKLE CELL ANEMIA, S-C DISEASE, OTHERS) OR ARTIFICIALLY LOWERED BY DECREASED RED CELL SURVIVAL (HEMOLYTIC ANEMIAS, BLOOD LOSS, ETC.). CONSIDER ALTERNATE TESTING OR LABORATORY CONSULTATION. LIPID [id number] 04:20:14* Test Item Value Reference Range Interpretation Comme nts CHOLESTEROL (test code = 2210) 192 MG/DL <200 TRIGLYCERIDES (test code = 2232) 105 MG/DL <150 HDL CHOLESTEROL (test code = 2220) 47 MG/DL >39 CALC LDL CHOL (test code = 2237) 124 MG/DL <100 H NOTE: CALCULATED LDL IS BASED ON CONSTANCE-CID METHOD WHICHINCLUDES ADJUSTABLE TRIGLYCERIDE:VLDL CHOLESTEROL RATIO.THIS FACTOR VARIES BY MEASURED TRIGLYCERIDE AND NON-HDLCHOLESTEROL CONCENTRATIONS WITH INCREASED CALCULATED LDL SEENIN HIGHER TRIGLYCERIDE OR LOWER NON-HDL SPECIMENS. FOR MOREINFORMATION, SEE CLIENT ANNOUNCEMENT AT [email or web address] RISK RATIO LDL/HDL (test code = 2238) 2.64 RATIO <3.22 COMPREHENSIVE METABOLIC [id number] 04:20:14* Test Item Value Reference Range Interpretation Comme nts GLUCOSE (test code = 2217) 138 MG/DL 70-99 H BUN (test code = 2208) 8 MG/DL 6-20 CREATININE (test code = 2214) 0.69 MG/DL 0.60-1.30 eGFR (2020 CKD-EPI) (test code = 51963) 112 ML/MIN/1.73 >60 CALC BUN/CREAT (test code = 2235) 12 RATIO 6-28 SODIUM (test code = 2231) 140 MEQ/L 133-146 POTASSIUM (test code = 2228) 4.4 MEQ/L 3.5-5.4 CHLORIDE (test code = 2215) 105 MEQ/L 95-107 CARBON DIOXIDE (test code = 2206) 20 MEQ/L 19-31 CALCIUM (test code = 2209) 8.6 MG/DL 8.5-10.5 PROTEIN, TOTAL (test code = 222) 7.9 G/DL 6.1-8.3 ALBUMIN (test code = 220) 4.6 G/DL 3.5-5.2 CALC GLOBULIN (test code = 2240) 3.3 G/DL 1.9-3.7 CALC A/G RATIO (test code = 223) 1.4 RATIO 1.0-2.6 BILIRUBIN, TOTAL (test code = 2207) 0.3 MG/DL See_Comment [Automated me ssage] The system which generated this result transmitted reference range: <=1.2. The reference range was not used to interpret this result as normal/abnormal. ALKALINE PHOSPHATASE (test code = 2203) 115 U/L 40-113 H AST (test code = 2218) 43 U/L 9-40 H ALT (test code = 2219) 80 U/L 5-40 H HEMOGLOBIN [id number] 00:00:00* Test Item Value Reference Range Interpretation Comme nts HEMOGLOBIN A1c (test code = 12906) 8.4 % LIPID [id number] 00:00:00* Test Item Value Reference Range Interpretation Comme nts CHOLESTEROL (test code = 2210) 192 MG/DL TRIGLYCERIDES (test code = 2232) 105 MG/DL HDL CHOLESTEROL (test code = 2220) 47 MG/DL CALC LDL CHOL (test code = 2237) 124 MG/DL RISK RATIO LDL/HDL (test cod e = 2238) 2.64 RATIO COMPREHENSIVE METABOLIC [id number] 00:00:00* Test Item Value Reference Range Interpretation Comme nts GLUCOSE (test code = 2217) 138 MG/DL BUN (test code = 2207) 8 MG/DL CREATININE (test code = 2214) 0.69 MG/DL eGFR (2020 CKD-EPI) (test code = 41282) 112 ML/MIN/1.73 CALC BUN/CREAT (test code = 2235) 12 RATIO SODIUM (test code = 2231) 140 MEQ/L POTASSIUM (test code = 2228) 4.4 MEQ/L CHLORIDE (test code = 2215) 105 MEQ/L CARBON DIOXIDE (test code = 2206) 20 MEQ/L CALCIUM (test code = 2209) 8.6 MG/DL PROTEIN, TOTAL (test code = 2229) 7.9 G/DL ALBUMIN (test code = 2201) 4.6 G/DL CALC GLOBULIN (test code = 2240) 3.3 G/DL CALC A/G RATIO (test code = 2234) 1.4 RATIO BILIRUBIN, TOTAL (test code = 2207) 0.3 MG/DL ALKALINE PHOSPHATASE (test code = 2203) 115 U/L AST (test code = 221) 43 U/L ALT (test code = 2219) 80 U/L MICROALBUMIN/CREATININE, RANDOM AND [id number] 00:00:00* Test Item Value Reference Range Interpretation Comme nts CREATININE, URINE, RANDOM (t est code = 2072) 160.8 MG/DL ALBUMIN, URINE, RANDOM (test code = 41108) 0.6 MG/DL CALC ALBUMIN/CREAT, RND (cora t code = 94830) 4 MG/G COMPREHENSIVE METABOLIC [id number] 00:00:00* Test Item Value Reference Range Interpretation Comme nts GLUCOSE (test code = 7) 138 MG/DL BUN (test code = 8) 8 MG/DL CREATININE (test code = 2214) 0.69 MG/DL eGFR (2020 CKD-EPI) (test code = 66296) 112 ML/MIN/1.73 CALC BUN/CREAT (test code = 2235) 12 RATIO SODIUM (test code = 2231) 140 MEQ/L POTASSIUM (test code = 2228) 4.4 MEQ/L CHLORIDE (test code = 2215) 105 MEQ/L CARBON DIOXIDE (test code = 2206) 20 MEQ/L CALCIUM (test code = 2209) 8.6 MG/DL PROTEIN, TOTAL (test code = 2229) 7.9 G/DL ALBUMIN (test code = 2201) 4.6 G/DL CALC GLOBULIN (test code = 2240) 3.3 G/DL CALC A/G RATIO (test code = 2234) 1.4 RATIO BILIRUBIN, TOTAL (test code = 2207) 0.3 MG/DL ALKALINE PHOSPHATASE (test code = 2204) 115 U/L AST (test code = 2218) 43 U/L ALT (test code = 2219) 80 U/L Eusebio JuanMICROALBUMIN/CREATININE, RANDOM AND [id number] 00:00:00* Test Item Value Reference Range Interpretation Comme nts CREATININE, URINE, RANDOM (t est code = 2072) 160.8 MG/DL ALBUMIN, URINE, RANDOM (test code = 08857) 0.6 MG/DL CALC ALBUMIN/CREAT, RND (cora t code = 20532) 4 MG/G Eusebio JuanHEMOGLOBIN [id number] 00:00:00* Test Item Value Reference Range Interpretation Comme samantha HEMOGLOBIN A1c (test code = 46239) 8.4 % Eusebio JuanLIPID [id number] 00:00:00* Test Item Value Reference Range Interpretation Comme nts CHOLESTEROL (test code = 2210) 192 MG/DL TRIGLYCERIDES (test code = 2232) 105 MG/DL HDL CHOLESTEROL (test code = 2220) 47 MG/DL CALC LDL CHOL (test code = 2237) 124 MG/DL RISK RATIO LDL/HDL (test cod e = 2238) 2.64 RATIO Eusebio JuanCOMPREHENSIVE METABOLIC [id number] 00:00:00* Test Item Value Reference Range Interpretation Comme nts GLUCOSE (test code = 2217) 138 MG/DL BUN (test code = 2208) 8 MG/DL CREATININE (test code = 2214) 0.69 MG/DL eGFR (2020 CKD-EPI) (test code = 67931) 112 ML/MIN/1.73 CALC BUN/CREAT (test code = 2235) 12 RATIO SODIUM (test code = 2231) 140 MEQ/L POTASSIUM (test code = 2228) 4.4 MEQ/L CHLORIDE (test code = 2215) 105 MEQ/L CARBON DIOXIDE (test code = 2206) 20 MEQ/L CALCIUM (test code = 2209) 8.6 MG/DL PROTEIN, TOTAL (test code = 2229) 7.9 G/DL ALBUMIN (test code = 2201) 4.6 G/DL CALC GLOBULIN (test code = 2240) 3.3 G/DL CALC A/G RATIO (test code = 2234) 1.4 RATIO BILIRUBIN, TOTAL (test code = 2207) 0.3 MG/DL ALKALINE PHOSPHATASE (test code = 2204) 115 U/L AST (test code = 2218) 43 U/L ALT (test code = 2219) 80 U/L Eusebio JuanMICROALBUMIN/CREATININE, RANDOM AND [id number] 00:00:00* Test Item Value Reference Range Interpretation Comme nts CREATININE, URINE, RANDOM (t est code = 2072) 160.8 MG/DL ALBUMIN, URINE, RANDOM (test code = 47799) 0.6 MG/DL CALC ALBUMIN/CREAT, RND (cora t code = 92979) 4 MG/G Eusebio JuanHEMOGLOBIN [id number] 00:00:00* Test Item Value Reference Range Interpretation Comme samantha HEMOGLOBIN A1c (test code = 57500) 8.4 % Eusebio JuanLIPID [id number] 00:00:00* Test Item Value Reference Range Interpretation Comme nts CHOLESTEROL (test code = 2210) 192 MG/DL TRIGLYCERIDES (test code = 2232) 105 MG/DL HDL CHOLESTEROL (test code = 2220) 47 MG/DL CALC LDL CHOL (test code = 2237) 124 MG/DL RISK RATIO LDL/HDL (test cod e = 2238) 2.64 RATIO Eusebio JuanCOMPREHENSIVE METABOLIC [id number] 00:00:00* Test Item Value Reference Range Interpretation Comme nts GLUCOSE (test code = 2217) 138 MG/DL BUN (test code = 2208) 8 MG/DL CREATININE (test code = 2214) 0.69 MG/DL eGFR (2020 CKD-EPI) (test code = 95350) 112 ML/MIN/1.73 CALC BUN/CREAT (test code = 2235) 12 RATIO SODIUM (test code = 2231) 140 MEQ/L POTASSIUM (test code = 2228) 4.4 MEQ/L CHLORIDE (test code = 2215) 105 MEQ/L CARBON DIOXIDE (test code = 2206) 20 MEQ/L CALCIUM (test code = 2209) 8.6 MG/DL PROTEIN, TOTAL (test code = 2229) 7.9 G/DL ALBUMIN (test code = 2201) 4.6 G/DL CALC GLOBULIN (test code = 2240) 3.3 G/DL CALC A/G RATIO (test code = 2234) 1.4 RATIO BILIRUBIN, TOTAL (test code = 2207) 0.3 MG/DL ALKALINE PHOSPHATASE (test code = 2204) 115 U/L AST (test code = 2218) 43 U/L ALT (test code = 2219) 80 U/L Eusebio JuanMICROALBUMIN/CREATININE, RANDOM AND [id number] 00:00:00* Test Item Value Reference Range Interpretation Comme nts CREATININE, URINE, RANDOM (t est code = 2072) 160.8 MG/DL ALBUMIN, URINE, RANDOM (test code = 17974) 0.6 MG/DL CALC ALBUMIN/CREAT, RND (cora t code = 13938) 4 MG/G Eusebio JuanHEMOGLOBIN [id number] 00:00:00* Test Item Value Reference Range Interpretation Comme samantha HEMOGLOBIN A1c (test code = 76838) 8.4 % Eusebio JuanLIPID [id number] 00:00:00* Test Item Value Reference Range Interpretation Comme nts CHOLESTEROL (test code = 2210) 192 MG/DL TRIGLYCERIDES (test code = 2232) 105 MG/DL HDL CHOLESTEROL (test code = 2220) 47 MG/DL CALC LDL CHOL (test code = 2237) 124 MG/DL RISK RATIO LDL/HDL (test cod e = 2238) 2.64 RATIO Eusebio JuanCOMPREHENSIVE METABOLIC [id number] 00:00:00* Test Item Value Reference Range Interpretation Comme nts GLUCOSE (test code = 2217) 138 MG/DL BUN (test code = 2208) 8 MG/DL CREATININE (test code = 2214) 0.69 MG/DL eGFR (2020 CKD-EPI) (test code = 85942) 112 ML/MIN/1.73 CALC BUN/CREAT (test code = 2235) 12 RATIO SODIUM (test code = 2231) 140 MEQ/L POTASSIUM (test code = 2228) 4.4 MEQ/L CHLORIDE (test code = 2215) 105 MEQ/L CARBON DIOXIDE (test code = 2206) 20 MEQ/L CALCIUM (test code = 2209) 8.6 MG/DL PROTEIN, TOTAL (test code = 2229) 7.9 G/DL ALBUMIN (test code = 2201) 4.6 G/DL CALC GLOBULIN (test code = 2240) 3.3 G/DL CALC A/G RATIO (test code = 2234) 1.4 RATIO BILIRUBIN, TOTAL (test code = 2207) 0.3 MG/DL ALKALINE PHOSPHATASE (test code = 2204) 115 U/L AST (test code = 2218) 43 U/L ALT (test code = 2219) 80 U/L Eusebio JuanMICROALBUMIN/CREATININE, RANDOM AND [id number] 00:00:00* Test Item Value Reference Range Interpretation Comme nts CREATININE, URINE, RANDOM (t est code = 2072) 160.8 MG/DL ALBUMIN, URINE, RANDOM (test code = 28613) 0.6 MG/DL CALC ALBUMIN/CREAT, RND (cora t code = 62346) 4 MG/G Eusebio JuanHEMOGLOBIN [id number] 00:00:00* Test Item Value Reference Range Interpretation Comme samantha HEMOGLOBIN A1c (test code = 65710) 8.4 % Eusebio JuanLIPID [id number] 00:00:00* Test Item Value Reference Range Interpretation Comme nts CHOLESTEROL (test code = 2210) 192 MG/DL TRIGLYCERIDES (test code = 2232) 105 MG/DL HDL CHOLESTEROL (test code = 2220) 47 MG/DL CALC LDL CHOL (test code = 2237) 124 MG/DL RISK RATIO LDL/HDL (test cod e = 2238) 2.64 RATIO Eusebio JuanCOMPREHENSIVE METABOLIC [id number] 00:00:00* Test Item Value Reference Range Interpretation Comme nts GLUCOSE (test code = 2217) 138 MG/DL BUN (test code = 2208) 8 MG/DL CREATININE (test code = 2214) 0.69 MG/DL eGFR (2020 CKD-EPI) (test code = 35547) 112 ML/MIN/1.73 CALC BUN/CREAT (test code = 2235) 12 RATIO SODIUM (test code = 2231) 140 MEQ/L POTASSIUM (test code = 2228) 4.4 MEQ/L CHLORIDE (test code = 2215) 105 MEQ/L CARBON DIOXIDE (test code = 2206) 20 MEQ/L CALCIUM (test code = 2209) 8.6 MG/DL PROTEIN, TOTAL (test code = 2229) 7.9 G/DL ALBUMIN (test code = 2201) 4.6 G/DL CALC GLOBULIN (test code = 2240) 3.3 G/DL CALC A/G RATIO (test code = 2234) 1.4 RATIO BILIRUBIN, TOTAL (test code = 2207) 0.3 MG/DL ALKALINE PHOSPHATASE (test code = 2204) 115 U/L AST (test code = 2218) 43 U/L ALT (test code = 2219) 80 U/L Eusebio JuanMICROALBUMIN/CREATININE, RANDOM AND [id number] 00:00:00* Test Item Value Reference Range Interpretation Comme nts CREATININE, URINE, RANDOM (t est code = 2072) 160.8 MG/DL ALBUMIN, URINE, RANDOM (test code = 90315) 0.6 MG/DL CALC ALBUMIN/CREAT, RND (cora t code = 74106) 4 MG/G Eusebio JuanHEMOGLOBIN [id number] 00:00:00* Test Item Value Reference Range Interpretation Comme nts HEMOGLOBIN A1c (test code = 54338) 8.4 % Eusebio JuanLIPID [id number] 00:00:00* Test Item Value Reference Range Interpretation Comme nts CHOLESTEROL (test code = 2210) 192 MG/DL TRIGLYCERIDES (test code = 2232) 105 MG/DL HDL CHOLESTEROL (test code = 2220) 47 MG/DL CALC LDL CHOL (test code = 2237) 124 MG/DL RISK RATIO LDL/HDL (test cod e = 2238) 2.64 RATIO Eusebio JuanCOMPREHENSIVE METABOLIC [id number] 00:00:00* Test Item Value Reference Range Interpretation Comme nts GLUCOSE (test code = 2217) 138 MG/DL BUN (test code = 2208) 8 MG/DL CREATININE (test code = 2214) 0.69 MG/DL eGFR (2020 CKD-EPI) (test code = 40808) 112 ML/MIN/1.73 CALC BUN/CREAT (test code = 2235) 12 RATIO SODIUM (test code = 2231) 140 MEQ/L POTASSIUM (test code = 2228) 4.4 MEQ/L CHLORIDE (test code = 2215) 105 MEQ/L CARBON DIOXIDE (test code = 2206) 20 MEQ/L CALCIUM (test code = 2209) 8.6 MG/DL PROTEIN, TOTAL (test code = 2229) 7.9 G/DL ALBUMIN (test code = 2201) 4.6 G/DL CALC GLOBULIN (test code = 2240) 3.3 G/DL CALC A/G RATIO (test code = 2234) 1.4 RATIO BILIRUBIN, TOTAL (test code = 2207) 0.3 MG/DL ALKALINE PHOSPHATASE (test code = 2204) 115 U/L AST (test code = 2218) 43 U/L ALT (test code = 2219) 80 U/L Eusebio JuanMICROALBUMIN/CREATININE, RANDOM AND [id number] 00:00:00* Test Item Value Reference Range Interpretation Comme nts CREATININE, URINE, RANDOM (t est code = 2072) 160.8 MG/DL ALBUMIN, URINE, RANDOM (test code = 38653) 0.6 MG/DL CALC ALBUMIN/CREAT, RND (cora t code = 71058) 4 MG/G Eusebio JuanHEMOGLOBIN [id number] 00:00:00* Test Item Value Reference Range Interpretation Comme nts HEMOGLOBIN A1c (test code = 58360) 8.4 % Eusebio JuanLIPID [id number] 00:00:00* Test Item Value Reference Range Interpretation Comme nts CHOLESTEROL (test code = 2210) 192 MG/DL TRIGLYCERIDES (test code = 2232) 105 MG/DL HDL CHOLESTEROL (test code = 2220) 47 MG/DL CALC LDL CHOL (test code = 2237) 124 MG/DL RISK RATIO LDL/HDL (test cod e = 2238) 2.64 RATIO Eusebio JuanCOMPREHENSIVE METABOLIC [id number] 00:00:00* Test Item Value Reference Range Interpretation Comme nts GLUCOSE (test code = 2217) 138 MG/DL BUN (test code = 2208) 8 MG/DL CREATININE (test code = 2214) 0.69 MG/DL eGFR (2020 CKD-EPI) (test code = 20773) 112 ML/MIN/1.73 CALC BUN/CREAT (test code = 2235) 12 RATIO SODIUM (test code = 2231) 140 MEQ/L POTASSIUM (test code = 2228) 4.4 MEQ/L CHLORIDE (test code = 2215) 105 MEQ/L CARBON DIOXIDE (test code = 2206) 20 MEQ/L CALCIUM (test code = 2209) 8.6 MG/DL PROTEIN, TOTAL (test code = 2229) 7.9 G/DL ALBUMIN (test code = 2201) 4.6 G/DL CALC GLOBULIN (test code = 2240) 3.3 G/DL CALC A/G RATIO (test code = 2234) 1.4 RATIO BILIRUBIN, TOTAL (test code = 2207) 0.3 MG/DL ALKALINE PHOSPHATASE (test code = 220) 115 U/L AST (test code = 2218) 43 U/L ALT (test code = 2219) 80 U/L Eusebio JuanMICROALBUMIN/CREATININE, RANDOM AND [id number] 00:00:00* Test Item Value Reference Range Interpretation Comme nts CREATININE, URINE, RANDOM (t est code = 2072) 160.8 MG/DL ALBUMIN, URINE, RANDOM (test code = 27341) 0.6 MG/DL CALC ALBUMIN/CREAT, RND (cora t code = 93079) 4 MG/G Eusebio JuanHEMOGLOBIN [id number] 00:00:00* Test Item Value Reference Range Interpretation Comme nts HEMOGLOBIN A1c (test code = 92520) 8.4 % Eusebio JuanLIPID [id number] 00:00:00* Test Item Value Reference Range Interpretation Comme nts CHOLESTEROL (test code = 2210) 192 MG/DL TRIGLYCERIDES (test code = 2232) 105 MG/DL HDL CHOLESTEROL (test code = 2220) 47 MG/DL CALC LDL CHOL (test code = 2237) 124 MG/DL RISK RATIO LDL/HDL (test cod e = 2238) 2.64 RATIO Eusebio JuanCOMPREHENSIVE METABOLIC [id number] 00:00:00* Test Item Value Reference Range Interpretation Comme nts GLUCOSE (test code = 2217) 210 MG/DL BUN (test code = 2208) 9 MG/DL CREATININE (test code = 2214) 0.61 MG/DL eGFR AMER. (test cod e = 82538) 131 ML/MIN/1.73 eGFR NON- AMER. (test code = 44137) 113 ML/MIN/1.73 CALC BUN/CREAT (test code = 2235) 15 RATIO SODIUM (test code = 2231) 138 MEQ/L POTASSIUM (test code = 2228) 3.9 MEQ/L CHLORIDE (test code = 2215) 102 MEQ/L CARBON DIOXIDE (test code = 2206) 25 MEQ/L CALCIUM (test code = 2209) 8.9 MG/DL PROTEIN, TOTAL (test code = 2229) 7.6 G/DL ALBUMIN (test code = 2201) 4.2 G/DL CALC GLOBULIN (test code = 2240) 3.4 G/DL CALC A/G RATIO (test code = 2234) 1.2 RATIO BILIRUBIN, TOTAL (test code = 2207) <0.2 MG/DL ALKALINE PHOSPHATASE (test code = 2204) 111 U/L AST (test code = 2218) 35 U/L ALT (test code = 2219) 69 U/L HEMOGLOBIN [id number] 00:00:00* Test Item Value Reference Range Interpretation Comme [facility] HEMOGLOBIN A1c (test code = 89377) 7.6 % COMPREHENSIVE METABOLIC [id number] 00:00:00* Test Item Value Reference Range Interpretation Comme nts GLUCOSE (test code = 2217) 210 MG/DL BUN (test code = 2208) 9 MG/DL CREATININE (test code = 2214) 0.61 MG/DL eGFR AMER. (test cod e = 73491) 131 ML/MIN/1.73 eGFR NON- AMER. (test code = 16647) 113 ML/MIN/1.73 CALC BUN/CREAT (test code = 2235) 15 RATIO SODIUM (test code = 2231) 138 MEQ/L POTASSIUM (test code = 2228) 3.9 MEQ/L CHLORIDE (test code = 2215) 102 MEQ/L CARBON DIOXIDE (test code = 2206) 25 MEQ/L CALCIUM (test code = 2209) 8.9 MG/DL PROTEIN, TOTAL (test code = 2229) 7.6 G/DL ALBUMIN (test code = 2201) 4.2 G/DL CALC GLOBULIN (test code = 2240) 3.4 G/DL CALC A/G RATIO (test code = 2234) 1.2 RATIO BILIRUBIN, TOTAL (test code = 2207) <0.2 MG/DL ALKALINE PHOSPHATASE (test code = 2204) 111 U/L AST (test code = 2218) 35 U/L ALT (test code = 2219) 69 U/L Eusebio Bruce AustinHEMOGLOBIN [id number] 00:00:00* Test Item Value Reference Range Interpretation Comme nts HEMOGLOBIN A1c (test code = 01145) 7.6 % Eusebio Bruce AustinCOMPREHENSIVE METABOLIC [id number] 00:00:00* Test Item Value Reference Range Interpretation Comme nts GLUCOSE (test code = 2217) 210 MG/DL BUN (test code = 2208) 9 MG/DL CREATININE (test code = 2214) 0.61 MG/DL eGFR AMER. (test cod e = 49449) 131 ML/MIN/1.73 eGFR NON- AMER. (test code = 99382) 113 ML/MIN/1.73 CALC BUN/CREAT (test code = 2235) 15 RATIO SODIUM (test code = 2231) 138 MEQ/L POTASSIUM (test code = 2228) 3.9 MEQ/L CHLORIDE (test code = 2215) 102 MEQ/L CARBON DIOXIDE (test code = 2206) 25 MEQ/L CALCIUM (test code = 2209) 8.9 MG/DL PROTEIN, TOTAL (test code = 2229) 7.6 G/DL ALBUMIN (test code = 2201) 4.2 G/DL CALC GLOBULIN (test code = 2240) 3.4 G/DL CALC A/G RATIO (test code = 2234) 1.2 RATIO BILIRUBIN, TOTAL (test code = 2207) <0.2 MG/DL ALKALINE PHOSPHATASE (test code = 2204) 111 U/L AST (test code = 2218) 35 U/L ALT (test code = 2219) 69 U/L Eusebio JuanHEMOGLOBIN [id number] 00:00:00* Test Item Value Reference Range Interpretation Comme samantha HEMOGLOBIN A1c (test code = 56356) 7.6 % Eusebio JuanCOMPREHENSIVE METABOLIC [id number] 00:00:00* Test Item Value Reference Range Interpretation Comme nts GLUCOSE (test code = 2217) 210 MG/DL BUN (test code = 2208) 9 MG/DL CREATININE (test code = 2214) 0.61 MG/DL eGFR AMER. (test cod e = 64053) 131 ML/MIN/1.73 eGFR NON- AMER. (test code = 86020) 113 ML/MIN/1.73 CALC BUN/CREAT (test code = 2235) 15 RATIO SODIUM (test code = 2231) 138 MEQ/L POTASSIUM (test code = 2228) 3.9 MEQ/L CHLORIDE (test code = 2215) 102 MEQ/L CARBON DIOXIDE (test code = 2206) 25 MEQ/L CALCIUM (test code = 2209) 8.9 MG/DL PROTEIN, TOTAL (test code = 2229) 7.6 G/DL ALBUMIN (test code = 2201) 4.2 G/DL CALC GLOBULIN (test code = 2240) 3.4 G/DL CALC A/G RATIO (test code = 2234) 1.2 RATIO BILIRUBIN, TOTAL (test code = 2207) <0.2 MG/DL ALKALINE PHOSPHATASE (test code = 2204) 111 U/L AST (test code = 2218) 35 U/L ALT (test code = 2219) 69 U/L Eusebio Bruce [place] [id number] 00:00:00* Test Item Value Reference Range Interpretation Comme [facility] HEMOGLOBIN A1c (test code = 03257) 7.6 % Eusebio Bruce [place] [id number] 00:00:00* Test Item Value Reference Range Interpretation Comme nts GLUCOSE (test code = 2217) 210 MG/DL BUN (test code = 2208) 9 MG/DL CREATININE (test code = 2214) 0.61 MG/DL eGFR AMER. (test cod e = 32549) 131 ML/MIN/1.73 eGFR NON- AMER. (test code = 37360) 113 ML/MIN/1.73 CALC BUN/CREAT (test code = 2235) 15 RATIO SODIUM (test code = 2231) 138 MEQ/L POTASSIUM (test code = 2228) 3.9 MEQ/L CHLORIDE (test code = 2215) 102 MEQ/L CARBON DIOXIDE (test code = 2206) 25 MEQ/L CALCIUM (test code = 2209) 8.9 MG/DL PROTEIN, TOTAL (test code = 2229) 7.6 G/DL ALBUMIN (test code = 2201) 4.2 G/DL CALC GLOBULIN (test code = 2240) 3.4 G/DL CALC A/G RATIO (test code = 2234) 1.2 RATIO BILIRUBIN, TOTAL (test code = 2207) <0.2 MG/DL ALKALINE PHOSPHATASE (test code = 2204) 111 U/L AST (test code = 2218) 35 U/L ALT (test code = 2219) 69 U/L Eusebio JuanHEMOGLOBIN [id number] 00:00:00* Test Item Value Reference Range Interpretation Comme nts HEMOGLOBIN A1c (test code = 76877) 7.6 % Eusebio Bruce AustinCOMPREHENSIVE METABOLIC [id number] 00:00:00* Test Item Value Reference Range Interpretation Comme nts GLUCOSE (test code = 2217) 210 MG/DL BUN (test code = 2208) 9 MG/DL CREATININE (test code = 2214) 0.61 MG/DL eGFR AMER. (test cod e = 68407) 131 ML/MIN/1.73 eGFR NON- AMER. (test code = 46544) 113 ML/MIN/1.73 CALC BUN/CREAT (test code = 2235) 15 RATIO SODIUM (test code = 2231) 138 MEQ/L POTASSIUM (test code = 2228) 3.9 MEQ/L CHLORIDE (test code = 2215) 102 MEQ/L CARBON DIOXIDE (test code = 2206) 25 MEQ/L CALCIUM (test code = 2209) 8.9 MG/DL PROTEIN, TOTAL (test code = 2229) 7.6 G/DL ALBUMIN (test code = 2201) 4.2 G/DL CALC GLOBULIN (test code = 2240) 3.4 G/DL CALC A/G RATIO (test code = 2234) 1.2 RATIO BILIRUBIN, TOTAL (test code = 2207) <0.2 MG/DL ALKALINE PHOSPHATASE (test code = 2204) 111 U/L AST (test code = 2218) 35 U/L ALT (test code = 2219) 69 U/L Eusebio Bruce AustinHEMOGLOBIN [id number] 00:00:00* Test Item Value Reference Range Interpretation Comme nts HEMOGLOBIN A1c (test code = 82655) 7.6 % Eusebio Bruce AustinCOMPREHENSIVE METABOLIC [id number] 00:00:00* Test Item Value Reference Range Interpretation Comme nts GLUCOSE (test code = 2217) 210 MG/DL BUN (test code = 2208) 9 MG/DL CREATININE (test code = 2214) 0.61 MG/DL eGFR AMER. (test cod e = 13887) 131 ML/MIN/1.73 eGFR NON- AMER. (test code = 16723) 113 ML/MIN/1.73 CALC BUN/CREAT (test code = 2235) 15 RATIO SODIUM (test code = 2231) 138 MEQ/L POTASSIUM (test code = 2228) 3.9 MEQ/L CHLORIDE (test code = 2215) 102 MEQ/L CARBON DIOXIDE (test code = 2206) 25 MEQ/L CALCIUM (test code = 2209) 8.9 MG/DL PROTEIN, TOTAL (test code = 2229) 7.6 G/DL ALBUMIN (test code = 2201) 4.2 G/DL CALC GLOBULIN (test code = 2240) 3.4 G/DL CALC A/G RATIO (test code = 2234) 1.2 RATIO BILIRUBIN, TOTAL (test code = 2207) <0.2 MG/DL ALKALINE PHOSPHATASE (test code = 4) 111 U/L AST (test code = 2218) 35 U/L ALT (test code = 2219) 69 U/L Eusebio JuanHEMOGLOBIN [id number] 00:00:00* Test Item Value Reference Range Interpretation Comme nts HEMOGLOBIN A1c (test code = 92905) 7.6 % Eusebio JuanCOMPREHENSIVE METABOLIC [id number] 00:00:00* Test Item Value Reference Range Interpretation Comme nts GLUCOSE (test code = 2217) 210 MG/DL BUN (test code = 2208) 9 MG/DL CREATININE (test code = 2214) 0.61 MG/DL eGFR AMER. (test cod e = 93864) 131 ML/MIN/1.73 eGFR NON- AMER. (test code = 82181) 113 ML/MIN/1.73 CALC BUN/CREAT (test code = 2235) 15 RATIO SODIUM (test code = 2231) 138 MEQ/L POTASSIUM (test code = 2228) 3.9 MEQ/L CHLORIDE (test code = 2215) 102 MEQ/L CARBON DIOXIDE (test code = 2206) 25 MEQ/L CALCIUM (test code = 2209) 8.9 MG/DL PROTEIN, TOTAL (test code = 2229) 7.6 G/DL ALBUMIN (test code = 2201) 4.2 G/DL CALC GLOBULIN (test code = 2240) 3.4 G/DL CALC A/G RATIO (test code = 2234) 1.2 RATIO BILIRUBIN, TOTAL (test code = 2207) <0.2 MG/DL ALKALINE PHOSPHATASE (test code = 2204) 111 U/L AST (test code = 2218) 35 U/L ALT (test code = 2219) 69 U/L Eusebio JuanHEMOGLOBIN [id number] 00:00:00* Test Item Value Reference Range Interpretation Comme nts HEMOGLOBIN A1c (test code = 36871) 7.6 % Eusebio JuanCBC W/AUTO [id number] 00:00:00* Test Item Value Reference Range Interpretation Comme nts WBC (test code = 1001) 9.2 K/UL [...] = 1013) 0.4 % IMMATURE GRANULOCYTES (test code = 1036) 0.1 % NUCLEATED RBCS (test code = 1065) 0.0 /100WBC'S PLATELET COUNT (test code = 1015) 229 K/UL ABSOLUTE NEUTROPHILS (test c ode = 1066) 6.69 K/UL ABSOLUTE LYMPHOCYTES (test c ode = 1067) 1.77 K/UL ABSOLUTE MONOCYTES (test cod e = 1068) 0.47 K/UL ABSOLUTE EOSINOPHILS (test c ode = 1040) 0.19 K/UL ABSOLUTE BASOPHILS (test cod e = 1069) 0.04 K/UL ABS IMMATURE GRANULOCYTES (t est code = 1020) 0.01 K/UL ABS NUCLEATED RBCS (test cod e = 86876) 0.00 K/UL HEMOGLOBIN [id number] 00:00:00* Test Item Value Reference Range Interpretation Comme nts HEMOGLOBIN A1c (test code = 88672) 8.3 % LIPID [id number] 00:00:00* Test Item Value Reference Range Interpretation Comme nts CHOLESTEROL (test code = 2210) 195 MG/DL TRIGLYCERIDES (test code = 2232) 109 MG/DL HDL CHOLESTEROL (test code = 2220) 46 MG/DL CALC LDL CHOL (test code = 2237) 127 MG/DL RISK RATIO LDL/HDL (test cod e = 2238) 2.76 RATIO COMPREHENSIVE METABOLIC [id number] 00:00:00* Test Item Value Reference Range Interpretation Comme nts GLUCOSE (test code = 2217) 192 MG/DL BUN (test code = 2208) 10 MG/DL CREATININE (test code = 2214) 0.71 MG/DL eGFR AMER. (test cod e = 84508) 123 ML/MIN/1.73 eGFR NON- AMER. (test code = 13375) 107 ML/MIN/1.73 CALC BUN/CREAT (test code = 2235) 14 RATIO SODIUM (test code = 2231) 137 MEQ/L POTASSIUM (test code = 2228) 4.7 MEQ/L CHLORIDE (test code = 2215) 104 MEQ/L CARBON DIOXIDE (test code = 2206) 20 MEQ/L CALCIUM (test code = 2209) 8.7 MG/DL PROTEIN, TOTAL (test code = 2229) 7.5 G/DL ALBUMIN (test code = 2201) 4.4 G/DL CALC GLOBULIN (test code = 2240) 3.1 G/DL CALC A/G RATIO (test code = 2234) 1.4 RATIO BILIRUBIN, TOTAL (test code = 2207) 0.3 MG/DL ALKALINE PHOSPHATASE (test code = 2204) 103 U/L AST (test code = 2218) 43 U/L ALT (test code = 2219) 101 U/L [id number] 00:00:00* Test Item Value Reference Range Interpretation Comme nts TSH, THIRD GENERATION (test code = 2821) 1.650 UIU/ML HEMOGLOBIN [id number] 00:00:00* Test Item Value Reference Range Interpretation Comme nts HEMOGLOBIN A1c (test code = 97717) 8.3 % Eusebio JuanLIPID [id number] 00:00:00* Test Item Value Reference Range Interpretation Comme nts CHOLESTEROL (test code = 2210) 195 MG/DL TRIGLYCERIDES (test code = 2232) 109 MG/DL HDL CHOLESTEROL (test code = 2220) 46 MG/DL CALC LDL CHOL (test code = 2237) 127 MG/DL RISK RATIO LDL/HDL (test cod e = 2238) 2.76 RATIO Eusebio JuanCOMPREHENSIVE METABOLIC [id number] 00:00:00* Test Item Value Reference Range Interpretation Comme nts GLUCOSE (test code = 2217) 192 MG/DL BUN (test code = 2208) 10 MG/DL CREATININE (test code = 2214) 0.71 MG/DL eGFR AMER. (test cod e = 91764) 123 ML/MIN/1.73 eGFR NON- AMER. (test code = 81951) 107 ML/MIN/1.73 CALC BUN/CREAT (test code = 2235) 14 RATIO SODIUM (test code = 2231) 137 MEQ/L POTASSIUM (test code = 2228) 4.7 MEQ/L CHLORIDE (test code = 2215) 104 MEQ/L CARBON DIOXIDE (test code = 2206) 20 MEQ/L CALCIUM (test code = 2209) 8.7 MG/DL PROTEIN, TOTAL (test code = 2229) 7.5 G/DL ALBUMIN (test code = 2201) 4.4 G/DL CALC GLOBULIN (test code = 2240) 3.1 G/DL CALC A/G RATIO (test code = 2234) 1.4 RATIO BILIRUBIN, TOTAL (test code = 2207) 0.3 MG/DL ALKALINE PHOSPHATASE (test code = 2204) 103 U/L AST (test code = 2218) 43 U/L ALT (test code = 2219) 101 U/L Eusebio [id number] 00:00:00* Test Item Value Reference Range Interpretation Comme nts TSH, THIRD GENERATION (test code = 2821) 1.650 UIU/ML Eusebio JuanCBC W/AUTO [id number] 00:00:00* Test Item Value Reference Range Interpretation Comme nts WBC (test code = 1001) 9.2 K/UL [...] = 1013) 0.4 % IMMATURE GRANULOCYTES (test code = 1036) 0.1 % NUCLEATED RBCS (test code = 1065) 0.0 /100WBC'S PLATELET COUNT (test code = 1015) 229 K/UL ABSOLUTE NEUTROPHILS (test c ode = 1066) 6.69 K/UL ABSOLUTE LYMPHOCYTES (test c ode = 1067) 1.77 K/UL ABSOLUTE MONOCYTES (test cod e = 1068) 0.47 K/UL ABSOLUTE EOSINOPHILS (test c ode = 1040) 0.19 K/UL ABSOLUTE BASOPHILS (test cod e = 1069) 0.04 K/UL ABS IMMATURE GRANULOCYTES (t est code = 1020) 0.01 K/UL ABS NUCLEATED RBCS (test cod e = 87596) 0.00 K/UL Eusebio JuanHEMOGLOBIN [id number] 00:00:00* Test Item Value Reference Range Interpretation Comme nts HEMOGLOBIN A1c (test code = 13009) 8.3 % Eusebio JuanLIPID [id number] 00:00:00* Test Item Value Reference Range Interpretation Comme nts CHOLESTEROL (test code = 2210) 195 MG/DL TRIGLYCERIDES (test code = 2232) 109 MG/DL HDL CHOLESTEROL (test code = 2220) 46 MG/DL CALC LDL CHOL (test code = 2237) 127 MG/DL RISK RATIO LDL/HDL (test cod e = 2238) 2.76 RATIO Eusebio JuanCOMPREHENSIVE METABOLIC [id number] 00:00:00* Test Item Value Reference Range Interpretation Comme nts GLUCOSE (test code = 2217) 192 MG/DL BUN (test code = 2208) 10 MG/DL CREATININE (test code = 2214) 0.71 MG/DL eGFR AMER. (test cod e = 49455) 123 ML/MIN/1.73 eGFR NON- AMER. (test code = 26144) 107 ML/MIN/1.73 CALC BUN/CREAT (test code = 2235) 14 RATIO SODIUM (test code = 2231) 137 MEQ/L POTASSIUM (test code = 2228) 4.7 MEQ/L CHLORIDE (test code = 2215) 104 MEQ/L CARBON DIOXIDE (test code = 2206) 20 MEQ/L CALCIUM (test code = 2209) 8.7 MG/DL PROTEIN, TOTAL (test code = 222) 7.5 G/DL ALBUMIN (test code = 2201) 4.4 G/DL CALC GLOBULIN (test code = 2240) 3.1 G/DL CALC A/G RATIO (test code = 2234) 1.4 RATIO BILIRUBIN, TOTAL (test code = 2207) 0.3 MG/DL ALKALINE PHOSPHATASE (test code = 220) 103 U/L AST (test code = 2218) 43 U/L ALT (test code = 2219) 101 U/L Eusebio [id number] 00:00:00* Test Item Value Reference Range Interpretation Comme nts TSH, THIRD GENERATION (test code = 2821) 1.650 UIU/ML Eusebio JuanCBC W/AUTO [id number] 00:00:00* Test Item Value Reference Range Interpretation Comme nts WBC (test code = 1001) 9.2 K/UL [...] = 1013) 0.4 % IMMATURE GRANULOCYTES (test code = 1036) 0.1 % NUCLEATED RBCS (test code = 1065) 0.0 /100WBC'S PLATELET COUNT (test code = 1015) 229 K/UL ABSOLUTE NEUTROPHILS (test c ode = 1066) 6.69 K/UL ABSOLUTE LYMPHOCYTES (test c ode = 1067) 1.77 K/UL ABSOLUTE MONOCYTES (test cod e = 1068) 0.47 K/UL ABSOLUTE EOSINOPHILS (test c ode = 1040) 0.19 K/UL ABSOLUTE BASOPHILS (test cod e = 1069) 0.04 K/UL ABS IMMATURE GRANULOCYTES (t est code = 1020) 0.01 K/UL ABS NUCLEATED RBCS (test cod e = 73274) 0.00 K/UL Eusebio JuanHEMOGLOBIN [id number] 00:00:00* Test Item Value Reference Range Interpretation Comme nts HEMOGLOBIN A1c (test code = 27540) 8.3 % Eusebio JuanLIPID [id number] 00:00:00* Test Item Value Reference Range Interpretation Comme nts CHOLESTEROL (test code = 2210) 195 MG/DL TRIGLYCERIDES (test code = 2232) 109 MG/DL HDL CHOLESTEROL (test code = 2220) 46 MG/DL CALC LDL CHOL (test code = 2237) 127 MG/DL RISK RATIO LDL/HDL (test cod e = 2238) 2.76 RATIO Eusebio JuanCOMPREHENSIVE METABOLIC [id number] 00:00:00* Test Item Value Reference Range Interpretation Comme nts GLUCOSE (test code = 2217) 192 MG/DL BUN (test code = 2208) 10 MG/DL CREATININE (test code = 2214) 0.71 MG/DL eGFR AMER. (test cod e = 67188) 123 ML/MIN/1.73 eGFR NON- AMER. (test code = 73929) 107 ML/MIN/1.73 CALC BUN/CREAT (test code = 2235) 14 RATIO SODIUM (test code = 2231) 137 MEQ/L POTASSIUM (test code = 2228) 4.7 MEQ/L CHLORIDE (test code = 2215) 104 MEQ/L CARBON DIOXIDE (test code = 2206) 20 MEQ/L CALCIUM (test code = 2209) 8.7 MG/DL PROTEIN, TOTAL (test code = 2229) 7.5 G/DL ALBUMIN (test code = 2201) 4.4 G/DL CALC GLOBULIN (test code = 2240) 3.1 G/DL CALC A/G RATIO (test code = 2234) 1.4 RATIO BILIRUBIN, TOTAL (test code = 2207) 0.3 MG/DL ALKALINE PHOSPHATASE (test code = 2204) 103 U/L AST (test code = 2218) 43 U/L ALT (test code = 2219) 101 U/L Eusebio [id number] 00:00:00* Test Item Value Reference Range Interpretation Comme nts TSH, THIRD GENERATION (test code = 2821) 1.650 UIU/ML Eusebio JuanCBC W/AUTO [id number] 00:00:00* Test Item Value Reference Range Interpretation Comme nts WBC (test code = 1001) 9.2 K/UL [...] = 1013) 0.4 % IMMATURE GRANULOCYTES (test code = 1036) 0.1 % NUCLEATED RBCS (test code = 1065) 0.0 /100WBC'S PLATELET COUNT (test code = 1015) 229 K/UL ABSOLUTE NEUTROPHILS (test c ode = 1066) 6.69 K/UL ABSOLUTE LYMPHOCYTES (test c ode = 1067) 1.77 K/UL ABSOLUTE MONOCYTES (test cod e = 1068) 0.47 K/UL ABSOLUTE EOSINOPHILS (test c ode = 1040) 0.19 K/UL ABSOLUTE BASOPHILS (test cod e = 1069) 0.04 K/UL ABS IMMATURE GRANULOCYTES (t est code = 1020) 0.01 K/UL ABS NUCLEATED RBCS (test cod e = 72852) 0.00 K/UL Eusebio JuanHEMOGLOBIN [id number] 00:00:00* Test Item Value Reference Range Interpretation Comme samantha HEMOGLOBIN A1c (test code = 69892) 8.3 % Eusebio JuanLIPID [id number] 00:00:00* Test Item Value Reference Range Interpretation Comme nts CHOLESTEROL (test code = 2210) 195 MG/DL TRIGLYCERIDES (test code = 2232) 109 MG/DL HDL CHOLESTEROL (test code = 2220) 46 MG/DL CALC LDL CHOL (test code = 2237) 127 MG/DL RISK RATIO LDL/HDL (test cod e = 2238) 2.76 RATIO Eusebio JuanCOMPREHENSIVE METABOLIC [id number] 00:00:00* Test Item Value Reference Range Interpretation Comme nts GLUCOSE (test code = 2217) 192 MG/DL BUN (test code = 2208) 10 MG/DL CREATININE (test code = 2214) 0.71 MG/DL eGFR AMER. (test cod e = 60421) 123 ML/MIN/1.73 eGFR NON- AMER. (test code = 48973) 107 ML/MIN/1.73 CALC BUN/CREAT (test code = 2235) 14 RATIO SODIUM (test code = 2231) 137 MEQ/L POTASSIUM (test code = 2228) 4.7 MEQ/L CHLORIDE (test code = 2215) 104 MEQ/L CARBON DIOXIDE (test code = 2206) 20 MEQ/L CALCIUM (test code = 2209) 8.7 MG/DL PROTEIN, TOTAL (test code = 2229) 7.5 G/DL ALBUMIN (test code = 2201) 4.4 G/DL CALC GLOBULIN (test code = 2240) 3.1 G/DL CALC A/G RATIO (test code = 2234) 1.4 RATIO BILIRUBIN, TOTAL (test code = 2207) 0.3 MG/DL ALKALINE PHOSPHATASE (test code = 2204) 103 U/L AST (test code = 2218) 43 U/L ALT (test code = 2219) 101 U/L Eusebio [id number] 00:00:00* Test Item Value Reference Range Interpretation Comme samantha TSH, THIRD GENERATION (test code = 2821) 1.650 UIU/ML Eusebio JuanCBC W/AUTO [id number] 00:00:00* Test Item Value Reference Range Interpretation Comme nts WBC (test code = 1001) 9.2 K/UL [...] = 1013) 0.4 % IMMATURE GRANULOCYTES (test code = 1036) 0.1 % NUCLEATED RBCS (test code = 1065) 0.0 /100WBC'S PLATELET COUNT (test code = 1015) 229 K/UL ABSOLUTE NEUTROPHILS (test c ode = 1066) 6.69 K/UL ABSOLUTE LYMPHOCYTES (test c ode = 1067) 1.77 K/UL ABSOLUTE MONOCYTES (test cod e = 1068) 0.47 K/UL ABSOLUTE EOSINOPHILS (test c ode = 1040) 0.19 K/UL ABSOLUTE BASOPHILS (test cod e = 1069) 0.04 K/UL ABS IMMATURE GRANULOCYTES (t est code = 1020) 0.01 K/UL ABS NUCLEATED RBCS (test cod e = 46727) 0.00 K/UL Eusebio JuanHEMOGLOBIN [id number] 00:00:00* Test Item Value Reference Range Interpretation Comme nts HEMOGLOBIN A1c (test code = 63557) 8.3 % Eusebio JuanLIPID [id number] 00:00:00* Test Item Value Reference Range Interpretation Comme nts CHOLESTEROL (test code = 2210) 195 MG/DL TRIGLYCERIDES (test code = 2232) 109 MG/DL HDL CHOLESTEROL (test code = 2220) 46 MG/DL CALC LDL CHOL (test code = 2237) 127 MG/DL RISK RATIO LDL/HDL (test cod e = 2238) 2.76 RATIO Eusebio JuanCOMPREHENSIVE METABOLIC [id number] 00:00:00* Test Item Value Reference Range Interpretation Comme nts GLUCOSE (test code = 2217) 192 MG/DL BUN (test code = 2208) 10 MG/DL CREATININE (test code = 2214) 0.71 MG/DL eGFR AMER. (test cod e = 26948) 123 ML/MIN/1.73 eGFR NON- AMER. (test code = 02008) 107 ML/MIN/1.73 CALC BUN/CREAT (test code = 2235) 14 RATIO SODIUM (test code = 2231) 137 MEQ/L POTASSIUM (test code = 2228) 4.7 MEQ/L CHLORIDE (test code = 2215) 104 MEQ/L CARBON DIOXIDE (test code = 2206) 20 MEQ/L CALCIUM (test code = 2209) 8.7 MG/DL PROTEIN, TOTAL (test code = 2229) 7.5 G/DL ALBUMIN (test code = 2201) 4.4 G/DL CALC GLOBULIN (test code = 2240) 3.1 G/DL CALC A/G RATIO (test code = 2234) 1.4 RATIO BILIRUBIN, TOTAL (test code = 2207) 0.3 MG/DL ALKALINE PHOSPHATASE (test code = 2204) 103 U/L AST (test code = 2218) 43 U/L ALT (test code = 2219) 101 U/L Eusebio [id number] 00:00:00* Test Item Value Reference Range Interpretation Comme nts TSH, THIRD GENERATION (test code = 2821) 1.650 UIU/ML Eusebio Bruce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
--- NOTE | 2024-08-27 15:41 | RAD REPORT ---
EXAMINATION: Tib Fib Left CLINICAL INDICATION: Female, 44 years old. lle injury COMPARISON: No prior exam. VIEWS: As above FINDINGS: No acute fracture. No malalignment/dislocation. Calcaneal spurs. Other: n/a IMPRESSION: No acute osseous abnormality.
--- NOTE | 2024-08-27 15:42 | RAD REPORT ---
EXAM: Foot Right 3 View HISTORY: Great toe injury COMPARISON: None FINDINGS: Bones: Minimally displaced fracture with intra-articular extension along the medial proximal aspect o f the great toe proximal phalanx. The fracture extends to the MTP joint. Alignment:No significant malalignment. Degenerative changes:Degenerative changes which are mild are present at the MTP joint. Calcaneal spur s. Other: n/a IMPRESSION: Acute fracture of the great toe proximal phalanx.
--- NOTE | 2024-08-27 15:44 | EDPHYS ---
Physician Documentation [facility] Name: Shirley Leija Age: 44 yrs Sex: Female : 1980 Arrival Date: 08/27/2024 Time: 13:59 Bed 26 Private MD: ED Physician Yovany Marquis HPI: 08/27 14:35 This 44 yrs old Female presents to ER via Ambulatory with complaints of Fall ec2 Injury. 14:35 Patient arrives today for evaluation of bilateral lower extremity pain after a fall. ec2 Patient reports that she was walking, tripped and fell. Denies any other concerns. No head strike, no LOC, no head or neck pain.. UROLOGIST: 14:27 LMP 08/19/2024, unknown ap3 Historical: - Allergies: 14:26 No Known Allergies; ap3 - PMHx: 14:26 diabetes mellitus; ap3 - PSHx: 14:26 section; Cholecystectomy; ap3 - Immunization history:: Client reports having NOT received the Covid vaccine. Flu vaccine is not up to date. - Infectious Disease History:: Denies. - Social history:: Smoking status: Patient denies any tobacco usage or history of. ROS: 14:36 Constitutional: as per hpi ec2 Exam: 14:36 Constitutional: GEN: NAD Head: atraumatic Eyes: EOMI Ears: External ears are ec2 normal. CV: regular rate LUNGS: no respiratory distress ABD: non-distended SKIN: no evidence of rashes MSK: R great toe ttp, L knee/prox tib/fib ttp w/o deformity Vital Signs: 14:25 BP 142 / 77; Pulse 69; Resp 17; Temp 98.1; Pulse Ox 100% ; Weight 79.38 kg; Height 5 ap3 ft. 0 in. ; Pain 10/10; 14:25 Body Mass Index 34.18 (79.38 kg, 152.4 cm) ap3 14:25 Pain Scale: Adult ap3 Trauma Score (Adult): 14:27 Eye Response: spontaneous(1); Verbal Response: oriented(1); Motor Response: obeys ap3 commands(2); Systolic BP: > 89 mm Hg(4); Respiratory Rate: 10 to 29 per min(4); [place] Score: 15; Trauma Score: 12 MDM: 14:33 Medical Screening Exam initiated ec2 14:37 Data reviewed: vital signs, nurses notes. ED course: Patient arrives today for ec2 evaluation after a ground-level fall. Examination yields MSK findings as above. Will obtain radiographs. Suspect contusions, additionally considered fracture, doubt dislocation.. 15:43 ED course: Right great toe with fracture. Will place the patient walking boot and have ec2 the patient follow-up with orthopedics. Return precautions given.. 08/27 14:35 Order name: Foot Right 3 View XRAY; Complete Time: 15:43 ec2 08/27 14:35 Order name: Tib Fib Left XRAY; Complete Time: 15:43 ec2 08/27 15:43 Order name: Post-op shoe; Complete Time: 16:12 ec2 Administered Medications: No medications were administered Disposition Summary: 08/27/24 15:44 Discharge Ordered Notes: Location: Home ec2 Condition: Stable ec2 Diagnosis - Nondisplaced fracture of proximal phalanx of right great toe, initial encounter for ec2 closed fracture Followup: ec2 - With: Dhaval Blair MD - When: - Reason: Recheck today's complaints Discharge Instructions: - Discharge Summary Sheet ec2 - Toe Fracture, [id number] ec2 Forms: - Medication Reconciliation Form ec2 - Antibiotic Education ec2 - Prescription Opioid Use ec2 - Patient Portal Instructions ec2 - Leadership Thank You Letter ec2 Signatures: Dispatcher [employer] Dacia Angeles RN RN ap3 Yovany Marquis MD MD ec2 Corrections: (The following items were deleted from the chart) 15:16 14:35 Knee Left 3 View+RAD.RAD.BRZ ordered. MARY HERNANDEZ
--- NOTE | 2024-08-27 15:44 | ER ---
Nurse's Notes [facility] Name: Shirley Leija Age: 44 yrs Sex: Female : 1980 Arrival Date: 08/27/2024 Time: 13:59 Bed 26 Private MD: Diagnosis: Nondisplaced fracture of proximal phalanx of right great toe, initial encounter for closed fracture Presentation: 08/27 14:25 Chief complaint: Patient states: she fell this morning, and is having pain to her left ap3 lower leg and her right great toe. patient states she fell in her kitchen, did not hit her head, did not have any LOC and is not on any thinners. patient currently rates her pain as a 10/10 on the pain scale. Coronavirus screen: At this time, the client does not indicate any symptoms associated with coronavirus-19. Ebola Screen: No symptoms or risks identified at this time. Initial Sepsis Screen: Does the patient meet any 2 criteria? No. Patient's initial sepsis screen is negative. Does the patient have a suspected source of infection? No. Patient's initial sepsis screen is negative. Risk Assessment: Do you want to hurt yourself or someone else? Patient reports no desire to harm self or others. Onset of symptoms was August 27, 2024. 14:25 Method Of Arrival: Ambulatory ap3 14:25 Acuity: ABBY 4 ap3 Triage Assessment: 14:26 General: Appears in no apparent distress. Behavior is calm, cooperative, appropriate ap3 for age. Pain: Complains of pain in right first toe and left leg Pain currently is 10 out of 10 on a pain scale. Neuro: Level of Consciousness is awake, alert, obeys commands, Oriented to person, place, time, situation, Appropriate for age. Cardiovascular: Patient's skin is warm and dry. Respiratory: Airway is patent Respiratory effort is even, unlabored, Respiratory pattern is regular, symmetrical. [employer]: 14:27 LMP 08/19/2024, unknown ap3 Historical: - Allergies: 14:26 No Known Allergies; ap3 - PMHx: 14:26 diabetes mellitus; ap3 - PSHx: 14:26 section; Cholecystectomy; ap3 - Immunization history:: Client reports having NOT received the Covid vaccine. Flu vaccine is not up to date. - Infectious Disease History:: Denies. - Social history:: Smoking status: Patient denies any tobacco usage or history of. Screenin:27 [facility] ED Fall Risk Assessment (Adult) History of falling in the last 3 months, ap3 including since admission Yes- single mechanical fall (1 pt) Confusion or Disorientation No (0 pts) Intoxicated or Sedated No (0 pts) Impaired Gait No (0 pts) Mobility Assist Device Used No (0 pt) Altered Elimination No (0 pt) Score/Fall Risk Level 0 - 2 = Low Risk Oriented to surroundings, Maintained a safe environment, Educated pt \T\ family on fall prevention, incl call for assistance when getting out of bed, Assessed \T\ reinforced patient's understanding of fall precautions, Hourly rounding (assess needs \T\ fall precautionary measures) done, Used ambulatory aids as needed (educated on \T\ assisted with). Abuse screen: Denies threats or abuse. Nutritional screening: No deficits noted. Tuberculosis screening: No symptoms or risk factors identified. Primary Survey: 14:27 NO uncontrolled hemorrhage observed. A: The client is awake and alert. The airway is ap3 patent. Breathing/Chest: Spontaneous respiratory effort, equal unlabored respirations, breath sounds clear bilaterally, regular pattern, symmetrical chest rise and fall. Circulation: No external hemorrhage present. Regular and strong central pulse, skin warm/dry/normal color. Disability Client is alert. Exposure/Environment: No obvious injuries are noted at this time. Assessment: 16:12 Reassessment: Patient appears in no apparent distress at this time. Patient and/or jb4 family updated on plan of care and expected duration. Pain level reassessed. Patient is alert, oriented x 3, equal unlabored respirations, skin warm/dry/pink. Vital Signs: 14:25 BP 142 / 77; Pulse 69; Resp 17; Temp 98.1; Pulse Ox 100% ; Weight 79.38 kg; Height 5 ap3 ft. 0 in. ; Pain 10/10; 14:25 Body Mass Index 34.18 (79.38 kg, 152.4 cm) ap3 14:25 Pain Scale: Adult ap3 Trauma Score (Adult): 14:27 Eye Response: spontaneous(1); Verbal Response: oriented(1); Motor Response: obeys ap3 commands(2); Systolic BP: > 89 mm Hg(4); Respiratory Rate: 10 to 29 per min(4); [place] Score: 15; Trauma Score: 12 ED Course: 14:01 Patient arrived in ED. as 14:05 Yovany Marquis MD is Attending Physician. ec2 14:26 Triage completed. ap3 14:27 Arm band placed on left wrist. ap3 15:17 Foot Right 3 View XRAY In Process Unspecified. EDMS 15:17 Tib Fib Left XRAY In Process Unspecified. EDMS 15:44 Dhaval Blair MD is Referral Physician. ec2 16:12 Wojciech Solis, RN is Primary Nurse. jb4 16:12 Patient has correct armband on for positive identification. Bed in low position. Call jb4 light in reach. Side rails up X 1. Provided Education on: discharge instructions.. 16:12 No provider procedures requiring assistance completed. Patient did not have IV access jb4 during this emergency room visit. Administered Medications: No medications were administered Medication: 16:12 VIS not applicable for this client. jb4 Outcome: 15:44 Discharge ordered by . ec2 16:12 Discharged to home ambulatory, jb4 16:12 Condition: stable 16:12 Discharge instructions given to patient, Instructed on discharge instructions, follow up and referral plans. Demonstrated understanding of instructions, follow-up care, 16:13 Patient left the ED. jb4 Signatures: Dispatcher [employer] Vidya Nicholson James, RN RN jb4 Dacia Jackson RN RN ap3 Yovany Marquis MD MD ec2
[2024-08-27 16:18] VITALS: BP 142/77; TEMP 98.1; O2SAT 100
== END 2024-08-27 16:13 | disposition home or self-care (01) ==
LOC: ER 13:59
DX: S92.414A Nondisplaced fracture of proximal phalanx of right great toe, initial encounter for closed fracture (principal)
CPT/HCPCS: 99282